=== PATIENT | female | born 1945 | race Caucasian/White ===

== ENCOUNTER → 2023-08-05 10:25 | Outpatient (REF) | payer OTHER, SELFPAY ==
[2023-08-05 11:12] LABS: % Basophils 0.5 % (0-2); % Eosinophils 2.8 % (0-6); % Immature Granulocytes 0.2 % (0-0.5); % Lymphocytes 28.2 % (20.5-51.1); % Monocytes 10.8 % (1.7-9.3); % Neutrophils 57.5 % (42.2-75.2); Absolute Eosinophils 0.2 10^3/uL (0-0.7); Absolute Lymphocytes 1.8 10^3/uL (1.2-3.4); Absolute Monocytes 0.7 10^3/uL (0.1-0.6); Absolute Neutrophils 3.8 10^3/uL (1.4-6.5); Hematocrit 39.4 % (37.0-47.0); Hemoglobin 13.3 g/dL (12.0-16.0); Mean Corp Hgb Conc. 33.8 g/dL (33.0-37.0); Mean Corpuscular Hgb 37.6 pg (27.0-31.0); Mean Corpuscular Volume 111.3 fL (81.0-99.0); Mean Platelet Volume 11.1 fL (7.4-10.4); Nucleated Red Blood Cells % 0 %; Platelet Count 130 10^3/uL (130-400); Red Blood Cell Count 3.54 10^6/uL (4.20-5.40); Red Cell Dist. Width 13.3 % (11.5-14.5); White Blood Cell Count 6.5 10^3/uL (4.8-10.8)
[2023-08-05 11:36] LABS: ALT (SGPT) 21 U/L (0-35); AST (SGOT) 29 U/L (14-36); Alkaline Phosphatase 69 U/L (38-126); Blood Urea Nitrogen 36 mg/dl (7-17); Calcium 9.2 mg/dl (8.4-10.2); Carbon Dioxide 33 mmol/L (22-30); Chloride 97 mmol/L (98-107); Glucose 89 mg/dl (70-99); Sodium 136 mmol/L (135-145); Total Bilirubin 0.9 mg/dl (0.2-1.3); Total Protein 5.6 g/dl (6.3-8.2); eGFR > 60.00
[2023-08-05 12:53] LABS: Urine Protein 628 mg/dl (0-12)
[2023-08-05 12:54] LABS: 24 Hour Urine Total Volume 1200 ml
== END ==
LOC: REG 10:25
PROVIDERS: ATTENDING PHYSICIAN Nurse Practitioner Adult Health; FAMILY PHYSICIAN Internal Medicine; OTHER PHYSICIAN Specialist; REFERRING PHYSICIAN Internal Medicine Hematology & Oncology
DX: D47.2 Monoclonal gammopathy (principal); D46.9 Myelodysplastic syndrome, unspecified; C54.1 Malignant neoplasm of endometrium; Z12.31 Encounter for screening mammogram for malignant neoplasm of breast
CPT/HCPCS: 36415; 80053; 81050; 84156; 85025

== ENCOUNTER → 2023-09-07 14:36 | Outpatient (REF) | payer OTHER, SELFPAY ==
[2023-09-07 15:31] LABS: % Basophils 0.2 % (0-2); % Eosinophils 0.1 % (0-6); % Immature Granulocytes 0.8 % (0-0.5); % Lymphocytes 3.4 % (20.5-51.1); % Monocytes 4.9 % (1.7-9.3); % Neutrophils 90.6 % (42.2-75.2); Absolute Immature Granulocytes 0.1 10^3/uL (0-0.05); Absolute Lymphocytes 0.5 10^3/uL (1.2-3.4); Absolute Monocytes 0.7 10^3/uL (0.1-0.6); Absolute Neutrophils 13.8 10^3/uL (1.4-6.5); Hematocrit 43.3 % (37.0-47.0); Hemoglobin 15.3 g/dL (12.0-16.0); Mean Corp Hgb Conc. 35.3 g/dL (33.0-37.0); Mean Corpuscular Volume 104.6 fL (81.0-99.0); Mean Platelet Volume 10.7 fL (7.4-10.4); Nucleated Red Blood Cells % 0 %; Platelet Count 128 10^3/uL (130-400); Red Blood Cell Count 4.14 10^6/uL (4.20-5.40); Red Cell Dist. Width 13.2 % (11.5-14.5); White Blood Cell Count 15.2 10^3/uL (4.8-10.8)
[2023-09-07 15:37] LABS: NT-proBNP 3310 pg/ml
[2023-09-07 15:38] LABS: Protein/creatinine Ratio 7.1; Urine Protein 472 mg/dl
[2023-09-07 15:42] LABS: ALT (SGPT) 91 U/L (0-35); AST (SGOT) 61 U/L (14-36); Albumin 3.2 g/dl (3.5-5.0); Alkaline Phosphatase 67 U/L (38-126); Blood Urea Nitrogen 51 mg/dl (7-17); Calcium 8.4 mg/dl (8.4-10.2); Carbon Dioxide 26 mmol/L (22-30); Chloride 97 mmol/L (98-107); Glucose 229 mg/dl (70-99); Magnesium 2.2 mg/dl (1.6-2.3); Potassium 4.6 mmol/L (3.5-5.1); Sodium 127 mmol/L (135-145); Total Bilirubin 1.3 mg/dl (0.2-1.3); Total Protein 5.6 g/dl (6.3-8.2); eGFR 57.66
[2023-09-07 16:14] LABS: Hepatitis B Surface Antigen Negative (Negative)
[2023-09-07 16:32] LABS: Hepatitis B Core Ab, Total Negative (Negative); Hepatitis B Surface Antibody Negative; Hepatitis C Antibody Negative (Negative)
[2023-09-08 23:28] LABS: Complement C3 98 mg/dl (88-165)
[2023-09-09 22:16] LABS: ANA, IgG Reflex to HEp-2 None Detected (None Detected)
[2023-09-10 01:30] LABS: Phospholipase A2 Receptor, IgG <1:10 (<1:10)
[2023-09-10 17:22] LABS: Myeloperoxidase Antibody 1 AU/mL (0-19); Serine Protease-3, IgG 0 AU/mL (0-19)
== END ==
LOC: REG 14:36
PROVIDERS: ATTENDING PHYSICIAN Specialist; FAMILY PHYSICIAN Internal Medicine; REFERRING PHYSICIAN Internal Medicine Hematology & Oncology
DX: N04.9 Nephrotic syndrome with unspecified morphologic changes (principal); R60.0 Localized edema; I10 Essential (primary) hypertension; R80.9 Proteinuria, unspecified
CPT/HCPCS: 36415; 80053; 82570; 83516; 83735; 83880; 84156; 85025; 86038; 86160; 86255; 86704; 86706; 86803; 87340

== ENCOUNTER 2023-09-24 15:02 | Inpatient (IN) | payer OTHER, SELFPAY ==
[2023-09-24] VITALS (12 sets, daily range): BP systolic 94–143; BP diastolic 56–103; BMI 50.1; BMI 45.9
--- NOTE | 2023-09-24 10:08 | ED.GENMED ---
History of Present Illness
General
Chief Complaint: Swelling
Source: patient
Exam Limitations: none
Time Seen by Provider: 09/24/23 09:06
Nursing documentation reviewed up to this point in time: agreed with
Travel History
Have you had any contact with someone who has COVID-19?: No
Do you have any symptoms of coronavirus? Fever > 100 degrees, chills, cough, shortness of breath, sore throat, loss of taste or smell, muscle aches, or headache?: No
History of Present Illness
History of Present Illness:
78-year-old female presents with fatigue lower extremity swelling oozing from her feet weakness hypothermia history of uterine cancer with what sounds like some renal involvement was on steroids, told to wean off she did it quicker than instructed
has not been on it for few days no fevers but does feel chilled, no vomiting
Past History
Past History
ED Past Medical History: Arrthythmia, Cancer and HTN
ED Past Surgical History: Appendectomy and Gynecological
Social History
Tobacco: Non-smoker
Personal:
Employment: Retired
Phy Exam
Physical Exam
Physical Exam:
Physical Exam
General: Hypothermic ill-appearing female hypotensive
Neck: No jaundice
Heart: Rapid and irregular
Lungs: no acute respiratory distress.
Abdomen:non tender
Neuro: alert and oriented. no focal neurological deficits
Skin: no rash
Psychiatric: well kept. interactive and cooperative
Extremities: no edema. no calf tenderness. negative homans. good distal pulses
Scores
Heart Failure Risk
Heart Failure Risk Score: Not Applicable
Course
Orders/Labs/Results
Orders:
Orders
09/24/23 09:53
Cardiac Monitoring- Treatment ONCE
0.9% Sodium Chloride 1000 ml [Nss] 1,400 ml IV NOW STA
09/24/23 09:54
Electrocardiogram (*1) Urgent
Reason for Study: Other
Other Reason for Exam: sepsis
EKG- Treatment ONCE
CR Chest Portable - 1 View Urgent
Comment:
Reason For Exam: sepsis low bp
Reason Study Needs to be Portable: Patient Unstable
09/24/23 09:55
Piperacillin/Tazo 3.375 Gram [Zosyn] 3.375 gram in 50 ml IV NOW
09/24/23 10:05
Vancomycin [Vancocin] 2,000 mg 0.9% Sodium Chloride 500 ml [Nss] 500 ml IV NOW
09/24/23 10:45
Cortisol, Random Urgent
NT-proBNP Urgent
Comment: ADD ON
Procalcitonin Urgent
PCT Algorithmm Indication: Sepsis
Troponin I Urgent
09/24/23 10:46
Complete Blood Count/With Diff Urgent
Comprehensive Metabolic Panel Urgent
Lactic Acid Q4H
Comment: CANCEL 2nd LACTIC ACID IF 1st LACTIC ACID IS LESS THAN 2
PTT Urgent
Prothrombin Time Urgent
09/24/23 10:57
Urinalysis Reflex To Culture Urgent
Date Specimen was Collected: 09/24/23
Time Specimen was Collected: 10:36
Urine Microscopic Reflex Cult Urgent
Blood Culture Q30M
KAT Source: Blood/Venous
Specimen Description:
Blood Culture Q30M
KAT Source: Blood/Venous
Specimen Description:
Urine Culture Urgent
KAT Source: U
Specimen Description:
Date Specimen was Collected: 09/24/23
Time Specimen was Collected: 10:36
09/24/23 12:05
Add On- LAB Urgent
Tests Added?: pBNP, CMP
09/24/23 12:41
Piperacillin/Tazo 3.375 Gram [Zosyn] 3.375 gram in 50 ml .ROUTE .STK-MED
09/24/23 12:59
Hydrocortisone Sod Succinate [Solu-Cortef] 100 mg IV NOW STA
Abnormal Lab Results
09/24/23 09/24/23 09/24/23
10:45 10:46 10:57
RBC 3.58 L 10^6/uL
(4.20-5.40)
MCV 105.0 H fL
(81.0-99.0)
MCH 37.2 H pg
(27.0-31.0)
Abs Immat Gran (auto) 0.1 H 10^3/uL
(0-0.05)
Absolute Lymphs (auto) 1.1 L 10^3/uL
(1.2-3.4)
Absolute Monos (auto) 0.7 H 10^3/uL
(0.1-0.6)
Immature Gran % 0.7 H %
(0-0.5)
Neutrophils % 76.5 H %
(42.2-75.2)
Lymphocytes % 14.1 L %
(20.5-51.1)
PT 15.9 H Sec
(11.4-14.6)
Sodium 133 L mmol/L
(135-145)
BUN 81 H mg/dl
(7-17)
Creatinine 1.1 H mg/dL
(0.6-1.0)
Glucose 245 H mg/dl
(70-99)
ALT 98 H U/L
(0-35)
Troponin I 3.400 H* ng/ml
Total Protein 5.0 L g/dl
(6.3-8.2)
Albumin 2.6 L g/dl
(3.5-5.0)
Ur Occult Blood Reflex 2+ A
(Negative)
Leukocyte Esterase Rfl 2+ A
(Negative)
Urine RBC 3-6 A /HPF
(0-2)
Urine WBC (Reflex) 30-40 A /HPF
(0-5)
Urine Bacteria (Reflex) Many A
(Negative)
Urine Glucose 2+ A
(Negative)
Urine Albumin (Reflex) 2+ A
(Neg - Trace)
09/24/23 10:46
09/24/23 10:46
Vital Signs
Initial and Last Documented VS:
Initial Vital Signs
Pulse Resp BP Pulse Ox
87 22 143/92 98
09/24/23 07:38 09/24/23 07:38 09/24/23 07:38 09/24/23 07:38
Last Documented Vital Signs
Temp Pulse Resp BP Pulse Ox
98.0 F 117 11 121/102 98
09/24/23 09:23 09/24/23 12:30 09/24/23 12:30 09/24/23 12:00 09/24/23 07:38
MDM/Problems Addressed
Differential Diagnosis Includes:
Sepsis hypothyroid adrenal insufficiency combination
MDM/Problems Addressed:
Fatigue leg swelling leg redness low blood pressure hypothermic
Chronic conditions affecting care: Cancer
Acute Exacerbation and/or Progression of Chronic Illness: Cancer
*Radiology
Radiology exam reviewed: preliminary read by ED provider
*Pulse Oximetry
Patient hypoxic: no
*EKG
Interpreted by ED Provider?: Yes
Interpretation: abnormal
Comparison EKG: changes noted
Heart Rate: 104
Rate: tachycardiac
Rhythm: a-fib
Ischemia: non-specific ST changes
*Regulatory Administrator Interpretation
Rate: tachycardiac
Interpretation: abnormal
Heart Rate: 104
Rhythm: a-fib
*Critical Care Note
Total Time (30-74mins, 75-104mins- exclusive of procedures): 30
Update Note
Update Note:
1 PM labs noted chest x-ray noted blood pressure improving with volume procalcitonin noted has received antibiotics doubt PE he is on Eliquis will give stress dose steroids will require admission
ED Attending Note
-
Portions of this chart may have been created with voice recognition software.� Occasional wrong word or��sound alike� substitutions may have occurred due to the inherent limitations of voice recognition software.
Discharge Plan
Departure
Patient Disposition: Admit
Date of Disposition: 09/24/23
Time of Disposition: 13:06
Admit to: Telemetry
Presentation/result/management discussed w/ accepting MD/DO: Hospitalist
Patient with high blood pressure during this ER visit?: No
Condition: Fair
Covid-19: Not Applicable
Discharge Problem:
Cellulitis, Elevated troponin, Concern for adrenal insufficiency
Prescriptions:
No Action
allopurinol 100 MG tablet
100 mg PO QPM
atenolol-chlorthalidone 50-25 mg Tablet
1 tab PO DAILY
bismuth subsalicylate [Pepto-Bismol] 262 mg/15 mL Suspension
524 mg PO ONCE PRN (Reason: stomach discomfort)
Patient Comments:
09/24/2023, pt. used twice in one day a couple days ago as needed.
candesartan 8 mg Tablet
8 mg PO DAILY
Eliquis 2.5 mg Tablet
2.5 mg PO BID
Referrals:
Theresa Fernandes MD [Family Provider] -
Interventions
Interventions:
*Risk Screen - Suicide Last Done: 09/24/23 07:38
*General Assessment Last Done: 09/24/23 07:38
*Neglect/Abuse Screening Last Done: 09/24/23 07:38
ED- Cardiac Assessment Last Done: 09/24/23 08:35
ED- Pulmonary Assessment Last Done: 09/24/23 08:35
ED-Skin Assessment Last Done: 09/24/23 08:39
[2023-09-24] MEDS: VANCOCIN 540 MG IV (11:08)
[2023-09-24] MEDS: NSS 1400 ML IV (11:09)
[2023-09-24 11:22] LABS: % Basophils 0.2 % (0-2); % Eosinophils 0.1 % (0-6); % Immature Granulocytes 0.7 % (0-0.5); % Lymphocytes 14.1 % (20.5-51.1); % Monocytes 8.4 % (1.7-9.3); % Neutrophils 76.5 % (42.2-75.2); Absolute Immature Granulocytes 0.1 10^3/uL (0-0.05); Absolute Lymphocytes 1.1 10^3/uL (1.2-3.4); Absolute Monocytes 0.7 10^3/uL (0.1-0.6); Absolute Neutrophils 6.2 10^3/uL (1.4-6.5); Hematocrit 37.6 % (37.0-47.0); Hemoglobin 13.3 g/dL (12.0-16.0); Mean Corp Hgb Conc. 35.4 g/dL (33.0-37.0); Mean Corpuscular Hgb 37.2 pg (27.0-31.0); Nucleated Red Blood Cells % 0 %; Red Blood Cell Count 3.58 10^6/uL (4.20-5.40); Red Cell Dist. Width 13.4 % (11.5-14.5); White Blood Cell Count 8.1 10^3/uL (4.8-10.8)
[2023-09-24 11:26] LABS: Lactic Acid 1.6 mmol/L (0.7-2.0)
[2023-09-24 11:44] LABS: Procalcitonin 0.08 ng/ml (0.0-0.25)
[2023-09-24 11:57] LABS: Urine Albumin 2+ (Neg - Trace); Urine Bilirubin Negative (Negative); Urine Character Clear (Clear); Urine Color Yellow; Urine Glucose 2+ (Negative); Urine Ketone Negative (Negative); Urine Leukocyte 2+ (Negative); Urine Nitrite Negative (Negative); Urine Occult Blood 2+ (Negative); Urine Urobilinogen Negative (Neg - 1+)
[2023-09-24 12:28] LABS: APTT 25.4 Sec (23.4-35.0); PT 15.9 Sec (11.4-14.6)
[2023-09-24 12:29] LABS: INR 1.29
[2023-09-24 12:55] LABS: ALT (SGPT) 98 U/L (0-35); AST (SGOT) 35 U/L (14-36); Albumin 2.6 g/dl (3.5-5.0); Alkaline Phosphatase 66 U/L (38-126); Blood Urea Nitrogen 81 mg/dl (7-17); Calcium 9.1 mg/dl (8.4-10.2); Carbon Dioxide 30 mmol/L (22-30); Chloride 99 mmol/L (98-107); Estimated Creatinine Clearance 51 ml/min; Glucose 245 mg/dl (70-99); Potassium 4.2 mmol/L (3.5-5.1); Sodium 133 mmol/L (135-145); eGFR 51.43
[2023-09-24 12:57] LABS: NT-proBNP 4160 pg/ml
[2023-09-24 12:58] LABS: Urine Mucus Few
[2023-09-24 13:03] LABS: Cortisol, Random 24.8 ug/dl
[2023-09-24 13:04] LABS: Urine Amorphous Seen; Urine Squamous Cell 26-30 /LPF (Few)
[2023-09-24 13:05] LABS: Urine Bacteria Many (Negative); Urine White Cell 30-40 /HPF (0-5)
[2023-09-24] MEDS: SOLU-CORTEF 100 MG IV (13:25)
[2023-09-24] MEDS: ZOSYN 50 IV (13:27)
--- NOTE | 2023-09-24 14:05 | HPS.HSE ---
Addendum entered and electronically signed by Ralf Ross MD 09/24/23 16:15:
I saw and examined the patient.
The MOLD YARD SUPERVISOR or PA's note was reviewed and I agree with the note.
Comment: 78-year-old female complaining of Fatigue, weakness to legs x 2 days, erythema to left foot x 1 day. Patient admitted for cellulitis. Patient has stopped her IV chemotherapy due to proteinuria, worked up by renal and started on
prednisone. Patient had stopped prednisone taper on her own due to facial and hand spasms. Also has complained of worsening swelling in the lower extremities, most likely secondary to proteinuria, nephrotic syndrome. Patient had outpatient workup
to be completed, yet not done for nephrotic syndrome. Patient stopped prednisone 1 week ago. Further started having chest pains, pressure over the last 2 weeks, especially during exertion. Tachycardic (atrial fibrillation), tachypneic on
evaluation. Sodium 133, creatinine 1.1 (1 approximately 2 weeks ago), troponin 3.4. X-ray with no acute pulmonary process. Last echo with EF 60%, severe biatrial dilation. Mild pulm hypertension.
Plan�already on Eliquis, provide aspirin, trend troponins, cardiology consult. Hold on Lasix as lower extremity edema most likely secondary to nephrotic syndrome. Can hold diuretics at this point due to labile blood pressures. Can continue
beta-damon. Start cefazolin for cellulitis.
Original Note:
Family Physician
-
Family Physician: Theresa Fernandes
Chief Complaint
-
Fatigue, weakness to legs x 2 days, erythema to feet x 1 day
History of Present Illness
78-year-old female complaining of Fatigue, weakness to legs x 2 days, erythema to feet x 1 day. The patient reports she stopped IV chemo for uterine cancer in April due to proteinuria. She reports August 23 she was placed on prednisone 40 mg
twice daily and a PPI. Around 2 6 she reports having chest pain with dyspepsia and black stools. She reported this to her oncologist who changed the PPI to Pepcid 20 mg daily. She was also taking Bactrim Wednesday and Wednesday for
prophylactic infection prevention. She reports chronic swelling to her thighs and legs, although increased over the past week along with weakness in her lower extremities increased edema and erythema to her feet since last night at 8 PM after
abruptly stopping 60 mg of prednisone along with Pepcid and Bactrim 1 week ago. She reports she abruptly stopped meds due to spasms in her hands and face. 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 According to records she did
see nephrology once but did not complete outpatient blood work. She was advised mid August to taper down off of prednisone 40 mg a.m. 20 mg p.m. but not to stop. She has bilateral dry hands and right inner thighs which she has been scratching
and has dried scabbed abrasions 2. She reports chills last night but did not take a temperature, denies headache, dizziness, current chest pain, shortness of breath, dyspnea on exertion, abdominal pain, nausea, vomiting, diarrhea, black stools,
blood in urine.
She is past medical history of paroxysmal A-fib, HTN, obesity, uterine cancer Dx 2018 status post hysterectomy, chemo 2019�April 2023 secondary proteinuria, gout.
Medical History
Past Medical History
Past Medical History: Reports Other
Additional Past Medical History:
Uterine cancer diagnosed 2018 status post hysterectomy, chemo from 2019 until April 2023
Proteinuria April 2023 to present per patient
HTN
Paroxysmal A-fib
Obesity
Past Surgical History: Reports Other
Additional Past Surgical History:
Hysterectomy secondary to uterine cancer 2018
appendectomy
tonsillectomy
Right upper chest wall end of 2019
Social History
Tobacco: Non-smoker
Alcohol: None
Drug: None
Employment: Retired
Family History
Family History: Other (Sister uterine cancer in remission, father multiple CVAs, mother unsure history of arthritis)
Allergies / Home Medications
Allergies reflects when Allergies were last updated in [employer]
Home Medications with original date entered in [employer]
Allergy/Medication List:
Allergies
Allergy/AdvReac Type Severity Reaction Status Date / Time
prednisone Allergy Unknown Verified 09/24/23 07:37
Home Medications
allopurinol 100 mg tablet 100 mg PO QPM 07/30/21
apixaban 2.5 mg tablet (Eliquis) 2.5 mg PO BID 09/24/23
atenolol 50 mg-chlorthalidone 25 mg tablet 1 tab PO DAILY 09/24/23
bismuth subsalicylate 262 mg/15 mL oral suspension (Pepto-Bismol) 524 mg PO ONCE PRN stomach discomfort 09/24/23
candesartan 8 mg tablet 8 mg PO DAILY 09/24/23
Review of Systems
-
History Source: Patient
A 12 point ROS was completed and negative except as noted: Yes
Constitutional: Reports Chills and Other (Poor historian with recall of dates); Denies Fever
EENT: Denies Sore Throat or Runny Nose
Respiratory: Denies Cough or Trouble Breathing
Cardiac: Denies Chest Pain, Diaphoresis, Palpitations or Syncope
Abdomen/GI: Denies Abdominal Pain, Nausea, Vomiting, Diarrhea, Constipated, Bloody Stools or Black Stools
: Denies Dysuria, Frequency, Flank Pain, Incontinence, Difficulty Voiding or Urgency
Musculoskeletal: Reports Edema (Thighs to lower feet with erythema to bilateral lower feet); Denies Joint Pain
Skin: Reports Itching (Bilateral hands, inner thighs with scabbed scratch areas)
Neurological: Reports Weakness (To legs with standing x 2 days); Denies Dizzy or Headache
Endocrine: Reports No Symptoms
Hematologic/Lymphatic: Reports No Symptoms
Psych: Reports Calm
Physical Exam
Vital Signs
Vital Signs
Temp Pulse Resp BP Pulse Ox
98.0 F 109 19 100/87 98
09/24/23 09:23 09/24/23 13:30 09/24/23 13:30 09/24/23 13:00 09/24/23 07:38
Physical Exam
General: Comfortable, Conversant and Chills; No Fever
HEENT: NormoCephalic, Anicteric, Moist mucous membranes and PERRLA
Respiratory: Clear and Other (Port right upper chest wall); No Wheezes, Rales or Rhonchi
Cardiac: S1/S2, Irregular Rhythm (A-fib) and Peripheral Edema (Bilateral legs from thighs to feet +2 pitting to feet with erythema from toes to ankles); No Murmur, Rub, Gallop or JVD
GI: Soft, Non Tender, Non Distended, Normal Bowel Sounds and No Hepatosplenomegaly
Genito-urinary: Deferred by me
Musculoskeletal: No Clubbing, No Cyanosis, Edema, Left Lower Extremity (Bilateral legs from thighs to feet +2 pitting to feet with erythema from toes to ankles) and Edema, Right Lower Extremity (Bilateral legs from thighs to feet +2 pitting to feet
with erythema from toes to ankles); No Edema, Left Upper Extremity or Edema, Right Upper Extremity
Skin: Rash (Bilateral hands, inner thighs with scabbed scratch areas)
Neuro: AO x 3 (Although very poor historian, poor memory recall) and No Sensory Deficits; No Slurred Speech, Facial Droop, Tremors or Sedated
Psych: Calm
Laboratory Results
-
09/24/23 10:46
09/24/23 10:46
Laboratory Results
PT 15.9 Sec (11.4-14.6) H 09/24/23 10:46
INR 1.29 09/24/23 10:46
APTT 25.4 Sec (23.4-35.0) 09/24/23 10:46
Lactic Acid Cancelled 09/24/23 14:00
Total Bilirubin 1.0 mg/dl (0.2-1.3) 09/24/23 10:46
AST 35 U/L (14-36) 09/24/23 10:46
ALT 98 U/L (0-35) H 09/24/23 10:46
Alkaline Phosphatase 66 U/L (38-126) 09/24/23 10:46
Troponin I 3.400 ng/ml H* 09/24/23 10:45
Impression/Plan
-
Impression/plan:
Admit to telemetry
#NSTEMI
Troponin 3.4 will trend
-2D echo
-Consult CBC card
EKG: Accelerated junctional rhythm heart rate 106 bpm, QTc 390 MS T wave inversion lateral leads, ST depression lateral leads
#Acute hyperglycemia likely secondary to recent steroids
BS 245, check HgbA1c
-Accu-Cheks with SSI moderate
#History proteinuria concern nephrotic syndrome
#Mild RHONDA
Creat 1.1 baseline 0.02 August 2023
Was on prednisone 40 mg twice daily started August 23 abruptly stopped prednisone 60 mg 1 week ago 09/17
-Abruptly stopped Bactrim Wednesday also on 09/17
-Random cortisol normal 24.8
-Had outpatient follow-up with Dr. Polk
- RESUME Prednsione 40 mg am 20 mg hs
-ADD PPI
#Left foot cellulitis with underling PVD/acute on Chornic Peripheral edema? nephrotic syndrome
- venous doppler bilat ? concern eliquis compliance
-Iv ancef
#Hypotension/HTN�benign
-100/76
-Hold candesartan 8 mg daily, atenolol/chlorthalidone patient took this a.m. 09/24/2023
#Hx uterine cancer
#Hysterectomy 2019
#Port right upper chest wall
#Chemotherapy from 2019 to April 2023 stopped due to proteinuria per patient
COnsult ONC
#Paroxysmal A-fib
-Continue Eliquis 2.5 mg twice daily
-COnt Atenolol HOLD SBP>90
-HOLD chlorthalidone 1 tab p.o. daily due to hypotension
2D echo 11/27/2021: EF 60-65%, normal LVS LVSF, no wall abnormality, severe left atrial enlargement, moderate right atrial enlargement, mod�severe TR, severe pulm HTN PASP 71 mmHg
#Moderate�severe TR
#Pulmonary HTN
#Gout
Continue allopurinol 100 mg daily
#Morbid obesity due to excess calorie consumption�BMI 50.1 kg
-Weight loss recommended, low-fat diet
DVT prophylaxis
Continue TICKET DISPENSER CHANGER Eliquis 2.5 mg twice daily
Full code
[2023-09-24 16:24] LABS: D-Dimer < 0.27 ug/mlFEU (0.00-0.50)
--- NOTE | 2023-09-24 17:13 | CON.CAR ---
Addendum entered and electronically signed by Connor Ng MD 09/24/23 19:23:
I saw and examined the patient.
The HPLC CHEMIST's note was reviewed and I agree with the note.
Comment: 78-year-old female (known to her former musical instrument supervisor, Dr. Tang, will be following with Dr. Ng), with permanent atrial fibrillation, hypertension, metastatic endometrial carcinoma, nephrotic proteinuria, chronic lymphedema, and
obesity who presented to the emergency department with a chief complaint of lower extremity redness.� She also likely has had an NSTEMI with symptoms of typical angina in August. Finally, she tells me the prednisone was terrible for her and led
to weight gain and LE swelling.
- Heparin gtt, aspirin, statin, hold AC for pAF HR is currently controlled
- given significant proteinuria and concern for nephrotic syndrome, recommend UA with nephro consult
TTE:
CONCLUSIONS
�Normal left ventricular size and systolic function. LV ejection fraction is 70-
�75% by visual assessment.
�Mild concentric left ventricular hypertrophy.
�Mild mitral regurgitation.
�Moderate tricuspid regurgitation. Estimated pulmonary artery pressure of 40-45
�mmHg
�No significant change since the prior study of Jan 2023.
Original Note:
Consultation
Consultation Request
Date/Time Consultation Requested: 09/24/23 15:00
Date/Time Consultation Performed: 09/24/23 17:00
Requesting Provider: SHANTHI Bell
Performing Provider: SHANTHI Bocanegra for Dr. Ng
Reason for Consultation: NSTEMI
Medical History
-
Chief Complaint: Lower extremity edema
History of Present Illness:
Sangeeta Evans is a 78-year-old female (known to her former musical instrument supervisor, Dr. Tang, will be following with Dr. Ng), with permanent atrial fibrillation, hypertension, metastatic endometrial carcinoma, nephrotic proteinuria, chronic
lymphedema, and obesity who presented to the emergency department with a chief complaint of lower extremity redness. She endorses associated edema, fatigue, and weakness. Cardiology was consulted as she was found to have an abnormal troponin.
Initial troponin 3.400, follow-up troponin 2.980. She is not having any chest pain or anginal symptoms currently. She reports having exertional chest burning with dyspnea on exertion in early August. She attributed it to her Bactrim and
prednisone which was started by nephrology for her nephrotic proteinuria.
Past Medical History
Past Medical History: Arrhythmias (Permanent atrial fibrillation), Cancer (Uterine), CHF and Other (Proteinuria)
Past Surgical History: Gynecological
Social History
Tobacco: Non-Smoker
Alcohol: None
Drug: None
Living: With Family (Sister)
Employment: Retired
Family History
Family History: Reviewed & Not Pertinent
Allergies / Home Medications
Allergy/AdvReac Type Severity Reaction Status Date / Time
prednisone Allergy Unknown Verified 09/24/23 07:37
Medication Instructions Recorded Confirmed Type
allopurinol 100 mg tablet 100 mg PO QPM Gout 07/30/21 09/24/23 History
apixaban 2.5 mg tablet (Eliquis) 2.5 mg PO BID Blood Clot 09/24/23 09/24/23 History
Prevention/Tx
atenolol 50 mg-chlorthalidone 25 1 tab PO DAILY Blood Pressure 09/24/23 09/24/23 History
mg tablet
bismuth subsalicylate 262 mg/15 mL 524 mg PO DAILYPRN PRN stomach 09/24/23 09/24/23 History
oral suspension (Pepto-Bismol) discomfort
candesartan 8 mg tablet 8 mg PO DAILY Blood Pressure 09/24/23 09/24/23 History
Review of Systems
-
History Source: Patient
All other systems: Negative unless noted
Constitutional: Fatigue
Cardiac: No Symptoms
Musculoskeletal: Edema
Physical Exam
Vital Signs
Temp Pulse Resp BP Pulse Ox
98.0 F 120 18 124/56 98
09/24/23 09:23 09/24/23 16:15 09/24/23 16:15 09/24/23 15:00 09/24/23 07:38
Lab Results
09/24/23 10:46
09/24/23 10:46
Troponin I 2.980 ng/ml H* 09/24/23 14:57
Awi-X-Aazrkxfmufj Pept 4160 pg/ml 09/24/23 10:45
Physical Exam
General: Well Developed, Well Nourished, No Apparent Distress and Comfortable
HEENT: Normocephalic, Anicteric and Moist Mucous Membranes
Respiratory: Non Labored Respirations
Cardiac: S1/S2, Irregular Rhythm and Peripheral Edema (+3 pitting LE edema)
Breast: Deferred by me
GI: Soft, Non Tender, Non Distended and Normal Bowel Sounds
Rectal: Deferred by Provider
Genito-urinary: No Costovertebral Tender
Musculoskeletal: No Clubbing and No Cyanosis
Skin: Warm, Dry and Other (B/L LE redness)
Neuro: AO x 3
Hematologic/Lymphatic: No Lymphadenopathy
Psych: Calm
Impression / Plan
-
NSTEMI
-ASA 325mg given, start 81mg daily
-Hold apixaban and start heparin gtt
-Trend troponin
-TTE
-She reports having exertional chest burning and PACK in early August which has now resolved
-Ischemic evaluation during this hospitalization
Permanent atrial fibrillation
-Rates stable on atenolol
-Oral Anticoagulation: Apixaban 2.5 mg twice daily, appropriate dosing for her age weight and renal function would be 5 mg twice daily
-[id number]: Score at least 4 (Heart failure, age 75 or more, female gender)
Severe lower extremity edema, furosemide 40 mg IV x 1 now, reevaluate in a.m.
Proteinuria, saw Dr. Polk outpatient, self discontinued prednisone & Bactrim
Mild mitral regurgitation
Moderate tricuspid regurgitation
Metastatic endometrial carcinoma, managed by Dr. Goldstein
Severe morbid obesity, BMI 50, affects all aspects of care
Data Reviewed
-
EKG: Report Reviewed by me (Atrial fibrillation with PVCs, lateral ST abnormality, TWI lateral leads, rate 106)
Radiology: Report Reviewed by me (CXR: No acute pulmonary process.)
Medical Tests (Nuc Med, Echo etc): Report Reviewed by me (Echocardiogram as above)
Labs: Labs Reviewed by me
Old Records: Reviewed
[2023-09-24] MEDS: HEPARIN 4000 UNITS IV (18:04)
[2023-09-24] MEDS: LASIX 40 MG IV (18:04)
[2023-09-24] MEDS: ZYLOPRIM 100 MG PO (18:05)
[2023-09-24] MEDS: ASPIRIN 325 MG PO (18:06)
[2023-09-24] MEDS: ANCEF 5 IV (18:09)
[2023-09-24 18:11] LABS: Glucose - Point of Care 167 mg/dl (70-99)
[2023-09-24] MEDS: HEPARIN 25000 UNITS/250 ML IV (18:16)
--- NOTE | 2023-09-24 18:40 | PTCARENOTE ---
1830 Explain to pt, started IV Heparin drip via right SQ port as per MD order. When I explained to pt has prednisone 20 mg po ordered pm dose,
Pt refused med and mention had face swelling could not move hands and feet were Black in color,caused by prednisone and was taken off medication.
1840 DR. Ross notified pt refused med, report given to night warehouse selector nurse.
[2023-09-24] MEDS: NOVOLOG FLEXPEN-LOW RESISTANCE 1 UNITS SC (19:09)
--- NOTE | 2023-09-24 20:03 | VATNOTE ---
unsuccessful start for 2nd line for heparin x3. PCN informed. Heparin will continue infusing via port and phlebotomy to draw labs.
[2023-09-24 21:19] LABS: Glucose - Point of Care 286 mg/dl (70-99)
[2023-09-24] MEDS: DESENEX/MITRAZOL/ZEASORB 1 APPLIC TOPICAL (21:30)
[2023-09-25] VITALS (8 sets, daily range): BP systolic 84–138; BP diastolic 48–83; BMI 45.3
[2023-09-25 01:44] LABS: APTT 190.9 Sec (23.4-35.0)
[2023-09-25] MEDS: ANCEF 5 IV ×3 (01:54→17:08)
--- NOTE | 2023-09-25 07:36 | CON.ONC ---
Impression
Impression
CAD s/p NSTEMI
L foot cellulitis
Uterine cancer diagnosed 2019 status post hysterectomy, Carbo/taxane x 6 08/16 - 02/13 followed by maintenance Avastin through April 2023, D/C'd for nephrotic range proteinuria
- metastases: spleen, doug hepatis and r/p nodes, omentum, lung
- last scan: 07/29/23 stable b/l pulmonary nodules and splenic masses, otherwise ANDRES
HTN
Paroxysmal A-fib
Obesity
Nephrotic range proteinuria
IgM kappa MGUS
Plan
Plan
Nephrotic range proteinuria, likely due to Avastin, however pt has hx IgM MGUS and I do not see a UPEP done on 24-hr urine nor recent myeloma panel.
24-hr urine for UPEP and myeloma panel now. She has been on steroids and results may not be a good indication of underlying process unless positive for Bence-Miner protein.
Her endometrial cancer has been indolent in behavior as per Dr. Goldstein's office notes. Last scan 07/29/23 with stable pulmonary nodules and splenic lesions.
No current symptoms related to her cancer and no signs or symptoms of disease progression.
Last Avastin 05/18/23.
Thank you for consult, will follow along with you.
Patient History
History of Present Illness
78-year-old female complaining of fatigue, weakness to legs x 2 days, erythema to feet x 1 day.� The patient reports she stopped IV chemo for uterine cancer in April due to proteinuria.� She reports August 23 she was placed on prednisone 40 mg
twice daily and a PPI.� Around 2/6 she had chest pain with dyspepsia and black stools.� She reports chronic swelling to her thighs and legs, although increased over the past week along with weakness in her lower extremities increased edema and
erythema to her feet. She had shaking with prednisone and stopped abruptly due to muscle spasms in her hands and face.� According to records she did see Nephrology once but did not complete outpatient blood work.� She was advised mid August to
taper down off of prednisone 40 mg a.m. 20 mg p.m. but not to stop.��She presented to the emergency department with a chief complaint of lower extremity redness.� She also likely has had an NSTEMI with symptoms of typical angina in August.
Past-Medical/Surgical History
PMHx:
Uterine cancer diagnosed 2019 status post hysterectomy, Carbo/taxane x 6 08/16 - 02/13 followed by maintenance Avastin through April 2023, D/C'd for nephrotic range proteinuria
- metastases: spleen, doug hepatis and r/p nodes, omentum, lung
- last scan: 07/29/23 stable b/l pulmonary nodules and splenic masses
- MSI stable
HTN
Paroxysmal A-fib
Obesity
Nephrotic range proteinuria
IgM kappa MGUS
PSHx:
SARAH/BSO/omentectomy 07/10/21 for endometrial cancer
Appendectomy
Tonsillectomy
Right upper chest wall port
Social History
Tobacco: Non-smoker
Alcohol: None
Drug: None
Employment: Retired
Family History
Sister uterine cancer in remission
Patient Medication
Medication Instructions Recorded Confirmed Last Taken Type
allopurinol 100 mg tablet 100 mg PO QPM Gout 07/30/21 09/24/23 09/23/23 History
apixaban 2.5 mg tablet (Eliquis) 2.5 mg PO BID Blood Clot 09/24/23 09/24/23 09/24/23 History
Prevention/Tx
atenolol 50 mg-chlorthalidone 25 1 tab PO DAILY Blood Pressure 09/24/23 09/24/23 09/24/23 History
mg tablet
bismuth subsalicylate 262 mg/15 mL 524 mg PO DAILYPRN PRN stomach 09/24/23 09/24/23 2 Days Ago History
oral suspension (Pepto-Bismol) discomfort ~09/22/23
candesartan 8 mg tablet 8 mg PO DAILY Blood Pressure 09/24/23 09/24/23 09/24/23 History
Active Medications
Generic Name Dose Route Start Last Admin
Trade Name Freq PRN Reason Stop Dose Admin
Acetaminophen 650 mg 09/24/23 17:39
Acetaminophen 325 Mg Tablet PO 10/22/23 17:38
Q4HPRN PRN
mild pain/MCDONOUGH/temp> 100.4F
Allopurinol 100 mg 09/24/23 18:00 09/24/23 18:05
Allopurinol 100 Mg Tablet PO 10/22/23 17:59 100 mg
QPM TOMMY Administration
Aspirin 81 mg 09/25/23 08:00
Aspirin 81 Mg (Enteric Coated) Tablet PO 10/23/23 07:59
DAILY TOMMY
Atenolol 50 mg 09/25/23 08:00
Atenolol 50 Mg Tablet PO 10/23/23 07:59
DAILY TOMMY
Dextrose 12.5 grams 09/24/23 17:39
Dextrose 50% (0.5 Grams/Ml) 50 Ml Syringe IV 10/22/23 17:38
[id number] PRN
hypoglycemia
Protocol
Glucagon 1 mg 09/24/23 17:39
Glucagon 1 Mg Vial IM 10/22/23 17:38
PRN PRN
hypoglycemia
Protocol
Heparin Sodium 25,000 units in 250 mls @ 0 mls/hr 09/24/23 16:30 09/24/23 18:16
Heparin 31595 Units/250 Ml IV 250 mls
PER PROTOCOL TOMMY Administration
Protocol
Per Protocol
Cefazolin Sodium 1 gram in 5 mls @ 60 mls/hr 09/24/23 18:00 09/25/23 01:54
Ancef IV 5 mls
Q8H TOMMY Administration
Insulin Aspart 0 units 09/24/23 17:39 09/24/23 19:09
Insulin Aspart Low Resistance 300 Units/3 Ml Pen.Injctr SC 10/22/23 17:38 1 units
AC TOMMY Administration
Protocol
Miconazole Nitrate 0 applic 09/24/23 21:00 09/24/23 21:30
Miconazole Powder Bottle TOPICAL 10/22/23 20:59 1 applic
BID TOMMY Administration
Pantoprazole Sodium 40 mg 09/25/23 08:00
Pantoprazole 40 Mg Delayed Release Tablet PO 10/23/23 07:59
DAILY TOMMY
Prednisone 40 mg 09/25/23 08:00
Prednisone 20 Mg Tablet PO 10/23/23 07:59
DAILY TOMMY
Prednisone 20 mg 09/24/23 18:00 09/24/23 18:52
Prednisone 20 Mg Tablet PO 10/22/23 17:59 Not Given
QPM TOMMY
Sodium Chloride 0 flush 09/24/23 17:00
Sodium Chloride 0.9% (Flush) Syringe IV 10/22/23 16:59
PER PROTOCOL TOMMY
Review of Systems
-
History Source: Patient
All Other Systems: Reviewed and Negative
Physical Exam
-
Awake, alert, non-toxic
No adenopathy
Lungs clear
Heart rate and rhythm regular
Abd soft and non-tender
Legs 2+ b/l lower extremity edema
Labs
Lab Results
WBC 8.1 10^3/uL (4.8-10.8) 09/24/23 10:46
RBC 3.58 10^6/uL (4.20-5.40) L 09/24/23 10:46
Hgb 13.3 g/dL (12.0-16.0) 09/24/23 10:46
Hct 37.6 % (37.0-47.0) 09/24/23 10:46
MCV 105.0 fL (81.0-99.0) H 09/24/23 10:46
MCH 37.2 pg (27.0-31.0) H 09/24/23 10:46
MCHC 35.4 g/dL (33.0-37.0) 09/24/23 10:46
RDW 13.4 % (11.5-14.5) 09/24/23 10:46
Plt Count 10^3/uL (130-400) 09/24/23 10:46
MPV Not Reportable 09/24/23 10:46
Abs Immat Gran (auto) 0.1 10^3/uL (0-0.05) H 09/24/23 10:46
Absolute Neuts (auto) 6.2 10^3/uL (1.4-6.5) 09/24/23 10:46
Absolute Lymphs (auto) 1.1 10^3/uL (1.2-3.4) L 09/24/23 10:46
Absolute Monos (auto) 0.7 10^3/uL (0.1-0.6) H 09/24/23 10:46
Absolute Eos (auto) 0.0 10^3/uL (0-0.7) 09/24/23 10:46
Absolute Basos (auto) 0.0 10^3/uL (0-0.2) 09/24/23 10:46
Immature Gran % 0.7 % (0-0.5) H 09/24/23 10:46
Neutrophils % 76.5 % (42.2-75.2) H 09/24/23 10:46
Lymphocytes % 14.1 % (20.5-51.1) L 09/24/23 10:46
Monocytes % 8.4 % (1.7-9.3) 09/24/23 10:46
Eosinophils % 0.1 % (0-6) 09/24/23 10:46
Basophils % 0.2 % (0-2) 09/24/23 10:46
Creatinine 1.1 mg/dL (0.6-1.0) H 09/24/23 10:46
09/24/23 CBC - platelets clumped, unable to give accurate count
Troponin 2.59
09/24/23 B/L LE Dopplers - no DVT
09/24/23 CXR - NAD
Vital Signs
Vital Signs
Temp Pulse Resp BP Pulse Ox
97.7 F 93 18 105/63 100
09/25/23 03:30 09/25/23 03:30 09/25/23 03:30 09/25/23 03:30 09/25/23 03:30
[2023-09-25 07:48] LABS: Glucose - Point of Care 182 mg/dl (70-99)
[2023-09-25 08:16] LABS: % Eosinophils 0.2 % (0-6); % Lymphocytes 20.5 % (20.5-51.1); % Neutrophils 70.3 % (42.2-75.2); Absolute Immature Granulocytes 0.1 10^3/uL (0-0.05); Absolute Lymphocytes 1.2 10^3/uL (1.2-3.4); Absolute Monocytes 0.5 10^3/uL (0.1-0.6); Absolute Neutrophils 4.2 10^3/uL (1.4-6.5); Hematocrit 34.5 % (37.0-47.0); Hemoglobin 12.6 g/dL (12.0-16.0); Mean Corp Hgb Conc. 36.5 g/dL (33.0-37.0); Mean Corpuscular Hgb 38.3 pg (27.0-31.0); Mean Corpuscular Volume 104.9 fL (81.0-99.0); Nucleated Red Blood Cells % 0 %; Red Blood Cell Count 3.29 10^6/uL (4.20-5.40); Red Cell Dist. Width 13.5 % (11.5-14.5)
[2023-09-25 08:29] LABS: APTT 121.3 Sec (23.4-35.0)
[2023-09-25] MEDS: TENORMIN 50 MG PO (08:53)
[2023-09-25] MEDS: NOVOLOG FLEXPEN-LOW RESISTANCE 1 UNITS SC ×2 (08:53→12:30)
[2023-09-25] MEDS: PROTONIX PO ×2 (08:54→10:43)
[2023-09-25] MEDS: ASPIR LOW (ENTERIC COATED) 81 MG PO (08:54)
[2023-09-25] MEDS: DESENEX/MITRAZOL/ZEASORB 1 APPLIC TOPICAL ×2 (08:54→20:36)
[2023-09-25 09:04] LABS: Mean Platelet Volume 10.9 fL (7.4-10.4); Platelet Count 81 10^3/uL (130-400)
--- NOTE | 2023-09-25 09:41 | W.PN.CD ---
Addendum entered and electronically signed by Connor Ng MD 09/25/23 13:06:
I saw and examined the patient.
The [employer]END PLANT OPERATOR's note was reviewed and I agree with the note.
- Continue lasix IV
- K >4 Mag > 2
Original Note:
Today's Communication / Plan
-
Diuretic planning once BMP obtained
Impression / Plan
-
Background: 78-year-old female (known to her former liquor gallery operator, Dr. Tang, will be following with Dr. Ng), with permanent atrial fibrillation, hypertension, metastatic endometrial carcinoma, nephrotic proteinuria, chronic lymphedema, and
obesity who presented to the emergency department with a chief complaint of lower extremity redness.�
NSTEMI
-Chest pain free, prior typical angina which she believes is related to prednisone
-ASA 325mg given, start 81mg daily
-Hold apixaban and start heparin gtt, platelets 81, follow
-Peak troponin 3.400, trended down
-Preserved LVEF on TTE
-We discussed cardiac catheterization, she will only have this done with Dr. Razo
Permanent atrial fibrillation
-In RVR, she has not yet received her atenolol
-Oral Anticoagulation: Apixaban 2.5 mg twice daily, appropriate dosing for her age weight and renal function would be 5 mg twice daily
-[id number]: Score at least 4 (Heart failure, age 75 or more, female gender)
Severe lower extremity edema, furosemide 40 mg IV x 1 yesterday, BMP remains pending as of 09:45
Proteinuria, saw Dr. Polk outpatient, self discontinued prednisone & Bactrim outpatient
Mild mitral regurgitation
Moderate tricuspid regurgitation
Metastatic endometrial carcinoma, managed by Dr. Goldstein, metastasis to spleen, doug hepatis and RP nodes, omentum, & lung
Severe morbid obesity, BMI 50, affects all aspects of care
Subjective:
Reports improvement in LE edema.
Physical Exam
Vital Signs/Labs
Vital Signs
Temp Pulse Resp BP Pulse Ox
97.6 F 86 18 110/59 100
09/25/23 07:00 09/25/23 07:00 09/25/23 07:00 09/25/23 07:00 09/25/23 07:00
09/24/23 09/25/23 09/26/23
06:59 06:59 06:59
Actual Weight 115.893 kg
09/25/23 07:57
PT 15.9 Sec (11.4-14.6) H 09/24/23 10:46
INR 1.29 09/24/23 10:46
APTT 121.3 Sec (23.4-35.0) H 09/25/23 07:57
09/24/23
10:45
Uku-H-Gttsqeglfxi Pept 4160
LAB Results
09/24/23 09/24/23 09/24/23
10:45 14:57 21:11
Troponin I 3.400 H* 2.980 H* 2.590 H*
Physical Exam
Constitutional: No acute distress and Comfortable
EENT: Anicteric and Moist mucous membranes
Cardiovascular: Rhythm/rate is irregular, S1S2 is normal and Murmur/rub/gallop absent
Respiratory: Respiratory effort normal and Lungs clear to auscul.
GI: Soft, Distention absent, Flat, Non tender and Normal bowel sounds
Neuro/Psych: AO x 3
Other: Skin (warm and dry) and Other (scabs on B/L hands)
Data Reviewed
-
Date of Service: September 25, 2023
Echo: Report Reviewed by me
Labs: Labs Reviewed by me and Labs Ordered by me
--- NOTE | 2023-09-25 10:19 | CM ---
Addendum entered by Franny Hatch 09/25/23 15:43:
PT/OT recommending skilled rehab, options list provided will follow up in am.
Original Note:
Patient seen bedside.
IA completed.
Patient lives with her sister in a 2 stiry home with 2 steps to enter (has rail).
Patient recently unable to get up to second floor.
Patient has rollator, RW and cane.
patient drives and her sister will drive her home.
Patient has been sponge bathing in the downstairs powder room. No bedroom on the first floor.
patient has a lift chair on order.
Patient has had [facility] in the past.
PT/OT tavo (P).
PCP: Dr Fernandes
Pharmacy: [facility]
Plan: home with possible VN needs.
[2023-09-25 10:35] LABS: Blood Urea Nitrogen 80 mg/dl (7-17); Calcium 8.5 mg/dl (8.4-10.2); Carbon Dioxide 28 mmol/L (22-30); Chloride 101 mmol/L (98-107); Estimated Creatinine Clearance 52 ml/min; Glucose 197 mg/dl (70-99); HDL Cholesterol 66 mg/dl; LDL Cholesterol, Calculated 98 mg/dl; Potassium 3.6 mmol/L (3.5-5.1); Sodium 135 mmol/L (135-145); Total Cholesterol 186 mg/dl (50-199); Triglyceride 111 mg/dl (10-149); Very Low Density Lipoprotein 22 mg/dl (0-30); eGFR 51.43
--- NOTE | 2023-09-25 11:00 | PTCARENOTE ---
Pt refused prednisone and protonix. Dr. Ross verbally notified.
[2023-09-25 11:41] LABS: Glycohemoglobin (HgbA1c) 9.1 % (4.0-5.6)
--- NOTE | 2023-09-25 12:05 | W.CON.NEPH ---
Consultation
-
Date/Time Consultation Requested: 09/25/2023 11 AM
Date/Time Consultation Performed: 09/25/2023 12 PM
Requesting Provider: Dr. Ross
Performing Provider: Dr. Graves
Reason for Consultation: Nephrotic range proteinuria
Medical History
-
Chief Complaint: Nephrotic range proteinuria
History of Present Illness:
78-year-old female complaining of Fatigue, weakness to legs x 2 days, erythema to left foot x 1 day.� Patient admitted for cellulitis.� Patient has stopped her IV chemotherapy at the end of 2022 due to proteinuria. She was seen by Dr. Polk in
the outpatient office and had the initiation of blood work for evaluation. This was otherwise negative. She agreed to start high-dose prednisone. However, after 1 month she discontinued it because she felt it had caused many side effects. Further
started having chest pains, pressure over the last 2 weeks, especially during exertion.� Tachycardic (atrial fibrillation), tachypneic on evaluation.�troponin 3.4.� There is consideration for cardiac catheterization.
Past Medical History
Nephrotic range proteinuria
Endometrial cancer, metastatic
Hypertension
Paroxysmal atrial fibrillation
Morbid obesity
Appendectomy
Tonsillectomy
Right chest wall port
Hysterectomy
Social History
Tobacco: Non-Smoker
Alcohol: None
Family History
Sister uterine cancer
Father stroke
Allergies / Home Medications
Allergy/AdvReac Type Severity Reaction Status Date / Time
paroxetine [From Paxil] Allergy Unknown Verified 09/24/23 18:22
prednisone Allergy Unknown Verified 09/24/23 07:37
Medication Instructions Recorded Confirmed Type
allopurinol 100 mg tablet 100 mg PO QPM Gout 07/30/21 09/24/23 History
apixaban 2.5 mg tablet (Eliquis) 2.5 mg PO BID Blood Clot 09/24/23 09/24/23 History
Prevention/Tx
atenolol 50 mg-chlorthalidone 25 1 tab PO DAILY Blood Pressure 09/24/23 09/24/23 History
mg tablet
bismuth subsalicylate 262 mg/15 mL 524 mg PO DAILYPRN PRN stomach 09/24/23 09/24/23 History
oral suspension (Pepto-Bismol) discomfort
candesartan 8 mg tablet 8 mg PO DAILY Blood Pressure 09/24/23 09/24/23 History
Review of Systems
-
No current chest pain. Edema is slightly improving. No fevers chills or sweats. No diarrhea. No shortness of breath. The remainder of the complete review of systems was negative.
Physical Exam
Vital Signs
Vital Signs
Temp Pulse Resp BP Pulse Ox
97.6 F 86 18 110/59 100
09/25/23 07:00 09/25/23 07:00 09/25/23 07:00 09/25/23 07:00 09/25/23 07:00
Lab Results
WBC 6.0 10^3/uL (4.8-10.8) 09/25/23 07:57
RBC 3.29 10^6/uL (4.20-5.40) L 09/25/23 07:57
Hgb 12.6 g/dL (12.0-16.0) 09/25/23 07:57
Hct 34.5 % (37.0-47.0) L 09/25/23 07:57
Plt Count 81 10^3/uL (130-400) L 09/25/23 07:57
Sodium 135 mmol/L (135-145) 09/25/23 07:57
Potassium 3.6 mmol/L (3.5-5.1) 09/25/23 07:57
Chloride 101 mmol/L (98-107) 09/25/23 07:57
Carbon Dioxide 28 mmol/L (22-30) 09/25/23 07:57
BUN 80 mg/dl (7-17) H 09/25/23 07:57
Creatinine 1.1 mg/dL (0.6-1.0) H 09/25/23 07:57
eGFR 51.43 09/25/23 07:57
Glucose 197 mg/dl (70-99) H 09/25/23 07:57
Calcium 8.5 mg/dl (8.4-10.2) 09/25/23 07:57
Tov-Y-Jkkijcyccuo Pept 4160 pg/ml 09/24/23 10:45
Albumin 2.6 g/dl (3.5-5.0) L 09/24/23 10:46
Physical Exam
General: AOx3
HEENT: PERRL, EOMI, Ear/Nose Intact, Hearing Normal, Oropharynx Clear/Moist, Trachea Midline and No Thyromegaly
Respiratory: Clear and Normal Excursion
Cardiac: Regular Rate/Rhythm
Abdomen: Soft, Nontender, Nondistended, Normal Bowel Sounds and No Hepatosplenomegaly
Skin: No Rash and Normal Turgor
Psych: Mood/afflect pleasant and Insight/judgement good
Assessment/Plan
-
Assessment
Nephrotic range proteinuria
NSTEMI
Permanent atrial fibrillation
Severe lower extremity edema,
Mild mitral regurgitation
Moderate tricuspid regurgitation
Metastatic endometrial carcinoma, managed by Dr. Goldstein, metastasis to spleen, doug hepatis and RP nodes, omentum, & lung
Severe morbid obesity, BMI 50, affects all aspects of care
Plan
Continue diuresis with Lasix
Follow BMP
For cardiac catheterization evaluation. Would offer prophylactic IV fluids either bicarbonate or saline with catheterization
Outpatient serologic workup of her nephrotic range proteinuria was unremarkable. She will likely require biopsy for true diagnosis. However, use of anticoagulation and her obesity will make a renal biopsy high risk.
24-hour urine for Bence-Miner proteins ordered
Possibility still includes secondary membranous nephropathy, paraproteinemia, process, focal sclerosis.
Data Reviewed
-
Radiology: Image Personally Visualized and interpreted (Chest x-ray on 09/24/2023 by my reading shows no active disease)
Ultrasound: Report Reviewed by me (Lower extremity Dopplers on 09/24/2023 shows no DVT)
Medical Tests (Nuc Med, Echo etc): Image Personally Visualized and interpreted (EKG on 09/25/2023 by my reading shows atrial fibrillation rapid ventricular rate lateral ST-T wave abnormalities PVCs)
Labs: Labs Reviewed by me
Old Records: Reviewed
[2023-09-25 12:12] LABS: Glucose - Point of Care 173 mg/dl (70-99)
[2023-09-25] MEDS: LASIX 40 MG IV ×2 (12:32→16:12)
--- NOTE | 2023-09-25 14:26 | W.PN.HOSP.TC ---
Today's Communication/Plan
-
hep ggt
lasix
bence sheikh protein analysis
cath per cards
Assessment / Plan
Assessment / Plan
Physical Exam
General: Comfortable, Conversant and Chills; No Fever
HEENT: NormoCephalic, Anicteric, Moist mucous membranes and PERRLA
Respiratory: Clear and Other (Port right upper chest wall); No Wheezes, Rales or Rhonchi
Cardiac: S1/S2, Irregular Rhythm (A-fib) and Peripheral Edema (Bilateral legs from thighs to feet +2 pitting to feet with erythema from toes to ankles); No Murmur, Rub, Gallop or JVD
GI: Soft, Non Tender, Non Distended, Normal Bowel Sounds and No Hepatosplenomegaly
Genito-urinary: Deferred by me
Musculoskeletal: No Clubbing, No Cyanosis, Edema, Left Lower Extremity (Bilateral legs from thighs to feet +2 pitting to feet with erythema from toes to ankles) and Edema, Right Lower Extremity (Bilateral legs from thighs to feet +2 pitting to feet
with erythema from toes to ankles); No Edema, Left Upper Extremity or Edema, Right Upper Extremity
Skin: Rash (Bilateral hands, inner thighs with scabbed scratch areas)
Neuro: AO x 3 (Although very poor historian, poor memory recall) and No Sensory Deficits; No Slurred Speech, Facial Droop, Tremors or Sedated
Psych: Calm
#NSTEMI
-asa
-Hep ggt
-hold eliquis
-[facility] - only wants with Dr. Razo
#Acute hyperglycemia likely secondary to recent steroids
BS 245,
-Accu-Cheks with SSI moderate
#History proteinuria concern nephrotic syndrome
#Mild RHONDA
Creat 1.1 baseline 0.02 August 2023
Was on prednisone 40 mg twice daily started August 23 abruptly stopped prednisone 60 mg 1 week ago 09/17
-Abruptly stopped Bactrim Wednesday also on 09/17
--renal consulted
-refusing steroids
-cont diuresis
-24-hour urine for Bence-Sheikh proteins ordered
#LE edema
-most likely attributed to nephrotic syndrome
-cont lasix
#Thrombocytopenia
-monitor on hep ggt
#Left foot cellulitis with underling PVD
-f/u vascular outpatient
-Iv ancef
#Hypotension/HTN�benign
-100/76
-Hold candesartan 8 mg daily, atenolol/chlorthalidone patient took this a.m. 09/24/2023
#Hx uterine cancer
#Hysterectomy 2018
#Port right upper chest wall
#Chemotherapy from 2019 to April 2023 stopped due to proteinuria per patient
COnsult ONC
#Paroxysmal A-fib
-Continue Eliquis 2.5 mg twice daily
-COnt� Atenolol HOLD SBP>90
-HOLD chlorthalidone 1 tab p.o. daily due to hypotension
2D echo 11/27/2021:�EF 60-65%, normal LVS LVSF, no wall abnormality, severe left atrial enlargement, moderate right atrial enlargement, mod�severe TR, severe pulm HTN PASP 71 mmHg
#Moderate�severe TR
#Pulmonary HTN
#Gout
Continue allopurinol 100 mg daily
#Morbid obesity due to excess calorie consumption�BMI 50.1 kg
-Weight loss recommended, low-fat diet
DVT prophylaxis- hep ggt
Full code
Total time spent on today's encounter was 50 minutes which included time spent in counseling the patient/family regarding diagnosis and treatment plan as listed above, goals of care, and symptom management. Case was discussed with nursing staff,
specialists, and care coordinators/case management. All labs and imaging personally reviewed by me. Remainder the time spent in detailed review of previous records, lab data, imaging, and other medical provider documentation.
Anticipated Discharge: > 48 hours
Subjective/Interval History
-
Date of Service: September 25, 2023
Patient refusing prednisone
Objective Data
-
Labs:
Laboratory Results
09/25/23 09/25/23 09/25/23
07:57 12:00 14:00
WBC 6.0
Hgb 12.6
Hct 34.5 L
Plt Count 81 L
APTT 121.3 H Cancelled Pending
Sodium 135
Potassium 3.6
Chloride 101
Carbon Dioxide 28
BUN 80 H
Creatinine 1.1 H
Glucose 197 H
Calcium 8.5
Vital Signs:
Vital Signs
Temp Pulse Resp BP Pulse Ox
97.7 F 91 18 136/83 98
09/25/23 11:00 09/25/23 11:00 09/25/23 11:00 09/25/23 11:00 09/25/23 11:00
I&O
09/24/23 09/25/23 09/26/23
06:59 06:59 06:59
Intake Total 240 / 240
Output Total 900 / 900
Balance -660 / -660
Review of Systems
-
History Source: Patient
All other systems: Not reviewed unless documented
Data Reviewed
-
Diagnostic Radiology: Image personally visualized and interpreted and Report Reviewed by me
Labs: Labs Reviewed by me
[2023-09-25 15:03] LABS: APTT 85.2 Sec (23.4-35.0)
[2023-09-25] MEDS: KCL ELIXIR 40 MEQ PO (16:12)
[2023-09-25 16:54] LABS: Glucose - Point of Care 145 mg/dl (70-99)
[2023-09-25] MEDS: ZYLOPRIM 100 MG PO (17:08)
[2023-09-25] MEDS: NOVOLOG FLEXPEN-LOW RESISTANCE SC (17:08)
[2023-09-25 21:15] LABS: APTT 76.6 Sec (23.4-35.0)
[2023-09-25 21:38] LABS: Glucose - Point of Care 170 mg/dl (70-99)
[2023-09-25] MEDS: ProAmatine 5 MG PO (21:52)
[2023-09-25 23:14] LABS: Urine Protein 133 mg/dl
[2023-09-26] VITALS (7 sets, daily range): BP systolic 91–140; BP diastolic 58–90; BMI 45.7
[2023-09-26] MEDS: HEPARIN 25000 UNITS/250 ML IV (01:38)
[2023-09-26] MEDS: ANCEF 5 IV ×3 (01:39→18:15)
[2023-09-26 07:31] LABS: Glucose - Point of Care 141 mg/dl (70-99)
[2023-09-26] MEDS: NOVOLOG FLEXPEN-LOW RESISTANCE SC (08:00)
[2023-09-26] MEDS: DESENEX/MITRAZOL/ZEASORB 1 APPLIC TOPICAL ×2 (08:00→20:16)
[2023-09-26] MEDS: TENORMIN 50 MG PO (08:00)
[2023-09-26] MEDS: ASPIR LOW (ENTERIC COATED) 81 MG PO (08:00)
[2023-09-26] MEDS: PROTONIX PO (08:00)
[2023-09-26] MEDS: LASIX IV (09:00)
[2023-09-26 09:09] LABS: % Basophils 0.2 % (0-2); % Eosinophils 0.3 % (0-6); % Immature Granulocytes 1.4 % (0-0.5); % Lymphocytes 39.9 % (20.5-51.1); % Monocytes 8.7 % (1.7-9.3); % Neutrophils 49.5 % (42.2-75.2); Absolute Immature Granulocytes 0.1 10^3/uL (0-0.05); Absolute Lymphocytes 2.6 10^3/uL (1.2-3.4); Absolute Monocytes 0.6 10^3/uL (0.1-0.6); Absolute Neutrophils 3.2 10^3/uL (1.4-6.5); Hematocrit 31.6 % (37.0-47.0); Hemoglobin 11.1 g/dL (12.0-16.0); Mean Corp Hgb Conc. 35.1 g/dL (33.0-37.0); Mean Corpuscular Hgb 36.6 pg (27.0-31.0); Mean Corpuscular Volume 104.3 fL (81.0-99.0); Mean Platelet Volume 11.1 fL (7.4-10.4); Nucleated Red Blood Cells % 0.3 %; Platelet Count 95 10^3/uL (130-400); Red Blood Cell Count 3.03 10^6/uL (4.20-5.40); Red Cell Dist. Width 13.5 % (11.5-14.5); White Blood Cell Count 6.4 10^3/uL (4.8-10.8)
[2023-09-26 09:15] LABS: APTT 66.1 Sec (23.4-35.0)
[2023-09-26 09:43] LABS: Blood Urea Nitrogen 92 mg/dl (7-17); Calcium 8.4 mg/dl (8.4-10.2); Carbon Dioxide 26 mmol/L (22-30); Chloride 100 mmol/L (98-107); Estimated Creatinine Clearance 48 ml/min; Glucose 151 mg/dl (70-99); Magnesium 2.2 mg/dl (1.6-2.3); Potassium 3.7 mmol/L (3.5-5.1); Sodium 133 mmol/L (135-145); eGFR 46.33
[2023-09-26 10:49] LABS: Urine Protein 16 mg/dl (0-12)
--- NOTE | 2023-09-26 11:23 | CM ---
Spoke with patient bedside.
Per patient she is having a procedure on Wednesday, [facility].
Patient not sure she wants skilled rehab or will require it.
CM explained no need to make a decision now, will follow up after her procedure to see what PT/OT recommend.
If she needs skilled rehab patient requested [facility] as her first choice, if no skilled rehab needed, then home with [facility].
Plan: skilled vs VN
[2023-09-26] MEDS: NOVOLOG FLEXPEN-LOW RESISTANCE 1 UNITS SC ×2 (11:30→16:37)
[2023-09-26 11:44] LABS: Glucose - Point of Care 153 mg/dl (70-99)
--- NOTE | 2023-09-26 12:03 | W.PN.CD ---
Today's Communication / Plan
-
IV lasix pending cath on Wednesday
Impression / Plan
-
Background: 78-year-old female (known to her former food safety manager, Dr. Tang, will be following with Dr. Ng), with permanent atrial fibrillation, hypertension, metastatic endometrial carcinoma, nephrotic proteinuria, chronic lymphedema, and
obesity who presented to the emergency department with a chief complaint of lower extremity redness.�
NSTEMI
-Chest pain free, prior typical angina which she believes is related to prednisone
-ASA 325mg given, start 81mg daily
-Hold apixaban and start heparin gtt, platelets 81, follow
-Peak troponin 3.400, trended down
-Preserved LVEF on TTE
-We discussed cardiac catheterization, she will only have this done with Dr. Razo
Permanent atrial fibrillation
-In RVR, will see trend with atenolol
-Oral Anticoagulation: Apixaban 2.5 mg twice daily, appropriate dosing for her age weight and renal function would be 5 mg twice daily
-[id number]: Score at least 4 (Heart failure, age 75 or more, female gender)
Severe lower extremity edema
- cont lasix 40 bid
Proteinuria, saw Dr. Polk outpatient, self discontinued prednisone & Bactrim outpatient
Mild mitral regurgitation
Moderate tricuspid regurgitation
Metastatic endometrial carcinoma, managed by Dr. Goldstein, metastasis to spleen, duog hepatis and RP nodes, omentum, & lung
Severe morbid obesity, BMI 50, affects all aspects of care
Subjective:
Reports improvement in LE edema.
Physical Exam
Vital Signs/Labs
Vital Signs
Temp Pulse Resp BP Pulse Ox
98.1 F 117 16 99/76 96
09/26/23 07:20 09/26/23 08:00 09/26/23 07:20 09/26/23 08:00 09/26/23 10:59
09/25/23 09/26/23 09/27/23
06:59 06:59 06:59
Actual Weight 255 lb 8 oz 258 lb 3.2 oz
09/26/23 08:26
09/26/23 08:26
PT 15.9 Sec (11.4-14.6) H 09/24/23 10:46
INR 1.29 09/24/23 10:46
APTT 66.1 Sec (23.4-35.0) H 09/26/23 08:26
Magnesium 2.2 mg/dl (1.6-2.3) 09/26/23 08:26
Triglycerides 111 mg/dl (10-149) 09/25/23 07:57
LDL Cholesterol, Calc 98 mg/dl 09/25/23 07:57
VLDL Cholesterol, Calc 22 mg/dl (0-30) 09/25/23 07:57
HDL Cholesterol 66 mg/dl 09/25/23 07:57
09/24/23
10:45
Gbg-S-Shbmfvcmdtj Pept 4160
LAB Results
09/24/23 09/24/23 09/24/23
10:45 14:57 21:11
Troponin I 3.400 H* 2.980 H* 2.590 H*
Physical Exam
Constitutional: No acute distress
EENT: Anicteric
Cardiovascular: Rhythm/rate is irregular and Pedal edema present
Respiratory: Respiratory effort normal and Lungs clear to auscul.
GI: Soft
Other: Skin (multiple ecchymosis on extremities in various stages of healing, multiple areas of eschar)
Data Reviewed
-
Date of Service: September 26, 2023
EKG: Tracing Personally Visualized and interpreted
Labs: Labs Reviewed by me
[2023-09-26 12:12] LABS: 24 Hour Urine Total Volume 650 ml
--- NOTE | 2023-09-26 12:44 | W.PN.NEPH.PH ---
Today's Communication / Plan
-
hold lasix
Assessment/Plan
-
Assessment
Nephrotic range proteinuria
NSTEMI
Permanent atrial fibrillation
Severe lower extremity edema,
Mild mitral regurgitation
Moderate tricuspid regurgitation
Metastatic endometrial carcinoma, managed by Dr. Goldstein, metastasis to spleen, doug hepatis and RP nodes, omentum, & lung
Severe morbid obesity, BMI 50, affects all aspects of care
Plan
hold Lasix at this time, especially in light of potential cardiac cath
Follow BMP
Would offer prophylactic IV fluids either bicarbonate or saline with catheterization
Outpatient serologic workup of her nephrotic range proteinuria was unremarkable. She will likely require biopsy for true diagnosis. However, use of anticoagulation and her obesity will make a renal biopsy high risk.
24-hour urine for Bence-Miner proteins pending
Possibilities still include secondary membranous nephropathy, paraproteinemia, process, focal sclerosis.
-
-
Date of Service: September 26, 2023
CC / HPI / ROS
-
Chief Complaint:
edema
History of Present Illness:
Cr up to 1.2
BP low this am
Troponin decreasing
Review of Systems:
no CP/SOB
Labs
-
Labs:
WBC 6.4 10^3/uL (4.8-10.8) 09/26/23 08:26
RBC 3.03 10^6/uL (4.20-5.40) L 09/26/23 08:26
Hgb 11.1 g/dL (12.0-16.0) L 09/26/23 08:26
Hct 31.6 % (37.0-47.0) L 09/26/23 08:26
Plt Count 95 10^3/uL (130-400) L 09/26/23 08:26
Sodium 133 mmol/L (135-145) L 09/26/23 08:26
Potassium 3.7 mmol/L (3.5-5.1) 09/26/23 08:26
Chloride 100 mmol/L (98-107) 09/26/23 08:26
Carbon Dioxide 26 mmol/L (22-30) 09/26/23 08:26
BUN 92 mg/dl (7-17) H 09/26/23 08:26
Creatinine 1.2 mg/dL (0.6-1.0) H 09/26/23 08:26
eGFR 46.33 09/26/23 08:26
Glucose 151 mg/dl (70-99) H 09/26/23 08:26
Calcium 8.4 mg/dl (8.4-10.2) 09/26/23 08:26
Cmj-C-Kjyuvorewav Pept 4160 pg/ml 09/24/23 10:45
Albumin 2.6 g/dl (3.5-5.0) L 09/24/23 10:46
Physical Exam
-
Vital Signs:
Vital Signs
Temp Pulse Resp BP Pulse Ox
98.1 F 117 16 99/76 96
09/26/23 07:20 09/26/23 08:00 09/26/23 07:20 09/26/23 08:00 09/26/23 10:59
Cardiovascular:: Regular rate and rhythm
Respiratory:: Bilateral: Coarse
Lung Excursion:: Normal
Abdomen:: Nontender and Soft
Bowel Sounds:: Normal
Extremity Edema:: +3: Bilateral:
--- NOTE | 2023-09-26 13:44 | W.PN.HOSP.TC ---
Today's Communication/Plan
-
hold lasix for tentative cath wednesday, may benefit from bicarbonate solution periprocedure
asa, statin, hep ggt
cefazolin
Assessment / Plan
Assessment / Plan
Physical Exam
General: Comfortable, Conversant and Chills; No Fever
HEENT: NormoCephalic, Anicteric, Moist mucous membranes and PERRLA
Respiratory: Clear and Other (Port right upper chest wall); No Wheezes, Rales or Rhonchi
Cardiac: S1/S2, Irregular Rhythm (A-fib) and Peripheral Edema (Bilateral legs from thighs to feet +2 pitting to feet with erythema from toes to ankles); No Murmur, Rub, Gallop or JVD
GI: Soft, Non Tender, Non Distended, Normal Bowel Sounds and No Hepatosplenomegaly
Genito-urinary: Deferred by me
Musculoskeletal: No Clubbing, No Cyanosis, Edema, Left Lower Extremity (Bilateral legs from thighs to feet +2 pitting to feet with erythema from toes to ankles) and Edema, Right Lower Extremity (Bilateral legs from thighs to feet +2 pitting to feet
with erythema from toes to ankles); No Edema, Left Upper Extremity or Edema, Right Upper Extremity
Skin: Rash (Bilateral hands, inner thighs with scabbed scratch areas)
Neuro: AO x 3 (Although very poor historian, poor memory recall) and No Sensory Deficits; No Slurred Speech, Facial Droop, Tremors or Sedated
Psych: Calm
#NSTEMI
-asa
-Hep ggt
-hold eliquis
-[facility] - only wants with Dr. Razo, possibly due to
-cards recs
#History proteinuria concern nephrotic syndrome
Was on prednisone 40 mg twice daily started August 23 abruptly stopped prednisone 60 mg 1 week ago 09/17 - refusing steroids here and understands risks/benefits
-Abruptly stopped Bactrim Wednesday also on 09/17
--renal consulted
-Hold diuresis, pending tentative cath; most likely benefits from bicarbonate solution for cath
-24-hour urine for Bence-Miner proteins ordered
#LE edema
-most likely attributed to nephrotic syndrome
-hold lasix tentative cath
#Thrombocytopenia
-monitor on hep ggt
#Left foot cellulitis with underling PVD
-f/u vascular outpatient
-Iv ancef
#Hyponatremia
-mild
-ctm with resusctiation
#Hypotension/HTN�benign
-100/76
-Hold candesartan 8 mg daily,chlorthalidone
-cont atenolol
#Hx uterine cancer
#Hysterectomy 2019
#Port right upper chest wall
#Chemotherapy from 2019 to April 2023 stopped due to proteinuria per patient
ONC on board
#Paroxysmal A-fib
-Continue Eliquis 2.5 mg twice daily
-COnt� Atenolol HOLD SBP>90
-HOLD chlorthalidone 1 tab p.o. daily due to hypotension
2D echo 11/27/2021:�EF 60-65%, normal LVS LVSF, no wall abnormality, severe left atrial enlargement, moderate right atrial enlargement, mod�severe TR, severe pulm HTN PASP 71 mmHg
#Moderate�severe TR
#Pulmonary HTN
#Gout
Continue allopurinol 100 mg daily
#Morbid obesity due to excess calorie consumption�BMI 50.1 kg
-Weight loss recommended, low-fat diet
#Hyperglycemia
-worsened with steroids
-ctm
DVT prophylaxis- hep ggt
Full code
Total time spent on today's encounter was 55 minutes which included time spent in counseling the patient/family regarding diagnosis and treatment plan as listed above, goals of care, and symptom management. Case was discussed with nursing staff,
specialists, and care coordinators/case management. All labs and imaging personally reviewed by me. Remainder the time spent in detailed review of previous records, lab data, imaging, and other medical provider documentation.
Anticipated Discharge: > 48 hours
Subjective/Interval History
-
Date of Service: September 26, 2023
No acute events
Objective Data
-
Labs:
Laboratory Results
09/26/23 09/26/23
08:26 17:00
WBC 6.4
Hgb 11.1 L
Hct 31.6 L
Plt Count 95 L
APTT 66.1 H Pending
Sodium 133 L
Potassium 3.7
Chloride 100
Carbon Dioxide 26
BUN 92 H
Creatinine 1.2 H
Glucose 151 H
Calcium 8.4
Vital Signs:
Vital Signs
Temp Pulse Resp BP Pulse Ox
98.6 F 97 20 93/58 99
09/26/23 11:44 09/26/23 11:44 09/26/23 11:44 09/26/23 11:44 09/26/23 11:44
I&O
09/25/23 09/26/23 09/27/23
06:59 06:59 06:59
Intake Total 240 / 240 1525 / 1525
Output Total 900 / 900 650 / 650
Balance -660 / -660 875 / 875
Review of Systems
-
History Source: Patient
All other systems: Not reviewed unless documented
Data Reviewed
-
Diagnostic Radiology: Image personally visualized and interpreted and Report Reviewed by me
Labs: Labs Reviewed by me
[2023-09-26] MEDS: CARMOL-10/UREA LOTION 1 APPLIC TOPICAL ×2 (16:00→20:14)
[2023-09-26 16:37] LABS: Glucose - Point of Care 153 mg/dl (70-99)
[2023-09-26 17:18] LABS: APTT 67.3 Sec (23.4-35.0)
[2023-09-26] MEDS: ZYLOPRIM 100 MG PO (18:00)
[2023-09-26 21:16] LABS: Glucose - Point of Care 194 mg/dl (70-99)
[2023-09-27] VITALS (8 sets, daily range): BP systolic 96–121; BP diastolic 61–74; PULSE 95–100; O2SAT 99–100; BMI 46.5
[2023-09-27] MEDS: ANCEF 5 IV ×3 (02:19→17:23)
[2023-09-27] MEDS: FLUSH (NSS) 1 FLUSH IV (02:20)
[2023-09-27 06:54] LABS: IgM 530 mg/dl (40-230)
[2023-09-27 07:01] LABS: IgA 51 mg/dl (70-400)
[2023-09-27] MEDS: HEPARIN 25000 UNITS/250 ML IV (07:31)
[2023-09-27 07:49] LABS: Glucose - Point of Care 137 mg/dl (70-99)
[2023-09-27] MEDS: NOVOLOG FLEXPEN-LOW RESISTANCE SC ×2 (08:08→16:30)
[2023-09-27 09:03] LABS: % Basophils 0.3 % (0-2); % Eosinophils 0.5 % (0-6); % Lymphocytes 35.8 % (20.5-51.1); % Monocytes 7.8 % (1.7-9.3); % Neutrophils 53.6 % (42.2-75.2); Absolute Immature Granulocytes 0.1 10^3/uL (0-0.05); Absolute Lymphocytes 2.3 10^3/uL (1.2-3.4); Absolute Monocytes 0.5 10^3/uL (0.1-0.6); Absolute Neutrophils 3.5 10^3/uL (1.4-6.5); Hematocrit 29.6 % (37.0-47.0); Hemoglobin 10.6 g/dL (12.0-16.0); Mean Corp Hgb Conc. 35.8 g/dL (33.0-37.0); Mean Corpuscular Hgb 37.6 pg (27.0-31.0); Mean Platelet Volume 10.4 fL (7.4-10.4); Nucleated Red Blood Cells % 1.2 %; Platelet Count 103 10^3/uL (130-400); Red Blood Cell Count 2.82 10^6/uL (4.20-5.40); Red Cell Dist. Width 13.5 % (11.5-14.5); White Blood Cell Count 6.5 10^3/uL (4.8-10.8)
[2023-09-27] MEDS: DESENEX/MITRAZOL/ZEASORB 1 APPLIC TOPICAL (09:10)
[2023-09-27] MEDS: ASPIR LOW (ENTERIC COATED) 81 MG PO (09:11)
[2023-09-27] MEDS: TENORMIN 50 MG PO (09:11)
[2023-09-27] MEDS: CARMOL-10/UREA LOTION 1 APPLIC TOPICAL ×2 (09:11→16:00)
[2023-09-27] MEDS: PROTONIX 40 MG PO (09:11)
[2023-09-27 09:13] LABS: APTT 74.3 Sec (23.4-35.0)
--- NOTE | 2023-09-27 09:14 | W.PN.CD ---
Today's Communication / Plan
-
weight is up today?
Increase lasix to 80 mg bid
Impression / Plan
-
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 Tang, will be following with Dr. gN), with permanent atrial fibrillation, hypertension, metastatic endometrial carcinoma, nephrotic proteinuria, chronic lymphedema, and
obesity who presented to the emergency department with a chief complaint of lower extremity redness.�
NSTEMI
-Chest pain free, prior typical angina which she believes is related to prednisone
-ASA 81mg daily
-Hold apixaban and start heparin gtt, platelets 81, follow
-Peak troponin 3.400, trended down
-Preserved LVEF on TTE
-We discussed cardiac catheterization, she will only have this done with Dr. Razo, NPO after midnight cath tomorrow
Permanent atrial fibrillation
-In RVR, switch atenolol to metoprolol 50
-Oral Anticoagulation: Apixaban 2.5 mg twice daily, appropriate dosing for her age weight and renal function would be 5 mg twice daily
-[id number]: Score at least 4 (Heart failure, age 75 or more, female gender)
Severe lower extremity edema
- increase lasix to 80 mg bid once BMP is back
Proteinuria, saw Dr. Polk outpatient, self discontinued prednisone & Bactrim outpatient
Mild mitral regurgitation
Moderate tricuspid regurgitation
Metastatic endometrial carcinoma, managed by Dr. Goldstein, metastasis to spleen, doug hepatis and RP nodes, omentum, & lung
Severe morbid obesity, BMI 50, affects all aspects of care
Subjective:
Reports improvement in LE edema.
Physical Exam
Vital Signs/Labs
Vital Signs
Temp Pulse Resp BP Pulse Ox
98.0 F 109 18 96/63 99
09/27/23 07:30 09/27/23 07:30 09/27/23 07:30 09/27/23 07:30 09/27/23 07:30
09/26/23 09/27/23 09/28/23
06:59 06:59 06:59
Actual Weight 258 lb 3.2 oz 262 lb 3.2 oz
PT 15.9 Sec (11.4-14.6) H 09/24/23 10:46
INR 1.29 09/24/23 10:46
APTT 81.0 Sec (23.4-35.0) H 09/26/23 23:43
Magnesium 2.2 mg/dl (1.6-2.3) 09/26/23 08:26
Triglycerides 111 mg/dl (10-149) 09/25/23 07:57
LDL Cholesterol, Calc 98 mg/dl 09/25/23 07:57
VLDL Cholesterol, Calc 22 mg/dl (0-30) 09/25/23 07:57
HDL Cholesterol 66 mg/dl 09/25/23 07:57
09/24/23
10:45
Rxs-A-Jlsixyjxsex Pept 4160
LAB Results
09/24/23 09/24/23 09/24/23
10:45 14:57 21:11
Troponin I 3.400 H* 2.980 H* 2.590 H*
Physical Exam
Constitutional: No acute distress
EENT: Anicteric
Cardiovascular: Rhythm/rate is irregular and Pedal edema present
Respiratory: Respiratory effort normal and Lungs clear to auscul.
GI: Soft
Neuro/Psych: AO x 3
Data Reviewed
-
Date of Service: September 27, 2023
EKG: Tracing Personally Visualized and interpreted
Labs: Labs Reviewed by me
[2023-09-27] MEDS: TOPROL XL 50 MG PO (09:22)
[2023-09-27 10:28] LABS: Blood Urea Nitrogen 86 mg/dl (7-17); Calcium 8.6 mg/dl (8.4-10.2); Carbon Dioxide 26 mmol/L (22-30); Chloride 101 mmol/L (98-107); Estimated Creatinine Clearance 53 ml/min; Glucose 166 mg/dl (70-99); Potassium 3.5 mmol/L (3.5-5.1); Sodium 134 mmol/L (135-145); eGFR 51.43
[2023-09-27] MEDS: NOVOLOG FLEXPEN-LOW RESISTANCE 1 UNITS SC (11:30)
[2023-09-27 11:57] LABS: Glucose - Point of Care 160 mg/dl (70-99)
--- NOTE | 2023-09-27 13:46 | W.PN.ONC ---
Today's Communication / Plan
-
CBC w/ diff daily
Await 24-hr urine for UPEP and myeloma panel for evaluation of Bence-Miner protein
No current symptoms related to her cancer and no signs or symptoms of disease progression.
Last scan 07/29/23 showed stable b/l pulm nodules and splenic masses
Continue physical therapy
Preparing for cardiac catheterization tomorrow
We will follow along.
Impression
Impression
CAD s/p NSTEMI
L foot cellulitis
Uterine cancer diagnosed 2019 status post hysterectomy, Carbo/taxane x 6 08/16 - 02/13 followed by maintenance Avastin through April 2023, D/C'd for nephrotic range proteinuria
- metastases: spleen, doug hepatis and r/p nodes, omentum, lung
- last scan: 07/29/23 stable b/l pulmonary nodules and splenic masses, otherwise ANDRES
HTN
Paroxysmal A-fib
Obesity
Nephrotic range proteinuria
IgM kappa MGUS
Subjective/Objective
Subjective/Objective
Patient is OOB and actively working with physical therapy.
Vital Signs:
Vital Signs
Temp Pulse Resp BP Pulse Ox
98.0 F 98 18 107/63 98
09/27/23 11:30 09/27/23 11:30 09/27/23 11:30 09/27/23 11:30 09/27/23 11:30
physical exam unchanged.
Lab Results:
Laboratory Data
WBC 6.5 10^3/uL (4.8-10.8) 09/27/23 08:37
Hgb 10.6 g/dL (12.0-16.0) L 09/27/23 08:37
Plt Count 103 10^3/uL (130-400) L 09/27/23 08:37
PT 15.9 Sec (11.4-14.6) H 09/24/23 10:46
INR 1.29 09/24/23 10:46
APTT 74.3 Sec (23.4-35.0) H 09/27/23 08:37
eGFR 51.43 09/27/23 08:37
07/29/23 CT c/a/p: There are multiple bilateral pulmonary nodules which are stable. There is no new or enlarged pulmonary nodule.There are multiple low attenuation splenic masses. The most inferior is now calcifying suggesting a treated metastatic
lesion. There is one positioned medially which appears new from June 16 but stable from most recent study.There is cholelithiasis.There is fatty infiltration of the liver. There are severe degenerative changes in the spine
09/24/23 PV US: No evidence of deep venous thrombosis bilaterally.
09/24/23 CXR: No acute pulmonary process.
--- NOTE | 2023-09-27 13:49 | W.PN.NEPH.PH ---
Today's Communication / Plan
-
- hold diuresis today
- cardiac cath tomorrow
Assessment/Plan
-
Assessment
Nephrotic range proteinuria
NSTEMI
Permanent atrial fibrillation
Severe lower extremity edema
Mild mitral regurgitation
Moderate tricuspid regurgitation
Metastatic endometrial carcinoma, managed by Dr. Goldstein, metastasis to spleen, doug hepatis and RP nodes, omentum, & lung
Severe morbid obesity, BMI 50, affects all aspects of care
Plan
Cr stable at 1.1, would hold off on diuresis or fluids today prior to cardiac cath
OK with more aggressive diuresis after cardiac cath and kidney function proves stability. she will likely need higher doses in the setting of hypoalbuminemia
Follow BMP
Outpatient serologic workup of her nephrotic range proteinuria was unremarkable. She will likely require biopsy for true diagnosis. However, use of anticoagulation and her obesity will make a renal biopsy high risk and patient is leaning towards
avoiding a biopsy in general.
24-hour urine for Bence-Miner proteins pending
Possibilities still include secondary membranous nephropathy, paraproteinemia, process, focal sclerosis, IGA
Discussed trialing steroids again but patient is not amenable at this time. could consider conservative therapy with ANURAG/ARB, SGLT2, etc. Patient would like to discuss more after her cardiac cath
-
-
Date of Service: September 27, 2023
CC / HPI / ROS
-
Chief Complaint:
edema
History of Present Illness:
Cr down to 1.1
BP low this am
Troponin decreasing
Review of Systems:
no CP/SOB
Labs
-
Labs:
WBC 6.5 10^3/uL (4.8-10.8) 09/27/23 08:37
RBC 2.82 10^6/uL (4.20-5.40) L 09/27/23 08:37
Hgb 10.6 g/dL (12.0-16.0) L 09/27/23 08:37
Hct 29.6 % (37.0-47.0) L 09/27/23 08:37
Plt Count 103 10^3/uL (130-400) L 09/27/23 08:37
Sodium 134 mmol/L (135-145) L 09/27/23 08:37
Potassium 3.5 mmol/L (3.5-5.1) 09/27/23 08:37
Chloride 101 mmol/L (98-107) 09/27/23 08:37
Carbon Dioxide 26 mmol/L (22-30) 09/27/23 08:37
BUN 86 mg/dl (7-17) H 09/27/23 08:37
Creatinine 1.1 mg/dL (0.6-1.0) H 09/27/23 08:37
eGFR 51.43 09/27/23 08:37
Glucose 166 mg/dl (70-99) H 09/27/23 08:37
Calcium 8.6 mg/dl (8.4-10.2) 09/27/23 08:37
Per-N-Cmpanptpajx Pept 4160 pg/ml 09/24/23 10:45
Albumin 2.6 g/dl (3.5-5.0) L 09/24/23 10:46
Physical Exam
-
Vital Signs:
Vital Signs
Temp Pulse Resp BP Pulse Ox
98.0 F 98 18 107/63 98
09/27/23 11:30 09/27/23 11:30 09/27/23 11:30 09/27/23 11:30 09/27/23 11:30
Cardiovascular:: Regular rate and rhythm
Respiratory:: Bilateral: Coarse
Abdomen:: Distended, Nontender and Soft
Bowel Sounds:: Normal
Extremity Edema:: +3: Bilateral:
Mtz Catheter: No
--- NOTE | 2023-09-27 15:09 | WOUNDNOTE ---
L HEEL/CALF (POSTERIOR)
--- NOTE | 2023-09-27 15:11 | WOUNDNOTE ---
[facility] RN note: Patient admitted with acute steroid withdraw concern.
See H&P for complete history.
PMH: metastatic cancer, chemo from 2019-04/2023, obesity, gout, uterine cancer, hysterectomy, appendectomy, chronic LE swelling, a fib (Eliquis), obesity.
Wound Location and type/assessment: Patient admitted with: Scattered scabbed purple areas on hands and feet. Bilateral posterior calf ecchymotic area suspect r/t fall from her chair prior to admission. L heel blanchable red. +2 LE edema (L>R).
+Pedal pulses easily heard via portable Doppler. 09/24/23 LE venous Doppler negative for DVT. Sully/groin MASD.
Appetite: on 1800 calorie diet.
Pressure redistribution devices in place: [employer] Accumax. Patient unable to turn self in bed. Nurse Yahir to coordinate switching bed to an air bed.
Plan: L hand dressing changed. Silicone border foam applied to open area L foot and R foot. Protective silicone foam applied to posterior calf ecchymotic area. Heels off bed with air chair cushion. Patient requesting knee high Jose Juan wraps.
Will confirm orders with hospitalist and discussed with nurse.
Updated care plan and will follow as needed. Suggested patient request VN if goes home and to follow up with continuous weld pipe mill supervisor if needed.
Note to case management requested for discharge: VN if goes home.
--- NOTE | 2023-09-27 15:38 | W.PN.HOSP.TC ---
Today's Communication/Plan
-
for cardiac cath tomorrow, pending results will need to decide on next aspect for renal fxn
Assessment / Plan
Assessment / Plan
#NSTEMI
-asa
-Hep ggt
-hold eliquis
-[facility] - only wants with Dr. Razo, possibly due to
-cards recs
#History proteinuria concern nephrotic syndrome
Was on prednisone 40 mg twice daily started August 23 abruptly stopped prednisone 60 mg 1 week ago 09/17 - refusing steroids here and understands risks/benefits
-Abruptly stopped Bactrim Wednesday also on 09/17
--renal consulted
-Hold diuresis, pending tentative cath; most likely benefits from bicarbonate solution for cath
-24-hour urine for Bence-Miner proteins ordered
Creat 1.1
#LE edema
-most likely attributed to nephrotic syndrome
-hold lasix tentative cath
#Thrombocytopenia
-monitor on hep ggt
#Left foot cellulitis with underling PVD
-f/u vascular outpatient
-Iv ancef
#Hyponatremia
-mild
-ctm with resuscitation
#Hypotension/HTN�benign
-100/76
-Hold candesartan 8 mg daily,chlorthalidone
-cont atenolol
#Hx uterine cancer
#Hysterectomy 2018
#Port right upper chest wall
#Chemotherapy from 2019 to April 2023 stopped due to proteinuria per patient
ONC on board
#Paroxysmal A-fib
-Continue Eliquis 2.5 mg twice daily
-COnt� Atenolol HOLD SBP>90
-HOLD chlorthalidone 1 tab p.o. daily due to hypotension
2D echo 11/27/2021:�EF 60-65%, normal LVS LVSF, no wall abnormality, severe left atrial enlargement, moderate right atrial enlargement, mod�severe TR, severe pulm HTN PASP 71 mmHg
#Moderate�severe TR
#Pulmonary HTN
#Gout
Continue allopurinol 100 mg daily
#Morbid obesity due to excess calorie consumption�BMI 50.1 kg
-Weight loss recommended, low-fat diet
#Hyperglycemia
-worsened with steroids
-ctm
DVT prophylaxis- hep ggt
Full code
Anticipated Discharge: > 48 hours
Subjective/Interval History
-
Date of Service: September 27, 2023
Awake, alert, conversant
Objective Data
-
Labs:
Laboratory Results
09/27/23
08:37
WBC 6.5
Hgb 10.6 L
Hct 29.6 L
Plt Count 103 L
APTT 74.3 H
Sodium 134 L
Potassium 3.5
Chloride 101
Carbon Dioxide 26
BUN 86 H
Creatinine 1.1 H
Glucose 166 H
Calcium 8.6
Vital Signs:
Vital Signs
Temp Pulse Resp BP Pulse Ox
97.9 F 67 18 100/61 98
09/27/23 15:00 09/27/23 15:00 09/27/23 15:00 09/27/23 15:00 09/27/23 15:00
I&O
09/26/23 09/27/23 09/28/23
06:59 06:59 06:59
Intake Total 1525 / 1525 1230 / 1230
Output Total 650 / 650 1250 / 1250
Balance 875 / 875 -20 / -20
Review of Systems
-
History Source: Patient and Coordinated Provider
Constitutional: Denies Fever
EENT: Reports No Symptoms Reported
Respiratory: Reports No Symptoms
Cardiac: Reports No Symptoms; Denies Chest Pain
Abdomen/GI: Reports No Symptoms; Denies Abdominal Pain
Physical Exam
-
General: Well Developed, Well Nourished, No Apparent Distress, Appears Chronically Ill and Morbidly Obese; Negative Fever
HEENT: Normocephalic, Atraumatic and Moist Mucous Membranes
Respiratory: Clear to Auscultation; Negative Wheezes, Rales or Rhonchi
Cardiac: S1/S2 and Irregular Rhythm
GI: Soft, Nontender and Nondistended
Genito-urinary: No Costovertebral Tender
Musculoskeletal: No Clubbing, No Cyanosis, Edema, Right Lower Extrem (2+) and Edema, Left Lower Extrem (2+)
Neuro: Awake, Alert and Other (reduced memory)
[2023-09-27 16:49] LABS: Glucose - Point of Care 111 mg/dl (70-99)
[2023-09-27] MEDS: ZYLOPRIM 100 MG PO (18:00)
[2023-09-27 21:35] LABS: Glucose - Point of Care 184 mg/dl (70-99)
[2023-09-27 21:40] LABS: Free Kappa Light Chains,Quant 15.35 mg/L (3.30-19.40); Free Lambda Light Chains,Quant 10.18 mg/L (5.71-26.30); Kappa/Lambda Fr Light Ratio 1.51 (0.26-1.65)
[2023-09-28] VITALS (14 sets, daily range): BP systolic 91–141; BP diastolic 11–83; BMI 46.4
[2023-09-28] MEDS: ANCEF 5 IV ×3 (01:17→18:16)
[2023-09-28] MEDS: DESENEX/MITRAZOL/ZEASORB 1 APPLIC TOPICAL ×3 (01:18→20:26)
[2023-09-28] MEDS: CARMOL-10/UREA LOTION 1 APPLIC TOPICAL ×4 (01:18→20:26)
[2023-09-28 06:17] LABS: Glucose - Point of Care 124 mg/dl (70-99)
--- NOTE | 2023-09-28 07:40 | PTCARENOTE ---
Messaged provider regarding patient's diet orders, per intellectual property lawyer nursing and patient she has been NPO since 0000.
[2023-09-28] MEDS: ASPIR LOW (ENTERIC COATED) 81 MG PO (07:54)
[2023-09-28] MEDS: PROTONIX 40 MG PO (07:54)
[2023-09-28 07:56] LABS: % Basophils 0.2 % (0-2); % Eosinophils 0.8 % (0-6); % Immature Granulocytes 2.2 % (0-0.5); % Lymphocytes 41.6 % (20.5-51.1); % Monocytes 7.3 % (1.7-9.3); % Neutrophils 47.9 % (42.2-75.2); Absolute Eosinophils 0.1 10^3/uL (0-0.7); Absolute Immature Granulocytes 0.1 10^3/uL (0-0.05); Absolute Lymphocytes 2.5 10^3/uL (1.2-3.4); Absolute Monocytes 0.4 10^3/uL (0.1-0.6); Absolute Neutrophils 2.9 10^3/uL (1.4-6.5); Hematocrit 27.7 % (37.0-47.0); Hemoglobin 9.5 g/dL (12.0-16.0); Mean Corp Hgb Conc. 34.3 g/dL (33.0-37.0); Mean Corpuscular Hgb 36.7 pg (27.0-31.0); Mean Corpuscular Volume 106.9 fL (81.0-99.0); Mean Platelet Volume 10.4 fL (7.4-10.4); Nucleated Red Blood Cells % 2.7 %; Platelet Count 102 10^3/uL (130-400); Red Blood Cell Count 2.59 10^6/uL (4.20-5.40); Red Cell Dist. Width 13.8 % (11.5-14.5)
[2023-09-28] MEDS: NOVOLOG FLEXPEN-LOW RESISTANCE SC ×2 (08:03→11:51)
[2023-09-28 08:04] LABS: APTT 87.4 Sec (23.4-35.0)
[2023-09-28] MEDS: HYDROPHOR 1 APPLIC TOPICAL (08:06)
--- NOTE | 2023-09-28 08:23 | PN.CDI ---
CDI
- -
CDI:
Physician Documentation Request
Admit Date: 09/24/23 15:02
Dear Doctor Nichelle,
Patient admitted with NSTEMI.
3/ PN, 'Paroxysmal I-yqx-Eihfnaxv Eliquis 2.5 mg twice daily.'
09/26 Cardiology note, 'Permanent atrial fibrillation-In RVR, switch atenolol to metoprolol 50.'
Due to conflicting documentation, please clarify in your not the type of atrial fibrillation, such as:
Paroxysmal atrial fibrillation - terminates spontaneously or with intervention within 7 days of onset
Permanent atrial fibrillation - when a decision has been made to accept the presence of AF and there is no further attempt to restore or maintain sinus rhythm
Other - please specify
Use of terms such as suspected, likely, concern for, or probable (associated with a specific diagnosis that is being evaluated, monitored, or treated as if it exists) are acceptable and can be coded in the inpatient setting, when documented at the
time of discharge.
Thank you,
Arlet KINGSTON,RN,CCDS
CDI Specialist
Available via [place] text
Please use your independent medical judgment in providing your response.
--- NOTE | 2023-09-28 08:53 | ITS.CL.CATH ---
Compensation Director - Catheterization
Cardiac Catheterization
Procedure Report:
CARDIAC CATHETERIZATION REPORT
Date of Procedure: 09/28/2023
Referring: Connor Ng MD
Indication: Chest pain with elevated troponin (peak 3.4)
HEMODYNAMIC DATA
AO: 108/64
LV: 108/19
LEFT VENTRICULOGRAPHY: Not performed
CORONARY ANGIOGRAPHY
Dominance: Right
Left Main: Normal
LAD: 20-30% mid to distal stenosis with otherwise trivial luminal irregularities
Circumflex: Normal
RCA: Dominant vessel with no disease in the RCA proper. The medium sized acute marginal (RV) branch has focal 60-70% proximal stenosis. There is a 20-30% lesion in the distal RPDA
Closure Device: None-the procedure was performed via the right radial artery. The Wing's test was normal prior to the procedure.
Radiation (mGy): 92
DAP (cm2.Gy): 18.4
Fluoroscopy time: 1.6 minutes
CONCLUSIONS
1: Mild noncritical CAD
2: Total contrast 29 mL Omnipaque
Copy to: Connor Ng MD, Theresa Fernandes MD, Lilly Polk MD
Yg Razo MD, [facility], [facility]
[2023-09-28 09:27] LABS: Blood Urea Nitrogen 69 mg/dl (7-17); Calcium 8.8 mg/dl (8.4-10.2); Carbon Dioxide 29 mmol/L (22-30); Chloride 104 mmol/L (98-107); Estimated Creatinine Clearance 53 ml/min; Glucose 125 mg/dl (70-99); Potassium 3.5 mmol/L (3.5-5.1); Sodium 136 mmol/L (135-145); eGFR 51.43
[2023-09-28 11:40] LABS: Glucose - Point of Care 117 mg/dl (70-99)
--- NOTE | 2023-09-28 13:45 | W.PN.NEPH.PH ---
Today's Communication / Plan
-
- awaiting 24 hour urine results
- monitor Cr s/p cath. if stable, restart diuretics tomorrow
Assessment/Plan
-
Assessment
Nephrotic range proteinuria
NSTEMI
Permanent atrial fibrillation
Severe lower extremity edema
Mild mitral regurgitation
Moderate tricuspid regurgitation
Metastatic endometrial carcinoma, managed by Dr. Goldstein, metastasis to spleen, doug hepatis and RP nodes, omentum, & lung
Severe morbid obesity, BMI 50, affects all aspects of care
Plan
Cr stable at 1.1
OK with more aggressive diuresis after cardiac cath and kidney function proves stability. she will likely need higher doses in the setting of hypoalbuminemia. would initiate tomorrow if patient's Cr is stable
Follow BMP
Outpatient serologic workup of her nephrotic range proteinuria was unremarkable. She will likely require biopsy for true diagnosis. However, use of anticoagulation and her obesity will make a renal biopsy high risk. Patient states that she does
not want a renal biopsy at this time.
24-hour urine for Bence-Miner proteins pending
Possibilities still include secondary membranous nephropathy, paraproteinemia, process, focal sclerosis, IGA
Discussed trialing steroids again but patient is not amenable at this time. could consider conservative therapy with ANURAG/ARB, SGLT2. Let us ensure stability of Cr first.
-
-
Date of Service: September 28, 2023
CC / HPI / ROS
-
Chief Complaint:
edema
History of Present Illness:
Cr down to 1.1
BP low this am
Troponin decreasing
Review of Systems:
no CP/SOB
Labs
-
Labs:
WBC 6.0 10^3/uL (4.8-10.8) 09/28/23 07:15
RBC 2.59 10^6/uL (4.20-5.40) L 09/28/23 07:15
Hgb 9.5 g/dL (12.0-16.0) L 09/28/23 07:15
Hct 27.7 % (37.0-47.0) L 09/28/23 07:15
Plt Count 102 10^3/uL (130-400) L 09/28/23 07:15
Sodium 136 mmol/L (135-145) 09/28/23 07:15
Potassium 3.5 mmol/L (3.5-5.1) 09/28/23 07:15
Chloride 104 mmol/L (98-107) 09/28/23 07:15
Carbon Dioxide 29 mmol/L (22-30) 09/28/23 07:15
BUN 69 mg/dl (7-17) H 09/28/23 07:15
Creatinine 1.1 mg/dL (0.6-1.0) H 09/28/23 07:15
eGFR 51.43 09/28/23 07:15
Glucose 125 mg/dl (70-99) H 09/28/23 07:15
Calcium 8.8 mg/dl (8.4-10.2) 09/28/23 07:15
Nvz-W-Jsvvtzxelah Pept 4160 pg/ml 09/24/23 10:45
Albumin 2.6 g/dl (3.5-5.0) L 09/24/23 10:46
Physical Exam
-
Vital Signs:
Vital Signs
Temp Pulse Resp BP Pulse Ox
97.4 F 104 24 116/59 100
09/28/23 12:30 09/28/23 12:30 09/28/23 12:30 09/28/23 12:30 09/28/23 12:30
Cardiovascular:: Regular rate and rhythm
Respiratory:: Bilateral: Coarse
Lung Excursion:: Normal
Abdomen:: Nontender and Soft
Bowel Sounds:: Normal
Extremity Edema:: +2: Bilateral:
Mtz Catheter: No
--- NOTE | 2023-09-28 14:27 | W.PN.HOSP.TC ---
Today's Communication/Plan
-
recheck BMP in AM
await further input from nephrology as to BP Rx and proteinuria management
Assessment / Plan
Assessment / Plan
#NSTEMI
-asa
-Hep ggt
-hold eliquis
-[facility] -CORONARY ANGIOGRAPHY
Dominance: Right
Left Main: Normal
LAD: 20-30% mid to distal stenosis with otherwise trivial luminal irregularities
Circumflex: Normal
RCA: Dominant vessel with no disease in the RCA proper.� The medium sized acute marginal (RV) branch has focal 60-70% proximal stenosis.� There is a 20-30% lesion in the distal RPDA
Closure Device: None-the procedure was performed via the right radial artery.� The Wing's test was normal prior to the procedure.
CONCLUSIONS
1: Mild noncritical CAD
2: Total contrast 29 mL Omnipaque
#History proteinuria concern nephrotic syndrome
Was on prednisone 40 mg twice daily started August 23 abruptly stopped prednisone 60 mg 1 week ago 09/17 - refusing steroids here and understands risks/benefits
-Abruptly stopped Bactrim Wednesday also on 09/17
--renal consulted
-Hold diuresis, pending cath; as per nephro, monitor Creat, if stable restart diuretics tomorrow
-24-hour urine for Bence-Miner proteins ordered
Creat 1.1/BUN 92-->86-->69
#LE edema
-most likely attributed to nephrotic syndrome
-hold lasix tentative cath
#Thrombocytopenia
-monitor on hep ggt
#Left foot cellulitis with underling PVD
-f/u vascular outpatient
-Iv ancef
#Hyponatremia
-resolved, Na 136
-ctm with resuscitation
#Hypotension/HTN�benign
-100/70
-Hold candesartan 8 mg daily,chlorthalidone
-cont atenolol
#Hx metastatic endometrial cancer, followed by Dr. Goldstein
#Hysterectomy 2019
#Port right upper chest wall
#Chemotherapy from 2019 to April 2023 stopped due to proteinuria per patient
ONC on board
IgM kappa MGUS
#Paroxysmal A-fib
-Continue Eliquis 2.5 mg twice daily
-COnt� Atenolol HOLD SBP>90
-HOLD chlorthalidone 1 tab p.o. daily due to hypotension
2D echo 11/27/2021:�EF 60-65%, normal LVS LVSF, no wall abnormality, severe left atrial enlargement, moderate right atrial enlargement, mod�severe TR, severe pulm HTN PASP 71 mmHg
#Moderate�severe TR
#Pulmonary HTN
#Gout
Continue allopurinol 100 mg daily
#Morbid obesity due to excess calorie consumption�BMI 50.1 kg
-Weight loss recommended, low-fat diet
#Hyperglycemia
-worsened with steroids
glu 111-184
DVT prophylaxis- hep ggt
Full code
Anticipated Discharge: 24 - 48 hours
Subjective/Interval History
-
Date of Service: September 28, 2023
Awake, alert, no chest pain
Objective Data
-
Labs:
Laboratory Results
09/28/23
07:15
WBC 6.0
Hgb 9.5 L
Hct 27.7 L
Plt Count 102 L
APTT 87.4 H
Sodium 136
Potassium 3.5
Chloride 104
Carbon Dioxide 29
BUN 69 H
Creatinine 1.1 H
Glucose 125 H
Calcium 8.8
Vital Signs:
Vital Signs
Temp Pulse Resp BP Pulse Ox
97.7 F 83 24 100/70 96
09/28/23 13:30 09/28/23 13:30 09/28/23 13:30 09/28/23 13:30 09/28/23 13:30
I&O
09/27/23 09/28/23 09/29/23
06:59 06:59 06:59
Intake Total 1230 / 1230 720 / 720
Output Total 1250 / 1250 250 / 250
Balance -20 / -20 470 / 470
Review of Systems
-
History Source: Patient and Coordinated Provider
Constitutional: Denies Fever
EENT: Reports No Symptoms Reported
Respiratory: Reports No Symptoms
Cardiac: Reports No Symptoms; Denies Chest Pain
Abdomen/GI: Reports No Symptoms; Denies Abdominal Pain
Physical Exam
-
General: Well Developed, Well Nourished, No Apparent Distress, Appears Chronically Ill and Morbidly Obese; Negative Fever
HEENT: Normocephalic, Atraumatic and Moist Mucous Membranes
Respiratory: Clear to Auscultation; Negative Wheezes, Rales or Rhonchi
Cardiac: S1/S2 and Irregular Rhythm
GI: Soft, Nontender and Nondistended
Genito-urinary: No Costovertebral Tender
Musculoskeletal: No Clubbing, No Cyanosis, Edema, Right Lower Extrem (2+) and Edema, Left Lower Extrem (2+)
Neuro: Awake, Alert and Other (reduced memory)
[2023-09-28 16:23] LABS: Glucose - Point of Care 151 mg/dl (70-99)
[2023-09-28] MEDS: NOVOLOG FLEXPEN-LOW RESISTANCE 1 UNITS SC (16:36)
[2023-09-28] MEDS: ZYLOPRIM 100 MG PO (18:15)
--- NOTE | 2023-09-28 19:03 | PTCARENOTE ---
Patient returned from medical laboratory assistant in AM. RN deflated cuff per orders. When 4 mLs had been removed, blood was noted around the pressure device. Attending provider contacted who advised to reach out to the provider who performed the catheterization.
Talked with Dr. Razo, cuff reinflated 6 mLs per his instruction and the provider came to the bedside to assess. Orders changed to deflate the cuff more slowly. On first attempt to deflate the cuff at 2mLs, patient had some oozing from the site
again. Provider notified via TT, 1 mL added back to the cuff. Deflation continued at 1 mL intervals Q 1hr. At the time of this note, patient's hematoma and bruising at the site is much improved than initially. scene shifter RN made aware and bedside
handoff was performed.
[2023-09-28] MEDS: ELIQUIS 5 MG PO (20:26)
[2023-09-28 21:13] LABS: Glucose - Point of Care 144 mg/dl (70-99)
[2023-09-29] VITALS (12 sets, daily range): BP systolic 111–166; BP diastolic 73–122; BMI 45.8
[2023-09-29] MEDS: ANCEF 5 IV ×3 (01:54→16:59)
[2023-09-29] MEDS: LOPRESSOR 2.5 MG IV (05:24)
--- NOTE | 2023-09-29 05:43 | PTCARENOTE ---
Addendum entered by Carlene Razo RN 09/29/23 07:33:
Patient agreeable to IV Cardizem, one time dose ordered and administered, pt. rate continues in rapid afib 150s-160s. Provider placed order for cardizem gtt to be started and for patient to moved to IVU. Attempted to call report to IVU but was
unable to d/t no bed assignment yet/nurse availability. Report given to [address] nurse and she will forward report to IVU when nurse is available. Cardizem gtt started at 5mg/hr per order.
Addendum entered by Carlene Razo RN 09/29/23 06:05:
Pt. HR now elevated to the 150s-160s. Provider notified, IV cardizem ordered. medication explained to pt. and pt. continues to refuse treatment, refuse medication. States that she wants 'to tell me who to change her pattern chain maker supervisor to.' Pt. educated
regarding rapid afib, purpose of medication, etc. Pt. continues to refuse cardizem and states that she 'needs to talk to someone first because shes not sure if this is right.' Provider notified. Pt. again, in bed, attempting to 'call a new
pattern chain maker supervisor.' Will continue to monitor.
Original Note:
Patient c/o racing heart rate, EKG done and patient was found to be in rapid afib. Provider notified, VSS otherwise, HR sustaining in the 140s-150s. Provider ordered one time dose of PRN lopressor, med administered. Pt. continues with HR in the
130s-140s, occasionally dropping into the 120s. Second dose of PRN lopressor verbally ordered by provider, but pt. refused second dose, stating that she 'wants to give it some more time.' Provider notified, Pt. stated that she was 'going to call her
pattern chain maker supervisor regarding her ekg.' Pt. HR continues in the 130s-140s.Pt. in bed at this time, will continue to monitor.
[2023-09-29] MEDS: CARDIZEM 5 MG IV (06:13)
[2023-09-29 06:19] LABS: Blood Urea Nitrogen 58 mg/dl (7-17); Calcium 8.8 mg/dl (8.4-10.2); Carbon Dioxide 28 mmol/L (22-30); Chloride 103 mmol/L (98-107); Estimated Creatinine Clearance 64 ml/min; Glucose 138 mg/dl (70-99); Potassium 3.6 mmol/L (3.5-5.1); Sodium 134 mmol/L (135-145); eGFR > 60.00
--- NOTE | 2023-09-29 06:43 | W.PN.UPDATE ---
Addendum entered and electronically signed by SHNATHI Maldonado 09/29/23 06:58:
Postmaster Dr. Ely made aware.
Original Note:
Update Note
Progress Note Update
RN notified DOBBY LOOMS PEGGER this AM, HR noted to be sustaining in 120's. BP 154/81, o2 sat 93 % RA, EKG showed Rapid Afib. continues to be in 130''s -160's after Lopressor 2.5mg IV, Patient refused the second dose of Lopressor and also the first dose of IV
Cardizem, Patient seen and evaluated, patient seemed anxious taking in too much medications, Reassured patient, DOBBY LOOMS PEGGER RN at the bedside, Cardizem IV 5mg given, HR continues to rise up to 160's, will place patient on Cardizem drip 5mg/hr titratable and
transfer patient to IVU, last BP 134/73, Advised RN to place O2 2L, Patient denies any chest pain, but states she can feel the heart racing. no other complaints at present.
[2023-09-29] MEDS: CARDIZEM 125 IV ×2 (07:25→15:27)
[2023-09-29 07:46] LABS: Glucose - Point of Care 148 mg/dl (70-99)
[2023-09-29] MEDS: NOVOLOG FLEXPEN-LOW RESISTANCE SC ×2 (07:55→14:15)
[2023-09-29] MEDS: HYDROPHOR 1 APPLIC TOPICAL (08:09)
[2023-09-29] MEDS: DESENEX/MITRAZOL/ZEASORB 1 APPLIC TOPICAL (08:11)
[2023-09-29] MEDS: CARMOL-10/UREA LOTION 1 APPLIC TOPICAL ×2 (08:12→16:49)
[2023-09-29] MEDS: ELIQUIS 5 MG PO ×2 (08:17→20:10)
[2023-09-29] MEDS: PROTONIX 40 MG PO (08:17)
[2023-09-29] MEDS: LASIX 40 MG PO (08:17)
--- NOTE | 2023-09-29 09:00 | PTCARENOTE ---
Pt TXFR to IVU. AM meds given and Pt ate 100% of breakfast. Report given to WILDER Juarez. Chart, insulin pen, 1000am dose of ancef, aquaphor, Carmol-10 lotion and Pt belongings all sent with Pt on [facility] Air bed to IVU.
--- NOTE | 2023-09-29 10:00 | PTCARENOTE ---
Received pt from [facility]. Pt's cardizem drip at 5 mg/hr. Cardizem drip titrated per MD order. Pt in uncontrolled A fib. Pt asymptomatic. Meds as ordered.
[2023-09-29 10:07] LABS: Albumin 2.45 g/dL (3.75-5.01); Alpha 1 Globulin 0.35 g/dL (0.19-0.46); SPEP IFE Reflex IFE Done; Total Protein-Electrophoresis 4.9 g/dL (6.3-8.2)
[2023-09-29 10:26] LABS: IgA 59 mg/dL (68-408); IgM 426 mg/dL (35-263)
[2023-09-29 11:17] LABS: IgG 168 mg/dL (768-1632)
--- NOTE | 2023-09-29 11:25 | CM ---
Chart reviewed. Patient is independent of ADLS, lives with his sister in a [address], [address] [facility], ambulates with a rolling walker, rollator and SPC. Patient has been unable to get to the 2nd floor. PT/OT are recommending Skilled Rehab. Patient is
interested in going to [facility] or [facility] in [place]. Referrals sent. Plan is for the patient to go to SNF when medically stable for discharge. CM to follow
--- NOTE | 2023-09-29 12:02 | W.PN.CD ---
Addendum entered and electronically signed by Eamon Torres MD 09/29/23 12:18:
Correction: Lasix now 40 PO daily.
Original Note:
Today's Communication / Plan
-
- UNCLEAR why rates are elevated, Perhaps she is dry and ?over diuresed�
- Consider IVF
- Add rate control. If rate control as outpatient was good then she likely wont chronically need more meds...
H/H down. Admit Hgb 12.6 and now 9.5. BUN is up. I will order stool heme test.
Impression / Plan
-
Background: 78-year-old female (known to her former director of search engine optimization, Dr. Tang, will be following with Dr. Ng), with permanent atrial fibrillation, hypertension, metastatic endometrial carcinoma, nephrotic proteinuria, chronic lymphedema, and
obesity who presented to the emergency department with a chief complaint of lower extremity redness.�
CAD/NSTEMI
- peak troponin was admit troponin at 3.4
- Echo LVEF 75% w/o wall motion changes,
- cath with mild CAD: 20-30% mid-distal LAD, 20-30% d RPDA, 60-70% p RV marginal
- LVEDP at cath 19 (mildly elevated)
Permanent atrial fibrillation
- UNCLEAR why rates are elevated, Perhaps she is dry and ?over diuresed
- Eliquis 5 BID is the correct AFib dose
- [id number]: Score at least 4 (Heart failure, age 75 or more, female gender)
HFpEF
- LVEDP 19 at cath
Severe lower extremity edema, from kidney disease +/- HF perhaps
- increase lasix to 80 mg bid once BMP is back
Proteinuria, saw Dr. Polk outpatient, self discontinued prednisone & Bactrim outpatient
Mild mitral regurgitation
Moderate tricuspid regurgitation
Metastatic endometrial carcinoma, managed by Dr. Goldstein, metastasis to spleen, doug hepatis and RP nodes, omentum, & lung
Severe morbid obesity, BMI 50, affects all aspects of care
Subjective:
Reports improvement in LE edema.
Physical Exam
Vital Signs/Labs
Vital Signs
Temp Pulse Resp BP Pulse Ox
98.1 F 147 20 133/94 99
09/29/23 11:02 09/29/23 11:02 09/29/23 11:02 09/29/23 11:02 09/29/23 11:02
09/28/23 09/29/23 09/30/23
06:59 06:59 06:59
Actual Weight 118.9 kg 117.254 kg
09/28/23 07:15
09/29/23 05:32
PT 15.9 Sec (11.4-14.6) H 09/24/23 10:46
INR 1.29 09/24/23 10:46
APTT 87.4 Sec (23.4-35.0) H 09/28/23 07:15
Magnesium 2.2 mg/dl (1.6-2.3) 09/26/23 08:26
Triglycerides 111 mg/dl (10-149) 09/25/23 07:57
LDL Cholesterol, Calc 98 mg/dl 09/25/23 07:57
VLDL Cholesterol, Calc 22 mg/dl (0-30) 09/25/23 07:57
HDL Cholesterol 66 mg/dl 09/25/23 07:57
09/24/23
10:45
Ifu-T-Diamlfxumod Pept 4160
Physical Exam
Constitutional: No acute distress
Cardiovascular: Rhythm/rate is irregular, S1S2 is normal and Rub absent
Respiratory: Respiratory effort normal and Lungs clear to auscul.
GI: Soft
Neuro/Psych: Alert
Data Reviewed
-
Date of Service: September 29, 2023
[2023-09-29 12:21] LABS: Glucose - Point of Care 146 mg/dl (70-99)
--- NOTE | 2023-09-29 15:54 | W.PN.NEPH.PH ---
Today's Communication / Plan
-
monitor bmp
holding arb for now
Assessment/Plan
-
Assessment
Nephrotic range proteinuria
NSTEMI
Permanent atrial fibrillation
Severe lower extremity edema
Mild mitral regurgitation
Moderate tricuspid regurgitation
Metastatic endometrial carcinoma, managed by Dr. Goldstein, metastasis to spleen, doug hepatis and RP nodes, omentum, & lung
Severe morbid obesity, BMI 50, affects all aspects of care
left foot cellultis
grossly heme positive stools
Plan
Cr stable at 0.9
patient transferred to IVU for AFIB with RVR now on cardizem gtt
on 40mg po lasix after cardiac cath (PCWP 19)and kidney function proves stability. she will likely need higher doses in the setting of hypoalbuminemia. would initiate tomorrow if patient's Cr is stable
Follow BMP
Outpatient serologic workup of her nephrotic range proteinuria was unremarkable. She will likely require biopsy for true diagnosis. However, use of anticoagulation and her obesity will make a renal biopsy high risk. Patient states that she does
not want a renal biopsy at this time.
24-hour urine for Bence-Miner proteins pending
current up/ucr is 2 grams
Possibilities still include secondary membranous nephropathy, paraproteinemia, process, focal sclerosis, IGA
Discussed trialing steroids again but patient is not amenable at this time. could consider conservative therapy with ANURAG/ARB, SGLT2. Let us ensure stability of Cr first.
could AFIB be due to abrupt withdrawal of steroids by patient vs gi bleeding (patient grossly heme positive stools noted today)?
-
-
Date of Service: September 29, 2023
CC / HPI / ROS
-
Chief Complaint:
edema
History of Present Illness:
Cr down to 0.9
in AFIB with RVR on cardizem gtt
Troponin decreasing
Review of Systems:
no CP/SOB
Labs
-
Labs:
WBC 6.0 10^3/uL (4.8-10.8) 09/28/23 07:15
RBC 2.59 10^6/uL (4.20-5.40) L 09/28/23 07:15
Hgb 9.5 g/dL (12.0-16.0) L 09/28/23 07:15
Hct 27.7 % (37.0-47.0) L 09/28/23 07:15
Plt Count 102 10^3/uL (130-400) L 09/28/23 07:15
Sodium 134 mmol/L (135-145) L 09/29/23 05:32
Potassium 3.6 mmol/L (3.5-5.1) 09/29/23 05:32
Chloride 103 mmol/L (98-107) 09/29/23 05:32
Carbon Dioxide 28 mmol/L (22-30) 09/29/23 05:32
BUN 58 mg/dl (7-17) H 09/29/23 05:32
Creatinine 0.9 mg/dL (0.6-1.0) 09/29/23 05:32
eGFR > 60.00 09/29/23 05:32
Glucose 138 mg/dl (70-99) H 09/29/23 05:32
Calcium 8.8 mg/dl (8.4-10.2) 09/29/23 05:32
Hxr-A-Iujngzirxcm Pept 4160 pg/ml 09/24/23 10:45
Albumin 2.6 g/dl (3.5-5.0) L 09/24/23 10:46
Physical Exam
-
Vital Signs:
Vital Signs
Temp Pulse Resp BP Pulse Ox
98.1 F 135 18 111/100 98
09/29/23 14:58 09/29/23 13:15 09/29/23 14:58 09/29/23 12:54 09/29/23 14:58
Cardiovascular:: Irregular rate and rhythm
Respiratory:: Bilateral: Coarse
Lung Excursion:: Normal
Abdomen:: Nontender and Soft
Bowel Sounds:: Normal
Extremity Edema:: +1: Bilateral:
Mtz Catheter: No
[2023-09-29 16:36] LABS: Glucose - Point of Care 198 mg/dl (70-99)
[2023-09-29] MEDS: NOVOLOG FLEXPEN-LOW RESISTANCE 1 UNITS SC (16:47)
[2023-09-29] MEDS: ZYLOPRIM 100 MG PO (16:59)
--- NOTE | 2023-09-29 17:08 | W.PN.HOSP.TC ---
Today's Communication/Plan
-
stools for OB
Fe studies
Assessment / Plan
Assessment / Plan
#NSTEMI
-asa
-[facility] -CORONARY ANGIOGRAPHY
Dominance: Right
Left Main: Normal
LAD: 20-30% mid to distal stenosis with otherwise trivial luminal irregularities
Circumflex: Normal
RCA: Dominant vessel with no disease in the RCA proper.� The medium sized acute marginal (RV) branch has focal 60-70% proximal stenosis.� There is a 20-30% lesion in the distal RPDA
Closure Device: None-the procedure was performed via the right radial artery.� The Wing's test was normal prior to the procedure.
CONCLUSIONS
1: Mild noncritical CAD
2: Total contrast 29 mL Omnipaque
Echocardiogram 09/23: Normal left ventricular size and systolic function. LV ejection fraction is 70-
�75% by visual assessment.
�Mild concentric left ventricular hypertrophy.
�Mild mitral regurgitation.
�Moderate tricuspid regurgitation. Estimated pulmonary artery pressure of 40-45
�mmHg
�No significant change since the prior study of Jan 2023.
#History proteinuria concern nephrotic syndrome
Was on prednisone 40 mg twice daily started August 23 abruptly stopped prednisone 60 mg 1 week ago 09/17 - refusing steroids here and understands risks/benefits
-Abruptly stopped Bactrim Wednesday also on 09/17
--renal consulted
-24-hour urine for Bence-Miner proteins ordered
Creat 1.1-->0.9/BUN 92-->86-->69-->58
#LE edema
-most likely attributed to nephrotic syndrome
proBMP on 09/23 4160
-resumed lasix 40 mg daily
#Thrombocytopenia
-monitor on hep ggt
#Left foot cellulitis with underling PVD
-f/u vascular outpatient
-Iv ancef
#Hyponatremia
-resolved, Na 136
-ctm with resuscitation
#Hypotension/HTN�benign
-100/70
-Hold candesartan 8 mg daily,chlorthalidone
-cont atenolol
#Hx metastatic endometrial cancer, followed by Dr. Goldstein
#Hysterectomy 2019
#Port right upper chest wall
#Chemotherapy from 2019 to April 2023 stopped due to proteinuria per patient
ONC on board
IgM kappa MGUS
Anemia
Hgb 13.1-->12.6-->11.1-->10.6-->9.5
agree with checking stool for Occult Blood. Will also check Fe studies
#Permanent A-fib
HR remains elevated at 121-150
Due to rapid HR, pt was transferred to IVU and placed on a Cardizem drip
-Continue Eliquis 5 mg twice daily
adjusted by cardio
Atenolol stopped
#Moderate�severe TR
#Pulmonary HTN
#Gout
Continue allopurinol 100 mg daily
#Morbid obesity due to excess calorie consumption�BMI 50.1 kg
-Weight loss recommended, low-fat diet
#Hyperglycemia
-worsened with steroids
glu 111-184
DVT prophylaxis- hep ggt
Full code
Anticipated Discharge: > 48 hours
Subjective/Interval History
-
Date of Service: September 29, 2023
Objective Data
-
Labs:
Laboratory Results
09/29/23
05:32
Sodium 134 L
Potassium 3.6
Chloride 103
Carbon Dioxide 28
BUN 58 H
Creatinine 0.9
Glucose 138 H
Calcium 8.8
Vital Signs:
Vital Signs
Temp Pulse Resp BP Pulse Ox
98.1 F 135 18 111/100 98
09/29/23 14:58 09/29/23 13:15 03/06/24 14:58 09/29/23 12:54 09/29/23 14:58
I&O
09/28/23 09/29/23 09/30/23
06:59 06:59 06:59
Intake Total 720 / 720 1698 / 1698
Output Total 250 / 250 1175 / 1175
Balance 470 / 470 523 / 523
[2023-09-29 20:26] LABS: 24 Hour Urine Total Volume 650 mL; Total Protein, Urine 42 mg/d (<=150); Ur Free Lambda Excretion/day 1.96 mg/d; Urine Collection Length 24 hr; Urine Free Kappa Excretion/Day 8.67 mg/d; Urine Free Kappa Light Chains 13.34 mg/L (0.00-32.90); Urine Free Lambda Light Chains 3.02 mg/L (0.00-3.79)
--- NOTE | 2023-09-29 20:30 | PTCARENOTE ---
Pt rec'd at change of shift sitting at bottom of bed with all 4 side rails up. Pt stated she was leaving because she was shouting for help and no one came. No shouting was heard from any staff. Pt refused to allow nursing to take her to the bathroom
despite p[t stating that was why she was calling for help. Pt stated she was going to stay at bottom of bed so that her family and neighbor could see where she was left. Freq attempts made to calm and assist pt but pt refused. Pt stated that the
same thing happed last night up on other unit. Pt then called 911, nursing spoke with drier operator and told that police did not need to be dispersed. security on unit. Call placed to pts sister. Sister and pts neighbor arrived at 2030. They are at
bedside attempting to orient pt.
--- NOTE | 2023-09-29 21:04 | W.PN.UPDATE ---
Update Note
Progress Note Update
Patient requested to leave AMA. Risk versus benefits discussed with the patient. Patient decided to leave. AMA for signed and kept in the chart.
--- NOTE | 2023-09-29 21:26 | VATNOTE ---
PT LEAVING AMA. R SUBQ PORT FLUSHED AND DEACCESSED PER PROTOCOL.
--- NOTE | 2023-09-29 21:31 | PTCARENOTE ---
Nursing supervisor dry cleaning aware of pt calling 911 and insistence of leaving. Sister unable to talk pt into staying. Pt's sister aware pt would have to sign out AMA, sister got pt dressed and supported pt leaving AMA despite nursing explaining pt needed
Cardizem gtt and IV Abx. Pt stated she would call record changer in am to get checked out and get additional meds. House COMPETITIVE INTELLIGENCE MANAGER up to see pt, AMA formed signed. IV team over to de- access SQ port. Pt asked for list of current meds. List provided and
copied to send with chart. Pt also given verbal and written restriction for right radial site care and limited activity with right wrist for a week. no lifting over 10 lbs site care and when to call if redness,swelling or bleeding occur. Pt
transferred to pts neighbors car via w/c.
--- NOTE | 2023-09-29 22:57 | PTCARENOTE ---
Dr Ely made aware of pt leaving ama.
--- NOTE | 2023-09-30 18:44 | W.DS.TRANS ---
DC Summary - Radiation Oncology Nurse
-
Discharge Instructions:
Sleep Apnea Risk Intermediate
Discharge Diagnosis/Procedures Cardiac cath
Diet No added salt
Activity As tolerated
Driving Restrictions As prior to admission
Instructions:
Stand-Alone Forms: DC Instructions- Cath/EP Lab
Changes to Home Medications: Yes
Discharge Medications:
DC Medications w/original date entered in [employer]
allopurinol 100 mg tablet 100 mg PO QPM Gout 07/30/21
apixaban 2.5 mg tablet (Eliquis) 2.5 mg PO BID Blood Clot Prevention/Tx 09/24/23
atenolol 50 mg-chlorthalidone 25 mg tablet 1 tab PO DAILY Blood Pressure 09/24/23
bismuth subsalicylate 262 mg/15 mL oral suspension (Pepto-Bismol) 524 mg PO DAILYPRN PRN stomach discomfort 09/24/23
candesartan 8 mg tablet 8 mg PO DAILY Blood Pressure 09/24/23
Home Medication Changes
Increase Eliquis to 5 mg bid
Pending Results: No
== END 2023-09-29 21:30 | disposition left against medical advice (07) | DRG 281 ==
LOC: IVU 15:02
PROVIDERS: Clinical Nurse Specialist Family Health; Internal Medicine Cardiovascular Disease; ADMITTING PHYSICIAN Internal Medicine; ATTENDING PHYSICIAN Internal Medicine; CONSULT PHYSICIAN Internal Medicine Cardiovascular Disease; CONSULT PHYSICIAN Specialist; EMERGENCY PHYSICIAN Emergency Medicine; FAMILY PHYSICIAN Internal Medicine; OTHER PHYSICIAN Internal Medicine Hematology & Oncology
PROC: B2111ZZ Fluoroscopy of Multiple Coronary Arteries using Low Osmolar Contrast (ICD-10-PCS; 2023-09-28)
PROC: 4A023N7 Measurement of Cardiac Sampling and Pressure, Left Heart, Percutaneous Approach (ICD-10-PCS; 2023-09-28)
DX: I21.4 Non-ST elevation (NSTEMI) myocardial infarction (principal); E87.1 Hypo-osmolality and hyponatremia; I48.21 Permanent atrial fibrillation; L03.116 Cellulitis of left lower limb; N17.9 Acute kidney failure, unspecified; N04.9 Nephrotic syndrome with unspecified morphologic changes; Z68.43 Body mass index [BMI] 50.0-59.9, adult; I50.32 Chronic diastolic (congestive) heart failure; E66.01 Morbid (severe) obesity due to excess calories; R73.9 Hyperglycemia, unspecified; T38.0X5A Adverse effect of glucocorticoids and synthetic analogues, initial encounter; M10.9 Gout, unspecified; I25.10 Atherosclerotic heart disease of native coronary artery without angina pectoris; D69.6 Thrombocytopenia, unspecified; I95.9 Hypotension, unspecified; I73.9 Peripheral vascular disease, unspecified; R80.3 Bence Jones proteinuria; D47.2 Monoclonal gammopathy; I08.1 Rheumatic disorders of both mitral and tricuspid valves; Y92.9 Unspecified place or not applicable; I27.20 Pulmonary hypertension, unspecified; I11.0 Hypertensive heart disease with heart failure; Z79.01 Long term (current) use of anticoagulants; Z85.42 Personal history of malignant neoplasm of other parts of uterus; Z92.21 Personal history of antineoplastic chemotherapy; Z90.710 Acquired absence of both cervix and uterus; Z88.8 Allergy status to other drugs, medicaments and biological substances
CPT/HCPCS: 71045; 80048; 80053; 80061; 81003; 81015; 81050; 82533; 82570; 82784; 82962; 83036; 83521; 83605; 83735; 83880; 84145; 84155; 84156; 84165; 84484; 85025; 85379; 85610; 85730; 86334; 86335; 87040; 87070; 87077; 87086; 87186; 93005; 93306; 93458; 93970; 96365; 96366; 96367; 96375; 97110; 97162; 97166; 97530; 97535; 99291; C1894; Q9967

== ENCOUNTER 2023-10-05 15:08 | Inpatient (IN) | payer OTHER, SELFPAY ==
[2023-10-05] VITALS (24 sets, daily range): BP systolic 71–141; BP diastolic 49–90
--- NOTE | 2023-10-05 12:20 | ED.GENMED ---
History of Present Illness
<Rikki Mccray PA-C - Last Filed: 10/05/23 14:03>
General
Chief Complaint: Heart Rate Problem
Source: patient
Exam Limitations: none
Time Seen by Provider: 10/05/23 11:48
Travel History
Have you had any contact with someone who has COVID-19?: No
Do you have any symptoms of coronavirus? Fever > 100 degrees, chills, cough, shortness of breath, sore throat, loss of taste or smell, muscle aches, or headache?: No
History of Present Illness
History of Present Illness:
78-year-old female with complicated medical history including permanent atrial fibrillation, metastatic uterine cancer presents with complaints of weakness and lightheadedness. She was here in the hospital and discharged several days ago. She had
non-STEMI here and had a catheterization. She was found not to have any critical coronary disease. She is currently on 5 mg of Eliquis twice a day. She notes leg swelling shortness of breath and dark stools. Sent in by family doctor for further
evaluation. She denies chest pain. She denies orthopnea. She had an echocardiogram which showed ejection fraction of around 70%.
Past History
<Rikki Mccray PA-C - Last Filed: 10/05/23 14:03>
Past History
ED Past Medical History: Arrthythmia, Cancer and HTN
ED Past Surgical History: Appendectomy and Gynecological
Social History
Tobacco: Non-smoker
Personal:
Employment: Retired
Phy Exam
<Rikki Mccray PA-C - Last Filed: 10/05/23 14:03>
Physical Exam
Physical Exam:
This is a well-developed female no acute respiratory distress while at rest
HEENT is normocephalic atraumatic
Heart is irregular and tachycardic
Lungs are mostly clear no obvious rales but somewhat difficult secondary to body habitus
Abdomen is soft nontender
Rectal exam was performed with female pharmacy clinical coordinator in room shows black-colored stool is heme positive
Extremities: Significant pitting edema bilateral lower extremities
Course
<Rikki Mccray PA-C - Last Filed: 10/05/23 14:03>
Orders/Labs/Results
Orders:
Orders
10/05/23 11:05
ECG [Electrocardiogram (*1)] Urgent
Reason for Study: Chest Pain
EKG- Treatment ONCE
10/05/23 12:05
CR Chest Portable - 1 View Urgent
Comment:
Reason For Exam: weakness
Reason Study Needs to be Portable: Patient Unstable
10/05/23 12:18
Pantoprazole [Protonix IV] 80 mg IV NOW STA
10/05/23 12:30
Pantoprazole 80 mg/100 ml Nss [Protonix] 80 mg in 100 ml IV Q10H
10/05/23 12:45
Type+Screen Urgent
Complete Blood Count/With Diff Urgent
NT-proBNP Urgent
Troponin I Urgent
10/05/23 12:46
Comprehensive Metabolic Panel Urgent
10/05/23 13:24
Blood Bank Products [* Blood Bank Products] Urgent
Blood Bank Products: *Packed RBC Leuko(PRBC's)
Quantity: 1
Transfuse Today: Yes
Reason: Anemia
10/05/23 13:40
Ketorolac [Toradol] 15 mg IV NOW STA
10/05/23 13:49
POTASSIUM PHOSPHATE 1mEq=0.7mM [Potassium Phosphate] 40 meq 0.9% Sodium Chloride 250 ml [Nss] 250 ml IV NOW
Potassium Chloride [KCl] 40 meq PO NOW STA
10/05/23 14:01
Add On- LAB Urgent
Tests Added?: magnesium
Abnormal Lab Results
10/05/23 10/05/23
12:45 12:46
RBC 2.19 L 10^6/uL
(4.20-5.40)
Hgb 8.3 L g/dL
(12.0-16.0)
Hct 24.6 L %
(37.0-47.0)
MCV 112.3 H fL
(81.0-99.0)
MCH 37.9 H pg
(27.0-31.0)
RDW 18.7 H %
(11.5-14.5)
Abs Immat Gran (auto) 0.1 H 10^3/uL
(0-0.05)
Absolute Monos (auto) 0.8 H 10^3/uL
(0.1-0.6)
Immature Gran % 0.8 H %
(0-0.5)
Monocytes % 12.9 H %
(1.7-9.3)
Sodium 133 L mmol/L
(135-145)
Potassium 2.7 L* mmol/L
(3.5-5.1)
BUN 65 H mg/dl
(7-17)
Creatinine 1.1 H mg/dL
(0.6-1.0)
Total Bilirubin 1.8 H mg/dl
(0.2-1.3)
Troponin I 0.156 H* ng/ml
Total Protein 5.0 L g/dl
(6.3-8.2)
Albumin 2.9 L g/dl
(3.5-5.0)
Crossmatch IS Only See Detail
10/05/23 12:45
10/05/23 12:46
Vital Signs
Initial and Last Documented VS:
Initial Vital Signs
Temp Pulse Resp BP Pulse Ox
97.6 F 117 18 71/51 99
10/05/23 11:10 10/05/23 11:10 10/05/23 11:10 10/05/23 11:10 10/05/23 11:10
Last Documented Vital Signs
Temp Pulse Resp BP Pulse Ox
97.6 F 117 14 141/69 100
10/05/23 11:10 10/05/23 11:10 10/05/23 13:15 10/05/23 13:15 10/05/23 13:15
<Niko Lopez, DO - Last Filed: 10/05/23 13:33>
Orders/Labs/Results
Orders:
Orders
10/05/23 11:05
ECG [Electrocardiogram (*1)] Urgent
Reason for Study: Chest Pain
EKG- Treatment ONCE
10/05/23 12:05
CR Chest Portable - 1 View Urgent
Comment:
Reason For Exam: weakness
Reason Study Needs to be Portable: Patient Unstable
10/05/23 12:18
Pantoprazole [Protonix IV] 80 mg IV NOW STA
10/05/23 12:30
Pantoprazole 80 mg/100 ml Nss [Protonix] 80 mg in 100 ml IV Q10H
10/05/23 12:45
Type+Screen Urgent
Complete Blood Count/With Diff Urgent
NT-proBNP Urgent
Troponin I Urgent
10/05/23 12:46
Comprehensive Metabolic Panel Urgent
10/05/23 13:24
Blood Bank Products [* Blood Bank Products] Urgent
Blood Bank Products: *Packed RBC Leuko(PRBC's)
Quantity: 1
Transfuse Today: Yes
Reason: Anemia
10/05/23 13:40
Ketorolac [Toradol] 15 mg IV NOW STA
10/05/23 13:49
POTASSIUM PHOSPHATE 1mEq=0.7mM [Potassium Phosphate] 40 meq 0.9% Sodium Chloride 250 ml [Nss] 250 ml IV NOW
Potassium Chloride [KCl] 40 meq PO NOW STA
10/05/23 14:01
Add On- LAB Urgent
Tests Added?: magnesium
Abnormal Lab Results
10/05/23 10/05/23
12:45 12:46
RBC 2.19 L 10^6/uL
(4.20-5.40)
Hgb 8.3 L g/dL
(12.0-16.0)
Hct 24.6 L %
(37.0-47.0)
MCV 112.3 H fL
(81.0-99.0)
MCH 37.9 H pg
(27.0-31.0)
RDW 18.7 H %
(11.5-14.5)
Abs Immat Gran (auto) 0.1 H 10^3/uL
(0-0.05)
Absolute Monos (auto) 0.8 H 10^3/uL
(0.1-0.6)
Immature Gran % 0.8 H %
(0-0.5)
Monocytes % 12.9 H %
(1.7-9.3)
Sodium 133 L mmol/L
(135-145)
Potassium 2.7 L* mmol/L
(3.5-5.1)
BUN 65 H mg/dl
(7-17)
Creatinine 1.1 H mg/dL
(0.6-1.0)
Total Bilirubin 1.8 H mg/dl
(0.2-1.3)
Troponin I 0.156 H* ng/ml
Total Protein 5.0 L g/dl
(6.3-8.2)
Albumin 2.9 L g/dl
(3.5-5.0)
Crossmatch IS Only See Detail
10/05/23 12:45
10/05/23 12:46
Vital Signs
Initial and Last Documented VS:
Initial Vital Signs
Temp Pulse Resp BP Pulse Ox
97.6 F 117 18 71/51 99
10/05/23 11:10 10/05/23 11:10 10/05/23 11:10 10/05/23 11:10 10/05/23 11:10
Last Documented Vital Signs
Temp Pulse Resp BP Pulse Ox
97.6 F 117 14 141/69 100
10/05/23 11:10 10/05/23 11:10 10/05/23 13:15 10/05/23 13:15 10/05/23 13:15
<Rikki Mccray PA-C - Last Filed: 10/05/23 14:03>
MDM/Problems Addressed
Differential Diagnosis Includes:
Overall sensation of weakness and lightheadedness. Consider anemia versus arrhythmia versus electrolyte abnormality
Patient does appear volume overloaded may be third spacing secondary to anemia or heart failure
Patient has rapid atrial fibrillation on EKG. Patient is in permanent atrial fibrillation. She was hypotensive initially.
Type and screen pending will order portable chest x-ray.
<Niko Lopez, - Last Filed: 10/05/23 13:33>
*Critical Care Note
Total Time (30-74mins, 75-104mins- exclusive of procedures): 30
comment:
Critical care statement: A total of 30 minutes of critical care time was provided for this patient. This includes management of unstable vital signs, evaluation of the patient at bedside, reviewing the patient's pertinent medical records, discussion
with consultants, review of old EKGs and review of pertinent medical records. This time with separate from time utilized to perform the aforementioned documented procedures
<Rikki Mccray PA-C - Last Filed: 10/05/23 14:03>
Update Note
Update Note:
Hemoglobin dropped to 8.3 which is over a gram since most recent study several days ago. Potassium is 2.7. Blood pressure did improve without any intervention. Protonix ordered for GI bleed. Ordered IV and oral potassium as well as unit of
packed red blood cells secondary to symptomatic anemia in the setting of rapid A-fib and GI bleeding.
ED Attending Note
<Rikki Mccray PA-C - Last Filed: 10/05/23 14:03>
-
Portions of this chart may have been created with voice recognition software.� Occasional wrong word or��sound alike� substitutions may have occurred due to the inherent limitations of voice recognition software.
<Niko Lopez DO - Last Filed: 10/05/23 13:33>
ED Attending Note
Patient seen and examined by attending physician: Yes
ED Attending Note:
I have reviewed and agree with history and treatment plan by Chad Mccrya. My exam revealed 78-year-old female with ecchymosis on right arm from recent cardiac catheterization, guaiac positive black stool. 1 unit packed red blood cells ordered.
Admit to hospitalist for treatment of GI bleed and rapid atrial fibrillation.
Discharge Plan
Departure
Patient Disposition: Admit
Date of Disposition: 10/05/23
Time of Disposition: 14:02
Admit to: IMU
Presentation/result/management discussed w/ accepting MD/DO: Hospitalist
Discharge Problem:
Symptomatic anemia, Acute hypokalemia, Atrial fibrillation, rapid
Prescriptions:
No Action
allopurinol 100 MG tablet
100 mg PO QPM
candesartan 8 mg Tablet
8 mg PO DAILY
furosemide 40 mg Tablet
40 mg PO DAILY
Eliquis 5 mg Tablet
5 mg PO Q12
Referrals:
Theresa Fernandes MD [Family Provider] -
Interventions
Interventions:
*General Assessment Last Done: 10/05/23 12:26
*Neglect/Abuse Screening Last Done: 10/05/23 12:26
ED- Fall Risk Assessment Last Done: 10/05/23 12:26
*ED COVID-19 Vaccine History Last Done: 10/05/23 12:26
ED- Cardiac Assessment Last Done: 10/05/23 12:26
ED- Pulmonary Assessment Last Done: 10/05/23 12:26
[2023-10-05 12:57] LABS: % Basophils 0.3 % (0-2); % Eosinophils 0.2 % (0-6); % Immature Granulocytes 0.8 % (0-0.5); % Lymphocytes 28.7 % (20.5-51.1); % Monocytes 12.9 % (1.7-9.3); % Neutrophils 57.1 % (42.2-75.2); Absolute Immature Granulocytes 0.1 10^3/uL (0-0.05); Absolute Lymphocytes 1.8 10^3/uL (1.2-3.4); Absolute Monocytes 0.8 10^3/uL (0.1-0.6); Absolute Neutrophils 3.6 10^3/uL (1.4-6.5); Hematocrit 24.6 % (37.0-47.0); Hemoglobin 8.3 g/dL (12.0-16.0); Mean Corp Hgb Conc. 33.7 g/dL (33.0-37.0); Mean Corpuscular Hgb 37.9 pg (27.0-31.0); Mean Corpuscular Volume 112.3 fL (81.0-99.0); Mean Platelet Volume 9.7 fL (7.4-10.4); Nucleated Red Blood Cells % 3.1 %; Platelet Count 145 10^3/uL (130-400); Red Blood Cell Count 2.19 10^6/uL (4.20-5.40); Red Cell Dist. Width 18.7 % (11.5-14.5); White Blood Cell Count 6.4 10^3/uL (4.8-10.8)
[2023-10-05] MEDS: PROTONIX IV 80 MG IV (13:02)
[2023-10-05] MEDS: PROTONIX 100 IV ×2 (13:03→23:53)
[2023-10-05 13:41] LABS: NT-proBNP 4330 pg/ml; Troponin I 0.156 ng/ml
[2023-10-05 13:44] LABS: ALT (SGPT) 21 U/L (0-35); AST (SGOT) 33 U/L (14-36); Albumin 2.9 g/dl (3.5-5.0); Alkaline Phosphatase 62 U/L (38-126); Blood Urea Nitrogen 65 mg/dl (7-17); Calcium 8.5 mg/dl (8.4-10.2); Carbon Dioxide 29 mmol/L (22-30); Chloride 101 mmol/L (98-107); Glucose 91 mg/dl (70-99); Potassium 2.7 mmol/L (3.5-5.1); Sodium 133 mmol/L (135-145); Total Bilirubin 1.8 mg/dl (0.2-1.3); eGFR 51.43
--- NOTE | 2023-10-05 13:55 | HPS.HSE ---
Addendum entered and electronically signed by Rex Steward MD 10/05/23 18:34:
Pt signed out AMA on 09/29. Noted rapid heart rate, weakness with lightheadedness
Pt seen independently and agree with TELEPHONE OPERATORS SUPERVISOR note
Lungs clear
CV irreg irreg tachycardia
Ext no edema
Imp:A. Fib with rvr
probable acute UGI bleed
Anemia
P: Transfuse 1 unit PRBC
monitor Hgb;
GI and Cardio consults
Original Note:
Family Physician
-
Family Physician: Theresa Fernandes
Chief Complaint
-
Weakness, lightheadedness with elevated heart rate
History of Present Illness
78-year-old female status post NSTEMI with cardiac cath 5 days ago with no critical coronary disease. She is complaining of weakness , lightheadedness with rapid heart rate that started this a.m.. She was noted to be in rapid A-fib on arrival with
hypotension which self resolved without intervention. She was noted to have heme positive black stools on current Eliquis with hemoglobin drop from 9.3-8.3 in 7 days. She states her Eliquis was recently increased from 2.5 mg twice daily to 5 mg
twice daily on recent admission. She denies fever, chills, chest pain, palpitations, shortness of breath, cough, abdominal pain, nausea, vomit, diarrhea. Other past medical history includes NSTEMI noncritical CAD 09/24/2023, permanent A-fib,
HTN/hypotension, moderate to severe TR, pulm HTN, CKD stage III A, proteinuria, lower extremity edema, thrombocytopenia, left foot cellulitis with underlying PVD, metastatic endometrial cancer status post hysterectomy/chemo, gout, morbid obesity,
hyperglycemia.
Medical History
Past Medical History
Past Medical History: Reports Other
Additional Past Medical History:
NSTEMI noncritical CAD 09/24/2023
permanent A-fib
HTN/hypotension
moderate to severe TR
pulm HTN, CKD stage III A
proteinuria
lower extremity edema
thrombocytopenia
left foot cellulitis with underlying PVD
metastatic endometrial cancer status post hysterectomy/chemo
gout, morbid obesity
hyperglycemia
Past Surgical History: Reports Other (Cardiac cath 09/24/2023 noncritical CAD, hysterectomy, tonsillectomy, appendectomy, port right upper chest wall)
Social History
Tobacco: Non-smoker
Alcohol: None
Drug: None
Personal: Single
Living: With Family (Sister Juhi Evans)
Employment: Retired
Family History
Family History: Other (Mother age 50s complications of knee surgery, father multiple strokes brainstem age 80)
Allergies / Home Medications
Allergies reflects when Allergies were last updated in [email or web address].
Home Medications with original date entered in [email or web address]
Allergy/Medication List:
Allergies
Allergy/AdvReac Type Severity Reaction Status Date / Time
paroxetine [From Paxil] Allergy Unknown Verified 09/24/23 18:22
prednisone Allergy Unknown Verified 09/24/23 07:37
Home Medications
allopurinol 100 mg tablet 100 mg PO QPM Gout 07/30/21
candesartan 8 mg tablet 8 mg PO DAILY Blood Pressure 09/24/23
apixaban 5 mg tablet (Eliquis) 5 mg PO Q12 Blood Clot Prevention/Tx 10/05/23
furosemide 40 mg tablet 40 mg PO DAILY Fluid Retention/Swelling 10/05/23
Review of Systems
-
History Source: Patient
A 12 point ROS was completed and negative except as noted: Yes
Constitutional: Denies Fever or Chills
EENT: Denies Sore Throat or Runny Nose
Respiratory: Denies Cough or Trouble Breathing
Cardiac: Reports Palpitations; Denies Chest Pain, Diaphoresis or Syncope
Abdomen/GI: Reports Black Stools; Denies Abdominal Pain, Nausea, Vomiting, Diarrhea, Constipated or Bloody Stools
: Denies Dysuria, Frequency, Flank Pain, Incontinence, Difficulty Voiding or Urgency
Musculoskeletal: Reports Edema (Bilateral leg edema +2 with chronic venous stasis dermatitis); Denies Joint Pain
Skin: Denies Itching or Rash
Neurological: Reports Dizzy; Denies Headache or Weakness
Endocrine: Reports No Symptoms
Hematologic/Lymphatic: Reports No Symptoms
Psych: Reports Calm
Physical Exam
Vital Signs
Vital Signs
Temp Pulse Resp BP Pulse Ox
97.6 F 117 14 141/69 100
10/05/23 11:10 10/05/23 11:10 10/05/23 13:15 10/05/23 13:15 10/05/23 13:15
Physical Exam
General: Comfortable and Conversant; No Pain or Fever
HEENT: NormoCephalic, Anicteric, Moist mucous membranes, PERRLA and No Ptosis
Respiratory: Clear; No Wheezes, Rales or Rhonchi
Cardiac: S1/S2, Irregular Rhythm (Rapid A-fib) and Peripheral Edema (Bilateral leg edema +2 with chronic venous stasis dermatitis); No Murmur, Rub or Gallop
Breast: Deferred by me
GI: Soft, Non Tender, Non Distended, Normal Bowel Sounds and No Hepatosplenomegaly
Rectal: Hem Positive
Genito-urinary: Deferred by me
Musculoskeletal: Edema, Left Lower Extremity (Bilateral leg edema +2 with chronic venous stasis dermatitis) and Edema, Right Lower Extremity (Bilateral leg edema +2 with chronic venous stasis dermatitis); No Edema, Left Upper Extremity or Edema,
Right Upper Extremity
Neuro: AO x 3, No Motor Deficits, Nonfocal/grossly intact, Cranial Nerves Intact and No Sensory Deficits; No Slurred Speech, Facial Droop or Tremors
Psych: Calm
Laboratory Results
-
10/05/23 12:45
10/05/23 12:46
Laboratory Results
Total Bilirubin 1.8 mg/dl (0.2-1.3) H 10/05/23 12:46
AST 33 U/L (14-36) 10/05/23 12:46
ALT 21 U/L (0-35) 10/05/23 12:46
Alkaline Phosphatase 62 U/L (38-126) 10/05/23 12:46
Troponin I 0.156 ng/ml H* 10/05/23 12:45
Impression/Plan
-
Impression/plan:
Admit to IMU
#Acute GI bleed on Eliquis
Hgb 8.3 <9.5 on 09/28/2023 1 g drop past 7 days
-Type and screen, obtain blood consent
-Consult GI
-Hold Eliquis
-IV PPI gtt
-Check CBC 6 hours post if less than 7.8 transfuse 1 unit PRBC
-Follow CBC, BMP
CXR: No acute cardiopulmonary process
#Hypokalemia likely secondary to diuretic
K 2.7 will replace with KCl 40 M EQ p.o. and 40 KCl rider
-Follow BMP
EKG: A-fib with RVR 128 bpm, QTc 475 MS mild T wave inversion less evident in lateral leads from 09/29/2023
#A-fib with RVR/permanent A-fib
HR 128 bpm had transient hypotension self resolved in ER
-Hold Eliquis 5 mg twice daily given current GI bleed
-Had recent atenolol stopped due to hypotension
-Consult cardiology recommendation for rate control medication
#Recent NSTEMI 09/24/2023 s/p cardiac cath no intervention/Noncritical CAD
Peak troponin 3.4 trending down currently 0.156
2D echo 09/24/2023, EF 70 to 75%, mild LVH, mild MR, moderate TR, pulm arterial pressure 40-45 mmHg
Cardiac cath 09/24/2023: LAD 20-30% mid to distal stenosis, circumflex normal, RCA no disease, medium sized acute marginal RV branch focal 60 to 70% proximal stenosis. 20 to 30% lesion in the distal RPDA
#Moderate�severe TR
#Pulmonary HTN
#HTN/hypotension Hx
-Atenolol was recently stopped due to hypotension
-Hold candesartan 8 mg daily with hold parameters pending rate control meds per cardiology recommendation
#CKD stage III A
Creat 1.1 appears near baseline
#History proteinuria concern nephrotic syndrome
Was on prednisone 40 mg twice daily started August 23 abruptly stopped prednisone 60 mg 1 week ago 09/17 -had refused steroids here and understands risks/benefits
-Abruptly stopped Bactrim Wednesday also on 09/17
#LE edema
-most likely attributed to nephrotic syndrome
� proBNP on 09/23 4160
-resumed lasix 40 mg daily during recent admission continue hold SBP <110
#Thrombocytopenia hx -stable
PLT 145
#Left foot cellulitis with underling PVD resolved
#Chronic venous stasis dermatitis
-f/u vascular outpatient-completed IV Ancef
#Hx metastatic endometrial cancer, followed by Dr. Goldstein
#Hysterectomy 2018
#Port right upper chest wall
#Chemotherapy from 2019 to April 2023 stopped due to proteinuria per patient
IgM kappa MGUS
-Patient reports has next PET scan October 2023
#Gout
-Continue allopurinol 100 mg daily
#Morbid obesity due to excess calorie consumption�BMI 50.1 kg
-Weight loss recommended, low-fat diet once cleared for diet
DVT prophylaxis
SCDs, hold Eliquis
Full code
[2023-10-05] MEDS: KCL 270 MEQ IV (14:31)
--- NOTE | 2023-10-05 14:35 | CON.GI ---
Addendum entered and electronically signed by SHANTHI Padilla 10/05/23 16:33:
Pt also admits to recent change in eliquis dose from 2.5 BID to 5mg BID
Addendum entered and electronically signed by Mimi Perkins DO 10/05/23 15:48:
Please avoid NSAIDs. Toradol is an NSAID which can further precipitate GI bleeding
Addendum entered and electronically signed by Mimi Perkins DO 10/05/23 15:46:
Patient seen and examined independently of SHANTHI. I agree with her note with my additions below
Sangeeta is a 78-year-old female with history of metastatic ovarian cancer, off chemotherapy as of April, atrial fibrillation on Eliquis, MGUS, nephrotic syndrome recently diagnosed and started on high-dose prednisone that was given from July to
August, who had an admission recently for nonischemic NC with a cath that showing patency. She comes in today for severe weakness and fatigue feeling lightheaded upon standing with elevated heart rates. In the emergency room her blood
pressure is stable and her heart rates from 1 10-1 50s. She has noted that her stools have been formed and dark over the past couple of months but recently since her Eliquis was increased to therapeutic doses to 5 mg twice daily she started seeing
more tarry. She is not having multiple stools a day really having difficulty getting the stool out and has had to manually disimpact herself. She denies taking any NSAIDs. She has been off prednisone for over a month. She does not take a PPI.
She has minimal rare nausea with no vomiting. Occasionally things will feel slow to go down especially large pills. She did lose some weight after starting the prednisone. She has never had an upper endoscopy. Her last colonoscopy was about 4
years ago and subjectively just small polyps.
# Anemia -in the setting of black formed stools with no clinically significant GI bleeding other than a drop in her hemoglobin which appears to have been trending down since early September and has trended down since starting therapeutic Eliquis
-- Patient was not on a PPI. Now on PPI drip
-- Because of her rapid A-fib with a hemoglobin of 8.3 she is given a unit of blood. This is her first transfusion
-- Eliquis is on hold with her last dose this morning, 10/05/2023
-- Likely EGD on unless she has clinically significant overt bleeding which we will do sooner
--There is no reason to give her PCC since her bleeding is not significant
-- Full liquid diet
#Rapid A-fib -managed by cardiology and primary team
-Will follow-
-- Currently getting a unit of blood, correct electrolytes her potassium was 2.7
--
Original Note:
Consultation
-
Date/Time Consultation Requested: 10/05/23 1400
Date/Time Consultation Performed: 10/05/23 1430
Requesting Provider: sae Napier PA-C
Performing Provider: SHANTHI Christianson, Mimi Perkins DO
Reason for Consultation: anemia
Medical History
Chief Complaint / HPI
Chief Complaint: black stools, tachcardia
History of Present Illness:
Pt is a 78yo with hx AFib on Eliquis, metastatic ovarian CA, prior appe, MGUS, obesity, fatty liver, nephrotic syndrome, gout, neuropathy with admission several days ago with NSTEMI with cath 5 days ago no critical CAD. She now returns with LE
swelling, shortness of breath and dark stools. ER rectal black heme + stools. Pt admits she was on therapy with Oncology for metastatic disease until April with concern for Nephrotic syndrome. She was started on Prednisone 40mg BID and has not
well since that time. She took medication for about 3 weeks then stopped. She admits to black stools for some time but admits recently stools are now tarry in consistency. She is also noted with rapid afib and dizziness in ER. Hbg noted 12.6 on
09/24 with slow drop 8.3 on admission.
She admits to mild nausea, minimal GERD with hx HH not on PPI. She saw minimal red in stool this am with wiping. She otherwise denies dysphagia, abdominal pain, or constipation. No EGD and last colonoscopy with [facility] with polyps. No
NSAID use.
Past Medical History
Past Medical History: Arrhythmias (afib on eliquis ), Cancer (metastatic ovarian CA), HTN and Other (obesity, nephrotic syndrome, gout, stasis dermatitis, LE edema, taxol induced hypotension, MGUS, osteoarthritis , neuropathy, DVT, HH, polyps, fatty
liver )
Past Surgical History: Appendectomy, Gynecological (hysterectomy), Tonsilectomy and Other (cararact surgery)
Social History
Tobacco: Non-Smoker
Alcohol: None
Drug: None
Living: With Family (sister)
Employment: Retired
Family History
Family History: Other (no family hx colon CA or polyps)
Allergies / Home Medications
Allergy/AdvReac Type Severity Reaction Status Date / Time
paroxetine [From Paxil] Allergy Unknown Verified 09/24/23 18:22
prednisone Allergy Unknown Verified 09/24/23 07:37
Medication Instructions Recorded
allopurinol 100 mg tablet 100 mg PO QPM Gout 07/30/21
candesartan 8 mg tablet 8 mg PO DAILY Blood Pressure 09/24/23
apixaban 5 mg tablet (Eliquis) 5 mg PO Q12 Blood Clot 10/05/23
Prevention/Tx
furosemide 40 mg tablet 40 mg PO DAILY Fluid 10/05/23
Retention/Swelling
Review of Systems
-
History Source: Patient
Constitutional: Reports Weight Loss ( 10 lbs weekly )
EENT: Reports No Symptoms
Respiratory: Reports No Symptoms
Cardiac: Reports No Symptoms
Abdomen/GI: Reports Bloody Stools (small amt of stool) and Black Stools
: Reports No Symptoms
Musculoskeletal: Reports No Symptoms
Neurological: Reports Weakness
Endocrine: Reports No Symptoms
Hematologic/Lymphatic: Reports Bleeding
Vital Signs
Temp Pulse Resp BP Pulse Ox
97.6 F 117 14 141/69 100
03/12/24 11:10 10/05/23 11:10 10/05/23 13:15 10/05/23 13:15 10/05/23 13:15
Physical Exam
Exam
General: Well Developed, Well Nourished and No Apparent Distress
HEENT: Normocephalic and Anicteric
Respiratory: Clear
Cardiac: Other (tachy irregular)
GI: Soft
Rectal: Black (heme + per ER)
Musculoskeletal: No Clubbing and No Cyanosis
Skin: Warm and Dry
Neuro: Awake, Alert and AO x 3
Psych: Calm
Results
WBC 6.4 10^3/uL (4.8-10.8) 10/05/23 12:45
Hgb 8.3 g/dL (12.0-16.0) L 10/05/23 12:45
Hct 24.6 % (37.0-47.0) L 10/05/23 12:45
MCV 112.3 fL (81.0-99.0) H 10/05/23 12:45
Plt Count 145 10^3/uL (130-400) 10/05/23 12:45
Absolute Neuts (auto) 3.6 10^3/uL (1.4-6.5) 10/05/23 12:45
Sodium 133 mmol/L (135-145) L 10/05/23 12:46
Potassium 2.7 mmol/L (3.5-5.1) L* 10/05/23 12:46
Chloride 101 mmol/L (98-107) 10/05/23 12:46
Carbon Dioxide 29 mmol/L (22-30) 10/05/23 12:46
BUN 65 mg/dl (7-17) H 10/05/23 12:46
Creatinine 1.1 mg/dL (0.6-1.0) H 10/05/23 12:46
Calcium 8.5 mg/dl (8.4-10.2) 10/05/23 12:46
Total Bilirubin 1.8 mg/dl (0.2-1.3) H 10/05/23 12:46
AST 33 U/L (14-36) 10/05/23 12:46
ALT 21 U/L (0-35) 10/05/23 12:46
Alkaline Phosphatase 62 U/L (38-126) 10/05/23 12:46
Diagnostic Image Results:
07/29/23 CT A/p IV contrast
There are multiple bilateral pulmonary nodules which are stable. There is no new or enlarged pulmonary nodule.
There are multiple low attenuation splenic masses. The most inferior is now calcifying suggesting a treated metastatic lesion. There is one positioned medially which appears new from June 16 but stable from most recent study.
There is cholelithiasis.
There is fatty infiltration of the liver
There are severe degenerative changes in the spine
Prior GI Procedures:
EGD: none
Colonoscopy: 4 years ago [facility] polyps
Assessment / Plan
-
Pt is a 78yo with hx AFib on Eliquis, metastatic ovarian CA, prior appe, MGUS, obesity, fatty liver, nephrotic syndrome, gout, neuropathy with admission several days ago with NSTEMI with cath 5 days ago no critical CAD. She now returns with LE
swelling, shortness of breath and dark stools. ER rectal black heme + stools. Pt admits she was on therapy with Oncology for metastatic disease until April with concern for Nephrotic syndrome. She was started on Prednisone 40mg BID and has not
well since that time. She took medication for about 3 weeks then stopped. She admits to black stools for some time but admits recently stools are now tarry in consistency. She is also noted with rapid afib and dizziness in ER. Hbg noted 12.6 on
09/24 with slow drop 8.3 on admission.
-melena
-anemia with drop from 09/24
-recent steroids (initial prednisone 40mg BID) for nephrotic syndrome stopped late August
-metastatic ovarian CA therapy stopped april with nephrotic syndrome
-recent NSTEMI with no critical CAD on cath
-LE swelling
-afib on Eliquis with rapid afib on admission
-hypokalemia/hyponatemia
other medical problems:
-appe
-MGUS
-fatty liver per imaging
-obesity with recent wt loss
-gout
-neuropathy
PLAN:
etiology of symptoms with concern for ongoing GI bleed with report of black stools for several weeks and slow drop of hbg
will need EGD after Eliquis wash out
hold on reversal for now with recent NSTEMI -- bun trending down
cont Protonix gtt
trend hbg transfuse less than 7
appreciate cards eval with rapid afib
2 large bore IV, bedrest
replete electrolytes
will follow
-
-
Thank you for consultation and allowing me to participate in the patient's care. Please call the [facility] physician during the after hours with any questions or concerns.
[2023-10-05] MEDS: KCL 40 MEQ PO (14:38)
--- NOTE | 2023-10-05 15:01 | CON.CAR ---
Consultation
Consultation Request
Date/Time Consultation Requested: October 05, 2023 2:30 PM
Date/Time Consultation Performed: October 05, 2023 3 PM
Requesting Provider: Hospitalist
Performing Provider: Connor Ng
Reason for Consultation: A-fib RVR
Medical History
-
Chief Complaint: Elevated heart rate with weakness and lightheadedness
History of Present Illness:
78-year-old female with pertinent past medical history of permanent A-fib on Eliquis, recent nonischemic NJ with cath on September 28, 2023, hypertension, metastatic endometrial Carcinoma, nephrotic proteinuria, chronic lymphedema, and obesity who is
here today for further evaluation of elevated heart rate with weakness and lightheadedness. This began this morning when she noticed her heart rate did feel very fast and had associated symptoms of weakness and lightheadedness. Additionally, she
has noted that her stools have become black and we recently increased her Eliquis to therapeutic dose of 5 mg twice a day. She sought out medical care after noticing her fast heart rate and these feelings of weakness.
In the ER she was found to be hypokalemic to 2.7, her hemoglobin was down from 9.5 on September 27 and now 8.3. Additionally, she was in A-fib with RVR with heart rates in the 120s and 130s.
Past Medical History
Past Medical History: Other (NSTEMI noncritical CAD 09/24/2023 permanent A-fib HTN/hypotension moderate to severe TR pulm HTN, CKD stage III A proteinuria lower extremity edema thrombocytopenia left foot cellulitis with underlying PVD
metastatic endometrial cancer status post hysterectomy/chemo gout, morbid obesity hype)
Past Surgical History: Other (Gynecological)
Social History
Tobacco: Non-Smoker
Alcohol: None
Drug: None
Living: With Family (sister)
Employment: Retired
Family History
Family History: Reviewed & Not Pertinent
Allergies / Home Medications
Allergy/AdvReac Type Severity Reaction Status Date / Time
paroxetine [From Paxil] Allergy Unknown Verified 09/24/23 18:22
prednisone Allergy Unknown Verified 09/24/23 07:37
Medication Instructions Recorded Confirmed Type
allopurinol 100 mg tablet 100 mg PO QPM Gout 07/30/21 10/05/23 History
candesartan 8 mg tablet 8 mg PO DAILY Blood Pressure 09/24/23 10/05/23 History
apixaban 5 mg tablet (Eliquis) 5 mg PO Q12 Blood Clot 10/05/23 10/05/23 History
Prevention/Tx
furosemide 40 mg tablet 40 mg PO DAILY Fluid 10/05/23 10/05/23 History
Retention/Swelling
Review of Systems
-
All other systems: Negative unless noted
Physical Exam
Vital Signs
Temp Pulse Resp BP Pulse Ox
97.6 F 117 14 141/69 100
10/05/23 11:10 10/05/23 11:10 10/05/23 13:15 10/05/23 13:15 10/05/23 13:15
Lab Results
10/05/23 12:46
Troponin I 0.156 ng/ml H* 10/05/23 12:45
Qqi-D-Mfoqmzkkvkn Pept 4330 pg/ml 10/05/23 12:45
Physical Exam
General: Well Developed, Well Nourished and No Apparent Distress
HEENT: Normocephalic and Anicteric
Respiratory: Clear and Non Labored Respirations
Cardiac: S1/S2, Irregular Rhythm and Peripheral Edema
GI: Soft
Musculoskeletal: Edema
Skin: Warm, Dry and Other (Multiple ecchymoses in various stages of healing)
Neuro: AO x 3
Psych: Calm
Impression / Plan
-
78-year-old female with pertinent past medical history of permanent A-fib on Eliquis, recent nonischemic NJ with cath on September 28, 2023, hypertension, metastatic endometrial Carcinoma, nephrotic proteinuria, chronic lymphedema, and obesity who is
here today for further evaluation of elevated heart rate with weakness and lightheadedness. She was found to be in A-fib with RVR, worsening anemia, and potential GI bleeding.
AF RVR
- diltiazem gtt
- hold Eliquis
- likely will transition to PO dilt once rates are controlled, and stop atenolol
Nonischemic myocardial injury
- likely from AF RVR
Chronic LE edema likely from proteinuria
- TTE this month, September 2023, below
- likely from proteinuria
- continue daily lasix, K>4 Mag > 2
GI Bleed
- per primary
Hypokalemia
- per primary
HTN - stable
Gout
severe obesity affecting all aspects of care
Metastatic endometrial carcinoma, managed by Dr. Goldstein, metastasis to spleen, doug hepatis and RP nodes, omentum, & lung
TTE September 24 2023:
�CONCLUSIONS
�Normal left ventricular size and systolic function. LV ejection fraction is 70-
�75% by visual assessment.
�Mild concentric left ventricular hypertrophy.
�
�Mild mitral regurgitation.
�Moderate tricuspid regurgitation. Estimated pulmonary artery pressure of 40-45
�mmHg
�
�No significant change since the prior study of Jan 2023.
Data Reviewed
-
EKG: Tracing Personally Visualized and interpreted
CT Scan: Report Reviewed by me
Labs: Labs Reviewed by me
[2023-10-05 15:02] LABS: Magnesium 1.7 mg/dl (1.6-2.3)
--- NOTE | 2023-10-05 16:53 | PTCARENOTE ---
Received patient from ED to room 3355. Patient with blood running by gravity into R AC. Blood not running in drip chamber despite all clamps unlocked. R AC also leaking. Attempted to flush IV site and pt c/o of pain to site. VAT team called. Pt a
very hard stick. Blood switched to SQ port to save time on 4 hour MAX infusion of blood.
[2023-10-05] MEDS: CARDIZEM 125 IV (17:45)
[2023-10-05 20:58] LABS: Hematocrit 26.4 % (37.0-47.0); Hemoglobin 8.9 g/dL (12.0-16.0)
--- NOTE | 2023-10-05 22:50 | PTCARENOTE ---
Assumed care of Pt from Day RN, Jerrod gtt running at 10mg/Hr Pt Hr in the 130's-150's at times. See work list for titration. Pt appearing in good spirits at this time. Emotional support and reassurance given at every encounter. Repeat H&H
8.9/.4. Assessment care and vitals as charted.
[2023-10-06] VITALS (30 sets, daily range): BP systolic 92–143; BP diastolic 54–120; PULSE 104–132; O2SAT 99
[2023-10-06] MEDS: CARDIZEM 125 IV ×2 (02:33→14:27)
[2023-10-06 03:51] LABS: % Basophils 0.2 % (0-2); % Immature Granulocytes 0.5 % (0-0.5); % Lymphocytes 10.9 % (20.5-51.1); % Monocytes 10.2 % (1.7-9.3); % Neutrophils 78.2 % (42.2-75.2); Absolute Lymphocytes 0.9 10^3/uL (1.2-3.4); Absolute Monocytes 0.8 10^3/uL (0.1-0.6); Absolute Neutrophils 6.3 10^3/uL (1.4-6.5); Hematocrit 25.7 % (37.0-47.0); Hemoglobin 8.7 g/dL (12.0-16.0); Mean Corp Hgb Conc. 33.9 g/dL (33.0-37.0); Mean Corpuscular Hgb 35.8 pg (27.0-31.0); Mean Corpuscular Volume 105.8 fL (81.0-99.0); Mean Platelet Volume 9.9 fL (7.4-10.4); Nucleated Red Blood Cells % 1.7 %; Platelet Count 132 10^3/uL (130-400); Red Blood Cell Count 2.43 10^6/uL (4.20-5.40); Red Cell Dist. Width 22.4 % (11.5-14.5); White Blood Cell Count 8.1 10^3/uL (4.8-10.8)
[2023-10-06 04:05] LABS: ALT (SGPT) 20 U/L (0-35); AST (SGOT) 26 U/L (14-36); Albumin 2.6 g/dl (3.5-5.0); Alkaline Phosphatase 59 U/L (38-126); Blood Urea Nitrogen 62 mg/dl (7-17); Calcium 8.3 mg/dl (8.4-10.2); Carbon Dioxide 29 mmol/L (22-30); Chloride 98 mmol/L (98-107); Glucose 130 mg/dl (70-99); Potassium 3.6 mmol/L (3.5-5.1); Sodium 133 mmol/L (135-145); Total Bilirubin 1.8 mg/dl (0.2-1.3); Total Protein 4.7 g/dl (6.3-8.2); eGFR 57.66
[2023-10-06 06:48] LABS: Magnesium 1.6 mg/dl (1.6-2.3)
[2023-10-06 07:36] LABS: Anisocytosis 1+; Hypochromasia 1+; Macrocytosis 1+; Normal RBC Morphology No; Polychromasia 1+
[2023-10-06] MEDS: PROTONIX 100 IV ×2 (09:46→17:43)
[2023-10-06 10:15] LABS: Hematocrit 26.6 % (37.0-47.0); Hemoglobin 9.1 g/dL (12.0-16.0)
--- NOTE | 2023-10-06 11:18 | W.PN.CD ---
Today's Communication / Plan
-
Workup of anemia per medicine/GI
Defer some of cardiac med adjustment to outpatient setting
- Her stage 4 cancer may temper our treatment
55 min spent caring for patient today: reviewing records: last admit, this admit, Dr. Tang's office notes, preparing this document, examining patient, etc.
Impression / Plan
-
78-year-old female with pertinent past medical history of permanent A-fib on Eliquis, recent NSTEMI with nonobstructive CAD at cath on September 28, 2023, hypertension, chronic HFpEF, metastatic endometrial Carcinoma, nephrotic proteinuria, chronic
lymphedema, and obesity who is here today for further evaluation of elevated heart rate with weakness and lightheadedness. She was found to be in A-fib with RVR, worsening anemia, and potential GI bleeding.
Weak/lightheaded/suspected GI bleed
New Anemia => onset by labs may have been as early as 09/26/2023
- HgB 12.6 on 09/25/2023
- HgB 10.6 on 09/27/2023
- HgB 8.3 on 10/04/2022
- Presumably from GI blood loss
Perm AFib
- Rate: IV dilt => rate OK
- Anticog: Eliquis on hold
- [id number] 6 (hx HF, HTN, age2, vascular disease, female gender)
Nonischemic myocardial injury, trop this admit 0.156, likely from AF RVR
Chronic LE edema likely from a mixture of proteinuria + lymphedema + some from hx of HFpEF (LVEDP 19 at cath earlier this month)
- Chronic Lasix at home
- Compression appropriate
- Outpatient consideration for referral to lymphedema compressive therapy
Hx of HFpEF
- LVEDP was 19 at cath earlier this admit
- Ultimately will benefit from SGLT2-I, MRA, continue loop diuretic
- Clearly not all edema is from HF
Recent suspected NSTEMI, peak trop 3.4 on 09/24/2023
Mild CAD, branch vessel
- Appropriate for consideration for statin and goal LDL less than 70 (or less than 55!!)
- For now will defer to outpatient setting
Improved hypokalemia
HTN
Gout
Morbid obesity; affecting all aspects of care
Metastatic endometrial carcinoma (stage 4), managed by Dr. Goldstein, metastasis to spleen, doug hepatis and RP nodes, omentum, & lung
Subjective:
No CP or palps.
Data:
Echo 09/24/2023: LVEF 70-75%, mild cLVH, mild MR, mod TR, PASP 40-45 mmHg
Cath 09/28/2023 (CP, peak trop 3.4): LVEDP 19, 20-30 mid-distal LAD, 60-70% p RV Marginal (branch of RCA)
Physical Exam
Vital Signs/Labs
Vital Signs
Temp Pulse Resp BP Pulse Ox
97.8 F 93 18 105/63 95
10/06/23 11:02 10/06/23 06:00 10/06/23 06:00 10/06/23 06:00 10/06/23 11:00
10/05/23 10/06/23 10/07/23
06:59 06:59 06:59
Actual Weight 122.3 kg
10/06/23 09:53
10/06/23 03:22
Magnesium 1.6 mg/dl (1.6-2.3) 10/06/23 03:22
10/05/23
12:45
Sam-W-Fiaqkzzizov Pept 4330
LAB Results
10/05/23
12:45
Troponin I 0.156 H*
Physical Exam
Constitutional: No acute distress
Cardiovascular: Rhythm/rate is irregular, Pedal edema present and S1S2 is normal
Respiratory: Respiratory effort normal and Lungs clear to auscul.
GI: Soft
Neuro/Psych: AO x 3
Data Reviewed
-
Date of Service: October 06, 2023
--- NOTE | 2023-10-06 12:03 | CM ---
Patient with Hx Hx metastatic endometrial cancer, Port right upper chest wall with Dx Acute GI bleed, A-fib with RVR. Room air. Receiving Cardizem and Protonix gtts. PT & OT Evals; requires assist of 2, recommend skilled rehab.
Met with patient and her sister Christianne;
the patient resides with Christianne in a 2 story townhouse.
She has been independent in ADLs and ambulates using her RW or rollator, and SPC when on the stairs.
The patient is unable to do the stairs to 2nd floor bedroom and has been sleeping in a lift chair on the first floor, & using bathroom first floor.
DME- RW, rollator, SPC, crutches, w/c
VN -prior [facility]
SNF - none
PCP - Theresa Fernandes
Pharmacy - [facility]
Discussed patient's current functional mobility as per PT/OT. Patient and her sister agree to short term SNF for rehab and choose [facility] in [place].
Spoke with [facility] Director [facility]; informed her that patient is not ready for d/c - may be ready in a few days. They are tight for beds however Theresa will review the referral in [facility].
Plan follow up SNF referral.
--- NOTE | 2023-10-06 15:00 | W.PN.GI.CBS2 ---
Today's Communication / Plan
-
N.p.o. after midnight for EGD
Assessment / Plan
-
Sangeeta is a 78-year-old female with history of metastatic ovarian cancer, off chemotherapy as of April, atrial fibrillation on Eliquis, MGUS, nephrotic syndrome recently diagnosed and started on high-dose prednisone that was given from July to
August, obesity who had an admission recently for nonischemic MA not requiring stenting. she comes in today for severe weakness and fatigue feeling lightheaded upon standing with elevated heart rates and rapid A-fib.� In the emergency room her
blood pressure is stable.� She has noted that her stools have been formed and dark over the past couple of months but recently since her Eliquis was increased to therapeutic doses to 5 mg twice daily she started seeing more tarry.� She is not having
multiple stools a day really having difficulty getting the stool out and has had to manually disimpact herself.� She denies taking any NSAIDs.� She has been off prednisone for over a month.� She does not take a PPI.� She has minimal rare nausea with
no vomiting.� Occasionally things will feel slow to go down especially large pills.� She did lose some weight after starting the prednisone.�
She has never had an upper endoscopy.� Her last colonoscopy was about 4 years ago and subjectively just small polyps.
# Anemia -in the setting of black formed stools with no clinically significant GI bleeding other than a drop in her hemoglobin which appears to have been trending down since early September and has trended down since starting therapeutic Eliquis
-- Patient was not on a PPI.� Now on PPI drip
-- Because of her rapid A-fib with a hemoglobin of 8.3 she is given a unit of blood.� This is her first transfusion -hemoglobin responded well 8.3-9.1
-- Eliquis is on hold , 10/05/2023
-- Likely EGD on unless she has clinically significant overt bleeding which we will do sooner
--There is no reason to give her PCC since her bleeding is not significant
-- Full liquid diet
-- N.p.o. after midnight
#Rapid A-fib -managed by cardiology and primary team
-melena
-anemia with drop from 3
-recent steroids (initial prednisone 40mg BID) for nephrotic syndrome stopped late August
-metastatic ovarian CA therapy stopped april with nephrotic syndrome
-recent NSTEMI with no critical CAD on cath
-LE swelling
-afib on Eliquis with rapid afib on admission
-hypokalemia/hyponatemia
other medical problems:
-appe
-MGUS
-fatty liver per imaging
-obesity with recent wt loss
-gout
-neuropathy
Total Time Spent with Patient (in minutes): 15
Subjective
Subjective
Date of Service: October 06, 2023
Patient has not had any further bowel movements. Denies any GI symptoms
Objective
Data Reviewed
Laboratory Data:
Laboratory Results
10/06/23 03:22
Laboratory Results
Magnesium 1.6 mg/dl (1.6-2.3) 10/06/23 03:22
Total Bilirubin 1.8 mg/dl (0.2-1.3) H 10/06/23 03:22
AST 26 U/L (14-36) 10/06/23 03:22
ALT 20 U/L (0-35) 10/06/23 03:22
Alkaline Phosphatase 59 U/L (38-126) 10/06/23 03:22
Vital Signs and I&O:
Vital Signs
Temp Pulse Resp BP Pulse Ox
97.8 F 93 20 128/70 95
10/06/23 11:02 10/06/23 14:00 10/06/23 14:00 10/06/23 14:00 10/06/23 11:00
I&O
10/05/23 10/06/23 10/07/23
06:59 06:59 06:59
Intake Total 1725 / 1725 240 / 240
Output Total 200 / 200 250 / 250
Balance 1525 / 1525 - /
Physical Exam
Physical Exam
HEENT: Anicteric
Cardiology: Irregular Rate/Rhythm
GI: Soft and Non Distended
Extremities: Edema
Neuro: Non Focal
[2023-10-06] MEDS: ZYLOPRIM PO (15:49)
[2023-10-06] MEDS: ZYLOPRIM 100 MG PO (15:51)
[2023-10-06 16:10] LABS: Hemoglobin 9.2 g/dL (12.0-16.0)
--- NOTE | 2023-10-06 16:50 | PTCARENOTE ---
Pt remains AOx3, however in conversation, seems slightly forgetful at times. Pt tolerated oob to chair this am (x2 assist with RW) and sat for approx 2 hours, demonstrated significant anxiety/fear of falling with transition. Reluctant to stay oob
for any longer, returned to bed and declines turning or repositioning, asked for Purewick to be replaced. Plan discussed with attending Dr. Steward/cards/GI docs, pt will be NPO at [facility] for EGD tomorrow. Cardizem continues infusing at 10 mls/hr,
Protonix gtt as ordered. HR remains 90-100s, tachycardic with activity to 130s but immediatly recovered at rest. No BMs this shift, tolerating full liquid diet. Sister in to visit this am. Safe environment maintained.
--- NOTE | 2023-10-06 17:39 | W.PN.HOSP.TC ---
Today's Communication/Plan
-
EGD tomorrow
Assessment / Plan
Assessment / Plan
#Acute GI bleed on Eliquis
Hgb 8.3 � (9.5 on 09/28/2023 1 g drop past 7 days)
-Type and screen, obtain blood consent, transfused 1 unit
-Consult GI
-Hold Eliquis
-IV PPI gtt
Hgb 8.3-->8.9-->8.7-->9.1-->9.2
-Follow CBC, BMP
� � CXR: No acute cardiopulmonary process
For EGD tomorrow
#Hypokalemia likely secondary to diuretic
K 2.7-->3.6 post KCl supplement
-Follow BMP
���EKG:�A-fib with RVR 128 bpm, QTc 475 MS mild T wave inversion less evident in lateral leads from 09/29/2023
#A-fib with RVR/permanent A-fib
HR 128 bpm had transient hypotension self resolved in ER
-Hold Eliquis 5 mg twice daily given current GI bleed
-Had recent atenolol stopped due to hypotension
-Consult cardiology recommendation for rate control medication
#Recent NSTEMI 09/24/2023 s/p cardiac cath no intervention/Noncritical CAD
Peak troponin 3.4 trending down currently 0.156
2D echo 09/24/2023,�EF 70 to 75%, mild LVH, mild MR, moderate TR, pulm arterial pressure 40-45 mmHg
Cardiac cath 09/24/2023: LAD 20-30% mid to distal stenosis, circumflex normal, RCA no disease, medium sized acute marginal RV branch focal 60 to 70% proximal stenosis.� 20 to 30% lesion in the distal RPDA
#Moderate�severe TR
#Pulmonary HTN
#HTN/hypotension Hx
-Atenolol was recently stopped due to hypotension
-Hold candesartan 8 mg daily with hold parameters pending rate control meds per cardiology recommendation
#CKD stage III A
Creat 1.1 appears near baseline
#History proteinuria concern nephrotic syndrome
Was on prednisone 40 mg twice daily started August 23 abruptly stopped prednisone 60 mg 1 week ago 09/17 -had refused steroids here and understands risks/benefits
-Abruptly stopped Bactrim Wednesday also on 09/17
#LE edema
-most likely attributed to nephrotic syndrome
�� proBNP on 09/23 4160
-resumed lasix 40 mg daily during recent admission continue hold SBP <110
#Thrombocytopenia hx -stable
PLT 145
#Left foot cellulitis with underling PVD resolved
#Chronic venous stasis dermatitis
-f/u vascular outpatient-completed IV Ancef
#Hx metastatic endometrial cancer, followed by Dr. Goldstein
#Hysterectomy 2018
#Port right upper chest wall
#Chemotherapy from 2019 to April 2023 stopped due to proteinuria per patient
IgM kappa MGUS
-Patient reports has next PET scan October 2023
#Gout
-Continue allopurinol 100 mg daily
#Morbid obesity due to excess calorie consumption�BMI 50.1 kg
-Weight loss recommended, low-fat diet once cleared for diet
DVT prophylaxis
SCDs, hold Eliquis
Full code
Anticipated Discharge: > 48 hours
Subjective/Interval History
-
Date of Service: October 06, 2023
Remains weak, but feels better since receiving blood, 1 unit
Objective Data
-
Labs:
Laboratory Results
10/06/23 10/06/23
09:53 16:01
Hgb 9.1 L 9.2 L
Hct 26.6 L
Vital Signs:
Vital Signs
Temp Pulse Resp BP Pulse Ox
98 F 96 22 118/76 95
10/06/23 15:03 10/06/23 16:00 10/06/23 16:00 10/06/23 16:00 10/06/23 11:00
I&O
10/05/23 10/06/23 10/07/23
06:59 06:59 06:59
Intake Total 1725 / 1725 240 / 240
Output Total 200 / 200 250 / 250
Balance 1525 / 1525 -10 / -10
Review of Systems
-
History Source: Patient and Coordinated Provider
Constitutional: Denies Fever
EENT: Reports No Symptoms Reported
Respiratory: Reports No Symptoms
Cardiac: Reports No Symptoms; Denies Chest Pain
Abdomen/GI: Reports No Symptoms and Black Stools; Denies Abdominal Pain
Physical Exam
-
General: Well Developed, Well Nourished, No Apparent Distress, Appears Chronically Ill and Morbidly Obese; Negative Fever
HEENT: Normocephalic, Atraumatic and Moist Mucous Membranes
Respiratory: Clear to Auscultation; Negative Wheezes, Rales or Rhonchi
Cardiac: S1/S2 and Irregular Rhythm
GI: Soft, Nontender and Nondistended
Genito-urinary: No Costovertebral Tender
Musculoskeletal: No Clubbing, No Cyanosis, Edema, Right Lower Extrem (2+) and Edema, Left Lower Extrem (2+)
Neuro: Awake, Alert and Other (reduced memory)
--- NOTE | 2023-10-06 22:48 | PTCARENOTE ---
Addendum entered by Karin Harris RN 10/07/23 02:52:
Numerous attempts offering Pt to roll and reposition. Pt refusing except slight shifting and a few times pillow under hip. Pt aware of NPO status for procedure in AM. Pt has no complaints at this time.
Original Note:
Assumed care of Pt from day RN. Pt AAOX3 appears to be in a pleasant mood, resting comfortably in bed. Cardizem gtt at 10mg/hr. Pt has no complaints at this time. Assessment care and vitals as charted.
[2023-10-07] VITALS (25 sets, daily range): BP systolic 18–122; BP diastolic 54–85; PULSE 90–114; O2SAT 100; BMI 47.2; BMI 47.8
[2023-10-07] MEDS: PROTONIX 100 IV (04:08)
[2023-10-07 04:52] LABS: % Basophils 0.5 % (0-2); % Immature Granulocytes 0.4 % (0-0.5); % Lymphocytes 11.5 % (20.5-51.1); % Monocytes 9.9 % (1.7-9.3); % Neutrophils 77.7 % (42.2-75.2); Absolute Lymphocytes 0.9 10^3/uL (1.2-3.4); Absolute Monocytes 0.7 10^3/uL (0.1-0.6); Absolute Neutrophils 5.7 10^3/uL (1.4-6.5); Hematocrit 26.7 % (37.0-47.0); Mean Corp Hgb Conc. 33.7 g/dL (33.0-37.0); Mean Corpuscular Hgb 36.3 pg (27.0-31.0); Mean Corpuscular Volume 107.7 fL (81.0-99.0); Mean Platelet Volume 10.3 fL (7.4-10.4); Nucleated Red Blood Cells % 0.7 %; Platelet Count 138 10^3/uL (130-400); Red Blood Cell Count 2.48 10^6/uL (4.20-5.40); Red Cell Dist. Width 22.6 % (11.5-14.5); White Blood Cell Count 7.4 10^3/uL (4.8-10.8)
[2023-10-07 05:09] LABS: ALT (SGPT) 18 U/L (0-35); AST (SGOT) 23 U/L (14-36); Albumin 2.7 g/dl (3.5-5.0); Alkaline Phosphatase 64 U/L (38-126); Blood Urea Nitrogen 59 mg/dl (7-17); Calcium 8.3 mg/dl (8.4-10.2); Carbon Dioxide 28 mmol/L (22-30); Chloride 95 mmol/L (98-107); Estimated Creatinine Clearance 65 ml/min; Glucose 122 mg/dl (70-99); Potassium 3.9 mmol/L (3.5-5.1); Sodium 129 mmol/L (135-145); Total Bilirubin 2.3 mg/dl (0.2-1.3); Total Protein 4.9 g/dl (6.3-8.2); eGFR > 60.00
--- NOTE | 2023-10-07 10:17 | W.PN.CD ---
Today's Communication / Plan
-
OK for EGD
Move from IV dilt to PO short acting dilt
Workup of anemia per medicine/GI
Defer some of cardiac med adjustment to outpatient setting
- Her stage 4 cancer may temper our treatment
Resume Eliquis when OK with medicine/GI
Impression / Plan
-
78-year-old female with pertinent past medical history of permanent A-fib on Eliquis, recent NSTEMI with nonobstructive CAD at cath on September 28, 2023, hypertension, chronic HFpEF, metastatic endometrial Carcinoma, nephrotic proteinuria, chronic
lymphedema, and obesity who is here today for further evaluation of elevated heart rate with weakness and lightheadedness. She was found to be in A-fib with RVR, worsening anemia, and potential GI bleeding.
Weak/lightheaded/suspected GI bleed
New Anemia => onset by labs may have been as early as 09/26/2023
- HgB 12.6 on 09/25/2023
- HgB 10.6 on 09/27/2023
- HgB 8.3 on 10/04/2022
- Presumably from GI blood loss
Perm AFib
- Rate: IV dilt => rate OK
- Anticog: Eliquis on hold
- [id number] 6 (hx HF, HTN, age2, vascular disease, female gender)
Nonischemic myocardial injury, trop this admit 0.156, likely from AF RVR
Chronic LE edema likely from a mixture of proteinuria + lymphedema + some from hx of HFpEF (LVEDP 19 at cath earlier this month)
- Chronic Lasix at home
- Compression appropriate
- Outpatient consideration for referral to lymphedema compressive therapy
Hx of HFpEF
- LVEDP was 19 at cath earlier this admit
- Ultimately will benefit from SGLT2-I, MRA, continue loop diuretic
- Clearly not all edema is from HF
Recent suspected NSTEMI, peak trop 3.4 on 09/24/2023
Mild CAD, branch vessel
- Appropriate for consideration for statin and goal LDL less than 70 (or less than 55!!)
- For now will defer to outpatient setting
Improved hypokalemia
HTN
Gout
Morbid obesity; affecting all aspects of care
Metastatic endometrial carcinoma (stage 4), managed by Dr. Goldstein, metastasis to spleen, doug hepatis and RP nodes, omentum, & lung
Subjective:
No CP or palps.
Data:
Echo 09/24/2023: LVEF 70-75%, mild cLVH, mild MR, mod TR, PASP 40-45 mmHg
Cath 09/28/2023 (CP, peak trop 3.4): LVEDP 19, 20-30 mid-distal LAD, 60-70% p RV Marginal (branch of RCA)
Physical Exam
Vital Signs/Labs
Vital Signs
Temp Pulse Resp BP Pulse Ox
97.9 F 88 16 119/85 98
10/07/23 07:32 10/07/23 10:00 10/07/23 10:00 10/07/23 10:00 10/07/23 07:32
10/06/23 10/07/23 10/08/23
06:59 06:59 06:59
Actual Weight 122.3 kg 120.9 kg
10/07/23 04:15
10/07/23 04:15
Magnesium 1.6 mg/dl (1.6-2.3) 10/06/23 03:22
10/05/23
12:45
Hdw-O-Ldoibgaxekx Pept 4330
LAB Results
10/05/23
12:45
Troponin I 0.156 H*
Physical Exam
Constitutional: No acute distress
EENT: Anicteric
Cardiovascular: Rhythm/rate is irregular and Pedal edema present
Respiratory: Respiratory effort normal and Lungs clear to auscul.
GI: Soft and Distention absent
Neuro/Psych: Alert
Data Reviewed
-
Date of Service: October 07, 2023
--- NOTE | 2023-10-07 13:49 | PTCARENOTE ---
Patient returned from PACU following EGD. All VS stable. Protonix gtt discontinued. Pt denies any pain. Pt's diet now full liquid diet and pt ready to order, given room phone.
[2023-10-07] MEDS: CARDIZEM 60 MG PO ×2 (16:16→21:38)
--- NOTE | 2023-10-07 16:39 | W.PN.HOSP.TC ---
Today's Communication/Plan
-
resume Eliquis
monitor tele
transfer to tele floor
Assessment / Plan
Assessment / Plan
Assessment:
Acute GI bleed, exacerbated by Eliquis
- Hb 9.0 most recently. has received 1 unit PRBCs
- s/p EGD: showed esophageal, pre-pyloric ulcers
- continue PPI BID
Hypokalemia
- resolved with repletion
Perm Afib with RVR
- resume Eliquis, cleared by GI
- PO dilt
- Cards following
Recent NSTEMI 3/
- noncritical CAD on recent cath
- peak trop 3.4, downtrended
Moderate�severe TR
Pulmonary HTN
Essential HTN/hypotension Hx
- Atenolol was recently stopped due to hypotension
- Hold candesartan 8 mg daily with hold parameters pending rate control meds per cardiology recommendation
CKD stage III A
- Creat 1.1 appears near baseline
History proteinuria concern nephrotic syndrome
- previously on steroids, has abruptly stopped it herself along with prophylactic bactrim
LE edema
- most likely attributed to nephrotic syndrome
- resume Lasix at discharge
Thrombocytopenia hx - now resolved
Left foot cellulitis with underling PVD resolved
Chronic venous stasis dermatitis
- f/u vascular outpatient
- completed IV Ancef course
Hx metastatic endometrial cancer, followed by Dr. Goldstein
Hysterectomy 2019
Port right upper chest wall
Chemotherapy from 2019 to April 2023 stopped due to proteinuria per patient
IgM kappa MGUS
- Patient reports has next PET scan October 2023
Gout
- continue allopurinol 100 mg daily
Morbid obesity due to excess calorie consumption�BMI 50.1 kg
- Weight loss recommended, low-fat diet once cleared for diet
DVT ppx: Eliquis
Code: Full
Anticipated Discharge: 24 - 48 hours
Subjective/Interval History
-
Date of Service: October 07, 2023
Objective Data
-
Labs:
Laboratory Results
10/07/23
04:15
WBC 7.4
Hgb 9.0 L
Hct 26.7 L
Plt Count 138
Sodium 129 L
Potassium 3.9
Chloride 95 L
Carbon Dioxide 28
BUN 59 H
Creatinine 0.9
Glucose 122 H
Calcium 8.3 L
Total Bilirubin 2.3 H
AST 23
ALT 18
Alkaline Phosphatase 64
Vital Signs:
Vital Signs
Temp Pulse Resp BP Pulse Ox
98.4 F 100 20 102/73 97
10/07/23 15:24 10/07/23 16:16 10/07/23 16:00 10/07/23 16:16 10/07/23 15:24
I&O
10/06/23 10/07/23 10/08/23
06:59 06:59 06:59
Intake Total 1725 / 1725 1900 / 1900
Output Total 200 / 200 800 / 800
Balance 1525 / 1525 1100 / 1100
Data Reviewed
-
Total Time Spent with Patient (in minutes): 45
Labs: Labs Reviewed by me
[2023-10-07] MEDS: ZYLOPRIM 100 MG PO (17:34)
[2023-10-07] MEDS: ELIQUIS 5 MG PO (20:07)
[2023-10-07] MEDS: PROTONIX 40 MG PO (20:07)
--- NOTE | 2023-10-07 21:11 | PTCARENOTE ---
Report given to WILDER Grajeda. Pt transferred to room 408 bed 2 via stretcher with all belongings.
[2023-10-08] VITALS (8 sets, daily range): BP systolic 91–138; BP diastolic 45–79; PULSE 102–140; O2SAT 95; BMI 47.9
[2023-10-08 05:15] LABS: Hematocrit 25.1 % (37.0-47.0); Hemoglobin 8.4 g/dL (12.0-16.0); Mean Corp Hgb Conc. 33.5 g/dL (33.0-37.0); Mean Corpuscular Hgb 36.1 pg (27.0-31.0); Mean Corpuscular Volume 107.7 fL (81.0-99.0); Mean Platelet Volume 9.7 fL (7.4-10.4); Platelet Count 133 10^3/uL (130-400); Red Blood Cell Count 2.33 10^6/uL (4.20-5.40); Red Cell Dist. Width 21.9 % (11.5-14.5); White Blood Cell Count 8.1 10^3/uL (4.8-10.8)
[2023-10-08 05:35] LABS: ALT (SGPT) 16 U/L (0-35); AST (SGOT) 18 U/L (14-36); Albumin 2.4 g/dl (3.5-5.0); Alkaline Phosphatase 67 U/L (38-126); Blood Urea Nitrogen 56 mg/dl (7-17); Calcium 8.2 mg/dl (8.4-10.2); Carbon Dioxide 28 mmol/L (22-30); Chloride 94 mmol/L (98-107); Estimated Creatinine Clearance 59 ml/min; Glucose 106 mg/dl (70-99); Potassium 3.9 mmol/L (3.5-5.1); Sodium 129 mmol/L (135-145); Total Protein 4.5 g/dl (6.3-8.2); eGFR 57.66
[2023-10-08 06:41] LABS: Folate 10.8 ng/ml (2.76-20); Vitamin B12 920 pg/ml (239-931)
[2023-10-08 07:24] LABS: Absolute Neutrophils -Man Diff 6.4 10^3/uL (1.4-6.5); Band Neutrophils 19 % (0-3); Lymphocytes 9 % (20-51); Monocytes 8 % (2-9); Segmented Neutrophils 61 % (42-75)
[2023-10-08 07:25] LABS: Metamyelocytes 3 % (-); Platelets Checked Yes
[2023-10-08 07:31] LABS: Anisocytosis 1+; Hypochromasia 1+; Normal RBC Morphology No; Polychromasia 1+
[2023-10-08 07:33] LABS: Poikilocytosis Slight; Stomatocytes Slight
[2023-10-08 07:40] LABS: Total Cells Counted 100
[2023-10-08] MEDS: CARDIZEM 60 MG PO (08:59)
[2023-10-08] MEDS: ELIQUIS 5 MG PO ×2 (08:59→20:26)
[2023-10-08] MEDS: FLUSH (NSS) 1 FLUSH IV ×3 (09:00→18:31)
[2023-10-08] MEDS: PROTONIX 40 MG PO ×2 (09:00→20:26)
[2023-10-08] MEDS: LASIX 40 MG PO (09:44)
--- NOTE | 2023-10-08 09:46 | W.PN.HOSP.TC ---
Addendum entered and electronically signed by Dang Flores MD 10/08/23 10:16:
recurrent RLE cellulitis - add Ancef, Bcx x 2 first, ID consulted. elevated LE with pillows
Original Note:
Today's Communication/Plan
-
resume ARB
dilt to CD formulation
SGLT2 inhibitor per Cards
advance diet
DC planning to SNF
Assessment / Plan
Assessment / Plan
Assessment:
Acute GI bleed, exacerbated by Eliquis
- Hb 8.4 most recently. has received 1 unit PRBCs
- s/p EGD: showed esophageal, pre-pyloric ulcers
- continue PPI BID but reduce to once daily at discharge
- full liquids - advance to solids
Hypokalemia
- resolved with repletion
Perm Afib with RVR
- continue Eliquis
- switch to PO Cardizem 240mg CD
- Cards following
Recent NSTEMI 3/1
- noncritical CAD on recent cath
- peak trop 3.4, downtrended
Moderate�severe TR
Pulmonary HTN
Essential HTN/hypotension Hx
- Atenolol was recently stopped due to hypotension
- resume ARB
CKD stage III A
- Creat 1.1 appears near baseline
History proteinuria concern nephrotic syndrome
- previously on steroids, has abruptly stopped it herself along with prophylactic bactrim
Chronic HFpEF
LE edema
Hyponatremia hypervolemic
- most likely attributed to nephrotic syndrome but component of HFpEF chronically
- resume Lasix at discharge
- SGLT-2 inhibitor per Cards
- resume ARB
- consider Aldactone in outpatient setting
Thrombocytopenia hx - now resolved
Left foot cellulitis with underling PVD resolved
Chronic venous stasis dermatitis
- f/u vascular outpatient
- completed IV Ancef course
Hx metastatic endometrial cancer, followed by Dr. Goldstein
Hysterectomy 2019
Port right upper chest wall
Chemotherapy from 2019 to April 2023 stopped due to proteinuria per patient
IgM kappa MGUS
- Patient reports has next PET scan October 2023
Gout
- continue allopurinol 100 mg daily
Morbid obesity due to excess calorie consumption�BMI 50.1 kg
- Weight loss recommended
DVT ppx: Eliquis
Code: Full
Anticipated Discharge: 24 - 48 hours
Subjective/Interval History
-
Date of Service: October 08, 2023
tolerating full liquids - 'i want real food'
no evidence of GI bleeding
Hb is 8.4 this morning
Objective Data
-
Labs:
Laboratory Results
10/08/23 10/08/23
04:53 04:54
WBC 8.1
Hgb 8.4 L
Hct 25.1 L
Plt Count 133
Sodium 129 L
Potassium 3.9
Chloride 94 L
Carbon Dioxide 28
BUN 56 H
Creatinine 1.0
Glucose 106 H
Calcium 8.2 L
Total Bilirubin 2.0 H
AST 18
ALT 16
Alkaline Phosphatase 67
Vital Signs:
Vital Signs
Temp Pulse Resp BP Pulse Ox
98.1 F 89 20 113/79 99
10/08/23 08:00 10/08/23 08:59 10/08/23 08:00 10/08/23 08:59 10/08/23 08:57
I&O
10/07/23 10/08/23 10/09/23
06:59 06:59 06:59
Intake Total 1900 / 1900 680 / 680
Output Total 800 / 800 550 / 550
Balance 1100 / 1100 130 / 130
Physical Exam
-
General: No Apparent Distress
HEENT: Normocephalic and Atraumatic
Respiratory: Negative Wheezes or Rales
Cardiac: Regular Rhythm and S1/S2
GI: Soft
Genito-urinary: No Costovertebral Tender
Neuro: AO x 3
Hematologic / Lymphatic: No Lymphadenopathy
Psych: Calm
Data Reviewed
-
Total Time Spent with Patient (in minutes): 45
Labs: Labs Reviewed by me
--- NOTE | 2023-10-08 09:48 | W.PN.CD ---
Today's Communication / Plan
-
Add Farxiga (Jardiance fine if that is more affordable). Hope co-pays allow
Add low dose Aldactone as outpatient
Move to Dilt ER
Continue Eliquis, watch for recurrent GI bleed (now on PPI)
Cardiology will sign off. Please call with questions.
Impression / Plan
-
78-year-old female with pertinent past medical history of permanent A-fib on Eliquis, recent NSTEMI with nonobstructive CAD at cath on September 28, 2023, hypertension, chronic HFpEF, metastatic endometrial Carcinoma, nephrotic proteinuria, chronic
lymphedema, and obesity who is here today for further evaluation of elevated heart rate with weakness and lightheadedness. She was found to be in A-fib with RVR, worsening anemia, and potential GI bleeding.
Weak/lightheaded/suspected GI bleed
- EGD showed Two very small esophageal ulcers with no bleeding, erosive gastropathy with no bleeding, and erythematous duodenopathy.
- On PPI
- Back on Eliquis
- So far only 1 U PRBC administered
New Anemia => onset by labs may have been as early as 09/26/2023
- HgB 12.6 on 09/25/2023
- HgB 10.6 on 09/27/2023
- HgB 8.3 on 10/04/2022
- Presumably from GI blood loss => so far 1 U PRBC
Perm AFib
- Rate: move to oral Dilt ER
- Anticog: Eliquis back on
- [id number] 6 (hx HF, HTN, age2, vascular disease, female gender)
Nonischemic myocardial injury, trop this admit 0.156, likely from AF RVR
Chronic LE edema likely from a mixture of proteinuria + lymphedema + some from hx of HFpEF (LVEDP 19 at cath earlier this month)
- Chronic Lasix at home
- Compression appropriate
- Outpatient consideration for referral to lymphedema compressive therapy
Hx of HFpEF
- LVEDP was 19 at cath earlier this admit
- Will add SGLT2-I and (MRA as outpatient) to her loop diuretic (and outpatient ARB)
- Clearly not all edema is from HF
Recent suspected NSTEMI, peak trop 3.4 on 09/24/2023
Mild CAD, branch vessel
- Appropriate for consideration for statin and goal LDL less than 70 (or less than 55!!)
- For now will defer to outpatient setting
Improved hypokalemia
HTN
Gout
Morbid obesity; affecting all aspects of care
Metastatic endometrial carcinoma (stage 4), managed by Dr. Goldstein, metastasis to spleen, doug hepatis and RP nodes, omentum, & lung
Subjective:
No CP or palps. Very weak. Has not ambulated much in last 2 weeks
Data:
Echo 09/24/2023: LVEF 70-75%, mild cLVH, mild MR, mod TR, PASP 40-45 mmHg
Cath 09/28/2023 (CP, peak trop 3.4): LVEDP 19, 20-30 mid-distal LAD, 60-70% p RV Marginal (branch of RCA)
Physical Exam
Vital Signs/Labs
Vital Signs
Temp Pulse Resp BP Pulse Ox
98.1 F 89 20 113/79 99
10/08/23 08:00 10/08/23 09:44 10/08/23 08:00 10/08/23 09:44 10/08/23 08:57
10/07/23 10/08/23 10/09/23
06:59 06:59 06:59
Actual Weight 120.9 kg 122.668 kg
10/08/23 04:53
10/08/23 04:54
Magnesium 1.6 mg/dl (1.6-2.3) 10/06/23 03:22
10/05/23
12:45
Aol-Q-Tmvvvaanhib Pept 4330
LAB Results
10/05/23
12:45
Troponin I 0.156 H*
Physical Exam
Constitutional: No acute distress
EENT: Anicteric
Cardiovascular: Rhythm/rate is irregular and Pedal edema present (3+)
Respiratory: Respiratory effort normal and Lungs clear to auscul.
GI: Soft and Distention absent
Neuro/Psych: Alert and Oriented
Data Reviewed
-
Date of Service: October 08, 2023
[2023-10-08] MEDS: ATACAND 8 MG PO (11:54)
[2023-10-08] MEDS: ANCEF 5 IV (11:55)
[2023-10-08] MEDS: CARDIZEM CD 180 MG PO (11:57)
[2023-10-08] MEDS: MIRALAX 17 GRAMS PO (13:57)
--- NOTE | 2023-10-08 15:14 | W.PN.GI.CBS2 ---
Today's Communication / Plan
-
Continue BID PPI then switch to once daily at d/c
Esophageal ulcers and gastric erosions could have been source of bleeding
Will hold off on colonoscopy, but if she has bleeding or significant drop in Hgb in the future, could reconsider
Her body habitus would make colonoscopy difficult
Told her to f/u with GI if there are signs of bleeding moving forward
Otherwise, will sign off for now. Please call back if needed
Assessment / Plan
-
Sangeeta is a 78-year-old female with history of metastatic ovarian cancer, off chemotherapy as of April, atrial fibrillation on Eliquis, MGUS, nephrotic syndrome recently diagnosed and started on high-dose prednisone that was given from July to
August, obesity who had an admission recently for nonischemic CO not requiring stenting. she comes in today for severe weakness and fatigue feeling lightheaded upon standing with elevated heart rates and rapid A-fib.� In the emergency room her
blood pressure is stable.� She has noted that her stools have been formed and dark over the past couple of months but recently since her Eliquis was increased to therapeutic doses to 5 mg twice daily she started seeing more tarry.� She is not having
multiple stools a day really having difficulty getting the stool out and has had to manually disimpact herself.� She denies taking any NSAIDs.� She has been off prednisone for over a month.� She does not take a PPI.� She has minimal rare nausea with
no vomiting.� Occasionally things will feel slow to go down especially large pills.� She did lose some weight after starting the prednisone.�
Her last colonoscopy was about 4 years ago and subjectively just small polyps.
# Anemia -in the setting of black formed stools with no clinically significant GI bleeding other than a drop in her hemoglobin which appears to have been trending down since early September and has trended down since starting therapeutic Eliquis
#Rapid A-fib -managed by cardiology and primary team
-EGD 10/06 showing tiny esophageal ulcers and gastric erosions.
-melena
-anemia with drop from 09/24
-recent steroids (initial prednisone 40mg BID) for nephrotic syndrome stopped late August
-metastatic ovarian CA therapy stopped april with nephrotic syndrome
-recent NSTEMI with no critical CAD on cath
-LE swelling
-afib on Eliquis with rapid afib on admission
-hypokalemia/hyponatemia
other medical problems:
-appe
-MGUS
-fatty liver per imaging
-obesity with recent wt loss
-gout
-neuropathy
Subjective
Subjective
Date of Service: October 08, 2023
No complaints, except mild constipation, taking metamucil
Objective
Data Reviewed
Laboratory Data:
Laboratory Results
10/08/23 04:53
10/08/23 04:54
Laboratory Results
Magnesium 1.6 mg/dl (1.6-2.3) 10/06/23 03:22
Total Bilirubin 2.0 mg/dl (0.2-1.3) H 10/08/23 04:54
AST 18 U/L (14-36) 10/08/23 04:54
ALT 16 U/L (0-35) 10/08/23 04:54
Alkaline Phosphatase 67 U/L (38-126) 10/08/23 04:54
Vital Signs and I&O:
Vital Signs
Temp Pulse Resp BP Pulse Ox
98.9 F 98 16 91/53 96
10/08/23 15:11 10/08/23 15:11 10/08/23 15:11 10/08/23 15:11 10/08/23 15:11
I&O
10/07/23 10/08/23 10/09/23
06:59 06:59 06:59
Intake Total 1900 / 1900 680 / 680
Output Total 800 / 800 550 / 550
Balance 1100 / 1100 130 / 130
Physical Exam
Physical Exam
GI: Soft, Non Distended and Non Tender
--- NOTE | 2023-10-08 15:37 | PTCARENOTE ---
Pt AAO x3, RENE; OOB at bedside earlier in shift with PT. Able to assist w/positioning VSS. Telemetry:A fib, HR to 130's w/OOB activity. Pt has +3 edema/redness BLE; legs elevated on pillow; RLE weeping serous fluid. On room air- pulse ox 95%, no
c/o SOB. Abd obese, soft, no chol lowering diet; (-) BM for shift; started on Miralax. Incont urine; Purewick catheter intact; draining large amts clear terra urine. Resting quietly at present; no c/o. Will continue to monitor.
--- NOTE | 2023-10-08 16:15 | CON.ID ---
Consultation
-
Date/Time Consultation Requested: 10/08/23 10:12
Date/Time Consultation Performed: 10/08/23 16:15
Requesting Provider: Dr Flores
Performing Provider: Dr Barillas
Reason for Consultation: cellulitis
Chief Complaint / Past History
Chief Complaint
weakness, lightheadedness
History of Present Illness
Ms Evans is a 78 year old female with history of metastatic endometrial cancer status post hysterectomy/chemo, gout, class III obesity with recent NSTEMI s/p cardaic cath 5 days prior to arrival who represented 10/04 for black stools, weakness,
lightheadedness and rapid heart rate beginning that AM. Has chronic swelling of the bilateral lower extremities and since arrival developed erythema and exquisite tenderness of the RLE. There is notable xerosis. Denied: fever, chills, chest pain,
palpitations, shortness of breath, cough, abdominal pain, nausea, vomit, diarrhea.
Since arrival here today she has been afebrile, bp stable, wbc on arrival 6.4 and now 8.1 (both normal), there is mild L shift, last hgb prior to arrival 9.3 declined to 8.3 on arrival, plt 133, cr range 1.1 to 1.0, K 2.7 on arrival now 3.9, t bili
2.0, ast 18, alt 16, alk phos 67, CXR no acute cardiopulmonary process, urine culture 09/23 100K K pneumoniae sensitive to ancef, blood cultures tody x2 in progress, recent mrsa screen negative, course notable for esophagela ulcers and gastric
erosions on EGD, colonoscopy deferred, cardiology adjusted medications for afib, anemia. Course complicated by recurrent RLE cellulitis -
Past History
Additional Past Medical History:
NSTEMI noncritical CAD 09/24/2023
�permanent A-fib
�HTN/hypotension
�moderate to severe TR
�pulm HTN, CKD stage III A
�proteinuria
�lower extremity edema
�thrombocytopenia
left foot cellulitis with underlying PVD
�metastatic endometrial cancer status post hysterectomy/chemo
�gout, morbid obesity
�
Additional Past Surgical History:
Cardiac cath 09/24/2023 noncritical CAD, hysterectomy, tonsillectomy, appendectomy, port right upper chest wall)
Allergy History:
paroxetine [From Paxil] Allergy (Verified 09/24/23 18:22)
Unknown
prednisone Allergy (Verified 09/24/23 07:37)
Unknown
Medications Reviewed: Yes
Social History
Tobacco: Non-Smoker
Alcohol: None
Drug: None
Family History
Family History: Not Pertinent
Review of Systems
Review of Systems
General: Negative Fever or Chills
All systems: All other systems were reviewed and were negative
Vital Signs
Temp Pulse Resp BP Pulse Ox
98.9 F 98 16 91/53 95
10/08/23 15:11 10/08/23 15:11 10/08/23 15:11 10/08/23 15:11 10/08/23 15:36
Physical Exam
Physical Exam
Constitutional: No Acute Distress and Chronically Ill
Cardiovascular: Regular Rate and S1/S2; Negative Murmur or Rub
Pulmonary: Clear and Symmetric; Negative Wheezes, Rales or Rhonchi
Gastrointestinal: Soft, Non Tender, Non Distended and Normal Bowel Sounds
Extremities: Other (RLE red, swollen, hot markedly tender; bilateral 2+ edema through the tibial plateau)
Skin: Warm, Dry and Rash; Negative Jaundice
Lab / Diagnostic Study Results
10/08/23 04:53
10/08/23 04:54
Abs Immat Gran (auto) 0.0 10^3/uL (0-0.05) 10/07/23 04:15
Absolute Neuts (auto) 5.7 10^3/uL (1.4-6.5) 10/07/23 04:15
Absolute Lymphs (auto) 0.9 10^3/uL (1.2-3.4) L 10/07/23 04:15
Absolute Monos (auto) 0.7 10^3/uL (0.1-0.6) H 10/07/23 04:15
Absolute Basos (auto) 0.0 10^3/uL (0-0.2) 10/07/23 04:15
Total Counted 100 10/08/23 04:53
Immature Gran % 0.4 % (0-0.5) 10/07/23 04:15
Neutrophils % 77.7 % (42.2-75.2) H 10/07/23 04:15
Lymphocytes % 11.5 % (20.5-51.1) L 10/07/23 04:15
Monocytes % 9.9 % (1.7-9.3) H 10/07/23 04:15
Eosinophils % 0.0 % (0-6) 10/07/23 04:15
Basophils % 0.5 % (0-2) 10/07/23 04:15
Abs Neuts (Manual) 6.4 10^3/uL (1.4-6.5) 10/08/23 04:53
Segmented Neutrophils 61 % (42-75) 10/08/23 04:53
Band Neutrophils 19 % (0-3) H 10/08/23 04:53
Lymphocytes (Manual) 9 % (20-51) L 10/08/23 04:53
Eosinophils (Manual) Cancelled 10/06/23 03:22
Basophils (Manual) Cancelled 10/06/23 03:22
Microbiology Results
Micro:
10/08/23 11:39 Blood Culture - Pending
Blood/Venous
10/08/23 10:41 Blood Culture - Pending
Blood/Venous
Assessment / Plan
RLE Cellulitis
Class III Obesity
Chronic lymphedema
- lymphedema uncontrolled but currently too tender for compression, continue elevation as tolerated
- maximize cefazolin dose given obesity
- suspect resolution may be slow until she is able to tolerate compression
- follow clinically
- outpatient follow up with lymphedema center
[2023-10-08] MEDS: ZYLOPRIM 100 MG PO (17:31)
[2023-10-08] MEDS: ANCEF 10 IV ×2 (18:31→23:41)
[2023-10-08] MEDS: SENOKOT-S 1 TABLET PO (20:26)
[2023-10-09 03:30] VITALS: BP 109/60
[2023-10-09] MEDS: ANCEF 10 IV ×3 (05:23→17:19)
[2023-10-09 05:24] VITALS: BMI 48.4
[2023-10-09 05:31] LABS: % Basophils 0.6 % (0-2); % Eosinophils 0.1 % (0-6); % Immature Granulocytes 1.7 % (0-0.5); % Lymphocytes 6.5 % (20.5-51.1); % Monocytes 6.4 % (1.7-9.3); % Neutrophils 84.7 % (42.2-75.2); Absolute Basophils 0.1 10^3/uL (0-0.2); Absolute Immature Granulocytes 0.2 10^3/uL (0-0.05); Absolute Lymphocytes 0.7 10^3/uL (1.2-3.4); Absolute Monocytes 0.7 10^3/uL (0.1-0.6); Absolute Neutrophils 8.7 10^3/uL (1.4-6.5); Hematocrit 25.3 % (37.0-47.0); Hemoglobin 8.3 g/dL (12.0-16.0); Mean Corp Hgb Conc. 32.8 g/dL (33.0-37.0); Mean Corpuscular Hgb 35.2 pg (27.0-31.0); Mean Corpuscular Volume 107.2 fL (81.0-99.0); Mean Platelet Volume 10.1 fL (7.4-10.4); Nucleated Red Blood Cells % 0 %; Platelet Count 154 10^3/uL (130-400); Red Blood Cell Count 2.36 10^6/uL (4.20-5.40); Red Cell Dist. Width 20.7 % (11.5-14.5); White Blood Cell Count 10.2 10^3/uL (4.8-10.8)
[2023-10-09 06:40] LABS: ALT (SGPT) 15 U/L (0-35); AST (SGOT) 24 U/L (14-36); Albumin 2.3 g/dl (3.5-5.0); Alkaline Phosphatase 76 U/L (38-126); Blood Urea Nitrogen 54 mg/dl (7-17); Calcium 7.9 mg/dl (8.4-10.2); Carbon Dioxide 26 mmol/L (22-30); Chloride 96 mmol/L (98-107); Estimated Creatinine Clearance 54 ml/min; Glucose 77 mg/dl (70-99); Potassium 4.2 mmol/L (3.5-5.1); Sodium 125 mmol/L (135-145); Total Bilirubin 1.6 mg/dl (0.2-1.3); Total Protein 4.5 g/dl (6.3-8.2); eGFR 51.43
[2023-10-09 07:25] VITALS: BP 117/78
[2023-10-09] MEDS: FARXIGA 10 MG PO (09:10)
[2023-10-09] MEDS: LASIX 40 MG PO (09:10)
[2023-10-09] MEDS: CARDIZEM CD 240 MG PO (09:10)
[2023-10-09] MEDS: SENOKOT-S PO ×2 (09:10→20:05)
[2023-10-09] MEDS: PROTONIX 40 MG PO ×2 (09:10→20:05)
[2023-10-09] MEDS: MIRALAX PO (09:10)
[2023-10-09] MEDS: ATACAND 8 MG PO (09:10)
[2023-10-09] MEDS: ELIQUIS 5 MG PO ×2 (09:11→20:05)
--- NOTE | 2023-10-09 09:45 | W.PN.HOSP.TC ---
Today's Communication/Plan
-
Nephrology consult for worsening Na
continue IV Abx
Arterial US to evaluate PVD
Assessment / Plan
Assessment / Plan
Assessment:
Acute GI bleed, exacerbated by Eliquis
- Hb 8.3 most recently. has received 1 unit PRBCs
- s/p EGD: showed esophageal, pre-pyloric ulcers
- if rebleeds, consider colonscopy but per GI body habitus would make colonoscopy difficult
- continue PPI BID but reduce to once daily at discharge
Hypokalemia
- resolved with repletion
Perm Afib with RVR
- continue Eliquis/PO Cardizem
- Cards signed off
Recent NSTEMI 3/
- noncritical CAD on recent cath
- peak trop 3.4, downtrended
- Cards signed off
Moderate�severe TR
Pulmonary HTN
Essential HTN/hypotension Hx
- Atenolol was recently stopped due to hypotension
- continue ARB
CKD stage III A
- Creat 1.1 appears near baseline
History proteinuria concern nephrotic syndrome
- previously on steroids, has abruptly stopped it herself along with prophylactic bactrim
Chronic HFpEF
LE edema
- most likely attributed to nephrotic syndrome but component of HFpEF chronically
- on Lasix - continue. May need to consider IV
- SGLT-2 inhibitor started by cards, jordan 60$ per CM
- continue ARB
- consider Aldactone in outpatient setting
Hyponatremia hypervolemic, possible ADH Excess in setting of hypotension
- workup sent
- Nephrology consulted, may need Samsca
Thrombocytopenia hx - now resolved
Left foot cellulitis with underling PVD - this resolved
New RLE Cellulitis
Chronic venous stasis dermatitis
- completed IV Ancef course for LLE recently
- now back on IV Ancef for RLE
- Venous US no clots
- check Arterial US
- monitor for any clinical signs of limb ischemia
Hx metastatic endometrial cancer, followed by Dr. Goldstein
Hysterectomy 2019
Port right upper chest wall
Chemotherapy from 2019 to April 2023 stopped due to proteinuria per patient
IgM kappa MGUS
- Patient reports has next PET scan October 2023
Gout
- continue allopurinol 100 mg daily
Morbid obesity due to excess calorie consumption�BMI 50.1 kg
- Weight loss recommended
DVT ppx: Eliquis
Code: Full
Anticipated Discharge: > 48 hours
Subjective/Interval History
-
Date of Service: October 09, 2023
no acute complaints
RN concerned over LLE coolness to feet/toes but patient reports this is close to her baseline in setting of lymphedema, no pain in LLE. she denies prior PVD history.
Objective Data
-
Labs:
Laboratory Results
10/09/23
05:08
WBC 10.2
Hgb 8.3 L
Hct 25.3 L
Plt Count 154
Sodium 125 L
Potassium 4.2
Chloride 96 L
Carbon Dioxide 26
BUN 54 H
Creatinine 1.1 H
Glucose 77
Calcium 7.9 L
Total Bilirubin 1.6 H
AST 24
ALT 15
Alkaline Phosphatase 76
Vital Signs:
Vital Signs
Temp Pulse Resp BP Pulse Ox
98.1 F 104 18 120/76 98
10/09/23 07:25 10/09/23 09:10 10/09/23 07:25 10/09/23 09:10 10/09/23 07:25
I&O
10/08/23 10/09/23 10/10/23
06:59 06:59 06:59
Intake Total 680 / 680 900 / 900 1200 / 1200
Output Total 550 / 550 1175 / 1175 300 / 300
Balance 130 / 130 -275 / -275 900 / 900
Physical Exam
-
General: No Apparent Distress and Morbidly Obese
HEENT: Normocephalic and Atraumatic
Respiratory: Clear to Auscultation; Negative Wheezes
Cardiac: Irregular Rhythm
Musculoskeletal: Edema, Left Upper Extrem, Edema, Right Lower Extrem and Other (RLE cellulitis, warmth/redness)
Neuro: AO x 3
Psych: Calm
Data Reviewed
-
Total Time Spent with Patient (in minutes): 45
Labs: Labs Reviewed by me
--- NOTE | 2023-10-09 10:06 | W.PN.ID1 ---
Date of Service
Date of Service: October 09, 2023
Today's Communication
Continue cefazolin.
Assessment / Plan
RLE Cellulitis
Class III Obesity
Chronic lymphedema
- lymphedema uncontrolled but currently too tender for compression, continue elevation as tolerated
- Continue maximize cefazolin dose given obesity
- suspect resolution may be slow until she is able to tolerate compression
- follow clinically
- outpatient follow up with lymphedema center
Chief Complaint
-: Cellulitis
Subjective / Review of Systems
Right leg was weeping yesterday.
Vital Signs / Physical Exam
Vital Signs
Vital Signs
Temp Pulse Resp BP Pulse Ox
98.1 F 104 18 120/76 98
10/09/23 07:25 10/09/23 09:10 10/09/23 07:25 10/09/23 09:10 10/09/23 07:25
Physical Exam
Constitutional: No Acute Distress and Comfortable
Extremities: Edema (BLE lymphedema), Erythema (RLE erythema to medial thigh, + tenderness) and Venous Insufficiency (BLE)
Objective Data
Lab Data
Lab Results
10/09/23 05:08
10/09/23 05:08
Estimated Creat Clear 54 ml/min 10/09/23 05:08
Total Bilirubin 1.6 mg/dl (0.2-1.3) H 10/09/23 05:08
AST 24 U/L (14-36) 10/09/23 05:08
ALT 15 U/L (0-35) 10/09/23 05:08
Alkaline Phosphatase 76 U/L (38-126) 10/09/23 05:08
Most recent labs reviewed.
Micro Results:
10/08/23 11:39 Blood Culture - Pending
Blood/Venous
10/08/23 10:41 Blood Culture - Pending
Blood/Venous
[2023-10-09 11:08] LABS: Osmolality Serum 278 mOsm/kg (275-300)
[2023-10-09 11:41] LABS: TSH Reflex To Free T4 1.42 uIU/ml (0.47-4.68)
--- NOTE | 2023-10-09 12:11 | W.CON.NEPH ---
Medical History
-
Chief Complaint: symp Afib
History of Present Illness:
78-year-old female with h/o permanent A-fib, HTN/hypotension, moderate to severe TR, pulm HTN, CKD stage III A, nephrotic proteinuria, lower extremity edema, thrombocytopenia, left foot cellulitis with underlying PVD, metastatic endometrial cancer
status post hysterectomy/chemo, gout, morbid obesity, who left AMA on 09/28 for admit for NSTEMI with cardiac cath 09/27 no critical coronary disease, nephrotic syndrome peak 8gm /gm of cr felt not candidate for biopsy could not tolerate steroids, heme
+ve stools anemia, DCHF On lasix presented to on 10/04 with complaining of weakness , lightheadedness with rapid heart rate, She was noted to be in rapid A-fib on arrival with hypotension which self resolved without intervention.� She was noted
to have heme positive black stools on current Eliquis with hemoglobin drop from 9.3-8.3 in 7 days.� she received 1 unit PRBC and EGD found to have Esophageal ulcers and gastric erosions and started on PPI BID. He sodium on admit was 133 and now
declining to 125 hence nephro consulted. She denies chest pain, shortness of breath, cough, abdominal pain, nausea, vomit, diarrhea.�
Past Medical History
NSTEMI noncritical CAD 09/24/2023
�permanent A-fib
�HTN/hypotension
�moderate to severe TR
�pulm HTN, CKD stage III A
�proteinuria
�lower extremity edema
�thrombocytopenia
underlying PVD
�metastatic endometrial cancer status post hysterectomy/chemo
�gout, morbid obesity
Appendectomy
Tonsillectomy
Right chest wall port
Hysterectomy
Social History
Tobacco: Non-Smoker
Alcohol: None
Personal: Single
Living: With Family
Employment: Retired
Family History
Sister uterine cancer
Father stroke
!st cousin with ESRD s/p K TXP
Allergies / Home Medications
Allergy/AdvReac Type Severity Reaction Status Date / Time
paroxetine [From Paxil] Allergy Hypotension Verified 10/08/23 17:43
prednisone Allergy Unknown Verified 09/24/23 07:37
Medication Instructions Recorded Confirmed Type
allopurinol 100 mg tablet 100 mg PO QPM Gout 07/30/21 10/05/23 History
candesartan 8 mg tablet 8 mg PO DAILY Blood Pressure 09/24/23 10/05/23 History
apixaban 5 mg tablet (Eliquis) 5 mg PO Q12 Blood Clot 10/05/23 10/05/23 History
Prevention/Tx
furosemide 40 mg tablet 40 mg PO DAILY Fluid 10/05/23 10/05/23 History
Retention/Swelling
Review of Systems
-
All complete 12 point ROS have been inquired and found negative other than stated in HPI
Physical Exam
Vital Signs
Vital Signs
Temp Pulse Resp BP Pulse Ox
98.1 F 104 18 120/76 98
10/09/23 07:25 10/09/23 09:10 10/09/23 07:25 10/09/23 09:10 10/09/23 07:25
Lab Results
WBC 10.2 10^3/uL (4.8-10.8) 10/09/23 05:08
RBC 2.36 10^6/uL (4.20-5.40) L 10/09/23 05:08
Hgb 8.3 g/dL (12.0-16.0) L 10/09/23 05:08
Hct 25.3 % (37.0-47.0) L 10/09/23 05:08
Plt Count 154 10^3/uL (130-400) 10/09/23 05:08
Sodium 125 mmol/L (135-145) L 10/09/23 05:08
Potassium 4.2 mmol/L (3.5-5.1) 10/09/23 05:08
Chloride 96 mmol/L (98-107) L 10/09/23 05:08
Carbon Dioxide 26 mmol/L (22-30) 10/09/23 05:08
BUN 54 mg/dl (7-17) H 10/09/23 05:08
Creatinine 1.1 mg/dL (0.6-1.0) H 10/09/23 05:08
eGFR 51.43 10/09/23 05:08
Glucose 77 mg/dl (70-99) 10/09/23 05:08
Calcium 7.9 mg/dl (8.4-10.2) L 10/09/23 05:08
Mip-V-Iapqhmvlsws Pept 4330 pg/ml 10/05/23 12:45
Albumin 2.3 g/dl (3.5-5.0) L 10/09/23 05:08
CXR:10/05/23
FINDINGS:
Lines and tubes: Stable right chest wall [employer].
Lungs: No convincing focal infiltrates. No pleural effusion or pneumothorax.
Heart: Stable enlargement of the cardiomediastinal silhouette. No overt pulmonary vascular congestion.
Osseous structures: No acute abnormalities.
IMPRESSION:
No acute cardiopulmonary process.
Physical Exam
General: Awake, Alert, Oriented, AOx3, No Distress and Nontoxic
HEENT: EOMI and Anicteric
Respiratory: Clear, Normal Excursion, Nonlabored Respirations and Other (decreased at bases)
Cardiac: S1/S2 and Murmur
Abdomen: Soft and Nontender
Musculoskeletal: No Cyanosis and Edema (3+)
Skin: Other (rt LE erythema )
Neuro: Nonfocal/Grossly Intact
Psych: Mood/afflect pleasant, Insight/judgement good and Appropriate
Assessment/Plan
-
IMP:
Acute GI bleed-s/p EGD: showed esophageal, pre-pyloric ulcers
Hypokalemia-resolved
Hyponatremia
CKD 3a
Nephrotic syndrome
Perm Afib with RVR
Recent NSTEMI 09/23-noncritical CAD on recent cath
Moderate�severe TR
Pulmonary HTN
Essential HTN/hypotension Hx
CKD stage III A
History proteinuria concern nephrotic syndrome
Chronic HFpEF
underling PVD
New RLE Cellulitis
Chronic venous stasis dermatitis
Metastatic endometrial carcinoma, managed by Dr. Goldstein, metastasis to spleen, doug hepatis and RP nodes, omentum, & lung
Hysterectomy 2018
Port right upper chest wall
Chemotherapy from 2019 to April 2023 stopped due to proteinuria per patient
IgM kappa MGUS-PET scan October 2023
Gout
Morbid obesity due to excess calorie consumption�BMI 50.1 kg
Hypoalbuminemia
Plan:
Recent admit found to have nephrotic range proteinuria and pt was not candidate for biopsy -left AMA 09/28, retuned on 10/04 with symp afib
acute on chronic hyponatremia, worsening sodium since admit now at 125 on lasix
check U osmo, U na and repeat U PCR , TSH normal
will likely dose samsca if U osmo high
Nephrotic syndrome-repeat U PCR
Pt is off steroids over month, c4 is slightly low and other serologies neg
since she is not candidate for K biopsy manage medically at this time
need eventual uptitration of ARB as BP allows, ok for SGLT2 inhibitor if cost effective (no h/o UTI)
strict FR 48 ounces/day and cont lasix
f/u labs in am
d/w pt in detail
[2023-10-09 15:26] VITALS: BP 130/67
[2023-10-09 15:41] LABS: Osmolality Urine 343 mOsm/kg (300-900)
[2023-10-09 15:58] LABS: Urine Sodium 5 mmol/L (30-90)
[2023-10-09 16:02] LABS: Protein/creatinine Ratio 0.6; Urine Protein 28 mg/dl
--- NOTE | 2023-10-09 16:47 | PTCARENOTE ---
Assumed care of patient at 16:00 from previous RN. No changes noted to previous assessment. VSS. Pox: 96% RA. A fib on front desk monitor. Plan of care ongoing. Call ron within reach.
[2023-10-09] MEDS: SAMSCA 15 MG PO (17:19)
[2023-10-09] MEDS: ZYLOPRIM 100 MG PO (17:19)
[2023-10-09] MEDS: FLUSH (NSS) 1 FLUSH IV (17:19)
[2023-10-09 19:30] VITALS: BP 119/54
[2023-10-09 23:46] VITALS: BP 104/59
[2023-10-10] VITALS (7 sets, daily range): BP systolic 100–143; BP diastolic 59–83; BMI 48.4
[2023-10-10] MEDS: FLUSH (NSS) 2 FLUSH IV ×2 (00:12→23:36)
[2023-10-10] MEDS: ANCEF 10 IV ×5 (00:12→23:36)
[2023-10-10 06:02] LABS: Hematocrit 24.7 % (37.0-47.0); Hemoglobin 8.5 g/dL (12.0-16.0); Mean Corp Hgb Conc. 34.4 g/dL (33.0-37.0); Mean Corpuscular Hgb 35.9 pg (27.0-31.0); Mean Corpuscular Volume 104.2 fL (81.0-99.0); Platelet Count 155 10^3/uL (130-400); Red Blood Cell Count 2.37 10^6/uL (4.20-5.40); Red Cell Dist. Width 20.2 % (11.5-14.5); White Blood Cell Count 11.4 10^3/uL (4.8-10.8)
[2023-10-10 06:26] LABS: Blood Urea Nitrogen 54 mg/dl (7-17); Calcium 7.7 mg/dl (8.4-10.2); Carbon Dioxide 27 mmol/L (22-30); Chloride 95 mmol/L (98-107); Estimated Creatinine Clearance 46 ml/min; Glucose 76 mg/dl (70-99); Potassium 4.2 mmol/L (3.5-5.1); Sodium 125 mmol/L (135-145); eGFR 42.09
[2023-10-10 07:37] LABS: Cortisol, Random 68.3 ug/dl
[2023-10-10] MEDS: ELIQUIS 5 MG PO ×2 (08:41→19:52)
[2023-10-10] MEDS: ATACAND 8 MG PO (08:41)
[2023-10-10] MEDS: CARDIZEM CD 240 MG PO (08:41)
[2023-10-10] MEDS: FARXIGA 10 MG PO (08:41)
[2023-10-10] MEDS: LASIX 40 MG PO (08:41)
[2023-10-10] MEDS: SENOKOT-S 1 TABLET PO ×2 (08:42→19:52)
[2023-10-10] MEDS: PROTONIX 40 MG PO ×2 (08:42→19:52)
[2023-10-10] MEDS: MIRALAX 17 GRAMS PO (08:42)
--- NOTE | 2023-10-10 10:09 | W.PN.HOSP.TC ---
Today's Communication/Plan
-
continue bowel regimen
continue IV Abx - elevated Legs
await further Na management per Renal
Assessment / Plan
Assessment / Plan
Assessment:
Acute GI bleed, exacerbated by Eliquis
- Hb 8.5 most recently. has received 1 unit PRBCs in total
- s/p EGD: showed esophageal, pre-pyloric ulcers
- if rebleeds, consider colonoscopy but per GI body habitus would make colonoscopy difficult
- continue PPI BID but reduce to once daily at discharge as per GI
Hypokalemia
- resolved with repletion
Perm Afib with RVR
- continue Eliquis/PO Cardizem
- Cards signed off
Recent NSTEMI 3/
- noncritical CAD on recent cath
- peak trop 3.4, downtrended
- Cards signed off
Moderate�severe TR
Pulmonary HTN
Essential HTN/hypotension Hx
- Atenolol was recently stopped due to hypotension
- continue ARB
CKD stage III A
- Creat 1.1 appears near baseline
History proteinuria concern nephrotic syndrome
- previously on steroids, has abruptly stopped it herself along with prophylactic bactrim
Chronic HFpEF
LE edema
- most likely attributed to nephrotic syndrome but component of HFpEF chronically
- on Lasix - continue. May need to consider IV
- SGLT-2 inhibitor started by cards, jordan 60$ per CM
- continue ARB
- consider Aldactone in outpatient setting
acute on chronic Hyponatremia hypervolemic, possible ADH Excess in setting of hypotension
- Nephrology following
- s/p Samsca without improvement. Follow nephro recs further.
Thrombocytopenia hx - now resolved
Left foot cellulitis with underling PVD - this was resolved
New RLE Cellulitis this admission
Chronic venous stasis dermatitis
- completed IV Ancef course for LLE recently
- now back on IV Ancef for RLE
- Venous US no clots
- check Arterial US
- monitor for any clinical signs of limb ischemia
Hx metastatic endometrial cancer, followed by Dr. Goldstein
Hysterectomy 2019
Port right upper chest wall
Chemotherapy from 2019 to April 2023 stopped due to proteinuria per patient
IgM kappa MGUS
- Patient reports has next PET scan October 2023
Gout
- continue allopurinol 100 mg daily
Morbid obesity due to excess calorie consumption�BMI 50.1 kg
- Weight loss recommended
Constipation
- on bowel regimen, follow results
DVT ppx: Eliquis
Code: Full
Anticipated Discharge: > 48 hours
Subjective/Interval History
-
Date of Service: October 10, 2023
s/p Samsca dose without improving NA
now BM yet - eager to try to get up to bedside commode
Objective Data
-
Labs:
Laboratory Results
10/10/23
05:25
WBC 11.4 H
Hgb 8.5 L
Hct 24.7 L
Plt Count 155
Sodium 125 L
Potassium 4.2
Chloride 95 L
Carbon Dioxide 27
BUN 54 H
Creatinine 1.3 H
Glucose 76
Calcium 7.7 L
Vital Signs:
Vital Signs
Temp Pulse Resp BP Pulse Ox
97.6 F 104 18 143/64 97
10/10/23 07:19 10/10/23 08:41 10/10/23 07:19 10/10/23 07:19 10/10/23 07:19
I&O
10/09/23 10/10/23 10/11/23
06:59 06:59 06:59
Intake Total 900 / 900 2400 / 2400
Output Total 1175 / 1175 1100 / 1100
Balance -275 / -275 1300 / 1300
Physical Exam
-
General: No Apparent Distress and Appears Chronically Ill
HEENT: Normocephalic and Atraumatic
Respiratory: Clear to Auscultation; Negative Wheezes
Cardiac: Irregular Rhythm
GI: Soft and Nontender
Musculoskeletal: Edema, Right Lower Extrem (RLE cellulitis) and Edema, Left Lower Extrem
Neuro: AO x 3
Hematologic / Lymphatic: No Lymphadenopathy
Psych: Calm
Data Reviewed
-
Total Time Spent with Patient (in minutes): 45
Labs: Labs Reviewed by me
[2023-10-10] MEDS: TYLENOL 650 MG PO (12:10)
--- NOTE | 2023-10-10 15:13 | W.PN.NEPH.PH ---
Today's Communication / Plan
-
samsca if recheck is still low
may hold farxiga if cr up tomorrow
cont lasix still
strict FR
Assessment/Plan
-
IMP:
Acute GI bleed-s/p EGD: showed esophageal, pre-pyloric ulcers
Hypokalemia-resolved
Hyponatremia
CKD 3a
Nephrotic syndrome
Perm Afib with RVR
Recent NSTEMI 09/23-noncritical CAD on recent cath
Moderate�severe TR
Pulmonary HTN
Essential HTN/hypotension Hx
CKD stage III A
History proteinuria concern nephrotic syndrome
Chronic HFpEF
underling PVD
New RLE Cellulitis
Chronic venous stasis dermatitis
Metastatic endometrial carcinoma, managed by Dr. Goldstein, metastasis to spleen, doug hepatis and RP nodes, omentum, & lung
Hysterectomy 2018
Port right upper chest wall
Chemotherapy from 2019 to April 2023 stopped due to proteinuria per patient
IgM kappa MGUS-PET scan October 2023
Gout
Morbid obesity due to excess calorie consumption�BMI 50.1 kg
Hypoalbuminemia
Plan:
Recent admit found to have nephrotic range proteinuria and pt was not candidate for biopsy -left AMA 09/28, retuned on 10/04 with symp afib
acute on chronic hyponatremia, worsening sodium since admit now at 125 on lasix
U osmo 343, U na low 5 suggest cardiorenal etiology specially wt is increasing
repeat U PCR shows improved only 0.6gm/gm of cr , TSH normal
will likely dose samsca again
Pt is off steroids over month, c4 is slightly low and other serologies neg
since she is not candidate for K biopsy manage medically at this time
need eventual uptitration of ARB as BP allows
strict FR 48 ounces/day and cont lasix
cr is increasing with addition of Farxiga -we may need to hold if cr cont to rise
h/h stable
f/u labs in am
d/w pt
-
-
Date of Service: October 10, 2023
CC / HPI / ROS
-
Chief Complaint:
Hypoantremjia, CKD
History of Present Illness:
s[facility] still no [facility]
BP soft but stable
remains on RA
wt increasing
Review of Systems:
no cp or sob at rest
edema persists
no n/v
Labs
-
Labs:
WBC 11.4 10^3/uL (4.8-10.8) H 10/10/23 05:25
RBC 2.37 10^6/uL (4.20-5.40) L 10/10/23 05:25
Hgb 8.5 g/dL (12.0-16.0) L 10/10/23 05:25
Hct 24.7 % (37.0-47.0) L 10/10/23 05:25
Plt Count 155 10^3/uL (130-400) 10/10/23 05:25
Sodium 125 mmol/L (135-145) L 10/10/23 05:25
Potassium 4.2 mmol/L (3.5-5.1) 10/10/23 05:25
Chloride 95 mmol/L (98-107) L 10/10/23 05:25
Carbon Dioxide 27 mmol/L (22-30) 10/10/23 05:25
BUN 54 mg/dl (7-17) H 10/10/23 05:25
Creatinine 1.3 mg/dL (0.6-1.0) H 10/10/23 05:25
eGFR 42.09 10/10/23 05:25
Glucose 76 mg/dl (70-99) 10/10/23 05:25
Calcium 7.7 mg/dl (8.4-10.2) L 10/10/23 05:25
Mbn-I-Swfaiardqri Pept 4330 pg/ml 10/05/23 12:45
Albumin 2.3 g/dl (3.5-5.0) L 10/09/23 05:08
Physical Exam
-
Vital Signs:
Vital Signs
Temp Pulse Resp BP Pulse Ox
98.4 F 109 18 100/83 93
10/10/23 11:11 10/10/23 11:11 10/10/23 11:11 10/10/23 11:11 10/10/23 11:11
Cardiovascular:: Regular rate and rhythm
Respiratory:: Bilateral: CTA
Lung Excursion:: Normal (decreaded)
Abdomen:: Nontender and Soft
Extremity Edema:: +3: Bilateral:
Mtz Catheter: No
--- NOTE | 2023-10-10 16:00 | PTCARENOTE ---
Per documentation patient has not had BM in 5 days. Pt was willing to take miralax and senna this morning. Pt requesting to sit on BSC to attempt to move bowels. With 3 staff members, patient was very difficult to transfer from laying to sitting
EOB. Pt was able to transfer to standing with x3 assist and RW but could not bear enough weight to pivot to BSC. Bedpan placed under patient while sitting EOB and she was only able to have very small BM. Pt assisted back into bed.
[2023-10-10] MEDS: ZYLOPRIM 100 MG PO (17:53)
[2023-10-10] MEDS: FLUSH (NSS) 1 FLUSH IV (17:55)
[2023-10-10 19:10] LABS: Sodium 125 mmol/L (135-145)
--- NOTE | 2023-10-10 21:00 | PTCARENOTE ---
Pts repeat sodium 125 Dr. Kapoor notified, order for 30 mg PO samsca. pt in for repeat labs in AM.
[2023-10-10] MEDS: SAMSCA 30 MG PO (21:22)
[2023-10-11] MEDS: TYLENOL 650 MG PO (01:25)
[2023-10-11 03:25] VITALS: BP 119/59
[2023-10-11] MEDS: CARDIZEM 5 MG IV ×2 (03:51→23:53)
--- NOTE | 2023-10-11 04:18 | PTCARENOTE ---
Pts HR 100-110s frequently going up to 120s, afib on telemetry. House [employer] aware 5 mg IV cardizem given per order. HR currently 100-105. Will continue to monitor.
[2023-10-11] MEDS: FLUSH (NSS) 2 FLUSH IV (05:09)
[2023-10-11] MEDS: ANCEF 10 IV ×3 (05:09→19:44)
[2023-10-11 06:00] VITALS: BMI 48.4
--- NOTE | 2023-10-11 06:37 | W.PN.HOSP.TC ---
Today's Communication/Plan
-
cont abx
discontinue farxiga, hold candesartan
increased Cardizem as per Cardiology
monitor renal function
cont fluid restriction, lasix
PT/OT
Assessment / Plan
Assessment / Plan
Physical Exam
General: No Apparent Distress and Appears Chronically Ill
HEENT: Normocephalic and Atraumatic
Respiratory: Clear to Auscultation; Negative Wheezes
Cardiac: Irregular Irregular tachy
GI: Soft and Nontender
Musculoskeletal: RLE erythema tenderness, b/l lower edema +2
Neuro: AO x 3
Psych: Calm
Assessment:
Acute GI bleed, exacerbated by Eliquis
- Hb 8.5 most recently. has received 1 unit PRBCs in total
- s/p EGD: showed esophageal, pre-pyloric ulcers
- if rebleeds, consider colonoscopy but per GI body habitus would make colonoscopy difficult
- continue PPI BID but reduce to once daily at discharge as per GI
Hypokalemia
- resolved with repletion
Perm Afib with RVR
- continue Eliquis/PO Cardizem
- Cardio eval appreciated Cardizem increased to 360mg daily
Recent NSTEMI 3/
- noncritical CAD on recent cath
- peak trop 3.4, downtrended
- Cards signed off
Moderate�severe TR
Pulmonary HTN
Essential HTN/hypotension Hx
- Atenolol was recently stopped due to hypotension
- continue ARB
RHONDA on CKD stage III A
- Creat 1.1 progressively worsening 1.6, newly started Farxiga discontinued, candesartan placed on hold
History proteinuria concern nephrotic syndrome
- previously on steroids, has abruptly stopped it herself along with prophylactic bactrim
Chronic HFpEF
LE edema
- most likely attributed to nephrotic syndrome but component of HFpEF chronically
- on Lasix - continue. May need to consider IV
- Farxiga started but discontinued as above
- home candesartan placed on hold d/t worsening kidney function as above
- consider Aldactone in outpatient setting
acute on chronic Hyponatremia hypervolemic, possible ADH Excess in setting of hypotension
- Nephrology eval appreciated samsca prn, fluid restriction, cont lasix
Thrombocytopenia hx - now resolved
Left foot cellulitis with underling PVD - this was resolved
New RLE Cellulitis this admission
Chronic venous stasis dermatitis
- completed IV Ancef course for LLE recently
- now back on IV Ancef for RLE
- Venous US no clots
- Arterial US appreciated possible mild small vessel disease b/l LE
-ID eval appreciated cont cefazolin renally dosed
Increased Leukocytosis
-cont to monitor
-COVID neg
CXR appreciated
Progressed mild right basilar airspace disease, possible developing pneumonia. Small right pleural effusion. No significant respiratory symptoms at this time however.
Hx metastatic endometrial cancer, followed by Dr. Goldstein
Hysterectomy 2018
Port right upper chest wall
Chemotherapy from 2019 to April 2023 stopped due to proteinuria per patient
IgM kappa MGUS
- Patient reports has next PET scan October 2023
Gout
- continue allopurinol 100 mg daily
Morbid obesity due to excess calorie consumption�BMI 50.1 kg
- Weight loss recommended
Constipation
- on bowel regimen, follow results
DVT ppx: Eliquis
Code: Full
PT/OT appreciated SNF rehab
discussed with patient and her sister Christianne
I spent a total of 55 minutes with the patient or on the floor. More than 50% of this time involved counseling and coordination of care.
Anticipated Discharge: 24 - 48 hours
Subjective/Interval History
-
Date of Service: October 11, 2023
reports general malaise.
Objective Data
-
Labs:
Laboratory Results
10/10/23 10/11/23
18:17 06:00
WBC Pending
Hgb Pending
Hct Pending
Plt Count Pending
Sodium 125 L Pending
Potassium Pending
Chloride Pending
Carbon Dioxide Pending
BUN Pending
Creatinine Pending
Glucose Pending
Calcium Pending
Vital Signs:
Vital Signs
Temp Pulse Resp BP Pulse Ox
98.3 F 110 17 119/59 94
10/11/23 03:25 10/11/23 03:51 10/11/23 03:25 10/11/23 03:51 10/11/23 03:25
I&O
10/09/23 10/10/23 10/11/23
06:59 06:59 06:59
Intake Total 900 / 900 2400 / 2400 960 / 960
Output Total 1175 / 1175 1100 / 1100 600 / 600
Balance -275 / -275 1300 / 1300 360 / 360
--- NOTE | 2023-10-11 06:59 | W.PN.UPDATE ---
Update Note
Progress Note Update
RN reports HR increasing to 120s more frequntly overnight. Pt is on 240mg cardizem po
5mg iv cardizem ordered. HR 100-105
May need titration of cardizem if HR remains elevated
[2023-10-11 07:15] VITALS: BP 109/61
[2023-10-11 08:48] LABS: Hematocrit 25.4 % (37.0-47.0); Hemoglobin 8.6 g/dL (12.0-16.0); Mean Corp Hgb Conc. 33.9 g/dL (33.0-37.0); Mean Corpuscular Hgb 35.7 pg (27.0-31.0); Mean Corpuscular Volume 105.4 fL (81.0-99.0); Mean Platelet Volume 10.2 fL (7.4-10.4); Platelet Count 179 10^3/uL (130-400); Red Blood Cell Count 2.41 10^6/uL (4.20-5.40); Red Cell Dist. Width 19.9 % (11.5-14.5); White Blood Cell Count 19.7 10^3/uL (4.8-10.8)
[2023-10-11 09:00] LABS: Blood Urea Nitrogen 65 mg/dl (7-17); Calcium 8.1 mg/dl (8.4-10.2); Carbon Dioxide 27 mmol/L (22-30); Chloride 93 mmol/L (98-107); Estimated Creatinine Clearance 37 ml/min; Glucose 76 mg/dl (70-99); Potassium 4.4 mmol/L (3.5-5.1); Sodium 127 mmol/L (135-145); eGFR 32.81
[2023-10-11] MEDS: FARXIGA 10 MG PO (09:21)
[2023-10-11] MEDS: ELIQUIS 5 MG PO ×2 (09:21→19:43)
[2023-10-11] MEDS: CARDIZEM CD 240 MG PO (09:22)
[2023-10-11] MEDS: SENOKOT-S 1 TABLET PO ×2 (09:22→19:43)
[2023-10-11] MEDS: PROTONIX 40 MG PO ×2 (09:22→19:43)
[2023-10-11] MEDS: ATACAND 8 MG PO (09:22)
[2023-10-11] MEDS: MIRALAX 17 GRAMS PO (09:23)
[2023-10-11] MEDS: LASIX 40 MG PO (09:24)
--- NOTE | 2023-10-11 09:52 | W.PN.ID1 ---
Date of Service
Date of Service: October 11, 2023
Today's Communication
- agree with screen for DVT
- covid screen
- CXR
- cbc with diff in the AM
cefazolin adjusted for rhonda
Assessment / Plan
Progressive Leukocytosis
- does have large amount of bruising on the R axilla/breast - appears old, reports its been at least 1 week
- port functional, midline nontender - no new symptoms reported; had small BM this AM, no new wounds
- agree with screen for DVT
- covid screen
- CXR
- cbc with diff in the AM
RLE Cellulitis
RHONDA on CKD
Class III Obesity
Chronic lymphedema
- lymphedema uncontrolled - trial of compression
- dose of cefazolin adjusted for RHONDA
- suspect resolution may be slow until she is able to tolerate compression
- follow clinically
- outpatient follow up with lymphedema center
Chief Complaint
-: Cellulitis
Subjective / Review of Systems
afebrile
bp stable
increasing leukocytosis
RHONDA
no: cough, sinus tenderness, sore throat, nausea, vomiting, diarrhea, dysuria, suprapubic tenderness, new rashes, tenderness over midline or port; there is a large amount of old bruising on the R breast/axilla that she reports was from at least 1
week ago
Vital Signs / Physical Exam
Vital Signs
Vital Signs
Temp Pulse Resp BP Pulse Ox
97.9 F 108 22 109/61 96
10/11/23 07:15 10/11/23 09:22 10/11/23 07:15 10/11/23 07:15 10/11/23 07:15
Physical Exam
Constitutional: No Acute Distress and Chronically Ill
Cardiovascular: Regular Rate and S1/S2; Negative Murmur or Rub
Pulmonary: Clear and Symmetric; Negative Wheezes or Rales
Gastrointestinal: Soft, Non Tender, Non Distended and Normal Bowel Sounds
Skin: Warm, Dry and Rash (RLE less erythematous but still very tender, swollen; bruising along the R breast and R arm); Negative Jaundice
Objective Data
Lab Data
Lab Results
10/11/23 07:54
10/11/23 07:54
Estimated Creat Clear 37 ml/min 10/11/23 07:54
Total Bilirubin 1.6 mg/dl (0.2-1.3) H 10/09/23 05:08
AST 24 U/L (14-36) 10/09/23 05:08
ALT 15 U/L (0-35) 10/09/23 05:08
Alkaline Phosphatase 76 U/L (38-126) 10/09/23 05:08
Most recent labs reviewed.
Micro Results:
10/08/23 11:39 Blood Culture - Preliminary
Blood/Venous No Growth in 48 hours- Final report to follow
10/08/23 10:41 Blood Culture - Preliminary
Blood/Venous No Growth in 48 hours- Final report to follow
--- NOTE | 2023-10-11 10:51 | W.PN.CD ---
Addendum entered and electronically signed by Rashad Carrizales MD 10/11/23 12:15:
78 yo female with PMH of permanent A fib on eliquis. We are consulted for RVR. Irregular rhythm on exam. Cr 1.6. Tele: A fib, avg HR 100-110.
Increase diltiazem to 360mg daily.
Original Note:
Today's Communication / Plan
-
Will adjust rate-control meds; follow telemetry and BP's
Impression / Plan
-
Assessment/Plan: 78-year-old female with pertinent past medical history of permanent A-fib on Eliquis, recent NSTEMI with nonobstructive CAD at cath on September 28, 2023, hypertension, chronic HFpEF, metastatic endometrial Carcinoma, nephrotic
proteinuria, chronic lymphedema, and obesity who is here with A-fib with RVR, worsening anemia/GI bleeding, and cellulitis.
Weak/lightheaded/suspected GI bleed
- EGD showed Two very small esophageal ulcers with no bleeding, erosive gastropathy with no bleeding, and erythematous duodenodenopathy- per GI, continue BID PPI then switch to once daily at d/c
Esophageal ulcers and gastric erosions could have been source of bleeding.
- Back on Eliquis
- received a unit of PRBC's
Anemia, new:
-w/u as above
-received PRBC's and now seems stable
Perm AFib:
-on diltiazem 240 mg daily, rate still on fast side 100-120 BPM. Of note, in recent past, she used to be on atenolol, but held for low BP per notes? BP fine now. Will adjust rate-control meds.
-[id number] (hx HF, HTN, age2, vascular disease, female gender)- on Eliquis for OAC
Nonischemic myocardial injury, trop this admit 0.156, likely from AF RVR:
-denies CP
Chronic LE edema likely from a mixture of proteinuria + lymphedema + some from hx of HFpEF (LVEDP 19 at cath earlier this month)
- Chronic Lasix at home
- Compression appropriate
- Outpatient consideration for referral to lymphedema compressive therapy
-getting LE u/s today per nursing
Hx of HFpEF: chronic
- LVEDP was 19 at cath earlier this admit
- SGLT2-I added, but now held with abnormal renal function, as is ARB
- Clearly not all edema is from HF
Recent suspected NSTEMI, peak trop 3.4 on 09/24/2023
Mild CAD, branch vessel
- Appropriate for consideration for statin and goal LDL less than 70 (or less than 55!!)
- For now will defer to outpatient setting
Leukocytosis:
-ID following, checking CXR. Also checking for covid per ID.
Improved hypokalemia
HTN
Gout
Morbid obesity; affecting all aspects of care
Metastatic endometrial carcinoma (stage 4), managed by Dr. Goldstein, metastasis to spleen, doug hepatis and RP nodes, omentum, & lung
RHONDA:
-nephro following
-meds held as above
-hyponatremia also being managed by nephro
Subjective:
Denies CP, breathing fine. Can sometimes feel palps.
Data:
Echo 09/24/2023: LVEF 70-75%, mild cLVH, mild MR, mod TR, PASP 40-45 mmHg
Cath 09/28/2023 (CP, peak trop 3.4): LVEDP 19, 20-30 mid-distal LAD, 60-70% p RV Marginal (branch of RCA)
Physical Exam
Vital Signs/Labs
Vital Signs
Temp Pulse Resp BP Pulse Ox
97.9 F 108 22 109/61 96
10/11/23 07:15 10/11/23 09:22 10/11/23 07:15 10/11/23 07:15 10/11/23 07:15
10/10/23 10/11/2310/11/24
06:59 06:59 06:59
Actual Weight 123.916 kg 124.029 kg
10/11/23 07:54
10/11/23 07:54
Magnesium 1.6 mg/dl (1.6-2.3) 10/06/23 03:22
10/05/23
12:45
Tnx-G-Pnkhjohnsey Pept 4330
Physical Exam
Constitutional: No acute distress
EENT: Anicteric
Cardiovascular: Rhythm/rate is irregular and Pedal edema present (significant)
Respiratory: Respiratory effort normal and Other (scattered mild wheeze)
Neuro/Psych: Alert
Other: Skin (warm and dry)
Data Reviewed
-
Date of Service: October 11, 2023
EKG: Other (telemetry afib with HR 100's-120's)
Labs: Labs Reviewed by me
--- NOTE | 2023-10-11 11:55 | W.PN.NEPH.PH ---
Today's Communication / Plan
-
stop farxiga
Assessment/Plan
-
IMP:
Acute GI bleed-s/p EGD: showed esophageal, pre-pyloric ulcers
Hypokalemia-resolved
Hyponatremia
CKD 3a
Nephrotic syndrome
Perm Afib with RVR
Recent NSTEMI 09/23-noncritical CAD on recent cath
Moderate�severe TR
Pulmonary HTN
Essential HTN/hypotension Hx
CKD stage III A
History proteinuria concern nephrotic syndrome
Chronic HFpEF
underling PVD
New RLE Cellulitis
Chronic venous stasis dermatitis
Metastatic endometrial carcinoma, managed by Dr. Goldstein, metastasis to spleen, doug hepatis and RP nodes, omentum, & lung
Hysterectomy 2018
Port right upper chest wall
Chemotherapy from 2019 to April 2023 stopped due to proteinuria per patient
IgM kappa MGUS-PET scan October 2023
Gout
Morbid obesity due to excess calorie consumption�BMI 50.1 kg
Hypoalbuminemia
Plan:
Recent admit found to have nephrotic range proteinuria and pt was not candidate for biopsy -left AMA 09/28, retuned on 10/04 with symp afib
discontinue Farxiga as this patient has worsening renal failure up to 1.6
acute on chronic hyponatremia, worsening sodium since admit now at 127, was 125 on lasix , was given samsca yesterday
U osmo 343, U na low 5 suggest cardiorenal etiology specially wt is increasing
repeat U PCR shows improved only 0.6gm/gm of cr , TSH normal
Pt is off steroids over month, c4 is slightly low and other serologies neg
since she is not candidate for K biopsy manage medically at this time
need eventual uptitration of ARB as BP allows
strict FR 48 ounces/day and continue lasix for hyponatremia
h/h low but stable
f/u labs in am
d/w pt
-
-
Date of Service: October 11, 2023
CC / HPI / ROS
-
Chief Complaint:
Hypoantremjia, CKD
History of Present Illness:
sodium still no change at 127 s/p samsca 10/09
BP soft and labile
remains on RA
wt increasing
creatinine up to 1.6
Review of Systems:
no cp or sob at rest
weight up
edema persists
nonoliguric ~600cc
no n/v
Labs
-
Labs:
WBC 19.7 10^3/uL (4.8-10.8) H 10/11/23 07:54
RBC 2.41 10^6/uL (4.20-5.40) L 10/11/23 07:54
Hgb 8.6 g/dL (12.0-16.0) L 10/11/23 07:54
Hct 25.4 % (37.0-47.0) L 10/11/23 07:54
Plt Count 179 10^3/uL (130-400) 10/11/23 07:54
Sodium 127 mmol/L (135-145) L 10/11/23 07:54
Potassium 4.4 mmol/L (3.5-5.1) 10/11/23 07:54
Chloride 93 mmol/L (98-107) L 10/11/23 07:54
Carbon Dioxide 27 mmol/L (22-30) 10/11/23 07:54
BUN 65 mg/dl (7-17) H 10/11/23 07:54
Creatinine 1.6 mg/dL (0.6-1.0) H 10/11/23 07:54
eGFR 32.81 10/11/23 07:54
Glucose 76 mg/dl (70-99) 10/11/23 07:54
Calcium 8.1 mg/dl (8.4-10.2) L 10/11/23 07:54
Prq-O-Nevlywdqqer Pept 4330 pg/ml 10/05/23 12:45
Albumin 2.3 g/dl (3.5-5.0) L 10/09/23 05:08
Physical Exam
-
Vital Signs:
Vital Signs
Temp Pulse Resp BP Pulse Ox
97.9 F 108 22 109/61 96
10/11/23 07:15 10/11/23 09:22 10/11/23 07:15 10/11/23 07:15 10/11/23 07:15
Cardiovascular:: Regular rate and rhythm
Respiratory:: Bilateral: Coarse
Lung Excursion:: Normal
Abdomen:: Nontender and Soft
Bowel Sounds:: Normal
Extremity Edema:: +2: Bilateral:
Mtz Catheter: No
[2023-10-11 12:24] VITALS: BP 116/57
[2023-10-11 12:54] LABS: COVID-19 Antigen Negative (Negative)
[2023-10-11] MEDS: CARDIZEM CD 120 MG PO (12:57)
[2023-10-11 15:00] VITALS: BP 102/59
[2023-10-11] MEDS: ZYLOPRIM 100 MG PO (17:21)
[2023-10-11 19:55] VITALS: BP 108/50
[2023-10-11 23:43] VITALS: BP 111/51
--- NOTE | 2023-10-11 23:53 | PTCARENOTE ---
Pt hr 115-120s sometimes going up to 130's, afib. Pt denies palpations and chest pain. [employer]UID[employer] COUNSELOR made aware- ordered 5mg IV Cardizem given by RN. Pt is resting comfortably with call ron within reach.
[2023-10-12] VITALS (86 sets, daily range): BP systolic 50–133; BP diastolic 23–95; BMI 48.8
[2023-10-12] MEDS: NSS 250 IV (03:40)
[2023-10-12] MEDS: ProAmatine 5 MG PO (03:40)
--- NOTE | 2023-10-12 03:52 | W.PN.UPDATE ---
Update Note
Progress Note Update
2330 pt HR has remained uncontrolled 110-130s despite increase in cardzem po to 360mg yesterday.
2330 HR 130s ordered 5mg iv cardizem (like previous night), but little improvement in HR. BP did drop to 88/40 asymptomatic
0330 bp now 70s/40s HR unchanged. asymptomatic.
Will check am labs now. Add procal and lactic (had wbc to 19 yesterday). one dose midodrine and 250ml nss bolus.
May need to upgrade to imu
0430 LActic 2.6 procal 11.8
unclear if source is from cellulitis RLE or poss pneumonia on CXR yesterday am (not hypoxic, or febrile)
WBC lower than yesterday. BP still hypotensive. Will transfer to IMU for clse monitoring of HR and BP. May need pressors.
0530 as nursing was transferring pt to imu pt unresponsive. blood glucose on labs 41 accucheck 51 d50 given and mentation improving.
[2023-10-12 04:02] LABS: % Basophils 0.1 % (0-2); % Eosinophils 0.1 % (0-6); % Immature Granulocytes 3.2 % (0-0.5); % Lymphocytes 2.8 % (20.5-51.1); % Monocytes 1.3 % (1.7-9.3); % Neutrophils 92.5 % (42.2-75.2); Absolute Immature Granulocytes 0.5 10^3/uL (0-0.05); Absolute Lymphocytes 0.5 10^3/uL (1.2-3.4); Absolute Monocytes 0.2 10^3/uL (0.1-0.6); Absolute Neutrophils 15.6 10^3/uL (1.4-6.5); Hematocrit 24.1 % (37.0-47.0); Hemoglobin 8.4 g/dL (12.0-16.0); Mean Corp Hgb Conc. 34.9 g/dL (33.0-37.0); Mean Corpuscular Hgb 35.6 pg (27.0-31.0); Mean Corpuscular Volume 102.1 fL (81.0-99.0); Nucleated Red Blood Cells % 0.3 %; Platelet Count 179 10^3/uL (130-400); Red Blood Cell Count 2.36 10^6/uL (4.20-5.40); Red Cell Dist. Width 19.9 % (11.5-14.5); White Blood Cell Count 16.8 10^3/uL (4.8-10.8)
[2023-10-12] MEDS: ANCEF 10 IV (04:24)
[2023-10-12 04:27] LABS: Lactic Acid 2.6 mmol/L (0.7-2.0)
[2023-10-12 04:49] LABS: Magnesium 1.6 mg/dl (1.6-2.3)
[2023-10-12 05:10] LABS: Procalcitonin 11.88 ng/ml (0.0-0.25)
[2023-10-12 05:31] LABS: Glucose - Point of Care 59 mg/dl (70-99)
[2023-10-12 05:58] LABS: Blood Urea Nitrogen 69 mg/dl (7-17); Calcium 7.5 mg/dl (8.4-10.2); Carbon Dioxide 22 mmol/L (22-30); Chloride 97 mmol/L (98-107); Estimated Creatinine Clearance 30 ml/min; Glucose 41 mg/dl (70-99); Potassium 4.2 mmol/L (3.5-5.1); Sodium 126 mmol/L (135-145)
--- NOTE | 2023-10-12 06:00 | RR ---
A Rapid Response was called on this patient, please see Rapid Response form.
--- NOTE | 2023-10-12 06:00 | PTCARENOTE ---
Upon entering the room to transfer pt to IMU due to being hypotensive after 5mg PO Midodrine and a IV fluid bolus, pt was minimally responsive. RN called rapid response. VS- hr 120', 90/49bp, afebrile, resp 22. Pt blood sugar 59- given Dextrose and
pt mentation improving. pipe cleaner to IMU.
--- NOTE | 2023-10-12 06:00 | W.PN.UPDATE ---
Addendum entered and electronically signed by SHANTHI Carpenter 10/12/23 06:41:
Will update nephrology with updated labs.
Original Note:
Update Note
Progress Note Update
Responded to rapid response due to low blood sugar (50's)and minimally responsive. Dextrose given and now 90s and mentation improving. D5W up at 40 until BMP results known. Procal 11.88 so held Ancef and added Zosyn and Vanco iV. RLE with edema,
warmth and erythema. Magnesium 1.6 and repleted. Lactic 2.6.. Pharmacy to dose abts and renal dose. Will trend lactic. ID already on consult. Patient afebrile. Potassium 4.2. HR atrial fibrillation.
[2023-10-12 06:11] LABS: Glucose - Point of Care 99 mg/dl (70-99)
[2023-10-12] MEDS: D5W 1000 IV (06:12)
[2023-10-12] MEDS: ZOSYN 50 IV ×3 (06:12→17:48)
[2023-10-12] MEDS: MAGNESIUM SULFATE 100 IV (06:29)
[2023-10-12] MEDS: LEVOPHED 250 IV (06:43)
[2023-10-12] MEDS: VANCOCIN 540 MG IV (06:54)
[2023-10-12 07:19] LABS: Glucose - Point of Care 48 mg/dl (70-99)
[2023-10-12 07:36] LABS: Glucose - Point of Care 117 mg/dl (70-99)
[2023-10-12 07:39] LABS: Lactic Acid 3.7 mmol/L (0.7-2.0)
--- NOTE | 2023-10-12 07:57 | PTCARENOTE ---
Received patient as a transfer from [facility] after she was a rapid response around 615. Patient hypotensive, hypoglycemic and started on levo, d5w, mag, vanco, zosyn. Patient on max IMU dose of levo at mcg/min and MD at bedside to assess. Report
given to dayshift nurse.
--- NOTE | 2023-10-12 07:59 | W.PN.HOSP.TC ---
Today's Communication/Plan
-
Rapid Response overnight transferred to IMU 10/11
-d/t tachycardia hypotension hypoglycemia AMS
-Concern for worsening sepsis shock due to rise in procalcitonin and lactic acid (though both may be due to renal insufficiency)
-Question possible worsening heart failure cardiorenal syndrome with increasing weight decreasing urine outpt increasing renal insufficiency
-eventually improving with Levo max 8 mcg in IMU and IVF dextrose
-switching gentle IVF hydration dextrose to D5WNS d/t hyponatremia
-started scheduled midodrine, antihypertensives including cardizem placed on hold
-switching Levophed to Phenylephrine given tachycardia
-Transferring to ICU given max on pressor for IMU, concern for need more aggressive diuresis
Assessment / Plan
Assessment / Plan
Physical Exam
General: No Apparent Distress and Appears Chronically Ill
HEENT: Normocephalic and Atraumatic
Respiratory: Clear to Auscultation; Negative Wheezes
Cardiac: Irregular Irregular tachy
GI: Soft and Nontender
Musculoskeletal: RLE erythema tenderness, b/l lower edema +2
Neuro: Lethargic but arousable gradually improving mental status
Psych: Calm
Assessment:
Rapid Response overnight transferred to IMU 10/11
-d/t tachycardia hypotension hypoglycemia AMS
-Concern for worsening sepsis shock due to rise in procalcitonin and lactic acid (though both may be due to renal insufficiency)
-Question possible worsening heart failure cardiorenal syndrome with increasing weight decreasing urine outpt increasing renal insufficiency
-eventually improving with Levo max 8 mcg in IMU and IVF dextrose
-switching gentle IVF hydration dextrose to D5WNS
-started scheduled midodrine, antihypertensives including cardizem placed on hold
-switching Levophed to Phenylephrine given tachycardia
-Transferring to ICU given max on pressor for IMU concern for need more aggressive diuresis
Acute GI bleed, exacerbated by Eliquis
- Received 1 unit PRBCs in total
- s/p EGD: showed esophageal, pre-pyloric ulcers
- if rebleeds, consider colonoscopy but per GI body habitus would make colonoscopy difficult
- continue PPI BID but reduce to once daily at discharge as per GI
-H&H stable
Hypokalemia
- resolved with repletion
Perm Afib with RVR
- continue Eliquis/PO Cardizem
- Cardio eval appreciated
-Cardizem since placed on hold d/t shock as above
Recent NSTEMI 3/
- noncritical CAD on recent cath
- peak trop 3.4, downtrended
Moderate�severe TR
Pulmonary HTN
Essential HTN/hypotension Hx
- Atenolol was recently stopped due to hypotension
-ARB placed on hold d/t rhonda as below
RHONDA on CKD stage III A
- Creat 1.1 progressively worsening 2.0, newly started Farxiga discontinued, candesartan placed on hold
-suspect cardiorenal syndrome, PO lasix converted for IV lasix 40 mg daily for now
History proteinuria concern nephrotic syndrome
- previously on steroids, has abruptly stopped it herself along with prophylactic bactrim no longer taking
-Nephro on board
10/11 suspect acute on Chronic HFpEF with possible new onset cardiorenal syndrome as above
LE edema
- most likely attributed to nephrotic syndrome but component of HFpEF chronically
- Lasix switched to IV as above
- Farxiga started but discontinued as above
- home candesartan placed on hold d/t worsening kidney function as above
- consider Aldactone in outpatient setting
acute on chronic Hyponatremia hypervolemic, possible ADH Excess in setting of hypotension
- Nephrology eval appreciated samsca prn, fluid restriction, cont lasix
Thrombocytopenia hx - now resolved
Left foot cellulitis with underling PVD - this was resolved
New RLE Cellulitis this admission
Chronic venous stasis dermatitis
- completed IV Ancef course for LLE recently
- now back on IV Ancef for RLE
- Venous US no clots
- Arterial US appreciated possible mild small vessel disease b/l LE
-ID eval appreciated
-empiric cefazolin converted to empiric vanc and zosyn given concern worsening sepsis as above
Increased Leukocytosis, trending down
cont to monitor
COVID neg
CXR appreciated
Progressed mild right basilar airspace disease, possible developing pneumonia. Small right pleural effusion. No significant respiratory symptoms at this time however.
Hx metastatic endometrial cancer, followed by Dr. Goldstein
Hysterectomy 2018
Port right upper chest wall
Chemotherapy from 2019 to April 2023 stopped due to proteinuria per patient
IgM kappa MGUS
- Patient reports has next PET scan October 2023
Gout
- continue allopurinol 100 mg daily
Morbid obesity due to excess calorie consumption�BMI 50.1 kg
- Weight loss recommended
Constipation
- on bowel regimen, follow results
DVT ppx: Eliquis
Code: Full
PT/OT appreciated SNF rehab
discussed with patient's sister Christianne
Total Critical Care Time__60___ minutes. I was immediately available to the patient and staff. I personally examined, reviewed labs, diagnostic images/reports, interpretations, treatment plans, discussed patient care with other providers and
family or caregivers (if patient is unable to make decisions), entered orders as appropriate and documented the medical record.
Anticipated Discharge: > 48 hours
Subjective/Interval History
-
Date of Service: October 12, 2023
Rapid response overnight, tachycardia hypotension hypoglycemia AMS transferred to IMU. Improving with pressor support and IVF dextrose. Lethargic arousable though remains nonverbal, mental status slowly improving.
Objective Data
-
Labs:
Laboratory Results
10/12/23 10/12/23
03:48 03:49
WBC 16.8 H
Hgb 8.4 L
Hct 24.1 L
Plt Count 179
Sodium 126 L
Potassium 4.2
Chloride 97 L
Carbon Dioxide 22
BUN 69 H
Creatinine 2.0 H
Glucose 41 L*
Calcium 7.5 L
Vital Signs:
Vital Signs
Temp Pulse Resp BP Pulse Ox
98.2 F 118 23 96/65 93
10/12/23 06:00 10/12/23 07:45 10/12/23 07:45 10/12/23 07:45 10/12/23 07:45
I&O
10/11/23 10/12/23 10/13/23
06:59 06:59 06:59
Intake Total 960 / 960 720 / 720
Output Total 600 / 600 400 / 400
Balance 360 / 360 320 / 320
--- NOTE | 2023-10-12 08:13 | PTCARENOTE ---
Addendum entered by Justyna Conrad RN 10/12/23 10:15:
Correction: LA 2.6, not 22.6
Original Note:
Assumed care of patient at beginning of this shift from previous RN with Levophed infusing at 5mch/min, vancomycin infusing as well as D10@40ml/hr and Mg rider (Mg 1.6). Patient had recently arrived to IMU just prior to this shift. BP 78/63 at 07:03
74/48 with MAP 57; recycled for BP 71/50 MAP 57; levophed increased to 6mcg/min at 07:05. HR 115-124. Accu check 48; / D50 given by maintenance technician 2nd shift RN. Transfer orders included starting cardizem infusion. Dr Rm called via tiger text by this RN;
instructed to hold Cardizem infusion d/t hypotension (infusion had not been started). LA 22.6 at 03:49 with repeat 3.7 at 07:19. Procal 11.88 at 03:49. Reviewed all labs, accu checks,HR, BP and MAP readings with him at the bedside. Patient very
lethargic, minimally responsive. POx 95-97% on RA; lungs clear t/o. Patient incontinent of large loose stool just prior to this shift as per report, and another this morning. Bladder scan done by this RN showed residual of 7ml. Abdomen obese and
slightly firm. Dr Holliday spoke to patient's sister. Order given to transfer to ICU; Heidi Mcmanus, nurse pension fund manager and charge nurse both made aware. Await bed. See worklist for captured vital signs; refer to [employer] for updated accu checks.
[2023-10-12 08:16] LABS: Glucose - Point of Care 100 mg/dl (70-99)
[2023-10-12] MEDS: D5/0.9% SODIUM CHLORIDE 1000 IV (08:38)
[2023-10-12] MEDS: NEO-SYNEPHRINE 250 IV (08:38)
--- NOTE | 2023-10-12 08:38 | W.PN.NEPH.PH ---
Today's Communication / Plan
-
IV albumin
Transferred to ICU with pressors
Okay to maintain Lasix
Bladder scan protocol
Assessment/Plan
-
IMP:
Acute GI bleed-s/p EGD: showed esophageal, pre-pyloric ulcers
Hypokalemia-resolved
Hyponatremia
CKD 3a
Nephrotic syndrome
Perm Afib with RVR
Recent NSTEMI 09/23-noncritical CAD on recent cath
Moderate�severe TR
Pulmonary HTN
Essential HTN/hypotension Hx
CKD stage III A
History proteinuria concern nephrotic syndrome
Chronic HFpEF
underling PVD
New RLE Cellulitis
Chronic venous stasis dermatitis
Metastatic endometrial carcinoma, managed by Dr. Goldstein, metastasis to spleen, doug hepatis and RP nodes, omentum, & lung
Hysterectomy 2018
Port right upper chest wall
Chemotherapy from 2019 to April 2023 stopped due to proteinuria per patient
IgM kappa MGUS-PET scan October 2023
Gout
Morbid obesity due to excess calorie consumption�BMI 50.1 kg
Hypoalbuminemia
Plan:
Transferred to ICU for hypotension in setting of septic versus cardiogenic shock
Pressors added to support blood pressure to maintain MAP at 65 or greater
RHONDA continues to worsen with creatinine up to 2 urine output around 400 cc
Hyponatremia down to 126 (likely exacerbated by poor hemodynamics)
Recent admit found to have nephrotic range proteinuria and pt was not candidate for biopsy -left AMA 09/28, retuned on 10/04 with symp afib
U osmo 343, U na low 5 suggest cardiorenal etiology specially wt is increasing
repeat U PCR shows improved only 0.6gm/gm of cr , TSH normal
Pt is off steroids over month, c4 is slightly low and other serologies neg
since she is not candidate for kidney biopsy we will manage medically at this time
h/h low but stable in setting of GI bleeding
Chest x-ray reviewed noted pneumonic infiltrate
patient critically ill with hemodynamic instability requiring pressor support, with worsening RHONDA
will provide albumin IV for bp support in setting of hypoalbuminemia and hypotension
check bladder scan with low threshold for wayne catheter placement
Total Time Spent with Patient (in minutes): 32
-
-
Date of Service: October 12, 2023
CC / HPI / ROS
-
Chief Complaint:
Hypoantremjia, CKD
History of Present Illness:
sodium down at 126 s/p samsca 10/09
Hemodynamically unstable on dual pressor support in AFIB
wt increasing
creatinine up to 2
Review of Systems:
no fevers
weight up
edema persists
nonoliguric ~400cc
no n/v
Labs
-
Labs:
WBC 16.8 10^3/uL (4.8-10.8) H 10/12/23 03:49
RBC 2.36 10^6/uL (4.20-5.40) L 10/12/23 03:49
Hgb 8.4 g/dL (12.0-16.0) L 10/12/23 03:49
Hct 24.1 % (37.0-47.0) L 10/12/23 03:49
Plt Count 179 10^3/uL (130-400) 10/12/23 03:49
Sodium 126 mmol/L (135-145) L 10/12/23 03:48
Potassium 4.2 mmol/L (3.5-5.1) 10/12/23 03:48
Chloride 97 mmol/L (98-107) L 10/12/23 03:48
Carbon Dioxide 22 mmol/L (22-30) 10/12/23 03:48
BUN 69 mg/dl (7-17) H 10/12/23 03:48
Creatinine 2.0 mg/dL (0.6-1.0) H 10/12/23 03:48
eGFR 25.10 10/12/23 03:48
Glucose 41 mg/dl (70-99) L* 10/12/23 03:48
Calcium 7.5 mg/dl (8.4-10.2) L 10/12/23 03:48
Wry-R-Tpudoaggcgh Pept 4330 pg/ml 10/05/23 12:45
Albumin 2.3 g/dl (3.5-5.0) L 10/09/23 05:08
Physical Exam
-
Vital Signs:
Vital Signs
Temp Pulse Resp BP Pulse Ox
98.2 F 118 23 96/65 93
10/12/23 06:00 10/12/23 07:45 10/12/23 07:45 10/12/23 07:45 10/12/23 07:45
Cardiovascular:: Irregular rate and rhythm
Respiratory:: Bilateral: Coarse
Lung Excursion:: Normal
Abdomen:: Nontender and Soft
Bowel Sounds:: Decreased
Extremity Edema:: +2: Bilateral:
Wayne Catheter: No
--- NOTE | 2023-10-12 08:49 | CON.INTV ---
Consultation
Consultation Request
Date/Time Consultation Requested: 10/12/2023-10 AM
Date/Time Consultation Performed: 10/12/2023-10:30 AM
Requesting Provider: Hospitalist
Performing Provider: Dr. Jimenez
Reason for Consultation: Septic shock/critical care management
Medical History
-
Chief Complaint: Mental status changes, hypotension
History of Present Illness:
78-year-old female with recent NSTEMI presented with weakness and lightheadedness as well as rapid heart rate noted to be in atrial fibrillation and hypotension who developed decline in mental status and further hypotension requiring transfer to
ICU-investment director consulted for septic shock/critical care management 10/12/2023. Patient is extremely lethargic and review of systems was unobtainable. Events from rapid response and over the last several days were reviewed with primary team.
Patient developed tachycardia, hypotension and significant hypoglycemia.
Past Medical History
Past Medical History: None (CAD-recent NSTEMI 09/2023. Uterine cancer diagnosed 2019 status post hysterectomy on chemo from 2019 until April 2023. Hypertension. PAF. Obesity. Proteinuria. Gout. Morbid obesity-BMI 50. Appendectomy.
Tonsillectomy.)
Social History
Tobacco: Non-smoker
Alcohol: None
Drug: None
Living: With Family
Occupational Exposures: No known asbestos exposure
Environmental Exposures: No known tuberculosis exposure
Family History
Family History: Reviewed & Not Pertinent (Sister uterine cancer in remission. Father multiple CVAs.)
Allergies / Home Medications
Allergies
Allergy/AdvReac Type Severity Reaction Status Date / Time
paroxetine [From Paxil] Allergy Hypotension Verified 10/08/23 17:43
prednisone Allergy Unknown Verified 09/24/23 07:37
Home Medications
Medication Instructions Recorded Confirmed Last Taken Type
allopurinol 100 mg tablet 100 mg PO QPM Gout 07/30/21 10/05/23 10/04/23 History
candesartan 8 mg tablet 8 mg PO DAILY Blood Pressure 0310/05/23 10/05/23 History
apixaban 5 mg tablet (Eliquis) 5 mg PO Q12 Blood Clot 10/05/23 10/05/23 10/05/23 History
Prevention/Tx
furosemide 40 mg tablet 40 mg PO DAILY Fluid 10/05/23 10/05/23 10/05/23 History
Retention/Swelling
Review of Systems
-
Unable to Obtain full review of systems at this time due to: Other (Per HPI)
Vitals / Labs / Diagnostic Testing
Vital Signs
Temp Pulse Resp BP Pulse Ox
98.2 F 118 23 96/65 93
10/12/23 06:00 10/12/23 07:45 10/12/23 07:45 10/12/23 07:45 10/12/23 07:45
Lab Data
10/12/23 03:49
10/12/23 03:48
Microbiology
10/08/23 11:39 Blood/Venous Blood Culture - Preliminary
No Growth in 72 hours- Final report to follow
10/08/23 10:41 Blood/Venous Blood Culture - Preliminary
No Growth in 72 hours- Final report to follow
Diagnostic Testing:
Physical Exam
-
Exam:
Well-nourished and well-developed in no apparent distress
HEENT-atraumatic, normocephalic
Neck-supple, no JVD, no bruit
Heart-regular rate and rhythm-no murmurs, rubs or gallops
Chest-clear to auscultation, no wheezes, crackles
Back-no tenderness
Abdomen-soft, nontender, nondistended, no hepatosplenomegaly
Extremities-no cyanosis, clubbing, 2+ lower extremity lymphedema, right lower extremity cellulitis
Integument-intact, no rashes, lesions or ecchymosis
Neurologically arousable, lethargic, moving extremities
Assessment
-
78-year-old female with recent NSTEMI presented with weakness and lightheadedness as well as rapid heart rate noted to be in atrial fibrillation and hypotension who developed decline in mental status and further hypotension requiring transfer to
ICU-investment director consulted for septic shock/critical care management 10/12/2023.
Assessment
Septic shock unresponsive to fluids requiring pressors
Right middle lobe pneumonia-aspiration risk
UTI and suspected urosepsis
Right lower extremity cellulitis
Leukocytosis
Lactic acidosis
Rapid atrial fibrillation
GI bleed exacerbated by Eliquis
Anemia due to acute blood ahnv-uvhrjvrhqo-cqucnipudb 8.4
Hypokalemia
Recent NSTEMI 09/24/2023
RHONDA
Recent acute on top of chronic heart failure preserved EF
Hyponatremia
Thrombocytopenia
Morbid obesity-BMI 50.1
Constipation
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
Conditions present prior to admission:
CAD
Uterine cancer diagnosed 2019 status post hysterectomy on chemo from 2019 until April 2023.
Pulmonary nodules
Splenic masses-metastatic disease-now calcified suggesting treated disease
Hypertension.
PAF-on Eliquis
Obesity.
Proteinuria.
Gout.
Morbid obesity-BMI 50.
Obstructive sleep apnea suspected
Cholelithiasis
Fatty liver
Appendectomy. Tonsillectomy.
Plan
Admit patient to medical intensive care unit for persistent hypotension despite fluid resuscitation requiring pressors
Supplement oxygen as needed
High flow oxygen if needed
BiPAP if necessary
Intubate and mechanically ventilate if necessary
Aspiration precautions
Nebulizers if needed
Obtain repeat cultures
Last urine culture 09/24/2023-Klebsiella pneumoniae
MRSA screen 09/24/2023-negative
Blood cultures 10/08/2023 negative
Empiric antibiotics-vancomycin, Zosyn and levofloxacin
Infectious disease consultation-
Monitor leukocytosis
Fluid resuscitation with 30 mL/kg crystalloid-preferably lactated ringer-(less RHONDA) with subsequent boluses as needed
Monitor lactate
Follow CVP if possible
Attempt noninvasive bedside tissue perfusion evaluation to see if fluid bolus responsive
Measure pulse pressure and stroke volume variation if patient on ventilator, passively breathing without arrhythmia and with temporary large tidal volume ventilation and if > 13% then likely fluid bolus responsive
If patient active then consider measuring bedside leg lift for 3 minutes and if cardiac output increases or if there is a rise of 2-4 on end-tidal CO2 then fluid bolus
If bedside ultrasound available then measure IVC diameter variation to evaluate for fluid bolus responsiveness
Begin pressors as needed for MAP goal of 65-Norepinephrine first, then Vasopressin and consider Angiotensin II if continues to be hypotensive
Consider methylene blue if available-specific inhibitor of induced nitric oxide synthase iNOS and its downstream enzyme soluble guanylate cyclase-noninferiority study shown to reduce time to vasopressor discontinuation, decreased ICU length of stay,
hospital stay but no change in mortality-published Critical Care 10/05/2022
If persistently hypotensive then consider checking random cortisol-hydrocortisone if random less than 3, if 3-15 then consider ACTH stimulation test
If persistently hyperthermic then correcting hyperthermia can decrease pressor requirements, increased chances of reversal of shock and decrease mortality
Follow hemoglobin
INR significantly elevated
Vitamin K
Transfuse as needed-has received 1 unit thus far
GI following
PPI
Monitor renal function
Nephrology following-correspondence reviewed
Atrial fibrillation rate controlled
Cardiology following-correspondence reviewed
Echocardiogram summarized below
Cardiac catheterization summarized below
DVT prophylaxis-mechanical
Early nutrition if possible
Early mobilization/bedside range of motion
Consider outpatient sleep disordered breathing/obstructive sleep apnea workup
Critical care statement: A total of 65 minutes of critical care time was provided for this patient today. This includes management of unstable vital signs, evaluation of the patient at bedside, reviewing the patient's pertinent medical records
including radiographs, intravenous fluid bolus management, pressor management, microbiology, laboratory evaluations, and discussion with primary team, consultants, pharmacy, nutrition, physical therapy, case management, charge nurse, critical care
nursing, and respiratory therapy.
Diagnostic data:
Chest x-ray 09/24/2023-NAD
Chest x-ray 10/05/2023-NAD
Chest x-ray 10/11/2023-right basilar airspace disease progressed
CT chest abdomen and pelvis 08/18-multiple bilateral pulmonary nodules stable, no new or enlarging pulmonary nodules, multiple low-attenuation splenic masses, now calcifying suggested treated metastatic lesions, cholelithiasis, fatty infiltration of
the liver
Echocardiogram 09/24/2023-EF 70-75%, mild mitral regurgitation, PA systolic 40-45
Cardiac catheterization 09/28/2023-mild noncritical CAD, 20-30% mid to distal stenosis LAD, 2030% lesion distal RPDA
Data Reviewed
-
EKG: Report reviewed by me
Radiology: Image personally visualized and interpreted and Report reviewed by me
CT Scan: Report reviewed by me
Medical Tests (Nuc Med, Echo etc): Report reviewed by me
Labs: Labs reviewed by me
Old Records: Reviewed
Critical Care Time (in minutes): 65
[2023-10-12] MEDS: DEXTROSE 50% SYRINGE 12.5 GRAMS IV (09:21)
--- NOTE | 2023-10-12 09:22 | PTCARENOTE ---
Patient transferred to [facility]; report given to
[2023-10-12 09:33] LABS: Glucose - Point of Care 68 mg/dl (70-99)
--- NOTE | 2023-10-12 09:35 | PHA.VAN.IN ---
Assessment
- Assessment
Renal Function: Appears elevated from baseline (SCR 2 vs low of 0.9 this admission)
Concomitant Antimicrobials: piperacillin/tazobactam
Plan
- Plan
Initial / Loading Dose: 2000mg - 10/11 06:54
Maintenance Regimen: dosing by level
Monitoring: random 10/12 0600
Pharmacokinetics Vancomycin I
- -
Patient Age: 78
Patient Sex: Female
Vancomycin Day #: 1
Indication: Other
Requesting Provider: Duane Alberto
Pertinent Antimicrobial Allergies:
no pertinent antibiotic allergies
Height / Weight:
Height 5 ft 3 in
Actual Weight 124.8 kg
Pertinent Past Medical History: BMI ~48.7, CKD 3
- Vital Signs / Lab Results
Temp Pulse Resp BP Pulse Ox
98.2 F 118 23 96/65 93
10/12/23 06:00 10/12/23 07:45 10/12/23 07:45 10/12/23 07:45 10/12/23 07:45
Lab Results - Hematology
10/10/23 10/11/23 10/12/23
05:25 07:54 03:49
WBC 11.4 H 19.7 H 16.8 H
Lab Results - Chemistry
10/10/23 10/11/23 10/12/23
05:25 07:54 03:48
BUN 54 H 65 H 69 H
Creatinine 1.3 H 1.6 H 2.0 H
Estimated Creat Clear 46 37 30
10/12/23 10/12/23
03:49 07:19
Lactic Acid 2.6 H 3.7 H
Microbiology Results
10/08/23 11:39 Blood Culture - Preliminary
Blood/Venous No Growth in 72 hours- Final report to follow
10/08/23 10:41 Blood Culture - Preliminary
Blood/Venous No Growth in 72 hours- Final report to follow
[2023-10-12 09:57] LABS: Glucose - Point of Care 92 mg/dl (70-99)
[2023-10-12] MEDS: FLEXBUMIN 100 IV ×2 (10:04→17:03)
[2023-10-12] MEDS: ELIQUIS PO ×2 (10:08→22:22)
[2023-10-12 10:20] LABS: PT 56.1 Sec (11.4-14.6)
--- NOTE | 2023-10-12 10:30 | PTCARENOTE ---
Pt received via bed into 3368 at 0908 as transfer from IMU. Pt somnolent, withdrawing and grimacing only to noxious stimulation. Pt received on Levophed at 8 mcg/min and Neosynephrine at 10mcg/min. D5NS infusing at 40ml/hr. Pt's accucheck on
arrival = 68. 1/2 amp D50 given IV per protocol. Thermistor Mtz placed per order w/ return of turbid, milky yellow-orange urine. Titrating Neosynephrine and Levophed to achieve MAP >65. Physical assessment completed and pt turned/repositioned for
comfort and hygiene provided. Safe environment maintained. Dr Shultz in room at 1025 to see pt and updated on pt's current vasopressor dosages, urine output/appearance. Order for IVF bolus received and given as documented on SEP.
[2023-10-12 10:35] LABS: INR 6.31
[2023-10-12] MEDS: MIRALAX PO (10:35)
[2023-10-12] MEDS: SENOKOT-S PO (10:36)
[2023-10-12] MEDS: LR 1000 IV (10:38)
[2023-10-12] MEDS: PITRESSIN 100 IV ×2 (10:50→20:00)
[2023-10-12] MEDS: NSS (PRESERVATIVE FREE) 10 ML IV ×2 (11:09→20:10)
[2023-10-12] MEDS: PROTONIX IV 40 MG IV ×2 (11:09→20:10)
--- NOTE | 2023-10-12 11:19 | W.PN.CD ---
Today's Communication / Plan
-
- Wean off pressors as tolerated
- Start Amiodarone bolus / drip
- ECHO today
Impression / Plan
-
Assessment/Plan: 78-year-old female with pertinent past medical history of permanent A-fib on Eliquis, recent NSTEMI with nonobstructive CAD at cath on September 28, 2023, hypertension, chronic HFpEF, metastatic endometrial Carcinoma, nephrotic
proteinuria, chronic lymphedema, and obesity who is here with A-fib with RVR, worsening anemia/GI bleeding, and cellulitis who developed severe hypotension requiring multiple pressors.
Septic Shock
- Severe hypotension requiring multiple pressors
- Transferred to ICU overnight.
- Combined septic and hypovolemic shock.
- S/p ECHO 09/24/23 - LVEF 75% and cath 09/28/23 showing mild CAD with troponin leak of demand ischemia
- Will obtain a follow up ECHO to assess wall motion vs LVEF to rule out cardiogenic component of her shock.
- On multiple pressors.
- Central line placement.
- Would need better AF rate control - with hypotension, will use Amiodarone bolus and drip once we have central line/IV access to add another drip.
Weak/lightheaded/suspected GI bleed
- EGD showed Two very small esophageal ulcers with no bleeding, erosive gastropathy with no bleeding, and erythematous duodenodenopathy- per GI, continue BID PPI then switch to once daily at d/c
Esophageal ulcers and gastric erosions could have been source of bleeding.
- Back on Eliquis
- s/p PRBC's
Anemia, new:
-w/u as above
-received PRBC's
Perm AFib:
- RVR noted in setting of septic shock
- previously on diltiazem 240 mg daily - now on hold due to hypotension.
- start Amiodarone gtt
-[id number] 6 (hx HF, HTN, age2, vascular disease, female gender)- on Eliquis for OAC
Nonischemic myocardial injury, trop this admit 0.156, likely from AF RVR:
-denies CP
-ECHO today
Chronic LE edema likely from a mixture of proteinuria + lymphedema + some from hx of HFpEF (LVEDP 19 at cath earlier this month)
- Chronic Lasix at home
- Compression appropriate
- Outpatient consideration for referral to lymphedema compressive therapy
Hx of HFpEF: chronic
- LVEDP was 19 at cath earlier this admit
- SGLT2-I added, but now held with abnormal renal function, as is ARB
- Clearly not all edema is from HF
Demand ischemia - non VA troponin leak peak trop 3.4 on 09/24/2023
- s/p cath 09/24/23 - Mild CAD, branch vessel
- Appropriate for consideration for statin and goal LDL less than 70 (or less than 55!!)
- For now will defer to outpatient setting
Leukocytosis:
-ID following
Improved hypokalemia
HTN
Gout
Morbid obesity; affecting all aspects of care
Metastatic endometrial carcinoma (stage 4), managed by Dr. Goldstein, metastasis to spleen, doug hepatis and RP nodes, omentum, & lung
RHONDA:
-nephro following
-meds held as above
-hyponatremia also being managed by nephro
Subjective:
Mental status improving. Denies CP. appears exhausted.
Data:
Echo 09/24/2023: LVEF 70-75%, mild cLVH, mild MR, mod TR, PASP 40-45 mmHg
Cath 09/28/2023 (CP, peak trop 3.4): LVEDP 19, 20-30 mid-distal LAD, 60-70% p RV Marginal (branch of RCA)
Physical Exam
Vital Signs/Labs
Vital Signs
Temp Pulse Resp BP Pulse Ox
99.6 F 118 23 96/65 93
10/12/23 11:06 03/19/24 07:45 10/12/23 07:45 10/12/23 07:45 10/12/23 07:45
10/11/23 10/12/23 10/13/23
06:59 06:59 06:59
Actual Weight 124.029 kg 124.8 kg
10/12/23 03:49
10/12/23 03:48
PT 56.1 Sec (11.4-14.6) H 10/12/23 09:26
INR 6.31 H* 10/12/23 09:26
APTT 44.0 Sec (23.4-35.0) H 10/12/23 09:26
Magnesium 1.6 mg/dl (1.6-2.3) 10/12/23 03:48
10/05/23
12:45
Usq-P-Szvfghvyins Pept 4330
Physical Exam
Constitutional: Confusion and Other (appears lethargic )
EENT: Anicteric and Moist mucous membranes
Cardiovascular: Pedal edema is absent, JVD pressure is normal and Rhythm/rate is irregular (RVR)
Respiratory: Crackles Present and Rhonchi Present
GI: Soft, Non tender and Normal bowel sounds
Neuro/Psych: Alert and Oriented
Data Reviewed
-
Date of Service: October 12, 2023
Medical Decision Making: Reviewed Test Results, Independent Historian Assessment and Test Interpretation
EKG: Tracing Personally Visualized and interpreted
Echo: Report Reviewed by me
Labs: Labs Reviewed by me
Old Records: Reviewed
Critical Care Time (in minutes): 35
--- NOTE | 2023-10-12 11:28 | W.PN.ID1 ---
Date of Service
Date of Service: October 12, 2023
Today's Communication
agree with vanc/zosyn; add levofloxacin
Assessment / Plan
Shock likely septic; +/- cardiogenic component
Leukocytosis
Probable UTI - urine very cloudy today
Possible Pneumonia
- blood cultures x2 in progress
- ua not yet done, urine culture was sent; sent ua
- covid ag neg 10/10
- procalcitonin not interpretable with RHONDA
- not known to be colonized with MDROs
- EKG with possible lateral ischemia - tiger text to cardiology
- will continue vanc/zosyn; added levofloxacin - renally dose medications
- follow clinically
RLE Cellulitis
RHONDA on CKD- progressive
Class III Obesity
Chronic lymphedema
- lymphedema uncontrolled - trial of compression
- currently on vancomycin
- follow clinically
- outpatient follow up with lymphedema center
Chief Complaint
-: Cellulitis
Subjective / Review of Systems
transferred to IMU
notified by hospitalist
afebrile
bp remains hypotensive on pressors
wbc improved overnight from 19 to 16.8
hgb stable
plt normal
L shift persists
eos present in minimal numbers
INR 6.3 today
cr now 2.0
glucose 40 this am
hyponatremia ongoing
increasing lactic acidosis
EKG: afib with RVR, possible lateral ischemia
echo 09/24/23: ef 70-75%, mild LVH
cardiorenal
urine is very cloudy today - had purewick yesterday with clear urine at that time to my memory
not responding to questions
mild coughing - nonproductive
Vital Signs / Physical Exam
Vital Signs
Vital Signs
Temp Pulse Resp BP Pulse Ox
99.6 F 118 23 96/65 93
10/12/23 11:06 10/12/23 07:45 10/12/23 07:45 10/12/23 07:45 10/12/23 07:45
Physical Exam
Constitutional: Acutely Ill, Toxic and Obese
Cardiovascular: Irregular Rate (tachycardic), S1/S2 and Peripheral Edema; Negative Murmur or Rub
Pulmonary: Clear, Symmetric and Other (tachypneic); Negative Wheezes or Rales
Gastrointestinal: Soft, Non Tender, Non Distended and Normal Bowel Sounds
Genito-Urinary: Suprapubic Tenderness and Other (urine is quite opaque)
Skin: Warm, Dry and Rash; Negative Jaundice
Objective Data
Lab Data
Lab Results
10/12/23 03:49
10/12/23 03:48
PT 56.1 Sec (11.4-14.6) H 10/12/23 09:26
INR 6.31 H* 10/12/23 09:26
APTT 44.0 Sec (23.4-35.0) H 10/12/23 09:26
Estimated Creat Clear 30 ml/min 10/12/23 03:48
Lactic Acid 5.0 mmol/L (0.7-2.0) H* 10/12/23 11:06
Total Bilirubin 1.6 mg/dl (0.2-1.3) H 10/09/23 05:08
AST 24 U/L (14-36) 10/09/23 05:08
ALT 15 U/L (0-35) 10/09/23 05:08
Alkaline Phosphatase 76 U/L (38-126) 10/09/23 05:08
Most recent labs reviewed.
Micro Results:
10/12/23 10:52 Blood Culture - Pending
Blood/Venous
10/08/23 10:41 Blood Culture - Preliminary
Blood/Venous No Growth in 4 days- Final report to follow
10/12/23 10:42 Urine Culture - Pending
Urine
10/08/23 11:39 Blood Culture - Preliminary
Blood/Venous No Growth in 72 hours- Final report to follow
Care Review
Plan reviewed with: Physician (Dr Joseph, Dr Cedillo - troponins)
[2023-10-12] MEDS: PROTONIX PO (11:38)
[2023-10-12] MEDS: LASIX IV (11:38)
[2023-10-12 12:07] LABS: Glucose - Point of Care 71 mg/dl (70-99)
--- NOTE | 2023-10-12 12:15 | PTCARENOTE ---
Pt started on Vasopressin gtt at 1050 for continued hypotension. Pt slightly more alert, opens eyes spontaneously and appears to be tracking staff movement in room but does not answer any questions or follow any commands. Remains NPO for safety.
Oral care provided. IV Team RN in room to exchange midline for PICC.
[2023-10-12] MEDS: LR 500 IV (12:30)
--- NOTE | 2023-10-12 12:30 | PTCARENOTE ---
Attempted to place return phone call to pt's sister 'Juhi Evans' at her request- [phone]. No answer.
[2023-10-12 12:56] LABS: Glucose - Point of Care 72 mg/dl (70-99)
--- NOTE | 2023-10-12 12:56 | W.PN.SEPSIS ---
Sepsis
Vital Signs
Temp Pulse Resp BP Pulse Ox
99.6 F 118 23 96/65 93
10/12/23 11:06 10/12/23 07:45 10/12/23 07:45 10/12/23 07:45 10/12/23 07:45
Physical Exam
Physical Exam:
A focused exam was performed after fluid resuscitation.
Pulse Evaluation
Right Radial:
Pulse Evaluation: Present
[2023-10-12] MEDS: LEVAQUIN 150 IV (13:22)
--- NOTE | 2023-10-12 13:49 | VATNOTE ---
Left PICC retracted 15cm and readvanced to correct malposition, CXR reordered for tip placement.
--- NOTE | 2023-10-12 13:53 | W.PN.INTV ---
Documented by User: Sandra Sun MD, Resident 10/12/23 16:31
Today's Communication / Plan
Recommendations
.
Assessment
-
78-year-old female with recent NSTEMI presented with weakness, lightheadedness as well as rapid heart rate noted to be in atrial fibrillation and hypotension who developed decline in mental status and further hypotension requiring transfer to ICU
for septic shock management.
Diagnostics:
Leukocytosis with left shift 16.8
Hemoglobin 8.4, RBC 2.26
Lactate- 5, second reading pending
Procalcitonin 11.88
Creatinine 2.4
Sodium 127
EKG 10/12/2023TRIAL FIBRILLATION WITH RAPID VENTRICULAR RESPONSE, ST and T WAVE ABNORMALITY
�
Chest x-ray 10/11/2023-right basilar airspace disease progressed
CT chest abdomen and pelvis 08/18-multiple bilateral pulmonary nodules stable, no new or enlarging pulmonary nodules, multiple low-attenuation splenic masses, now calcifying suggested treated metastatic lesions, cholelithiasis, fatty infiltration of
the liver
Echocardiogram 09/24/2023-EF 70-75%, mild mitral regurgitation, PA systolic 40-45
Cardiac catheterization 09/28/2023-mild noncritical CAD, 20-30% mid to distal stenosis LAD, 2030% lesion distal RPDA
Conditions present prior to admission:
CAD
Uterine cancer diagnosed 2019 status post hysterectomy on chemo from 2019 until April 2023.
Pulmonary nodules
Splenic masses-metastatic disease-now calcified suggesting treated disease
Hypertension.
PAF-on Eliquis
Obesity.
Proteinuria.
Gout.
Morbid obesity-BMI 50.
Obstructive sleep apnea suspected
Cholelithiasis
Fatty liver
Appendectomy. Tonsillectomy.
Plan
#Septic shock unresponsive to fluids requiring pressors
Patient febrile, lactic acidosis
Patient is currently on Levophed, norepinephrine, vasopressin
MAP>70
Supplemental oxygen as needed
Aspiration precautions
Obtain repeat cultures
Last urine culture 09/24/2023-Klebsiella pneumoniae
MRSA screen 09/24/2023-negative
Blood cultures 10/08/2023 negative
Empiric antibiotics-vancomycin, Zosyn and levofloxacin started
Infectious disease consultation
Fluid resuscitation with lactated Ringer�30 mL/kg bolus
Monitor lactate
Monitor leukocytosis
Follow hemoglobin
Transfuse as needed
# RHONDA
Monitor renal function
Nephrology following
U osmo 343, U na low 5 suggest cardiorenal etiology
albumin IV for bp support in setting� of hypoalbuminemia and hypotension�
#Atrial fibrillation
Cardiology following
Diltiazem on hold due to hypotension
Will start amiodarone
Echocardiogram -EF 70-75%, mild mitral regurgitation, PA systolic 40-45
Follow-up echo today
# Right lower extremity cellulitis, bilateral lymphedema
Continue antibiotics.
DVT prophylaxis-mechanical
Early nutrition if possible
Early mobilization/bedside range of motion
Subjective Dataa
Subjective Data
Date of Service:
Date of Service: October 12, 2023
Objective Data
Data Reviewed
Vital Signs / I&O / Oxygen:
Vital Signs
Temp Pulse Resp BP Pulse Ox
99.5 F 128 24 79/48 93
10/12/23 13:00 10/12/23 13:00 10/12/23 13:00 10/12/23 13:00 10/12/23 11:00
Intake and Output
10/11/23 10/12/23 10/13/23
06:59 06:59 06:59
Intake Total 960 / 960 720 / 720
Output Total 600 / 600 400 / 400
Balance 360 / 360 320 / 320
SaO2 93
Physical Exam
HEENT: Normocephalic and Anicteric
Cardiovascular: S1-S2 and Regular Rhythm
Respiratory: Clear
GI: Soft and Non Tender
Neurology: Awake, Oriented and Lethargic
Skin: Other (Cellulitis right lower extremity)
Labs/Micro/Reports
Lab Data
10/12/23 03:49
Laboratory Results
10/12/23
09:26
PT 56.1 H
INR 6.31 H*
APTT 44.0 H
Microbiology
10/08/23 11:39 Blood/Venous Blood Culture - Preliminary
No Growth in 4 days- Final report to follow
10/08/23 10:41 Blood/Venous Blood Culture - Preliminary
No Growth in 4 days- Final report to follow

Documented by User: Lane Jimenez MD 10/13/23 07:14
Assessment
-
78-year-old female with recent NSTEMI presented with weakness, lightheadedness as well as rapid heart rate noted to be in atrial fibrillation and hypotension who developed decline in mental status and further hypotension requiring transfer to ICU
for septic shock management.
Diagnostics:
Leukocytosis with left shift 16.8
Hemoglobin 8.4, RBC 2.26
Lactate- 5, second reading pending
Procalcitonin 11.88
Creatinine 2.4
Sodium 127
EKG 10/12/2023TRIAL FIBRILLATION WITH RAPID VENTRICULAR RESPONSE, ST and T WAVE ABNORMALITY
�
Chest x-ray 10/11/2023-right basilar airspace disease progressed
CT chest abdomen and pelvis 08/18-multiple bilateral pulmonary nodules stable, no new or enlarging pulmonary nodules, multiple low-attenuation splenic masses, now calcifying suggested treated metastatic lesions, cholelithiasis, fatty infiltration of
the liver
Echocardiogram 09/24/2023-EF 70-75%, mild mitral regurgitation, PA systolic 40-45
Cardiac catheterization 09/28/2023-mild noncritical CAD, 20-30% mid to distal stenosis LAD, 2030% lesion distal RPDA
Conditions present prior to admission:
CAD
Uterine cancer diagnosed 2019 status post hysterectomy on chemo from 2019 until April 2023.
Pulmonary nodules
Splenic masses-metastatic disease-now calcified suggesting treated disease
Hypertension.
PAF-on Eliquis
Obesity.
Proteinuria.
Gout.
Morbid obesity-BMI 50.
Obstructive sleep apnea suspected
Cholelithiasis
Fatty liver
Appendectomy. Tonsillectomy.
Plan
#Septic shock unresponsive to fluids requiring pressors
Patient febrile, lactic acidosis
Patient is currently on Levophed, norepinephrine, vasopressin
MAP>70
Supplemental oxygen as needed
Aspiration precautions
Obtain repeat cultures
Last urine culture 09/24/2023-Klebsiella pneumoniae
MRSA screen 09/24/2023-negative
Blood cultures 10/08/2023 negative
Empiric antibiotics-vancomycin, Zosyn and levofloxacin started
Infectious disease consultation
Fluid resuscitation with lactated Ringer�30 mL/kg bolus
Monitor lactate
Monitor leukocytosis
Follow hemoglobin
Transfuse as needed
# RHONDA
Monitor renal function
Nephrology following
U osmo 343, U na low 5 suggest cardiorenal etiology
albumin IV for bp support in setting� of hypoalbuminemia and hypotension�
#Atrial fibrillation
Cardiology following
Diltiazem on hold due to hypotension
Will start amiodarone
Echocardiogram -EF 70-75%, mild mitral regurgitation, PA systolic 40-45
Follow-up echo today
# Right lower extremity cellulitis, bilateral lymphedema
Continue antibiotics.
DVT prophylaxis-mechanical
Early nutrition if possible
Early mobilization/bedside range of motion
I reviewed this patients case independently and in conjunction with the resident. I personally examined the patient. Patient's complex medical history, laboratory evaluations, events over the last 24 hours, radiographs, microbiological data were
all personally reviewed.
Agree with documented assessment and plan
Critical care statement: A total of 65 minutes of critical care time was provided for this patient today. This includes management of unstable vital signs, evaluation of the patient at bedside, reviewing the patient's pertinent medical records
including radiographs, microbiology, laboratory evaluations, and discussion with primary team, consultants, pharmacy, charge nurse, critical care nursing, and respiratory therapy.
Lane Jimenez MD, FCCP, VERONICA
[2023-10-12 14:08] LABS: ALT (SGPT) < 10 U/L (0-35); AST (SGOT) 31 U/L (14-36); Albumin 2.1 g/dl (3.5-5.0); Alkaline Phosphatase 84 U/L (38-126); Blood Urea Nitrogen 71 mg/dl (7-17); Calcium 7.8 mg/dl (8.4-10.2); Carbon Dioxide 17 mmol/L (22-30); Chloride 94 mmol/L (98-107); Direct Bilirubin 0.6 mg/dl (0.0-0.4); Glucose 86 mg/dl (70-99); Potassium 4.3 mmol/L (3.5-5.1); Sodium 127 mmol/L (135-145); Total Bilirubin 1.2 mg/dl (0.2-1.3); Total Protein 4.1 g/dl (6.3-8.2)
[2023-10-12 14:24] LABS: Estimated Creatinine Clearance 25 ml/min; eGFR 20.17
--- NOTE | 2023-10-12 15:30 | PTCARENOTE ---
Waiting on confirmation of PICC placement to begin ordered Amiodarone IV- not compatible w/ currently infusing IVs and pt w/o additional IV access. Pt remains on RA w/ POx 94-96%. RR mid 20's. Pt resting quietly and w/o distress. Eyes open and
tracking staff movement. Resists oral care. Turned/ repositioned, hygiene and comfort care provided. Safe environment maintained. Accu checks completed as documented. D5NS not infusing due to limited IV access/compatibility.
[2023-10-12 15:36] LABS: Glucose - Point of Care 111 mg/dl (70-99)
--- NOTE | 2023-10-12 16:09 | PTCARENOTE ---
Phone call received from pt's 'cousin' Ricardo Mcnulty'. Updated on pt's present condition and questions answered.
[2023-10-12 16:26] LABS: Lactic Acid 4.6 mmol/L (0.7-2.0)
--- NOTE | 2023-10-12 16:39 | PN.CDI ---
CDI
- -
CDI:
Physician Documentation Request
Admit Date: 10/05/23 15:08
Dear Doctor Jag,
Patient presented to [facility] with weakness and lightheadedness, shortness of breath, dark colored stools.
Patient underwent EGD
10/07 GI notes states 'Esophageal ulcers and gastric erosions could have been source of bleeding'
Cardiology notes state 'new anemia'
10/04 pt received 1 unit prbc
Patient has a history of ckd 3a
Protein resulted as follows:
Laboratory Tests
10/05/23 10/07/23 10/09/23
12:46 04:15 05:08
Total Protein 5.0 L 4.9 L 4.5 L
10/12/23
13:19
Total Protein 4.1 L
Based on the above, could you clarify, in your progress note, which of the following is the most likely type of anemia you are evaluating, monitoring and/or treating?
Acute blood loss anemia
Acute blood loss anemia with baseline chronic anemia (Specify type)
Anemia of chronic disease - indicate if neoplastic disease, CKD or other
Protein deficiency anemia
Other
Use of terms such as suspected, likely, concern for, or probable (associated with a specific diagnosis that is being evaluated, monitored, or treated as if it exists) are acceptable and can be coded in the inpatient setting, when documented at the
time of discharge.
Thank you,
Stephy Amaya RN, BSN
CDI Specialist
tiger text
Please use your independent medical judgment in providing your response.
--- NOTE | 2023-10-12 16:57 | PTCARENOTE ---
TT received from IV Team RN that PICC OK to use. Amiodarone bolus/gtt started per order.
[2023-10-12] MEDS: CORDARONE 103 MG IV (16:58)
--- NOTE | 2023-10-12 17:55 | PTCARENOTE ---
Pt oriented to person, place and month. Following commands appropriately. Denies pain. Does not offer conversation. No distress. Titrating Levophed per worklist intervention while maintaining MAP >65.
[2023-10-12 18:05] LABS: Glucose - Point of Care 115 mg/dl (70-99)
[2023-10-12 18:23] LABS: Urine Albumin 2+ (Neg - Trace); Urine Bilirubin Negative (Negative); Urine Character Slightly Cloudy (Clear); Urine Color Yellow; Urine Glucose Negative (Negative); Urine Ketone 1+ (Negative); Urine Leukocyte 2+ (Negative); Urine Nitrite Negative (Negative); Urine Occult Blood 4+ (Negative); Urine Urobilinogen Negative (Neg - 1+)
[2023-10-12 18:30] LABS: Urine Squamous Cell 0-2 /LPF (Few)
[2023-10-12 18:31] LABS: Urine Bacteria Many (Negative); Urine White Cell >100 /HPF (0-5)
[2023-10-12] MEDS: LEVOPHED 258 MG IV (19:48)
[2023-10-12] MEDS: NEO-SYNEPHRINE 1% 260 MG IV (19:52)
[2023-10-12 19:56] LABS: Venous Blood Gas B.E. -5.6 mmol/L (-4 to +4); Venous Blood Gas HCO3 19.2 mmol/L (22-27); Venous Blood Gas O2 Sat % 98.1 %; Venous Blood Gas pCO2 34 mmHg (35-48); Venous Blood Gas pH 7.36 (7.32-7.43); Venous Blood Gas pO2 83 mmHg (30-50)
[2023-10-12 20:14] LABS: Blood Urea Nitrogen 68 mg/dl (7-17); Calcium 7.5 mg/dl (8.4-10.2); Carbon Dioxide 15 mmol/L (22-30); Chloride 96 mmol/L (98-107); Glucose 109 mg/dl (70-99); Potassium 4.6 mmol/L (3.5-5.1); Sodium 124 mmol/L (135-145)
[2023-10-12 20:22] LABS: Estimated Creatinine Clearance 26 ml/min; eGFR 21.22
[2023-10-12] MEDS: CALCIUM CHLORIDE 10% SYRINGE 60 MG IV (20:44)
--- NOTE | 2023-10-12 21:30 | PTCARENOTE ---
Contacted by police in regards to patient's sister, Christianne. Police stating they were doing a welfare check on Christianne after she got confused and drove up to [place] [place]. Spoke with patient's cousin, Arturo, who stated patient's sister has been
admitted to a hospital up near [place]. Arturo's contact information from phone call - [phone].
[2023-10-12 21:43] LABS: Hematocrit 24.4 % (37.0-47.0); Hemoglobin 8.5 g/dL (12.0-16.0)
[2023-10-12 22:20] LABS: Platelet Count 190 10^3/uL (130-400)
[2023-10-12 22:24] LABS: PT 92.2 Sec (11.4-14.6)
[2023-10-12 22:27] LABS: D-Dimer 1.31 ug/mlFEU (0.00-0.50)
[2023-10-12 22:32] LABS: INR > 8.0
[2023-10-12 22:34] LABS: Fibrinogen 918 MG/DL (199-459)
--- NOTE | 2023-10-12 23:01 | PTCARENOTE ---
Rec'd care of patient at 1899. Patient alert. Oriented to self and place. Speech slow, garbled. Pupils equal and reactive. Weak hand grasps. Wiggling toes upon request. Afib on tele monitor with rate in the 100-110's. Amio gtt infusing as ordered.
+1 anasarca. +3 edema in b/l LE (hx of lymphedema). Weak, palpable radial and pedal pulses. POX 93-95% on RA. Patient tachypneic. Lung sounds coarse with audible wheeze. Denies dyspnea. Hypo BS. Smear of bm. Mtz draining 10-15 cc's an hour.
Yellow/cloudy. At 2124, during oral hygiene, back of patient's throat filled with dark red blood. A moderate amount of blood followed by a large clot suctioned out. Wheezing temporarily subsided. RESOURCE CENTER TEACHER Dillan Cabral notified. H&H, Plts, Coags
ordered. H&H- 8.5/24.4. Plts 190. INR >8, Fibrinogen 918, DDimer 1.31. Patient now bleeding from right SQ port. RESOURCE CENTER TEACHER at bedside to assess patient. VSS. Levo, Sean and Vaso infusing through left double lumen PICC for MAP >65. Levo and Sean switched to
double concentrated at 1999.
--- NOTE | 2023-10-12 23:36 | W.PN.UPDATE ---
Update Note
Progress Note Update
2200 INR > 8.0, discussed the result with lab. (Lab cannot report values above 8). INR was reading 11.8 on machine. Hgb stable. No significant bleeding noted. Ecchymosis noted across patient chest and flank. Eliquis placed on hold. Prior LFTs
normal. Ordering a dose of empiric Vitamin k, in case of deficiency.
--- NOTE | 2023-10-12 23:53 | PTCARENOTE ---
Large dark purple bruising noted on right breast/side and left flank. Bruising marked to assess spread. Order for Vitamin K placed.
[2023-10-13] VITALS (69 sets, daily range): BP systolic 79–137; BP diastolic 39–98; BMI 49.7
[2023-10-13] MEDS: AQUAMEPHYTON 51 MG IV (00:03)
[2023-10-13 00:09] LABS: Glucose - Point of Care 82 mg/dl (70-99)
[2023-10-13] MEDS: ZOSYN 50 IV ×5 (00:41→23:40)
--- NOTE | 2023-10-13 00:47 | PTCARENOTE ---
Patient reassessed. Remains alert. Following commands appropriately. Placed on 2L nc for POX in the high 80's. Currently 98% on 2L nc. Tachypneic with rate in the high 20-low 30's. Expiratory wheeze improving. Afib on tele. Rate in the 90-110's.
Amio gtt titrated down per protocol. Incontinent of loose BM. Bed bath performed and rectal trumpet placed. Urine output from wayne catheter appearing slightly pink tinged in tube/ terra in urometer. Vitamin K infused. CERTIFIED CONTROL SYSTEMS TECHNICIAN requesting repeat labs to
be drawn at 0300.
[2023-10-13] MEDS: FLEXBUMIN 100 IV ×2 (01:31→09:05)
[2023-10-13] MEDS: LEVOPHED 258 MG IV ×3 (02:34→22:53)
[2023-10-13 03:08] LABS: Hemoglobin 8.4 g/dL (12.0-16.0); Mean Corpuscular Hgb 36.2 pg (27.0-31.0); Mean Corpuscular Volume 103.4 fL (81.0-99.0); Mean Platelet Volume 9.9 fL (7.4-10.4); Platelet Count 163 10^3/uL (130-400); Red Blood Cell Count 2.32 10^6/uL (4.20-5.40); White Blood Cell Count 27.2 10^3/uL (4.8-10.8)
[2023-10-13 03:20] LABS: Lactic Acid 3.2 mmol/L (0.7-2.0); PT 77.7 Sec (11.4-14.6)
[2023-10-13 03:22] LABS: INR > 8.0
[2023-10-13] MEDS: XOPENEX 0.63 MG INHALANT SOLUTION 0.630000000000000004 MG INH ×2 (03:24→18:20)
[2023-10-13] MEDS: CALCIUM CHLORIDE 10% SYRINGE 60 MG IV (03:38)
[2023-10-13 03:40] LABS: Blood Urea Nitrogen 68 mg/dl (7-17); Calcium 7.9 mg/dl (8.4-10.2); Carbon Dioxide 18 mmol/L (22-30); Chloride 95 mmol/L (98-107); Glucose 93 mg/dl (70-99); Magnesium 1.7 mg/dl (1.6-2.3); Phosphorus 3.8 mg/dl (2.5-4.5); Potassium 4.6 mmol/L (3.5-5.1); Sodium 125 mmol/L (135-145)
[2023-10-13 03:43] LABS: Vancomycin Random 14.2 ug/ml
[2023-10-13 03:58] LABS: Glucose - Point of Care 115 mg/dl (70-99)
[2023-10-13 03:59] LABS: Estimated Creatinine Clearance 22 ml/min; eGFR 17.51
[2023-10-13] MEDS: NEO-SYNEPHRINE 1% 260 MG IV ×2 (04:20→22:52)
[2023-10-13] MEDS: PITRESSIN 100 IV (05:00)
--- NOTE | 2023-10-13 05:03 | PTCARENOTE ---
VAT RN at bedside to redress R SQ port. Improvement of wheezing with administration of PRN Xopenex. VSS. Amio, Levo, Sean and Vaso infusing. AM labs sent. Discussed with STAFF RESPIRATORY THERAPIST. Second dose of Calcium Chloride ordered and administered.
[2023-10-13 06:02] LABS: Glucose - Point of Care 130 mg/dl (70-99)
--- NOTE | 2023-10-13 06:43 | VATNOTE ---
R SUBQ PRT BLEEDING AT CORONA INSERTION SITE D/T INR>8. QUICK CLOT APPLIED AND PRT REDRESSED. VAT TO FOLLOW.
--- NOTE | 2023-10-13 07:12 | W.PN.HOSP.TC ---
Addendum entered and electronically signed by Gabriele Rm MD 10/13/23 10:45:
Anemia likely multifactorial acute on chronic with blood loss, sepsis, and renal insufficiency.
Cardiorenal syndrome less likely current LEIDY more likely due to sepsis prerenal with improvement hold on lasix and IVF supplementation
Addendum entered and electronically signed by Gabriele Rm MD 10/13/23 10:01:
Attempted to contact Sister Christianne to provide update. No answer received, message left for call back. Will re-attempt later in day
Original Note:
Today's Communication/Plan
-
Hold Anticoagulation
Follow up repeat INR type and screen H&H, transfusion goal Hgb>8
GI re-eval
protonix gtt
wound care eval
wean pressors as tolerated
cont amiodarone as per cardio
Assessment / Plan
Assessment / Plan
Physical Exam
General: No Apparent Distress and Appears Chronically Ill
HEENT: Normocephalic and Atraumatic, dried blood noted inside mouth
Respiratory: Clear to Auscultation; Negative Wheezes
Cardiac: Irregular Irregular tachy
GI: Soft and Nontender
Musculoskeletal: RLE erythema tenderness, b/l lower edema +2
Neuro: Awake Alert Conversant follows simple commands, some confusion noted
Psych: Calm
Assessment:
Rapid Response Septic Shock overnight transferred to ICU 10/11
-Concern for worsening sepsis shock due to rise in procalcitonin and lactic acid (though both may be due to renal insufficiency)
-Question possible worsening heart failure cardiorenal syndrome with increasing weight decreasing urine outpt increasing renal insufficiency
-increasing pressor requirement, currently on phenylephrine, levophed, vasopressin
-scheduled midodrine when safe for PO meds as per ICU, antihypertensives including cardizem placed on hold
Supratherapeutic INR Coagulopathy likely due to Septic Shock
Overnight Hematemesis with associate coagulopathy 10/12
-anticoagulation placed on hold
-received Vit K, repeating INR
-H&H otherwise stable at this time, Hematemesis appears resolved this morning
Previously evaluated for Acute GI bleed, exacerbated by Eliquis, this hospitalization
New Onset Hematemesis as above
- Received 1 unit PRBCs in total
- s/p EGD: showed esophageal, pre-pyloric ulcers
-H&H stable
-NPO, GI re-eval requested
-protonix IV BID converted to protonix gtt
Hypokalemia
- resolved with repletion
Perm Afib with RVR
- Eliquis placed on hold due to coagulopathy as above
- Cardio eval appreciated Cardizem discontinued in favor of Amiodarone IV infusion
Recent NSTEMI 09/23
- noncritical CAD on recent cath
- peak trop 3.4, downtrended
Moderate�severe TR
Pulmonary HTN
Essential HTN/hypotension Hx
- Atenolol was recently stopped due to hypotension
-ARB placed on hold d/t leidy as below
LEIDY on CKD stage III A
- Creat 1.1 progressively worsening 2.0, newly started Farxiga discontinued, candesartan placed on hold
-suspect cardiorenal syndrome, PO lasix converted for IV lasix 40 mg daily for now
History proteinuria concern nephrotic syndrome
- previously on steroids, has abruptly stopped it herself along with prophylactic bactrim no longer taking
-Nephro on board
10/11 suspect acute on Chronic HFpEF with possible new onset cardiorenal syndrome as above
LE edema
- most likely attributed to nephrotic syndrome but component of HFpEF chronically
- Lasix switched to IV as above
- Farxiga started but discontinued as above
- home candesartan placed on hold d/t worsening kidney function as above
- consider Aldactone in outpatient setting
acute on chronic Hyponatremia hypervolemic, possible ADH Excess in setting of hypotension
- Nephrology eval appreciated samsca prn, fluid restriction, cont lasix
Thrombocytopenia hx - now resolved
Left foot cellulitis with underling PVD - this was resolved
New RLE Cellulitis this admission
Chronic venous stasis dermatitis
- completed IV Ancef course for LLE recently
- now back on IV Ancef for RLE
- Venous US no clots
- Arterial US appreciated possible mild small vessel disease b/l LE
-ID eval appreciated
-empiric cefazolin converted to empiric vanc and zosyn given concern worsening sepsis as above
Increased Leukocytosis, trending down
cont to monitor
COVID neg
CXR appreciated
Progressed mild right basilar airspace disease, possible developing pneumonia. Small right pleural effusion. No significant respiratory symptoms at this time however.
Hx metastatic endometrial cancer, followed by Dr. Goldstein
Hysterectomy 2018
Port right upper chest wall
Chemotherapy from 2019 to April 2023 stopped due to proteinuria per patient
IgM kappa MGUS
- Patient reports has next PET scan October 2023
Gout
- continue allopurinol 100 mg daily
Morbid obesity due to excess calorie consumption�BMI 50.1 kg
- Weight loss recommended
Constipation
- on bowel regimen, follow results
Blistering Right Torso likely dependent edema
-wound care requested
DVT ppx: Supratherapeutic INR, anticoagulation on hold
GI ppx: protonix
Code: Full
PT/OT appreciated SNF rehab
discussed with patient's sister Christianne
Total Critical Care Time__60___ minutes. I was immediately available to the patient and staff. I personally examined, reviewed labs, diagnostic images/reports, interpretations, treatment plans, discussed patient care with other providers and
family or caregivers (if patient is unable to make decisions), entered orders as appropriate and documented the medical record.
Anticipated Discharge: > 48 hours
Subjective/Interval History
-
Date of Service: October 13, 2023
Mental status improved. Awake communicative follows simple commands. Paucity of speech, some confusion noted. Remains on multiple pressors. Overnight events noted for hematemesis, blood and clots suctioned from mouth overnight with associate INR
11. Patient received vit K. H&H remains stable.
Objective Data
-
Labs:
Laboratory Results
10/12/23 10/12/23 10/12/23
19:44 21:36 22:05
WBC
Hgb 8.5 L
Hct 24.4 L
Plt Count 190
PT 92.2 H
INR > 8.0 H*
Sodium 124 L
Potassium 4.6
Chloride 96 L
Carbon Dioxide 15 L
BUN 68 H
Creatinine 2.3 H
Glucose 109 H
Calcium 7.5 L
10/13/23
02:58
WBC 27.2 H
Hgb 8.4 L
Hct 24.0 L
Plt Count 163
PT 77.7 H
INR > 8.0 H*
Sodium 125 L
Potassium 4.6
Chloride 95 L
Carbon Dioxide 18 L
BUN 68 H
Creatinine 2.7 H
Glucose 93
Calcium 7.9 L
Vital Signs:
Vital Signs
Temp Pulse Resp BP Pulse Ox
99.3 F 113 27 119/82 98
10/13/23 02:49 10/13/23 06:00 10/13/23 06:00 10/13/23 06:00 10/13/23 06:00
I&O
10/12/23 10/13/23 10/14/23
06:59 06:59 06:59
Intake Total 720 / 720 4441.4 / 4441.4
Output Total 400 / 400 380 / 380
Balance 320 / 320 4061.4 / 4061.4
--- NOTE | 2023-10-13 07:14 | W.PN.INTV ---
Today's Communication / Plan
Recommendations
Decrease IV fluids
Nephrology evaluation ongoing
Triple pressors-attempt to wean
Broad-spectrum antibiotics
PPI
Transfuse as needed
Assessment
-
78-year-old female with recent NSTEMI presented with weakness and lightheadedness as well as rapid heart rate noted to be in atrial fibrillation and hypotension who developed decline in mental status and further hypotension requiring transfer to
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
Assessment
Septic shock unresponsive to fluids requiring pressors
Right middle lobe pneumonia-aspiration risk
UTI and suspected urosepsis
Right lower extremity cellulitis
Leukocytosis
Lactic acidosis
Rapid atrial fibrillation
GI bleed exacerbated by Eliquis
Anemia due to acute blood zxoc-pxeciesyxc-ugxqhughdr 8.4
Hypokalemia
Recent NSTEMI 09/24/2023
RHONDA
[id number]
Recent acute on top of chronic heart failure preserved EF
Hyponatremia
Thrombocytopenia
Morbid obesity-BMI 50.1
Constipation
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
Conditions present prior to admission:
CAD
Uterine cancer diagnosed 2019 status post hysterectomy on chemo from 2019 until April 2023.
Pulmonary nodules
Splenic masses-metastatic disease-now calcified suggesting treated disease
Hypertension.�
PAF-on Eliquis
Obesity.�
Proteinuria.�
Gout.�
Morbid obesity-BMI 50.�
Obstructive sleep apnea suspected
Cholelithiasis
Fatty liver
Appendectomy.� Tonsillectomy.
Plan
Patient remains critically ill on 3 pressors
Supplement oxygen as needed
High flow oxygen if needed
BiPAP if necessary
VBG reviewed and reveals adequate respiratory compensation for metabolic acidosis
Patient has not required intubation and mechanical ventilation yet
Aspiration precautions
Nebulizers if needed-currently not bronchospastic
Obtain repeat cultures
Last urine culture 09/24/2023-Klebsiella pneumoniae
Repeat urine culture 10/12/2023-Pseudomonas
MRSA screen 09/24/2023-negative
Blood cultures 10/08/2023 negative
Empiric antibiotics-vancomycin, Zosyn and levofloxacin
Infectious disease consultation-correspondence reviewed-continue vancomycin and Zosyn and levofloxacin renally adjusted
Monitor leukocytosis
Decrease IV fluids
Trend lactate
Continue pressors-norepinephrine, vasopressin, and begin to reduce phenylephrine
Check random cortisol
Consider hydrocortisone
Monitor hemoglobin
INR significantly elevated-continue to follow
Vitamin K given with active bleeding and INR over 10
Transfuse as needed-has received 1 unit thus far
GI following-correspondence reviewed
PPI drip initiated
Low-grade DIC suspected
Follow renal function
Nephrology following-correspondence reviewed
Atrial fibrillation rate controlled
Amiodarone drip initiated
Cardiology following-correspondence reviewed
Echocardiogram summarized below
Cardiac catheterization summarized below
DVT prophylaxis-mechanical
Early nutrition if possible
Early mobilization/bedside range of motion
Consider outpatient sleep disordered breathing/obstructive sleep apnea workup
Critical care statement: A total of 45 minutes of critical care time was provided for this patient today. This includes management of unstable vital signs, evaluation of the patient at bedside, reviewing the patient's pertinent medical records
including radiographs, intravenous fluid bolus management, pressor management, atrial fibrillation rate control management, microbiology, laboratory evaluations, and� discussion with primary team, consultants, pharmacy, nutrition, physical therapy,
case management, charge nurse, critical care nursing, and respiratory therapy.
Diagnostic data:
Chest x-ray 09/24/2023-NAD
Chest x-ray 10/05/2023-NAD
Chest x-ray 10/11/2023-right basilar airspace disease progressed
CT chest abdomen and pelvis 08/18-multiple bilateral pulmonary nodules stable, no new or enlarging pulmonary nodules, multiple low-attenuation splenic masses, now calcifying suggested treated metastatic lesions, cholelithiasis, fatty infiltration of
the liver
Echocardiogram 09/24/2023-EF 70-75%, mild mitral regurgitation, PA systolic 40-45
Cardiac catheterization 09/28/2023-mild noncritical CAD, 20-30% mid to distal stenosis LAD, 2030% lesion distal RPDA
Subjective Dataa
Subjective Data
Date of Service:
Date of Service: October 13, 2023
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
Subjective:
Episode of probable GI bleeding last night, vitamin K added, still on 3 pressors, decreased urine output, creatinine worsening, alert and admits to some mild shortness of breath but no chest pain or abdominal pain
Review of Systems
General: Other (Per HPI)
Objective Data
Data Reviewed
Vital Signs / I&O / Oxygen:
Vital Signs
Temp Pulse Resp BP Pulse Ox
99.3 F 113 27 119/82 98
10/13/23 02:49 10/13/23 06:00 10/13/23 06:00 10/13/23 06:00 10/13/23 06:00
Intake and Output
10/12/23 10/13/23 10/14/23
06:59 06:59 06:59
Intake Total 720 / 720 4441.4 / 4441.4
Output Total 400 / 400 380 / 380
Balance 320 / 320 4061.4 / 4061.4
SaO2 98
Nasal Cannula flow liters per 2
minute
Physical Exam
General: Respiratory Distress (n)
HEENT: Normocephalic, Anicteric and Moist Mucous Membranes
Cardiovascular: Regular Rhythm
Respiratory: Clear, Crackles (Basilar), Rhonchi (Expiratory), Non-Labored Respirations, Accessory Resp Muscle Use (n) and Stridor (n)
GI: Soft, Distended and Non Tender
Neurology: Awake, Alert, No Motor Deficits and Lethargic
Skin: Warm, Good Color, Cyanosis (n), Jaundice and Other (Cellulitis right lower extremity)
Labs/Micro/Reports
Lab Data
10/13/23 02:58
10/13/23 02:58
Laboratory Results
10/12/23 10/12/23 10/13/23
09:26 22:05 02:58
PT 56.1 H 92.2 H 77.7 H
INR 6.31 H* > 8.0 H* > 8.0 H*
APTT 44.0 H
Microbiology
10/08/23 11:39 Blood/Venous Blood Culture - Preliminary
No Growth in 4 days- Final report to follow
10/08/23 10:41 Blood/Venous Blood Culture - Preliminary
No Growth in 4 days- Final report to follow
--- NOTE | 2023-10-13 08:18 | W.PN.ID1 ---
Addendum entered and electronically signed by Dori Barillas MD 10/13/23 13:43:
urine culture 100K pseudomonas
stopped vancomycin
Original Note:
Date of Service
Date of Service: October 13, 2023
Today's Communication
- continue vanc/zosyn/levofloxacin - renally dose medications
Assessment / Plan
Shock likely septic
Leukocytosis
Probable UTI - urine very cloudy today
Possible Pneumonia
- blood cultures x2 in progress
- ua gross pyuria, urine cultures are pending
- not known to be colonized with MDROs
- echo with no significant change
- continue vanc/zosyn/levofloxacin - renally dose medications
- follow clinically
RLE Cellulitis - improving, unlikely to be the source of shock
RHONDA on CKD- progressive
Class III Obesity
Chronic lymphedema
- lymphedema uncontrolled - trial of compression
- coverage as above
- follow clinically
- outpatient follow up with lymphedema center
Chief Complaint
-: UTI and Cellulitis
Subjective / Review of Systems
remains afebrile
norepi down to 14 mcg/min, phenylephrine at 200 mcg/min, vaso on
tachypneic
wbc 27 today
hgb 8
plt 163
cr 2.7
lactic acid downtrending
ua >100 wbc/hpf
blood cultures in progress
urine cultures in progress - gross pyuria noted on ua
repeat echo unchanged
more alert today
continues to deny suprapubic tenderness, no back pain
some crusted blood in the mouth
denies coughing
Vital Signs / Physical Exam
Vital Signs
Vital Signs
Temp Pulse Resp BP Pulse Ox
98.9 F 113 27 119/82 98
10/13/23 07:19 10/13/23 06:00 10/13/23 06:00 10/13/23 06:00 10/13/23 06:00
Physical Exam
Constitutional: Acutely Ill
Cardiovascular: Regular Rate and S1/S2; Negative Murmur or Rub
Pulmonary: Clear, Symmetric and Other (tachypneic); Negative Wheezes or Rales
Gastrointestinal: Soft, Non Tender, Non Distended and Normal Bowel Sounds
Skin: Warm and Dry; Negative Rash or Jaundice
Objective Data
Lab Data
Lab Results
10/13/23 02:58
10/13/23 02:58
PT 77.7 Sec (11.4-14.6) H 10/13/23 02:58
INR > 8.0 H* 10/13/23 02:58
APTT 44.0 Sec (23.4-35.0) H 10/12/23 09:26
Estimated Creat Clear 22 ml/min 10/13/23 02:58
Lactic Acid 3.2 mmol/L (0.7-2.0) H 10/13/23 02:58
Total Bilirubin 1.2 mg/dl (0.2-1.3) 10/12/23 13:19
AST 31 U/L (14-36) 10/12/23 13:19
ALT < 10 U/L (0-35) 10/12/23 13:19
Alkaline Phosphatase 84 U/L (38-126) 10/12/23 13:19
Most recent labs reviewed.
Micro Results:
10/12/23 18:13 Urine Culture - Pending
Urine
10/12/23 12:19 Blood Culture - Pending
Blood/Venous
10/08/23 11:39 Blood Culture - Preliminary
Blood/Venous No Growth in 4 days- Final report to follow
10/12/23 10:52 Blood Culture - Pending
Blood/Venous
10/08/23 10:41 Blood Culture - Preliminary
Blood/Venous No Growth in 4 days- Final report to follow
10/12/23 10:42 Urine Culture - Pending
Urine
--- NOTE | 2023-10-13 08:45 | PTCARENOTE ---
Assumed care of pt at 0715 following shift report. Pt awake and resting quietly in bed. Denies c/o pain or SOB. Pt on O2 at 2l/min w/ POx 88-94%. O2 increased to 4l/min w/ POx improved to 96%. Physical assessment completed as documented.
Vasopressin, Levophed, Neosynephrine, Amiodarone gtts infusing via Lt PICC as documented.Pt noted to have dried blood in oral cavity. Gentle oral and lip care completed w/o evidence of active bleeding noted. Pt tolerated well. Pt remains NPO for
safety. Pt turned and repositioned for comfort. Multiple areas of bruising noted w/ edges marked - no change from size marked. Bruise to Rt hip noted to have large fluid filled blisters of various sizes- several draining serous fluid. Dr Rm on
unit and notified of blisters-into room to visualize. Order for wound RN consult received. Dry ABDs applied to site at this time. Call asaf w/in pt reach and safe environment maintained.
--- NOTE | 2023-10-13 08:47 | W.PN.CD ---
Addendum entered and electronically signed by Maxime Galvan MD 10/13/23 10:25:
-Patient evaluated in collaboration with [employer]; agree with below.
-Severe sepsis; currently on 3 pressors.
-Patient with relatively rate-controlled A-fib; continue amiodarone drip.
-Supratherapeutic INR at 11; given vitamin K as per primary team--Eliquis being held, as patient has developed intrinsic coagulopathy.
-Continue front desk monitor.
-Continue supportive care.
-Will continue to follow.
Original Note:
Today's Communication / Plan
-
continue IV Amiodarone and pressors.
Holding Eliquis.
Impression / Plan
-
Assessment/Plan: 78-year-old female with permanent A-fib on Eliquis, recent NSTEMI with nonobstructive CAD at cath on September 28, 2023, hypertension, chronic HFpEF, metastatic endometrial Carcinoma, nephrotic proteinuria, chronic lymphedema b/l LE, and
obesity who is here with A-fib with RVR, worsening anemia/GI bleeding, and cellulitis who developed severe hypotension requiring multiple pressors.
Septic Shock:
- Severe hypotension requiring multiple pressors, weaning as able.
- Combined septic and hypovolemic shock.
- S/p ECHO 09/24/23 - LVEF 75% and cath 09/28/23 showing mild CAD with troponin leak of demand ischemia.
- Echo 10/12/23 - LVEF 55-60%, no RWMA, trivial pericardial effusion, moderate TR, PASP 50-55 mmHg; no significant change from echo 09/24/23.
- Central line placement.
- Better rate control with IV Amiodarone, continue.
- per ID/tire servicer.
Weak/lightheaded/suspected GI bleed:
- EGD showed 2 very small esophageal ulcers with no bleeding, erosive gastropathy with no bleeding, and erythematous duodenodenopathy.
- per GI, continue BID PPI then switch to once daily at d/c.
- Esophageal ulcers and gastric erosions could have been source of bleeding.
- Eliquis on hold.
- s/p PRBC's, follow CBC.
Anemia: new.
- GI following, as above, s/p PRBC's, follow CBC.
- also INR is > 8.0... on Eliquis as an outpatient currently on HOLD.
AFib: permanent.
- RVR noted in setting of septic shock, rates now improved with IV Amiodarone.
- previously on diltiazem 240 mg daily but now on hold due to hypotension requriring pressors.
-[id number] 6 (hx HF, HTN, age2, vascular disease, female gender) - on Eliquis for OAC, but on HOLD currently.
Acute nonischemic myocardial injury: trop this admit 0.156.
- secondary to septic shock and AF RVR.
- echo 10/12/23 with normal LVEF and no RWMA, as above.
- denies chest pain/sob.
- NSTEMI with peak troponin 3.4 on 09/24/23, s/p cath 09/28/23 with nonocclusive CAD, branch vessel disease.
- appropriate for consideration for statin therapy with goal LDL < 55. will discuss in follow up as an outpatient.
Chronic LE edema likely from a mixture of proteinuria + lymphedema + some HFpEF:
- LVEDP 19 at cath 09/28/23 at weight of 118 kg, weight today is 127 kg.
- Chronic Lasix at home, continue.
- Compression wraps to b/l LE is appropriate.
- Outpatient consideration for referral to lymphedema compressive therapy.
HFpEF: acute on chronic.
- LVEDP was 19 at cath 09/28/23 at weight of 118 kg.
- difficult situation with hypotension requiring pressors, and RHONDA.
- SGLT2-I added, but now held along with ARB due to RHONDA and hypotension.
- continuing Lasix IV 40mg per nephrology.
RHONDA: worse today, creatinine 2.7.
- nephrology following.
- meds held as above.
- hyponatremia also being managed by nephrology.
Leukocytosis:
- ID following.
Metastatic endometrial carcinoma (stage 4), managed by Dr. Goldstein, metastasis to spleen, doug hepatis and RP nodes, omentum, & lung
Improved hypokalemia
Gout
Morbid obesity; affecting all aspects of care
Subjective:
Mental status improving.
Denies CP or SOB.
Appears SOB/tachypneic and exhausted.
Data:
Echo 09/24/2023: LVEF 70-75%, mild cLVH, mild MR, mod TR, PASP 40-45 mmHg
Cath 09/28/2023: (CP, peak trop 3.4): LVEDP 19 (at 118 kg), 20-30% mid-distal LAD, 60-70% p RV Marginal (branch of RCA).
Echo 10/12/23: LVEF 55-60%, no RWMA, trivial pericardial effusion, moderate TR, PASP 50-55 mmHg; no significant change from echo 09/24/23.
Physical Exam
Vital Signs/Labs
Vital Signs
Temp Pulse Resp BP Pulse Ox
98.9 F 113 27 119/82 98
10/13/23 07:19 10/13/23 06:00 10/13/23 06:00 10/13/23 06:00 10/13/23 06:00
10/12/23 10/13/23 10/14/23
06:59 06:59 06:59
Actual Weight 124.8 kg 127.3 kg
10/13/23 02:58
10/13/23 02:58
PT 77.7 Sec (11.4-14.6) H 10/13/23 02:58
INR > 8.0 H* 10/13/23 02:58
APTT 44.0 Sec (23.4-35.0) H 10/12/23 09:26
Magnesium 1.7 mg/dl (1.6-2.3) 10/13/23 02:58
10/05/23
12:45
Zml-B-Eslqthxsfrr Pept 4330
Physical Exam
Constitutional: Distress (mild from SOB)
EENT: Anicteric
Cardiovascular: Rhythm/rate is irregular and Pedal edema present (moderate to severe b/l LE (lymphedema))
Respiratory: Labored respirations (mild), Wheeze Present (diffuse b/l ) and Crackles Present (diffuse b/l )
GI: Soft and Non tender
Neuro/Psych: Alert and Oriented
Other: Skin (warm, dry, ecchymosis b/l UE)
Data Reviewed
-
Date of Service: October 13, 2023
Medical Decision Making: External Notes and Reviewed Test Results
EKG: Tracing Personally Visualized and interpreted
Echo: Report Reviewed by me
X-Ray/CT/US/MRI/NUC/PET: Report Reviewed by me
Medical Tests (PFT, Pathology etc): Report Reviewed by me
Labs: Labs Reviewed by me
Old Records: Reviewed
[2023-10-13] MEDS: PROTONIX IV 40 MG IV (09:05)
[2023-10-13] MEDS: NSS (PRESERVATIVE FREE) 10 ML IV (09:05)
--- NOTE | 2023-10-13 09:39 | PHA.VAN.FU ---
Vancomycin Assessment / Plan
- Assessment
Renal Function: SCR Increasing
WBC's are: Trending Up
In the past 24 hrs, patient has been: Afebrile
Concomitant Antimicrobials: piperacillin/tazobactam, levofloxacin
- Assessment - Therapeutic Drug Monitoring
Random Level: 14.2 - drawn ~20 H after 2g loading dose
- Dosing Plan
Dosing by Level: Re-dose today (Vanc 1250mg)
- Monitoring Plan
Random Level: 10/13 599
Monitoring Comments: anticipate may require prolonged interval
- Follow Up
Pharmacy will continue to follow.
Vancomycin Follow UP
- -
Patient Age: 78
Patient Sex: Female
Vancomycin Day #: 2
Indication: Other
Requesting Provider: Duane Alberto / Nargis
Pertinent Antimicrobial Allergies:
no pertinent antibiotic allergies
Height / Weight:
Height 5 ft 3 in
Actual Weight 127.3 kg
Pertinent Past Medical History: BMI ~48.7, CKD 3
- Vital Signs / Lab Results
Temp Pulse Resp BP Pulse Ox
98.9 F 113 27 119/82 98
10/13/23 07:19 10/13/23 06:00 10/13/23 06:00 10/13/23 06:00 10/13/23 06:00
Lab Results - Hematology
10/11/23 10/12/23 10/13/23
07:54 03:49 02:58
WBC 19.7 H 16.8 H 27.2 H
Lab Results - Chemistry
10/11/23 10/12/23 10/12/23
07:54 03:48 13:19
BUN 65 H 69 H 71 H
Creatinine 1.6 H 2.0 H 2.4 H
Estimated Creat Clear 37 30 25
Albumin 2.1 L
10/12/23 10/13/23
19:44 02:58
BUN 68 H 68 H
Creatinine 2.3 H 2.7 H
Estimated Creat Clear 26 22
Albumin
10/12/23 10/12/23 10/12/23
03:49 07:19 11:06
Lactic Acid 2.6 H 3.7 H 5.0 H*
10/12/23 10/12/23 10/13/23
15:22 19:02 02:58
Lactic Acid 4.6 H* 4.0 H* 3.2 H
Lab Results - Urine
10/12/23
18:13
Urine Nitrite (Reflex) Negative
Leukocyte Esterase Rfl 2+ A
Ur Squamous Epith Cells 0-2
Microbiology Results
10/08/23 11:39 Blood Culture - Preliminary
Blood/Venous No Growth in 4 days- Final report to follow
10/08/23 10:41 Blood Culture - Preliminary
Blood/Venous No Growth in 4 days- Final report to follow
Therapeutic Drug Monitoring
Random Vancomycin 14.2 ug/ml 10/13/23 02:58
--- NOTE | 2023-10-13 09:58 | W.PN.GI.CBS2 ---
Addendum entered and electronically signed by Julio Scott MD 10/13/23 12:56:
I saw and examined the patient.
The COORDINATOR SKILL TRAINING PROGRAM or PA's note was reviewed and I agree with the note.
Comment: 78-year-old female past medical history of metastatic gnyecologic cancer, obesity initially presenting with non-STEMI during her course of her hospitalization, underwent upper endoscopy as below for anemia and black stool which showed tiny
esophageal ulcers and gastric erosions course complicated by septic shock with pneumonia currently in ICU critically ill on 3 pressors. GI has been re-consulted for hematemesis. Her hemoglobin has been stable with slight drop to 7.8 from 8.4. Her
INR is 11. Too unstable for procedure at this point. Hematemesis has stopped. Recommend conservative management with PPI drip, n.p.o., reverse INR. Trend hemoglobin and transfuse as needed. Goals of care are being discussed and patient has now
been made DNR/DNI.
Original Note:
Today's Communication / Plan
-
as per plan
Assessment / Plan
-
Sangeeta is a 78-year-old female with history of metastatic ovarian cancer, off chemotherapy as of April, atrial fibrillation on Eliquis, MGUS, nephrotic syndrome recently diagnosed and started on high-dose prednisone that was given from July to
August, obesity who had an admission recently for nonischemic KS not requiring stenting. she comes in today for severe weakness and fatigue feeling lightheaded upon standing with elevated heart rates and rapid A-fib.� In the emergency room her
blood pressure is stable.� She has noted that her stools have been formed and dark over the past couple of months but recently since her Eliquis was increased to therapeutic doses to 5 mg twice daily she started seeing more tarry.� She is not having
multiple stools a day really having difficulty getting the stool out and has had to manually disimpact herself.� She denies taking any NSAIDs.� She has been off prednisone for over a month.� She does not take a PPI.� She has minimal rare nausea with
no vomiting.� Occasionally things will feel slow to go down especially large pills.� She did lose some weight after starting the prednisone.�
Her last colonoscopy was about 4 years ago and subjectively just small polyps.
# Anemia -in the setting of black formed stools with no clinically significant GI bleeding other than a drop in her hemoglobin which appears to have been trending down since early September and has trended down since starting therapeutic Eliquis
#Rapid A-fib -managed by cardiology and primary team
-EGD 10/06 showing tiny esophageal ulcers and gastric erosions.
-melena
-anemia with drop from 09/24
-recent steroids (initial prednisone 40mg BID) for nephrotic syndrome stopped late August
-metastatic ovarian CA therapy stopped april with nephrotic syndrome
-recent NSTEMI with no critical CAD on cath
-LE swelling
-afib on Eliquis with rapid afib on admission
-hypokalemia/hyponatemia
other medical problems:
-appe
-MGUS
-fatty liver per imaging
-obesity with recent wt loss
-gout
-neuropathy
10/13/2023 Elevated INR greater than 8 ([id number] 11), areas of ecchymosis bilateral upper extremities back area, vitamin K 10 mg given, Eliquis held. Repeat INR still greater than 8. Repeat pending this a.m.
Patient with clots of blood in her mouth, where her throat filled up with dark red blood. As well as a moderate amount of blood following by a large clot that was suctioned. None since.
No signs of bowel movements
Hemoglobin has remained stable 8.5�>8.4�> repeat pending this a.m.
Fibrinogen 918, D-dimer 1.31, normal LFTs on 10/12/2023.
Septic shock on pressor support, blood cultures x 2 pending
Leukocytosis, being followed by ID probable UTI possible pneumonia, right lower extremity cellulitis on vancomycin, Zosyn and levofloxacin
Plan:
Patient was already on Protonix 40 mg IV twice daily. Patient has limited IV access. When able Protonix drip will be utilized. There will be times will when it will have to be held temporarily. Discussed with RN.
-Correct INR
-Trend hemoglobin
-Transfuse as needed
Subjective
Subjective
Date of Service: October 13, 2023
Asked to reevaluate patient as she had a event last evening at 2124 where her throat filled up with dark red blood. As well as a moderate amount of blood following by a large clot that was suctioned out. Patient has a rectal tube in place with no
bowel movements. She was found to have an INR greater than 11. Hemoglobin checked at that time was 8.5. Repeat performed at 2 AM was 8.4. Currently awaiting repeat hemoglobin at this time. She was not transfused any blood products. Her platelet
count is 163. The patient is on Eliquis however this has been held. She was given 10 mg of vitamin K last evening. We are asked to reevaluate given the fact that the patient had 2 very small esophageal ulcers seen on endoscopy on 10/07/2023. At
that time there was no signs of bleeding. She also had erosive gastropathy with no bleeding and no stigmata of recent bleeding in the prepyloric area. She also had erythematous duodenopathy. The patient was placed on PPI twice daily. At the
current time the patient is being treated for septic shock. Blood cultures are pending. She continues on vancomycin, Zosyn and levofloxacin. She had severe hypotension and she is on vasopressin, norepinephrine and phenylephrine. The patient is
awake and alert. She denies any current GI complaints. She does have crusted blood within her mouth. She denies biting her tongue. I do not see any obvious lesions within her mouth. She denies any nausea. She denies any abdominal pain. There
are multiple areas of ecchymosis on her back and upper extremity area bilaterally area that have been marked to evaluate for progression. There also a few fluid-filled blisters on her right. And bilateral lower extremity edema.
Objective
Data Reviewed
Laboratory Data:
Laboratory Results
10/13/23 02:58
Laboratory Results
PT 77.7 Sec (11.4-14.6) H 10/13/23 02:58
INR > 8.0 H* 10/13/23 02:58
APTT 44.0 Sec (23.4-35.0) H 10/12/23 09:26
Phosphorus 3.8 mg/dl (2.5-4.5) 10/13/23 02:58
Magnesium 1.7 mg/dl (1.6-2.3) 10/13/23 02:58
Total Bilirubin 1.2 mg/dl (0.2-1.3) 10/12/23 13:19
AST 31 U/L (14-36) 10/12/23 13:19
ALT < 10 U/L (0-35) 10/12/23 13:19
Alkaline Phosphatase 84 U/L (38-126) 10/12/23 13:19
Vital Signs and I&O:
Vital Signs
Temp Pulse Resp BP Pulse Ox
98.9 F 113 27 119/82 98
10/13/23 07:19 10/13/23 06:00 10/13/23 06:00 10/13/23 06:00 10/13/23 06:00
I&O
10/12/23 10/13/23 10/14/23
06:59 06:59 06:59
Intake Total 720 / 720 4441.4 / 4523.4 242.2 / 242.2
Output Total 400 / 400 380 / 400 60 / 60
Balance 320 / 320 4061.4 / 4123.4 182.2 / 182.2
Physical Exam
Physical Exam
HEENT: Anicteric and Other (Tongue coated in crusted old dried blood)
Cardiology: Normal Sinus Rhythm
Pulmonary: Clear (Anterior)
GI: Soft, Non Distended, Non Tender and Normal Bowel Sounds
Rectal: Other (Rectal bag in place without any bowel movements within)
Extremities: Edema (Bilateral lower extremity edema, lower extremity erythema, bilateral upper extremity ecchymosis)
Neuro: Non Focal
--- NOTE | 2023-10-13 10:16 | CHAP ---
Msgr. Jason Norris of [facility] in [place] heard Sangeeta's confession, anointed her and gave her an Apostolic blessing. Time uncertain.
[2023-10-13] MEDS: D5/0.9% SODIUM CHLORIDE IV (10:49)
--- NOTE | 2023-10-13 10:52 | W.PN.NEPH.PH ---
Today's Communication / Plan
-
see plan
Assessment/Plan
-
IMP:
Acute GI bleed-s/p EGD: showed esophageal, pre-pyloric ulcers
Hypokalemia-resolved
Hyponatremia
CKD 3a
Nephrotic syndrome
Perm Afib with RVR
Recent NSTEMI 09/23-noncritical CAD on recent cath
Moderate�severe TR
Pulmonary HTN
Essential HTN/hypotension Hx
CKD stage III A
History proteinuria concern nephrotic syndrome
Chronic HFpEF
underling PVD
New RLE Cellulitis
Chronic venous stasis dermatitis
Metastatic endometrial carcinoma, managed by Dr. Goldstein, metastasis to spleen, doug hepatis and RP nodes, omentum, & lung
Hysterectomy 2018
Port right upper chest wall
Chemotherapy from 2019 to April 2023 stopped due to proteinuria per patient
IgM kappa MGUS-PET scan October 2023
Gout
Morbid obesity due to excess calorie consumption�BMI 50.1 kg
Hypoalbuminemia
Recent admit found to have nephrotic range proteinuria and pt was not candidate for biopsy -left AMA 09/28, retuned on 10/04 with symp afib
repeat U PCR shows improved only 0.6gm/gm of cr , TSH normal
since she was not candidate for kidney biopsy we planned to manage medically
Plan:
Suspected septic shock
cont Pressors to keep MAP>65, on 3 currently, hold alb
RHONDA continues to worsen with creatinine up to 2.6, oliguric with wayne -probably ischemic ATN
Hyponatremia down to 125 (likely exacerbated by poor hemodynamics)
h/h decreasing, on PPI gtt with recent h/o GIB, INR >8, AC held
wt is increasing and remains on O2 and minimize IVF with other gtts as possible
start IV lasix 80mg BID, no SGLT2 inhibitor in future with UTI
monitor met acidosis, L acid is improving
echo noted with pulm HTN, cortisol pending
abx per ICU
d/w pt in detail about risk of DRAGLINE OILER if her renal function cont to worsen
She agreeable to temp DRAGLINE OILER if needed
patient critically ill with hemodynamic instability requiring pressor support, with worsening RHONDA
poor prognosis
d/w nursing
CC time spent 40min
-
-
Date of Service: October 13, 2023
CC / HPI / ROS
-
Chief Complaint:
Hypoantremjia, CKD
History of Present Illness:
sodium down at 125
Hemodynamically unstable on 3 pressor support in AFIB, IV amio
wt increasing
creatinine up to 2.7, UOP only 400cc with wayne
hb low 7.8
U cx pseudomonas
WBC increasing
Review of Systems:
no fevers
edema persists
no pain
on O2 NC2lit
Labs
-
Labs:
WBC 27.2 10^3/uL (4.8-10.8) H 10/13/23 02:58
RBC 2.32 10^6/uL (4.20-5.40) L 10/13/23 02:58
Plt Count 163 10^3/uL (130-400) 10/13/23 02:58
Sodium 125 mmol/L (135-145) L 10/13/23 02:58
Potassium 4.6 mmol/L (3.5-5.1) 10/13/23 02:58
Chloride 95 mmol/L (98-107) L 10/13/23 02:58
Carbon Dioxide 18 mmol/L (22-30) L 10/13/23 02:58
BUN 68 mg/dl (7-17) H 10/13/23 02:58
Creatinine 2.7 mg/dL (0.6-1.0) H 10/13/23 02:58
eGFR 17.51 10/13/23 02:58
Glucose 93 mg/dl (70-99) 10/13/23 02:58
Calcium 7.9 mg/dl (8.4-10.2) L 10/13/23 02:58
Phosphorus 3.8 mg/dl (2.5-4.5) 10/13/23 02:58
Nhl-X-Ercvyqjdlik Pept 4330 pg/ml 10/05/23 12:45
Albumin 2.1 g/dl (3.5-5.0) L 10/12/23 13:19
Physical Exam
-
Vital Signs:
Vital Signs
Temp Pulse Resp BP Pulse Ox
98.9 F 113 27 119/82 98
10/13/23 07:19 10/13/23 06:00 10/13/23 06:00 10/13/23 06:00 10/13/23 06:00
Cardiovascular:: Irregular rate and rhythm
Respiratory:: Bilateral: Coarse
Lung Excursion:: Normal
Abdomen:: Nontender and Soft
Extremity Edema:: +3: Bilateral:
Wayne Catheter: Yes
[2023-10-13] MEDS: VANCOCIN 275 MG IV (11:03)
[2023-10-13] MEDS: PROTONIX 100 IV ×2 (11:07→21:13)
[2023-10-13 11:29] LABS: Hematocrit 23.1 % (37.0-47.0); Hemoglobin 7.8 g/dL (12.0-16.0)
[2023-10-13] MEDS: LASIX 40 MG IV ×2 (11:40→12:01)
[2023-10-13 11:42] LABS: PT 52.3 Sec (11.4-14.6)
[2023-10-13 11:43] LABS: Lactic Acid 3.4 mmol/L (0.7-2.0)
[2023-10-13 11:44] LABS: INR 5.66
--- NOTE | 2023-10-13 11:45 | W.PN.UPDATE ---
Update Note
Progress Note Update
Reevaluated patient at the bedside, alert and oriented, cousin also present as well as critical care nursing-patient expressly wished no cardiopulmonary resuscitation or intubation and mechanical ventilation if her condition would deteriorate-we
reassured her we would respect her wishes and continued supportive care will continue with an emphasis on comfort as well
--- NOTE | 2023-10-13 12:00 | PTCARENOTE ---
Pt remains awake and alert, asking about sister 'Juhi'. Pt's cousin 'Emmanuelle' and her here to visit w/ pt. Per Emmanuelle, she is one of pt's POA. Emmanuelle updated on pt's present condition, plan of care. Questions answered and emotional support
provided. Emmanuelle reports that pt has living will and discussion had about code status. At Emmanuelle's request, this RN asked pt in case of cardiac and/or respiratory arrest, she would like to be resuscitated. Pt clearly indicated she would not want these
measures taken. Dr Jimenez notified and to bedside to talk w/ pt and family member. DNR order received and purple bracelet applied to pt. Pt continues to rest quietly, denies c/o pain or SOB although POx drifting into upper 80's on 4l/min O2 via NC.
O2 increased to 6l/mmin w/ POx improved to 97%. Will continue to monitor. Turned and repositioned, comfort care provided. No additional changes from previous assessment findings.
[2023-10-13 12:07] LABS: Glucose - Point of Care 72 mg/dl (70-99)
--- NOTE | 2023-10-13 13:30 | WOUNDNOTE ---
RIGHT HIP BLISTER
--- NOTE | 2023-10-13 13:31 | WOUNDNOTE ---
WO RN note: Patient admitted with increased weakness, non-STEMI
See H&P for complete history.
PMH: Metastaic ovarian cancer, obesity, this admission: septic shock with pneumonia, RLE cellulitis, INR 11.0, DNR/DNI. Patient currently on pressors.
Wound Location and type/assessment: Patient admitted with: Scattered bruising UE, LE right breast. LE edema with right leg cellulitis. Patient with bruise to right hip now with fluid filled blister. No other blisters noted at this time. Spoke with
patient's RN, Marietta who appropriately covered draining area with absorptive pad. Per Marietta, sacrum intact. Heels intact, toes dusky. Compression with ANURAG has been ordered as patient can tolerate.
Appetite: Patient is currently NPO
Pressure redistribution devices in place: Centrella Max Air, heels off-loaded with pillows under calves
Plan: Continue to allow blisters to drain while protecting surrounding skin. Change pad PRN for drainage. Apply barrier ointment to surrounding skin PRN. Patient has several co-morbidities including metastatic ovarian cancer, sepsis, use of
vasopressors and obesity. New wounds may develop and current bruising/wounds may worsen even with optimal care.
RN Marietta, updated.Updated care plan and will follow as needed.
Note to case management of equipment requested for discharge:
Recommend follow up at wound care center upon discharge.
--- NOTE | 2023-10-13 13:35 | CM ---
CM following re: discharge planning.
Discussed in rounds, reviewed pt's chart, met with pt. Per Rounds meeting, pt admitted to ICU yesterday from IMU after rapid response, on Triple pressors, continue supportive care.
D/C plan: uncertain at this time and will depend on pt's progress.
CM will follow with discharge plan updates as hospitalization progresses
[2023-10-13 13:37] LABS: Cortisol, Random 86.9 ug/dl
--- NOTE | 2023-10-13 15:53 | PTCARENOTE ---
PRBC finished infusing w/o complication. Pt remains on O2 at 6l/min via NC w/ POx 98%. RR upper 20's. Pt remains in AFib w/ HR 90-100's. Pt remains alert and answering questions appropriately- difficult to understand at times due to weak voice and
somewhat garbled sounding speech. Denies SOB or pain when questioned. Mtz patent and draining slightly blood-tinged yellow urine that less cloudy than it was at start of shift. Frequent comfort care/repositioning/ oral care provided. Pt's finger
tips and toes now blue/ dusky in appearance. Beginning to taper Sean gtt (see work list intervention) while maintaining MAP >65. Call ron w/in pt reach and safe environment maintained. Dr Jimenez in room to see pt and updated on current dosages of
medications infusing as well as u/o since Lasix given. No new orders received at this time.
--- NOTE | 2023-10-13 17:49 | PTCARENOTE ---
Pt requesting visit from from [facility]. will call order clerk polymerization engineer notified of pt's request and intent verbalized to provide for pt's spiritual needs by contacting if possible or have hospital polymerization engineer come to visit pt.
[2023-10-13 18:09] LABS: Glucose - Point of Care 67 mg/dl (70-99)
[2023-10-13] MEDS: DEXTROSE 50% SYRINGE 12.5 GRAMS IV (18:12)
[2023-10-13] MEDS: CORDARONE 518 MG IV (18:15)
--- NOTE | 2023-10-13 18:40 | PTCARENOTE ---
Pt appears dyspneic w/ RR upper 20's low 30's. Denies SOB. POx 95%. Resp Therapy in room to administer prn neb Tx and placed pt on midflow NC @ 6l/min w/ humidity. Hospital sponsorship coordinator Filter Washer in room w/ pt at this time.
[2023-10-13 18:44] LABS: Hematocrit 25.8 % (37.0-47.0); Hemoglobin 9.2 g/dL (12.0-16.0)
[2023-10-13 18:49] LABS: Glucose - Point of Care 116 mg/dl (70-99)
[2023-10-13] MEDS: LASIX 80 MG IV (21:12)
--- NOTE | 2023-10-13 21:34 | VATNOTE ---
AGAIN CALLED TO ASSESS SIGNIFICANT BLEEDING FROM R SUBQ ACCESSED PRT. PT REMAINS WITH SUPRATHERAPEUTIC INR. LARGE GELATIONOUS CLOT NOTED AT CORONA INSERTION SITE. REMOVED AND QUICK CLOT X2 APPLIED AROUND AND ON TOP OF CORONA NEEDLE. GAUZE DRSG ATOP
CORONA AND PRIMAPORE TAPE APPLIED OVER TEGADERM DRSG. WILL CONTINUE TO MONITOR. ABD AND GAUZE ALSO APPLIED ATOP OF L PICC DRSG SIGNIGICANT BLEEDING NOTED ON PICC DRSG WELL. PCN AND VAT TO CONTINUE TO MONITOR. SUPERINTENDENT STEVEDORING AWARE OF SITUATION. PT
CONTINUES TO NEED ACCESSED PRT SITE TO MEET CURRENT IV THERAPY NEEDS.
--- NOTE | 2023-10-13 21:45 | PTCARENOTE ---
Rec'd care of patient at 191. Patient alert. Appropriate conversation. Speech slow, garbled at times. Afib on tele monitor. Amio gtt infusing at 0.5 mg/min. +2 anasarca. +3 edema in b/l hand and LE. Weeping from legs and right hip. POX 99-100% on
10L MF. Pt c/o dyspnea. Labored breathing. Tachypneic. Orthopneic. Lung sounds shallow/diminished with slight wheeze. Hourly monitoring of UOP through wayne catheter. 20-25 cc's an hour. Patient incontinent of loose BM. While turning to clean up,
right SQ port and left PICC dressings became saturated with blood. VAT RN called to bedside for R SQ port dressing change. VSS. Full assessment and care as charted on worklist.
[2023-10-13 23:43] LABS: Glucose - Point of Care 83 mg/dl (70-99)
[2023-10-14] VITALS (47 sets, daily range): BP systolic 81–128; BP diastolic 50–93; PULSE 2–91; BMI 50.1
--- NOTE | 2023-10-14 00:50 | PTCARENOTE ---
No changes in assessment. Afib on tele monitor with rate in the 80-100's. VSS. Weaning Sean gtt as tolerated. Patient washed and repositioned for comfort. Emotional support provided.
[2023-10-14] MEDS: XOPENEX 0.63 MG INHALANT SOLUTION 0.630000000000000004 MG INH (02:26)
--- NOTE | 2023-10-14 02:59 | PTCARENOTE ---
Patient having increased dyspnea. Restless and anxious in bed. Yelling out for staff. RT contacted for breathing tx. POX 100%. No relief. BiPAP initiated.
[2023-10-14] MEDS: PITRESSIN 100 IV ×3 (03:12→23:50)
[2023-10-14 03:19] LABS: Mean Corp Hgb Conc. 34.6 g/dL (33.0-37.0); Mean Corpuscular Hgb 34.9 pg (27.0-31.0); Mean Corpuscular Volume 100.8 fL (81.0-99.0); Mean Platelet Volume 10.1 fL (7.4-10.4); Platelet Count 108 10^3/uL (130-400); Red Blood Cell Count 2.58 10^6/uL (4.20-5.40); Red Cell Dist. Width 20.3 % (11.5-14.5); White Blood Cell Count 39.2 10^3/uL (4.8-10.8)
--- NOTE | 2023-10-14 03:28 | PTCARENOTE ---
Patient remains anxious. Ringing call ron whenever RN leaves room. Diversional activities offered; refused. RN sitting at bedside with patient. Emotional support and reassurance provided. Patient states improvement of dyspnea but scared and
uncomfortable with BiPAP mask.
[2023-10-14 03:31] LABS: INR 3.52; PT 35.9 Sec (11.4-14.6)
[2023-10-14 03:51] LABS: Blood Urea Nitrogen 82 mg/dl (7-17); Calcium 8.2 mg/dl (8.4-10.2); Carbon Dioxide 18 mmol/L (22-30); Chloride 94 mmol/L (98-107); Glucose 86 mg/dl (70-99); Magnesium 1.7 mg/dl (1.6-2.3); Phosphorus 3.6 mg/dl (2.5-4.5); Potassium 4.4 mmol/L (3.5-5.1); Sodium 127 mmol/L (135-145)
[2023-10-14 04:03] LABS: D-Dimer 2.27 ug/mlFEU (0.00-0.50)
[2023-10-14] MEDS: PRECEDEX 100 IV ×2 (04:06→17:16)
[2023-10-14 04:09] LABS: Fibrinogen 840 MG/DL (199-459)
--- NOTE | 2023-10-14 04:36 | PTCARENOTE ---
IT SUPPORT SPECIALIST at bedside to see patient. Precedex gtt initiated. VSS.
[2023-10-14 05:03] LABS: Estimated Creatinine Clearance 22 ml/min; eGFR 16.76
[2023-10-14] MEDS: ZOSYN 50 IV ×4 (05:59→23:50)
--- NOTE | 2023-10-14 06:12 | VATNOTE ---
PCN REPORTS R SUBQ PRT DRSG C/D/I WITH NO EVIDENCE OF ANY BLEED THRU OR OOZING FROM CORONA NEEDLE INSERTION SITE. INR MUCH IMPROVED. WILL MAINTAIN DRSG AND QUICK CLOT FOR ADDITIONAL 24 HOURS. VAT TO FOLLOW.
[2023-10-14 06:13] LABS: Glucose - Point of Care 92 mg/dl (70-99)
--- NOTE | 2023-10-14 07:23 | W.PN.HOSP.TC ---
Addendum entered and electronically signed by Gabriele Rm MD 10/14/23 15:27:
Correction Patient currently DNR following patient's discussion with ICU as noted in ICU update note 10/12
Original Note:
Today's Communication/Plan
-
Hold Anticoagulation
Monitor INR H&H
protonix gtt
wound care
wean pressors precedex as tolerated
cont amiodarone as per cardio
cont abx as per ID
Diuresis as per Nephro
cont ICU level care
Assessment / Plan
Assessment / Plan
Physical Exam
General: No Apparent Distress and Appears Chronically Ill
HEENT: Normocephalic and Atraumatic, dried blood noted inside mouth
Respiratory: Clear to Auscultation; Negative Wheezes
Cardiac: Irregular Irregular non-tachy
GI: Soft and Nontender
Musculoskeletal: RLE erythema tenderness, b/l lower edema +2
Derm: large right sided ecchymosis arms chest, large right torso blister draining
Neuro: Awake Alert Conversant follows simple commands, some confusion noted
Psych: Calm
Assessment:
Rapid Response Septic Shock overnight transferred to ICU 10/11
-Concern for worsening sepsis shock due to rise in procalcitonin and lactic acid (though both may be due to renal insufficiency)
-Question possible worsening heart failure cardiorenal syndrome with increasing weight decreasing urine outpt increasing renal insufficiency
-increasing pressor requirement, currently on phenylephrine, levophed, vasopressin since trending down
-scheduled midodrine when safe for PO meds as per ICU, antihypertensives including cardizem placed on hold
Supratherapeutic INR Coagulopathy likely due to Septic Shock
Overnight Hematemesis with associate coagulopathy 10/12
-anticoagulation placed on hold
-received Vit K, INR improving most recent 3.52
-Fibrinogen and D-Dimer elevation likely d/t Septic Shock
Previously evaluated for Acute GI bleed, exacerbated by Eliquis, this hospitalization
New Onset Hematemesis as above
- Received 2 unit PRBCs in total
- s/p EGD: showed esophageal, pre-pyloric ulcers
-H&H relatively stable drop to 7.8 noted improved with 1 PRBC transfusion to 9.2, H&H remains stable since
-NPO, GI consult appreciated
-protonix IV BID converted to protonix gtt
Hypokalemia
- resolved with repletion
Perm Afib with RVR
- Eliquis placed on hold due to coagulopathy as above
- Cardio eval appreciated Cardizem discontinued in favor of Amiodarone IV infusion, heart rate since improved
Recent NSTEMI 3/
- noncritical CAD on recent cath
- peak trop 3.4, downtrended
Moderate�severe TR
Pulmonary HTN
Essential HTN/hypotension Hx
- Atenolol was recently stopped due to hypotension
-ARB placed on hold d/t leidy as below
LEIDY on CKD stage III A
- Creat 1.1 progressively worsening 2.8, newly started Farxiga discontinued, candesartan placed on hold
-Nephro eval appreciated
-cont diuresis as per Nephro Lasix 80 mg IV BID
History proteinuria concern nephrotic syndrome
- previously on steroids, has abruptly stopped it herself along with prophylactic bactrim no longer taking
-Nephro eval appreciated
10/11 suspect acute on Chronic HFpEF with possible new onset cardiorenal syndrome as above
LE edema
- most likely attributed to nephrotic syndrome but component of HFpEF chronically
- Lasix switched to IV as above
- Farxiga started but discontinued as above
- home candesartan placed on hold d/t worsening kidney function as above
- consider Aldactone in outpatient setting
acute on chronic Hyponatremia hypervolemic, possible ADH Excess in setting of hypotension
- Nephrology eval appreciated samsca prn, fluid restriction, cont lasix
-Na improving
Thrombocytopenia hx - now resolved
Left foot cellulitis with underling PVD - this was resolved
New RLE Cellulitis this admission
Chronic venous stasis dermatitis
- completed IV Ancef course for LLE recently
- now back on IV Ancef for RLE
- Venous US no clots
- Arterial US appreciated possible mild small vessel disease b/l LE
-ID eval appreciated
-empiric cefazolin converted to empiric vanc and zosyn given concern worsening sepsis as above
Increased Leukocytosis, trending down
cont to monitor
COVID neg
CXR appreciated
Progressed mild right basilar airspace disease, possible developing pneumonia. Small right pleural effusion. No significant respiratory symptoms at this time however.
Hx metastatic endometrial cancer, followed by Dr. Goldstein
Hysterectomy 2018
Port right upper chest wall
Chemotherapy from 2019 to April 2023 stopped due to proteinuria per patient
IgM kappa MGUS
- Patient reports has next PET scan October 2023
Gout
- continue allopurinol 100 mg daily
Morbid obesity due to excess calorie consumption�BMI 50.1 kg
- Weight loss recommended
Constipation
- on bowel regimen, follow results
Blistering Right Torso likely dependent edema
-wound care consult appreciated
-cont wound care
Anxious overnight 10/13 started on precedex gtt with subsequent improvement
wean precedex as tolerated
DVT ppx: Supratherapeutic INR, anticoagulation on hold
GI ppx: protonix
Code: Full
PT/OT appreciated SNF rehab
called patient's sister Christianne, no answer received, message left with brief update and call back information
Total Critical Care Time__60___ minutes. I was immediately available to the patient and staff. I personally examined, reviewed labs, diagnostic images/reports, interpretations, treatment plans, discussed patient care with other providers and
family or caregivers (if patient is unable to make decisions), entered orders as appropriate and documented the medical record.
Anticipated Discharge: > 48 hours
Subjective/Interval History
-
Date of Service: October 14, 2023
Overnight events noted. patient reporting shortness of breath anxious. BIPAP attempted but patient could not tolerate. Eventually patient was started on precedex gtt. Seen in AM appears comfortable though short of breath. Awake alert paucity of
speech. Denies pain at rest.
Objective Data
-
Labs:
Laboratory Results
10/14/23
03:10
WBC 39.2 H
Hgb 9.0 L
Hct 26.0 L
Plt Count 108 L D
PT 35.9 H
INR 3.52 D
Sodium 127 L
Potassium 4.4
Chloride 94 L
Carbon Dioxide 18 L
BUN 82 H
Creatinine 2.8 H
Glucose 86
Calcium 8.2 L
Vital Signs:
Vital Signs
Temp Pulse Resp BP Pulse Ox
97.4 F 81 22 97/52 100
10/14/23 03:14 10/14/23 06:00 10/14/23 06:00 10/14/23 06:00 10/14/23 06:00
I&O
10/13/23 10/14/23 10/15/23
06:59 06:59 06:59
Intake Total 4441.4 / 4523.4 2715.6 / 2715.6
Output Total 380 / 400 555 / 555
Balance 4061.4 / 4123.4 2160.6 / 2160.6
[2023-10-14] MEDS: PROTONIX 100 IV (07:31)
--- NOTE | 2023-10-14 07:38 | W.PN.INTV ---
Today's Communication / Plan
Recommendations
Antibiotics
Consideration towards renal replacement therapy
Diuresis if tolerated
Triple pressors-attempt to wean
Precedex as needed for comfort
Now a DNR status noted
Comfort a priority
Assessment
-
78-year-old female with recent NSTEMI presented with weakness and lightheadedness as well as rapid heart rate noted to be in atrial fibrillation and hypotension who developed decline in mental status and further hypotension requiring transfer to
ICU-squad boss consulted for septic shock/critical care management 10/12/2023.
Assessment
Septic shock unresponsive to fluids requiring pressors
Right middle lobe pneumonia-aspiration risk
UTI and suspected urosepsis
Right lower extremity cellulitis
Leukocytosis
Lactic acidosis
Rapid atrial fibrillation
GI bleed exacerbated by Eliquis
Anemia due to acute blood vsfu-gxumehlcih-vfzeyjuear 8.4
Hypokalemia
Recent NSTEMI 09/24/2023
RHONDA
[id number]
Recent acute on top of chronic heart failure preserved EF
Hyponatremia
Thrombocytopenia
Morbid obesity-BMI 50.1
Constipation
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
DNR
Conditions present prior to admission:
CAD
Uterine cancer diagnosed 2019 status post hysterectomy on chemo from 2019 until April 2023.
Pulmonary nodules
Splenic masses-metastatic disease-now calcified suggesting treated disease
Hypertension.�
PAF-on Eliquis
Obesity.�
Proteinuria.�
Gout.�
Morbid obesity-BMI 50.�
Obstructive sleep apnea suspected
Cholelithiasis
Fatty liver
Appendectomy.� Tonsillectomy.
Plan
Patient continues to be critically ill on 3 pressors, renal failure now with respiratory insufficiency as well
Supplemental oxygen as needed
High flow oxygen as needed
BiPAP-did not tolerate well when provided 10/14/2023
Patient now a DNR-will not be intubated if continues to deteriorate
VBG reviewed and reveals adequate respiratory compensation for metabolic acidosis
Patient has not required intubation and mechanical ventilation yet
Aspiration precautions
Nebulizers if needed-currently not bronchospastic
Repeat cultures reviewed
Last urine culture 09/24/2023-Klebsiella pneumoniae
Repeat urine culture 10/12/2023-Pseudomonas
MRSA screen 09/24/2023-negative
Blood cultures 10/08/2023 negative
Empiric antibiotics-vancomycin, Zosyn and levofloxacin
Infectious disease consultation-correspondence reviewed-continue vancomycin and Zosyn and levofloxacin renally adjusted
Follow leukocytosis
Intravenous fluids decreased
Lactate trended
Continue pressors-norepinephrine, vasopressin, and begin to reduce phenylephrine
Random cortisol 86-no need for hydrocortisone
Continue to follow hemoglobin-transfused 1 unit / 24-hour
INR elevated-continue to follow
Vitamin K given with active bleeding and INR over 10
Transfuse as needed-has received 1 unit thus far
GI following-correspondence reviewed
PPI drip initiated
Low-grade DIC suspected
Continue to monitor renal function
Nephrology following-correspondence reviewed
Considering chronic renal replacement therapy
Atrial fibrillation rate controlled
Amiodarone drip initiated
Cardiology following-correspondence reviewed-reviewed with Dr. Vaz
Echocardiogram summarized below
Cardiac catheterization summarized below
DVT prophylaxis-mechanical
Early nutrition if possible
Early mobilization/bedside range of motion
Dr. Jimenez had discussion with patient and family members 10/13/2023-patient wishes to be DNR-we will respect her wishes
Consider outpatient sleep disordered breathing/obstructive sleep apnea workup
Critical care statement: A total of 42 minutes of critical care time was provided for this patient today. This includes management of unstable vital signs, evaluation of the patient at bedside, reviewing the patient's pertinent medical records
including radiographs, intravenous fluid bolus management, pressor management, atrial fibrillation rate control management, microbiology, laboratory evaluations, and� discussion with primary team, consultants, pharmacy, nutrition, physical therapy,
case management, charge nurse, critical care nursing, and respiratory therapy.
Diagnostic data:
Chest x-ray 09/24/2023-NAD
Chest x-ray 10/05/2023-NAD
Chest x-ray 10/11/2023-right basilar airspace disease progressed
CT chest abdomen and pelvis 08/18-multiple bilateral pulmonary nodules stable, no new or enlarging pulmonary nodules, multiple low-attenuation splenic masses, now calcifying suggested treated metastatic lesions, cholelithiasis, fatty infiltration of
the liver
Echocardiogram 09/24/2023-EF 70-75%, mild mitral regurgitation, PA systolic 40-45
Cardiac catheterization 09/28/2023-mild noncritical CAD, 20-30% mid to distal stenosis LAD, 2030% lesion distal RPDA
Subjective Dataa
Subjective Data
Date of Service:
Date of Service: October 14, 2023
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
Subjective:
Somnolent, required BiPAP last evening, increased shortness of breath, lethargic, no respiratory distress
Review of Systems
General: Other (Per HPI)
Objective Data
Data Reviewed
Vital Signs / I&O / Oxygen:
Vital Signs
Temp Pulse Resp BP Pulse Ox
97.4 F 81 22 97/52 100
10/14/23 03:14 10/14/23 06:00 10/14/23 06:00 10/14/23 06:00 10/14/23 06:00
Intake and Output
10/13/23 10/14/23 10/15/23
06:59 06:59 06:59
Intake Total 4441.4 / 4523.4 2715.6 / 2715.6
Output Total 380 / 400 555 / 555
Balance 4061.4 / 4123.4 2160.6 / 2160.6
SaO2 100
Nasal Cannula flow liters per 2
minute
Physical Exam
General: Respiratory Distress (n)
HEENT: Normocephalic, Anicteric and Moist Mucous Membranes
Cardiovascular: Regular Rhythm
Respiratory: Clear, Crackles (Basilar), Rhonchi (Expiratory), Non-Labored Respirations, Accessory Resp Muscle Use (n) and Stridor (n)
GI: Soft, Distended and Non Tender
Neurology: Awake, Alert, No Motor Deficits and Lethargic
Skin: Warm, Good Color, Cyanosis (n), Jaundice and Other (Cellulitis right lower extremity)
Labs/Micro/Reports
Lab Data
10/14/23 03:10
10/14/23 03:10
Laboratory Results
10/13/23 10/14/23
11:11 03:10
PT 52.3 H 35.9 H
INR 5.66 H* D 3.52 D
Microbiology
10/12/23 10:42 Urine Urine Culture - Preliminary
Pseudomonas aeruginosa
10/12/23 12:19 Blood/Venous Blood Culture - Preliminary
Pseudomonas aeruginosa
10/12/23 12:19 Blood/Venous Gram Stain - Preliminary
10/12/23 18:13 Urine Urine Culture - Preliminary
10/08/23 11:39 Blood/Venous Blood Culture - Final
No Growth - Final Report
10/12/23 10:52 Blood/Venous Blood Culture - Preliminary
No Growth in 24 hours- Final report to follow
10/08/23 10:41 Blood/Venous Blood Culture - Final
No Growth - Final Report
--- NOTE | 2023-10-14 08:00 | SUR.OPER ---
Rec'd care of patient. PT drowsy but arousable to pain. Speech slow, garbled at times. Afib on monitor.Generalized Anasarca +3 ,Weeping from legs and right hip. POX 99-100% on 6L MF. Pt c/o dyspnea. Labored breathing. Tachypneic. Orthopneic. Lung
sounds shallow/diminished with I&E wheeze. Mtz care provided, terra urine 20-25 ml/hr R SQ port patent, + blood return, Left PICC patent and flushed, some oozing noted around PICC and PORT Full assessment and care as charted on worklist.
[2023-10-14] MEDS: LASIX 80 MG IV (08:09)
--- NOTE | 2023-10-14 08:44 | W.PN.GI.CBS2 ---
Addendum entered and electronically signed by Julio Scott MD 10/14/23 15:47:
I saw and examined the patient.
The RECEIVER DISPATCHER or PA's note was reviewed and I agree with the note.
Comment: 78-year-old female past medical history of metastatic gnyecologic cancer, obesity initially presenting with non-STEMI during her course of her hospitalization, underwent upper endoscopy as below for anemia and black stool which showed tiny
esophageal ulcers and gastric erosions course complicated by septic shock with pneumonia currently in ICU critically ill on 3 pressors.� GI has been re-consulted for hematemesis yesterday. No further hematemesis, GI will sign off please call with ?S
Original Note:
Today's Communication / Plan
-
Continue PPI
Call back if GI neeed
Assessment / Plan
-
Sangeeta is a 78-year-old female with history of metastatic ovarian cancer, off chemotherapy as of April, atrial fibrillation on Eliquis, MGUS, nephrotic syndrome recently diagnosed and started on high-dose prednisone that was given from July to
August, obesity who had an admission recently for nonischemic MN not requiring stenting. she comes in today for severe weakness and fatigue feeling lightheaded upon standing with elevated heart rates and rapid A-fib.� In the emergency room her
blood pressure is stable.� She has noted that her stools have been formed and dark over the past couple of months but recently since her Eliquis was increased to therapeutic doses to 5 mg twice daily she started seeing more tarry.� She is not having
multiple stools a day really having difficulty getting the stool out and has had to manually disimpact herself.� She denies taking any NSAIDs.� She has been off prednisone for over a month.� She does not take a PPI.� She has minimal rare nausea with
no vomiting.� Occasionally things will feel slow to go down especially large pills.� She did lose some weight after starting the prednisone.�
Her last colonoscopy was about 4 years ago and subjectively just small polyps.
# Anemia -in the setting of black formed stools with no clinically significant GI bleeding other than a drop in her hemoglobin which appears to have been trending down since early September and has trended down since starting therapeutic Eliquis
#Rapid A-fib -managed by cardiology and primary team
-EGD 10/06 showing tiny esophageal ulcers and gastric erosions.
-melena
-anemia with drop from 09/24
-recent steroids (initial prednisone 40mg BID) for nephrotic syndrome stopped late August
-metastatic ovarian CA therapy stopped april with nephrotic syndrome
-recent NSTEMI with no critical CAD on cath
-LE swelling
-afib on Eliquis with rapid afib on admission
-hypokalemia/hyponatemia
other medical problems:
-appe
-MGUS
-fatty liver per imaging
-obesity with recent wt loss
-gout
-neuropathy
10/13/2023 Elevated INR greater than 8 (byduq-le-obyr 11), areas of ecchymosis bilateral upper extremities back area, vitamin K 10 mg given, Eliquis held. Repeat INR still greater than 8. Repeat pending this a.m.
Patient with clots of blood in her mouth, where her throat filled up with dark red blood. As well as a moderate amount of blood following by a large clot that was suctioned. None since.
No signs of bowel movements
Hemoglobin has remained stable 8.5�>8.4�> 9.0
Fibrinogen 918, D-dimer 1.31, normal LFTs on 10/12/2023.
Septic shock on pressor support, blood cultures x 1 Pseudomonas aeurginosa
Leukocytosis, being followed by ID probable UTI possible pneumonia, right lower extremity cellulitis on vancomycin, Zosyn and levofloxacin
Plan:
Patient was already on Protonix 40 mg IV twice daily. Patient has limited IV access. When able Protonix drip will be utilized. There will be times will when it will have to be held temporarily.
-Would likely be able to change to Protonix IV BID tomorrow as long as INR still improving.
-Nothing further to add from GI perspective. We will be available as needed or by request.
Subjective
Subjective
Date of Service: October 14, 2023
Patient with episode of dark stool overnight and smear this am. Those were only BM since episodes of bleeding from mouth on 10/11/22 evening. Patient with improving INR now 3.52 from 8.0. Still on 3 pressors. Some red blood around nares. Also with
some bleeding from sloughing of skin on sides where blisters ruptured. Patient denies any abd pain or nausea. Hgb stable at 9.0
Objective
Data Reviewed
Laboratory Data:
Laboratory Results
10/14/23 03:10
10/14/23 03:10
Laboratory Results
PT 35.9 Sec (11.4-14.6) H 10/14/23 03:10
INR 3.52 D 10/14/23 03:10
APTT 44.0 Sec (23.4-35.0) H 10/12/23 09:26
Phosphorus 3.6 mg/dl (2.5-4.5) 10/14/23 03:10
Magnesium 1.7 mg/dl (1.6-2.3) 10/14/23 03:10
Total Bilirubin 1.2 mg/dl (0.2-1.3) 10/12/23 13:19
AST 31 U/L (14-36) 10/12/23 13:19
ALT < 10 U/L (0-35) 10/12/23 13:19
Alkaline Phosphatase 84 U/L (38-126) 10/12/23 13:19
Vital Signs and I&O:
Vital Signs
Temp Pulse Resp BP Pulse Ox
97.4 F 80 22 100/65 100
10/14/23 03:14 10/14/23 08:09 10/14/23 06:00 10/14/23 08:09 10/14/23 08:08
I&O
10/13/23 10/14/23 10/15/23
06:59 06:59 06:59
Intake Total 4441.4 / 4523.4 2715.6 / 2715.6
Output Total 380 / 400 555 / 555
Balance 4061.4 / 4123.4 2160.6 / 2160.6
Physical Exam
Physical Exam
HEENT: Anicteric
Cardiology: Irregular Rate/Rhythm
Pulmonary: Clear (anterior)
GI: Soft, Non Distended, Non Tender and Other (hypoactive BS)
Extremities: Edema (B/L LE edema, toes cold dusky)
Neuro: Non Focal
--- NOTE | 2023-10-14 08:46 | W.PN.ID1 ---
Date of Service
Date of Service: October 14, 2023
Today's Communication
- continue zosyn; stop levofloxacin
Assessment / Plan
Septic Shock - improving
Leukocytosis
UTI due to Pseudomonas, Enterococcus
Bacteremia due to Pseudomonas
- repeat blood cultures x2
- continue zosyn; stop levofloxacin
- doses maximized for renal function
- follow clinically
RLE Cellulitis - improving, unlikely to be the source of shock
RHONDA on CKD- progressive
Class III Obesity
Chronic lymphedema
- lymphedema uncontrolled - trial of compression
- coverage as above
- follow clinically
- outpatient follow up with lymphedema center
Chief Complaint
-: UTI and Cellulitis
Subjective / Review of Systems
afebrile
pressors weaning down
progressive leukocytosis
thrombocytopenia noted
progression of rhonda
bacteremia noted
delirious
Vital Signs / Physical Exam
Vital Signs
Vital Signs
Temp Pulse Resp BP Pulse Ox
97.4 F 80 22 100/65 100
10/14/23 03:14 10/14/23 08:09 10/14/23 06:00 10/14/23 08:09 10/14/23 08:08
Physical Exam
Constitutional: Acutely Ill, Chronically Ill and Obese
Cardiovascular: Regular Rate and S1/S2; Negative Murmur or Rub
Pulmonary: Clear and Symmetric; Negative Wheezes or Rales
Gastrointestinal: Soft, Non Tender, Non Distended and Normal Bowel Sounds
Genito-Urinary: Negative Suprapubic Tenderness
Skin: Warm and Dry; Negative Rash or Jaundice
Objective Data
Lab Data
Lab Results
10/14/23 03:10
10/14/23 03:10
PT 35.9 Sec (11.4-14.6) H 10/14/23 03:10
INR 3.52 D 10/14/23 03:10
APTT 44.0 Sec (23.4-35.0) H 10/12/23 09:26
Estimated Creat Clear 22 ml/min 10/14/23 03:10
Lactic Acid 3.4 mmol/L (0.7-2.0) H 10/13/23 11:11
Total Bilirubin 1.2 mg/dl (0.2-1.3) 10/12/23 13:19
AST 31 U/L (14-36) 10/12/23 13:19
ALT < 10 U/L (0-35) 10/12/23 13:19
Alkaline Phosphatase 84 U/L (38-126) 10/12/23 13:19
Most recent labs reviewed.
Micro Results:
10/12/23 10:42 Urine Culture - Preliminary
Urine Pseudomonas aeruginosa
10/12/23 12:19 Blood Culture - Preliminary
Blood/Venous Pseudomonas aeruginosa
Gram Stain - Preliminary
10/12/23 18:13 Urine Culture - Preliminary
Urine
10/08/23 11:39 Blood Culture - Final
Blood/Venous No Growth - Final Report
10/12/23 10:52 Blood Culture - Preliminary
Blood/Venous No Growth in 24 hours- Final report to follow
10/08/23 10:41 Blood Culture - Final
Blood/Venous No Growth - Final Report
--- NOTE | 2023-10-14 09:29 | W.PN.CD ---
Today's Communication / Plan
-
Continue rate control with amiodarone IV. If heart rates going to the 60s then can hold IV amiodarone and then reassess heart rate response.
Wean pressors as tolerated
Additional issues related to patient's volume status, edema, increased weights and RHONDA discussed with critical care team. Patient also to be assessed by nephrology today.
Impression / Plan
-
Assessment/Plan: 78-year-old female with permanent A-fib on Eliquis, recent NSTEMI with nonobstructive CAD at cath on September 28, 2023, hypertension, chronic HFpEF, metastatic endometrial Carcinoma, nephrotic proteinuria, chronic lymphedema b/l LE, and
obesity who is here with A-fib with RVR, worsening anemia/GI bleeding, and cellulitis who developed severe hypotension requiring multiple pressors.
Sepsis/septic Shock:
- Severe hypotension requiring multiple pressors,. Remains on 3 pressors joni-, levo and vasopressin
- Blood culture and urine culture from 10/12/2023 with Pseudomonas
- S/p ECHO 09/24/23 - LVEF 75% and cath 09/28/23 showing mild CAD with troponin leak of demand ischemia.
- Echo 10/12/23 - LVEF 55-60%, no RWMA, trivial pericardial effusion, moderate TR, PASP 50-55 mmHg; no significant change from echo 09/24/23.
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
-Wean pressors as tolerated
GI bleed/anemia
- EGD showed 2 very small esophageal ulcers with no bleeding, erosive gastropathy with no bleeding, and erythematous duodenodenopathy.
- Eliquis on hold.
- s/p PRBC's, follow CBC.
Respiratory insufficiency. Patient with O2 sat 100% on 5 to 6 L.. Intravascular volume status challenging to assess but patient's LVEDP was 19 mmHg at cardiac catheterization on 09/28/2023 and patient is up 10 kg since then. Patient has issues with
chronic edema which are multifactorial. Intravascular volume challenging to assess. Patient also has acute on chronic renal failure with creatinine 2.8. Most recent chest x-ray shows some atelectasis but no effusions reported.
-Continue to optimize respiratory status under direction of pulmonary
-Challenging volume control issues as noted below.
AFib: permanent.
- RVR noted in setting of septic shock, rates now improved with IV Amiodarone.
- previously on diltiazem 240 mg daily but now on hold due to hypotension requriring pressors.
-Patient is on IV amiodarone for rate control.
-[id number] 6 (hx HF, HTN, age2, vascular disease, female gender) - on Eliquis for OAC, but on HOLD due to anemia/GI bleed and INR greater than 8
Acute nonischemic myocardial injury: trop this admit 0.156.
- secondary to septic shock and AF RVR.
- echo 10/12/23 with normal LVEF and no RWMA, as above.
- denies chest pain/sob.
- NSTEMI with peak troponin 3.4 on 09/24/23, s/p cath 09/28/23 with nonocclusive CAD, branch vessel disease.
- appropriate for consideration for statin therapy with goal LDL < 55. will discuss in follow up as an outpatient.
Chronic LE edema likely from a mixture of proteinuria + lymphedema + some HFpEF:
- LVEDP 19 at cath 09/28/23 at weight of 118 kg, weight today is 127 kg.
-Challenging issues with volume removal considering hypotension. Patient also with creatinine 2.8. Can consider additional use of diuretics as blood pressure improves.
- Outpatient consideration for referral to lymphedema compressive therapy.
HFpEF: acute on chronic.
- LVEDP was 19 at cath 09/28/23 at weight of 118 kg. Now weight is up to 128
- difficult situation with hypotension requiring pressors, and RHONDA.
- SGLT2-I added, but now held along with ARB due to RHONDA and hypotension.
-Diuretics and additional volume control measures being assessed by nephrology.
RHONDA: Creatinine 2.8 issues as noted above.
Hyponatremia. Continue to monitor. Nephrology also following.
Metastatic endometrial carcinoma (stage 4), managed by Dr. Goldstein, metastasis to spleen, doug hepatis and RP nodes, omentum, & lung
Improved hypokalemia
Gout
Morbid obesity; affecting all aspects of care
Subjective:
Mental status improving.
Denies CP or SOB.
Appears SOB/tachypneic and exhausted.
Data:
Echo 09/24/2023: LVEF 70-75%, mild cLVH, mild MR, mod TR, PASP 40-45 mmHg
Cath 09/28/2023: (CP, peak trop 3.4): LVEDP 19 (at 118 kg), 20-30% mid-distal LAD, 60-70% p RV Marginal (branch of RCA).
Echo 10/12/23: LVEF 55-60%, no RWMA, trivial pericardial effusion, moderate TR, PASP 50-55 mmHg; no significant change from echo 09/24/23.
Physical Exam
Vital Signs/Labs
Vital Signs
Temp Pulse Resp BP Pulse Ox
97.4 F 80 22 100/65 100
10/14/23 03:14 10/14/23 08:09 10/14/23 06:00 10/14/23 08:09 10/14/23 08:08
10/13/23 10/14/23 10/15/23
06:59 06:59 06:59
Actual Weight 127.3 kg 128.2 kg
10/14/23 03:10
10/14/23 03:10
PT 35.9 Sec (11.4-14.6) H 10/14/23 03:10
INR 3.52 D 10/14/23 03:10
APTT 44.0 Sec (23.4-35.0) H 10/12/23 09:26
Magnesium 1.7 mg/dl (1.6-2.3) 10/14/23 03:10
10/05/23
12:45
Uuy-L-Eeljlepunct Pept 4330
Physical Exam
Constitutional: No acute distress and Other (Lethargic but arousable)
EENT: Anicteric
Cardiovascular: Rhythm/rate is irregular
Respiratory: Wheeze Absent, Rhonchi Absent and Other (Decreased at bases)
GI: Other (Obese nontender no masses detected)
Neuro/Psych: Other (Initially sleeping but was able to wake up and was lethargic slowly responding to some questions)
Other: Other (Chronic skin changes on lower extremity, chronic venous stasis change bilateral edema that is prominent below the knee but also extends up into the thighs.)
Data Reviewed
-
Date of Service: October 14, 2023
Medical Decision Making: Reviewed Test Results and Review of Case with other Provider (Reviewed with Dr. Jimenez and with nurse)
EKG: Report Reviewed by me
X-Ray/CT/US/MRI/NUC/PET: Report Reviewed by me
Medical Tests (PFT, Pathology etc): Image Personally Visualized and interpreted
Labs: Labs Reviewed by me
Critical Care Time (in minutes): 35
[2023-10-14] MEDS: LEVOPHED 258 MG IV ×2 (09:58→19:18)
--- NOTE | 2023-10-14 11:15 | W.PN.NEPH.PH ---
Today's Communication / Plan
-
lasix gtt 10mg/hr , metolazone later today
labs later today
Assessment/Plan
-
IMP:
Acute GI bleed-s/p EGD: showed esophageal, pre-pyloric ulcers
Hypokalemia-resolved
Hyponatremia
CKD 3a
Nephrotic syndrome
Perm Afib with RVR
Recent NSTEMI 09/23-noncritical CAD on recent cath
Moderate�severe TR
Pulmonary HTN
Essential HTN/hypotension Hx
CKD stage III A
History proteinuria concern nephrotic syndrome
Chronic HFpEF
underling PVD
New RLE Cellulitis
Chronic venous stasis dermatitis
Metastatic endometrial carcinoma, managed by Dr. Goldstein, metastasis to spleen, doug hepatis and RP nodes, omentum, & lung
Hysterectomy 2018
Port right upper chest wall
Chemotherapy from 2019 to April 2023 stopped due to proteinuria per patient
IgM kappa MGUS-PET scan October 2023
Gout
Morbid obesity due to excess calorie consumption�BMI 50.1 kg
Hypoalbuminemia
Recent admit found to have nephrotic range proteinuria and pt was not candidate for biopsy -left AMA 09/28, retuned on 10/04 with symp afib
repeat U PCR shows improved only 0.6gm/gm of cr , TSH normal
since she was not candidate for kidney biopsy we planned to manage medically
Plan:
Suspected septic shock
wean Pressors to keep MAP>65, on 3 currently, cortisol high appropriately
RHONDA continues to worsen with creatinine up to 2.8 likely reached peak, oliguric with wayne -probably ischemic ATN
no sig response to lasix 80 BID, will start lasix gtt and possible add metolazone later today as long as BP stable
if renal function cont to worsens and remains oliguric likely need CRRT
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
today she is sedated for increased level of anxiety
h/h post PRBC, on PPI gtt with recent h/o GIB, AC held
wt is increasing and increasing O2 requirements
monitor met acidosis,
echo noted with pulm HTN, cortisol pending
abx per ICU, Pseudomonas bacteremia from UTI
d/w nursing and ICU
patient critically ill with hemodynamic instability requiring pressor support, with worsening RHONDA
poor prognosis
CC time spent 31min
-
-
Date of Service: October 14, 2023
CC / HPI / ROS
-
Chief Complaint:
Hypoantremjia, CKD
History of Present Illness:
sodium up at 127
Hemodynamically unstable still on 3 pressor support in AFIB, IV amio
wt increasing
creatinine up to 2.8, UOP only 530cc with wayne
hb better at 9 post PRBC
U and bld cx pseudomonas
WBC increasing
on Precedex gtt for anxiety
Review of Systems:
no fevers
edema worsening
no pain
on O2 NC5.5lit
Labs
-
Labs:
WBC 39.2 10^3/uL (4.8-10.8) H 10/14/23 03:10
RBC 2.58 10^6/uL (4.20-5.40) L 10/14/23 03:10
Hgb 9.0 g/dL (12.0-16.0) L 10/14/23 03:10
Hct 26.0 % (37.0-47.0) L 10/14/23 03:10
Plt Count 108 10^3/uL (130-400) L D 10/14/23 03:10
Sodium 127 mmol/L (135-145) L 10/14/23 03:10
Potassium 4.4 mmol/L (3.5-5.1) 10/14/23 03:10
Chloride 94 mmol/L (98-107) L 10/14/23 03:10
Carbon Dioxide 18 mmol/L (22-30) L 10/14/23 03:10
BUN 82 mg/dl (7-17) H 10/14/23 03:10
Creatinine 2.8 mg/dL (0.6-1.0) H 10/14/23 03:10
eGFR 16.76 10/14/23 03:10
Glucose 86 mg/dl (70-99) 10/14/23 03:10
Calcium 8.2 mg/dl (8.4-10.2) L 10/14/23 03:10
Phosphorus 3.6 mg/dl (2.5-4.5) 10/14/23 03:10
Bwo-A-Popjhcxctjk Pept 4330 pg/ml 10/05/23 12:45
Albumin 2.1 g/dl (3.5-5.0) L 10/12/23 13:19
Physical Exam
-
Vital Signs:
Vital Signs
Temp Pulse Resp BP Pulse Ox
97.0 F 73 20 117/81 100
10/14/23 08:00 10/14/23 10:00 10/14/23 10:00 10/14/23 10:00 10/14/23 10:00
Cardiovascular:: Regular rate and rhythm
Lung Excursion:: Abnormal (decreased)
Abdomen:: Nontender and Soft
Extremity Edema:: +3: Bilateral:
Wayne Catheter: Yes
Other Findings::
gen anasarca
[2023-10-14] MEDS: LASIX 50 IV (11:20)
[2023-10-14 12:00] LABS: Glucose - Point of Care 87 mg/dl (70-99)
[2023-10-14] MEDS: LEVAQUIN 150 IV (13:19)
--- NOTE | 2023-10-14 13:29 | PTCARENOTE ---
Sean-Syn off, see work list for titrations, PT awake recently, speech slow and garbled, denies pain, except when turning or care being provided, assessment remains unchanged
--- NOTE | 2023-10-14 14:09 | CM ---
CM following re: discharge planning.
Discussed in rounds, reviewed pt's chart, met with pt. Per Rounds meeting, patient critically ill with hemodynamic instability requiring pressor support, with worsening RHONDA, poor prognosis, continue supportive care
D/C plan: uncertain at this time and will depend on pt's progress.
CM will follow with discharge plan updates as hospitalization progresses
--- NOTE | 2023-10-14 14:41 | PN.CDI ---
CDI
- -
CDI:
Physician Documentation Request
Admit Date: 10/05/23 15:08
Dear Doctor Jag,
Patient transferred to ICU 10/11 after rapid response septic shock.
10/12 18:40 nursing not states ' Pt appears dyspneic w/ RR upper 20's low 30's. Denies SOB. POx 95%. Resp Therapy in room to administer prn neb Tx and placed pt on midflow NC @ 6l/min w/ humidity'
21:45 ' POX 99-100% on 10L MF. Pt c/o dyspnea. Labored breathing. Tachypneic. Orthopneic.'
Per documented vital signs, pt remains on midflow.
Please clarify which of the following accurately represents the patient's respiratory status:
Acute respiratory failure - Please specify type
Hypoxia
Other
Additional information for Respiratory Failure:
Recognized criteria for Respiratory Failure (Source: [facility] Hospitalist May 2013)
ABGs: (1 or more) Symptoms Please indicate type if known
1. p)2 <60 or RA SPO2 <91% on RA 1. Tachypnea, SOB, dyspnea Hypoxic
2. pCO2 50 and pH <7.35 2. Use of accessory muscles Hypercapnic
3. pO2 decrease of pCO2 increase by 3. Pallor or cyanosis Hypoxic and Hypercapnic
10 mmHg from baseline if known 4. Anxiety or restlessness Unable to determine
5. Unable to speak in full sentences
Supplemental O2 of > 40% (5LPM) Intubation is not required
Use of terms such as suspected, likely, concern for, or probable (associated with a specific diagnosis that is being evaluated, monitored, or treated as if it exists) are acceptable and can be coded in the inpatient setting, when documented at the
time of discharge.
Thank you,
Stephy Amaya RN, BSN
CDI Specialist
tiger text
Please use your independent medical judgment in providing your response.
[2023-10-14] MEDS: DIURIL 0.5 GRAM VIAL 0.5 GRAMS IV (17:32)
[2023-10-14] MEDS: STERILE WATER FOR INJECTION 18 ML IV (17:32)
[2023-10-14 17:43] LABS: Glucose - Point of Care 113 mg/dl (70-99)
--- NOTE | 2023-10-14 17:54 | VATNOTE ---
Right SQ port continues to ooze blood from needle puncture site. Dressing saturated with blood. Removed dressing and redressed with quick clot x 2 and gauze dressing. Will continue to monitor.
[2023-10-14 18:10] LABS: Blood Urea Nitrogen 87 mg/dl (7-17); Calcium 7.9 mg/dl (8.4-10.2); Carbon Dioxide 17 mmol/L (22-30); Chloride 93 mmol/L (98-107); Glucose 115 mg/dl (70-99); Phosphorus 3.6 mg/dl (2.5-4.5); Potassium 4.5 mmol/L (3.5-5.1); Sodium 125 mmol/L (135-145)
[2023-10-14 19:49] LABS: Estimated Creatinine Clearance 20 ml/min; eGFR 15.43
[2023-10-14] MEDS: NSS (PRESERVATIVE FREE) 10 ML IV (20:22)
[2023-10-14] MEDS: PROTONIX IV 40 MG IV (20:22)
--- NOTE | 2023-10-14 22:52 | PTCARENOTE ---
Rec'd care of patient at 1900. AAOx2. Drowsy with intermittent periods of anxiety. Yelling out 'help'. Anxious she is not going to make it through the night. Attempting to tell RN her password to tell cousin Arturo. Frequent emotional support
provided as needed. Precedex gtt maintained at 0.2 mcg/kg/hr. Speech garbled/slow. Difficulty speaking due to labored breathing. Orthopneic. PACK. Lung sounds shallow/diminished. Fine crackles auscultated in b/l bases. Occasional cough;
non-productive. Afib on tele monitor with rate in the 70's. Amio gtt infusing at 0.5 mg/min. +3 generalized anasarca. Weak, palpable radial and pedal pulses. Finger tips and feet/toes cyanotic. BP stable. Levo and Vaso on for BP support. Titrating
Levo for MAP >65. Mtz draining around 10-20 cc's of urine per hour. Lasix gtt infusing at 10mg/hr. Dr. Kapoor updated. Possible CRRT in am if patient agreeable.
[2023-10-14] MEDS: CORDARONE 518 MG IV (23:50)
[2023-10-14] MEDS: DEXTROSE 50% SYRINGE 12.5 GRAMS IV (23:58)
[2023-10-15] VITALS (52 sets, daily range): BP systolic 76–120; BP diastolic 44–93; BMI 49.7
[2023-10-15 00:05] LABS: Glucose - Point of Care 56 mg/dl (70-99)
--- NOTE | 2023-10-15 00:06 | PTCARENOTE ---
Patient's blood sugar resulted at 56. D50 administered. Patient arousable. Remains anxious. Attempted to placed warm blankets on due to core temp of 95.7. Patient panicked and refusing. Education provided and patient agreeable.
[2023-10-15 00:35] LABS: Glucose - Point of Care 137 mg/dl (70-99)
--- NOTE | 2023-10-15 01:24 | PTCARENOTE ---
Discussed patient's status with ELECTROMEDICAL EQUIPMENT TECHNICIAN Dillan Cabral. RN advised to turn of Amio gtt (HR in the 60's) and titrate up Precedex gtt. Patient resting comfortably. Afib on tele monitor with rate in the 70's.
[2023-10-15 02:44] LABS: Glucose - Point of Care 127 mg/dl (70-99)
[2023-10-15 03:42] LABS: Hematocrit 25.3 % (37.0-47.0); Hemoglobin 9.1 g/dL (12.0-16.0); Mean Corpuscular Hgb 34.7 pg (27.0-31.0); Mean Corpuscular Volume 96.6 fL (81.0-99.0); Platelet Count 83 10^3/uL (130-400); Red Blood Cell Count 2.62 10^6/uL (4.20-5.40); Red Cell Dist. Width 19.8 % (11.5-14.5)
[2023-10-15] MEDS: LEVOPHED 258 MG IV ×4 (03:44→23:50)
[2023-10-15] MEDS: PRECEDEX 100 IV ×3 (03:44→18:08)
[2023-10-15 03:50] LABS: INR 2.49; PT 27.3 Sec (11.4-14.6)
[2023-10-15 03:56] LABS: White Blood Cell Count 42.2 10^3/uL (4.8-10.8)
[2023-10-15 04:00] LABS: Blood Urea Nitrogen 84 mg/dl (7-17); Calcium 7.9 mg/dl (8.4-10.2); Carbon Dioxide 18 mmol/L (22-30); Chloride 94 mmol/L (98-107); Glucose 126 mg/dl (70-99); Magnesium 1.7 mg/dl (1.6-2.3); Phosphorus 3.7 mg/dl (2.5-4.5); Potassium 4.5 mmol/L (3.5-5.1); Sodium 126 mmol/L (135-145)
--- NOTE | 2023-10-15 04:11 | PTCARENOTE ---
No changes in assessment. Patient washed. AM labs drawn and sent. Levo, Vaso, Precedex and Insulin gtt infusing. VSS. UOP averaging about 20 cc's an hour.
[2023-10-15 04:25] LABS: Estimated Creatinine Clearance 20 ml/min; eGFR 15.43
[2023-10-15] MEDS: ZOSYN 50 IV ×4 (05:34→23:55)
--- NOTE | 2023-10-15 07:44 | W.PN.INTV ---
Today's Communication / Plan
Recommendations
Wean pressors
Change antibiotics
Attempt diuresis
Considering continuous renal replacement therapy
Place feeding tube and begin nutrition
Assessment
-
78-year-old female with recent NSTEMI presented with weakness and lightheadedness as well as rapid heart rate noted to be in atrial fibrillation and hypotension who developed decline in mental status and further hypotension requiring transfer to
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
Assessment
Septic shock unresponsive to fluids requiring pressors
Right middle lobe pneumonia-aspiration risk
UTI and suspected urosepsis
Right lower extremity cellulitis
Leukocytosis
Lactic acidosis
Rapid atrial fibrillation
GI bleed exacerbated by Eliquis
Anemia due to acute blood hbbm-qrnfefkxgj-jpeutbmfhi 8.4
Hypokalemia
Recent NSTEMI 09/24/2023
RHONDA
[id number]
Recent acute on top of chronic heart failure preserved EF
Hyponatremia
Thrombocytopenia
Morbid obesity-BMI 50.1
Constipation
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
DNR
Conditions present prior to admission:
CAD
Uterine cancer diagnosed 2019 status post hysterectomy on chemo from 2019 until April 2023.
Pulmonary nodules
Splenic masses-metastatic disease-now calcified suggesting treated disease
Hypertension.�
PAF-on Eliquis
Obesity.�
Proteinuria.�
Gout.�
Morbid obesity-BMI 50.�
Obstructive sleep apnea suspected
Cholelithiasis
Fatty liver
Appendectomy.� Tonsillectomy.
Plan
Patient continues to be critically ill on 2 pressors, renal failure now with respiratory insufficiency as well
Continue supplemental oxygen-steadily requiring increased FiO2
High flow oxygen as needed
BiPAP-did not tolerate well when provided 10/14/2023
Patient is a DNR-will not be intubated if continues to deteriorate
Aspiration precautions
Nebulizers if needed-currently not bronchospastic
Repeat cultures reviewed
Last urine culture 09/24/2023-Klebsiella pneumoniae
Repeat urine culture 10/12/2023-Pseudomonas as well as VRE
MRSA screen 09/24/2023-negative
Blood cultures 10/08/2023 negative and positive for Pseudomonas on 10/12/2023
Empiric antibiotics-vancomycin, Zosyn and levofloxacin-changed to daptomycin on 10/15/2023
Infectious disease consultation-correspondence reviewed-continue vancomycin and Zosyn and levofloxacin renally adjusted
Monitor leukocytosis
Intravenous fluids decreased
Lactate trended
Continue pressors-norepinephrine, vasopressin, phenylephrine-discontinued
Random cortisol 86-no need for hydrocortisone
Continue to follow hemoglobin-transfused 1 unit /48-hour
INR elevated-continue to follow-improved
Vitamin K given with active bleeding and INR over 10
Transfuse as needed-has received 1 unit thus far
GI following-correspondence reviewed
PPI drip initiated
Low-grade DIC suspected
Place feeding tube
Nutrition per SENIOR ENLISTED ADVISOR
Follow renal function
Nephrology following-correspondence reviewed-reviewed with Dr. Vazquez
Considering chronic renal replacement therapy-hold off on 10/15/2023
Atrial fibrillation rate controlled
Amiodarone continues
Cardiology following-correspondence reviewed
Echocardiogram summarized below
Cardiac catheterization summarized below
DVT prophylaxis-mechanical
Begin nutrition via feeding tube
Early mobilization/bedside range of motion
Note: Dr. Jimenez had discussion with patient and family members 10/13/2023-patient wishes to be DNR-we will respect her wishes
Consider outpatient sleep disordered breathing/obstructive sleep apnea workup
Critical care statement: A total of 38 minutes of critical care time was provided for this patient today. This includes management of unstable vital signs, evaluation of the patient at bedside, reviewing the patient's pertinent medical records
including radiographs, intravenous fluid bolus management, pressor management, atrial fibrillation rate control management, microbiology, laboratory evaluations, and� discussion with primary team, consultants, pharmacy, nutrition, physical therapy,
case management, charge nurse, critical care nursing, and respiratory therapy.
Diagnostic data:
Chest x-ray 09/24/2023-NAD
Chest x-ray 10/05/2023-NAD
Chest x-ray 10/11/2023-right basilar airspace disease progressed
CT chest abdomen and pelvis 08/18-multiple bilateral pulmonary nodules stable, no new or enlarging pulmonary nodules, multiple low-attenuation splenic masses, now calcifying suggested treated metastatic lesions, cholelithiasis, fatty infiltration of
the liver
Echocardiogram 09/24/2023-EF 70-75%, mild mitral regurgitation, PA systolic 40-45
Cardiac catheterization 09/28/2023-mild noncritical CAD, 20-30% mid to distal stenosis LAD, 2030% lesion distal RPDA
Subjective Dataa
Subjective Data
Date of Service:
Date of Service: October 15, 2023
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
Subjective:
Opens eyes, shortness of breath at rest, no chest pain or abdominal pain,
Review of Systems
General: Other (Per HPI)
Objective Data
Data Reviewed
Vital Signs / I&O / Oxygen:
Vital Signs
Temp Pulse Resp BP Pulse Ox
97 F 76 23 95/59 98
10/15/23 07:18 10/15/23 06:03 10/15/23 06:03 10/15/23 06:03 10/15/23 06:03
Intake and Output
10/14/23 10/15/23 10/16/23
06:59 06:59 06:59
Intake Total 2715.6 / 2789.2 1657.8 / 1657.8
Output Total 555 / 575 465 / 465
Balance 2160.6 / 2214.2 1192.8 / 1192.8
SaO2 98
Nasal Cannula flow liters per 2
minute
Physical Exam
General: Respiratory Distress (n)
HEENT: Normocephalic, Anicteric and Moist Mucous Membranes
Cardiovascular: Regular Rhythm
Respiratory: Clear, Crackles (Basilar), Rhonchi (Expiratory), Non-Labored Respirations, Accessory Resp Muscle Use (n) and Stridor (n)
GI: Soft, Distended and Non Tender
Neurology: Awake, Alert, No Motor Deficits and Lethargic
Skin: Warm, Good Color, Cyanosis (n), Jaundice and Other (Cellulitis right lower extremity)
Labs/Micro/Reports
Lab Data
10/15/23 03:25
10/15/23 03:25
Laboratory Results
10/15/23
03:25
PT 27.3 H
INR 2.49
Microbiology
10/12/23 12:19 Blood/Venous Blood Culture - Preliminary
Pseudomonas aeruginosa
10/12/23 12:19 Blood/Venous Gram Stain - Preliminary
10/12/23 18:13 Urine Urine Culture - Preliminary
Pseudomonas aeruginosa
Enterococcus species
10/12/23 10:52 Blood/Venous Blood Culture - Preliminary
No Growth in 48 hours- Final report to follow
10/12/23 10:42 Urine Urine Culture - Final
Pseudomonas aeruginosa
10/08/23 11:39 Blood/Venous Blood Culture - Final
No Growth - Final Report
10/08/23 10:41 Blood/Venous Blood Culture - Final
No Growth - Final Report
--- NOTE | 2023-10-15 07:58 | W.PN.HOSP.TC ---
Today's Communication/Plan
-
wean pressors as tolerated
Tube feed nutrition as per ICU
diuresis as per Nephro
HR controlled at this time, monitor off Amio as per Cardio
Cont ICU care
Assessment / Plan
Assessment / Plan
Physical Exam
General: No Apparent Distress and Appears Chronically Ill Morbidly obese
HEENT: Normocephalic and Atraumatic, dried blood noted inside mouth
Respiratory: Clear to Auscultation; Negative Wheezes
Cardiac: Irregular Irregular non-tachy
GI: Soft and Nontender
Musculoskeletal: RLE erythema tenderness, b/l lower edema +2
Derm: large right sided ecchymosis arms chest, large right torso blister draining
Neuro: Awake Alert Paucity of speech communications mostly via head gestures yes or no
Psych: Calm
Assessment:
Rapid Response Septic Shock overnight transferred to ICU 10/11
-Question possible worsening heart failure cardiorenal syndrome with increasing weight decreasing urine outpt increasing renal insufficiency
-on pressors weaning down phenylephrine, levophed, vasopressin
-consider scheduled midodrine when safe for PO meds as per ICU, antihypertensives including cardizem placed on hold
-initially on cefazolin as below prior to shock, abx were broaden to vanc and zosyn, Levaquin was added, eventually abx were narrowed to Zosyn Daptomycin as below
Blistering Right Torso likely dependent edema
-wound care consult appreciated
-cont wound care
Anxious overnight 10/13 started on precedex gtt with subsequent improvement
wean precedex as tolerated
Septic Shock Pseudomonas Bacteremia UTI
Positive Blood and Urine Cultures
Enterococcus faecium VRE urine
ID eval appreciated Cont Zosyn, Daptomycin added
Supratherapeutic INR 11 Coagulopathy likely due to Septic Shock
Overnight Hematemesis with associate coagulopathy 10/12
-anticoagulation placed on hold
-received Vit K, INR improving most recent 2.49
-Fibrinogen and D-Dimer elevation likely d/t Septic Shock
Previously evaluated for Acute GI bleed, exacerbated by Eliquis, this hospitalization
New Onset Hematemesis as above
- Received 2 unit PRBCs in total
- s/p EGD: showed esophageal, pre-pyloric ulcers
-H&H relatively stable drop to 7.8 noted improved with 1 PRBC transfusion to 9.2, H&H remains stable since
-GI consult appreciated
-H&H stable no further episodes hematemesis
-Protonix IV BID converted to Protonix gtt since converted back
-NPO to start tube feed nutrition as per ICU 10/14
Hypokalemia
- resolved with repletion
Perm Afib with RVR
- Eliquis placed on hold due to coagulopathy as above
- Cardio eval appreciated Cardizem discontinued in favor of Amiodarone IV infusion, heart rate since improved, Amio subsequently placed on hold as per Cardio
Recent NSTEMI 09/23
- noncritical CAD on recent cath
- peak trop 3.4, downtrended
Moderate�severe TR
Pulmonary HTN
Essential HTN/hypotension Hx
- Atenolol was recently stopped due to hypotension
-ARB placed on hold d/t rhonda as below
RHONDA on CKD stage III A
- Creat 1.1 progressively worsening 3.0, newly started Farxiga this hospitalization since discontinued, candesartan placed on hold
-Nephro eval appreciated
-cont diuresis as per Nephro Lasix 80 mg IV BID no significant response, switched to Lasix gtt rate increased
History proteinuria concern nephrotic syndrome
- previously on steroids, has abruptly stopped it herself along with prophylactic bactrim no longer taking
-Nephro eval appreciated
10/11 suspect Acute on Chronic HFpEF with possible new onset cardiorenal syndrome as above
LE edema
- most likely attributed to nephrotic syndrome but component of HFpEF chronically
- Lasix switched to IV as above
- Farxiga started but discontinued as above
- home candesartan placed on hold d/t worsening kidney function as above
- consider Aldactone in outpatient setting
acute on chronic Hyponatremia hypervolemic, possible ADH Excess in setting of hypotension
- cont treatment as per Nephro
Thrombocytopenia hx - initially resolved since returned following septic shock as above
-cont to monitor
Left foot cellulitis with underling PVD - this was resolved
New RLE Cellulitis this admission
Chronic venous stasis dermatitis
- completed IV Ancef course for LLE recently
- placed back on IV Ancef for RLE earlier this hospitatlization
- Venous US no clots
- Arterial US appreciated possible mild small vessel disease b/l LE
-ID eval appreciated cefazolin since discontinued in favor of broader empiric abx following development septic shock as above
COVID neg
CXR 10/10 (obtained to evaluate progressive leukocytosis prior to development shock 10/11) appreciated
Progressed mild right basilar airspace disease, possible developing pneumonia. Small right pleural effusion. No significant respiratory symptoms at the time however.
Hx metastatic endometrial cancer, followed by Dr. Goldstein
Hysterectomy 2018
Port right upper chest wall
Chemotherapy from 2019 to April 2023 stopped due to proteinuria per patient
IgM kappa MGUS
- Patient reports has next PET scan October 2023
Gout
- continue allopurinol 100 mg daily
Morbid obesity due to excess calorie consumption�BMI 50.1 kg
- Weight loss recommended
Constipation
- on bowel regimen, follow results
DVT ppx: Supratherapeutic INR, anticoagulation on hold
GI ppx: protonix
Code: Full
PT/OT appreciated SNF rehab
discussed with patient's cousin Arturo DURON, sister Christianne currently admitted at [facility] severe cognitive impairment (she had gotten lost trying to drive to [place] in attempt to visit patient when she was transferred to ICU). Arturo
further reports [facility].
Total Critical Care Time__55___ minutes. I was immediately available to the patient and staff. I personally examined, reviewed labs, diagnostic images/reports, interpretations, treatment plans, discussed patient care with other providers patient
and her cousin OLIVERIO Morris, entered orders as appropriate and documented the medical record. Family called but no answer received.
Anticipated Discharge: > 48 hours
Subjective/Interval History
-
Date of Service: October 15, 2023
Awake alert paucity of speech, responses are largely via head gestures nodding yes shaking no.
Objective Data
-
Labs:
Laboratory Results
10/15/23
03:25
WBC 42.2 H*
Hgb 9.1 L
Hct 25.3 L
Plt Count 83 L D
PT 27.3 H
INR 2.49
Sodium 126 L
Potassium 4.5
Chloride 94 L
Carbon Dioxide 18 L
BUN 84 H
Creatinine 3.0 H
Glucose 126 H
Calcium 7.9 L
Vital Signs:
Vital Signs
Temp Pulse Resp BP Pulse Ox
97 F 76 23 95/59 98
10/15/23 07:18 10/15/23 06:03 10/15/23 06:03 10/15/23 06:03 10/15/23 06:03
I&O
10/14/23 10/15/23 10/16/23
06:59 06:59 06:59
Intake Total 2715.6 / 2789.2 1657.8 / 1657.8
Output Total 555 / 575 465 / 465
Balance 2160.6 / 2214.2 1192.8 / 1192.8
[2023-10-15] MEDS: PROTONIX IV 40 MG IV ×2 (08:07→20:09)
[2023-10-15] MEDS: NSS (PRESERVATIVE FREE) 10 ML IV ×2 (08:07→20:09)
--- NOTE | 2023-10-15 08:17 | W.PN.CD ---
Today's Communication / Plan
-
continue attempts at volume control with help of nephrology
monitor HR off amiodarone
may need amiodarone gtt is resumption if remains npo will hold off for now
wean vasopressors as able
monitor INR, consider resumption of anticoagulation when <2
CCT 35 minutes.
Impression / Plan
-
Assessment/Plan: 78-year-old female with permanent A-fib on Eliquis, recent NSTEMI with nonobstructive CAD at cath on September 28, 2023, hypertension, chronic HFpEF, metastatic endometrial Carcinoma, nephrotic proteinuria, chronic lymphedema b/l LE, and
obesity who is here with A-fib with RVR, worsening anemia/GI bleeding, and cellulitis who developed severe hypotension requiring multiple pressors.
Sepsis/septic Shock:
- Severe hypotension requiring multiple pressors,. Remains on 2 pressors levo and vasopressin with tenuous bp but MAP >67. Sean weaned
- Blood culture and urine culture from 10/12/2023 with Pseudomonas
- S/p ECHO 09/24/23 - LVEF 75% and cath 09/28/23 showing mild CAD with troponin leak of demand ischemia.
- Echo 10/12/23 - LVEF 55-60%, no RWMA, trivial pericardial effusion, moderate TR, PASP 50-55 mmHg; no significant change from echo 09/24/23.
-Antibiotics per ID/firer low pressure.
-Wean pressors as tolerate\\
AFib: permanent.
- RVR noted in setting of septic shock, rates now improved with IV Amiodarone.
- previously on diltiazem 240 mg daily but now on hold due to hypotension requiring pressors.
-Patient was on IV amiodarone for rate control--completed load, but remains NPO, but rates are well controlled currently
-Remains NPO, can give po once that changes, for now will monitor, can resume IV amio gtt if needed.
-[id number] 6 (hx HF, HTN, age2, vascular disease, female gender) - on Eliquis for OAC, but on HOLD due to anemia/GI bleed and INR greater than 8
-GI ok with resumption when needed
-remains NPO and INR 2.4
-can consider hep gtt when INR <2 if clinically improved, will hold off for today
HFpEF: acute on chronic.
- LVEDP was 19 at cath 09/28/23 at weight of 118 kg. Now weight is up to 128
- difficult situation with hypotension requiring pressors, and RHONDA.
- SGLT2-I added, but now held along with ARB due to RHONDA and hypotension.
-Diuretics and additional volume control measures being assessed by nephrology, ? CRRT
-No responding well to lasix gtt
Chronic LE edema likely from a mixture of proteinuria + lymphedema + some HFpEF, anasarca from septic shock:
- LVEDP 19 at cath 09/28/23 at weight of 118 kg, weight today is 127 kg.
-Challenging issues with volume removal considering hypotension. Patient also with creatinine 3.o and poor UOP.
- Outpatient consideration for referral to lymphedema compressive therapy, if clinical improvement
GI bleed/anemia
- EGD showed 2 very small esophageal ulcers with no bleeding, erosive gastropathy with no bleeding, and erythematous duodenodenopathy.
- Eliquis can be resumed when indicated.
- s/p PRBC's, follow CBC.
Acute nonischemic myocardial injury: trop this admit 0.156.
- secondary to septic shock and AF RVR.
- echo 10/12/23 with normal LVEF and no RWMA, as above.
- denies chest pain/sob.
- NSTEMI with peak troponin 3.4 on 09/24/23, s/p cath 09/28/23 with nonocclusive CAD, branch vessel disease.
- appropriate for consideration for statin therapy with goal LDL < 55. will discuss in follow up as an outpatient.
Respiratory insufficiency. Patient with O2 sat 100% on midflow at 6 L.
-mutlifacotial--_CHF, renal failure and volume ol with septic shock, PNAIn
-Continue to optimize respiratory status under direction of pulmonary
-Challenging volume control issues as noted above
RHONDA: Creatinine up to 3, poor uop
-per nephrololy
Hyponatremia. Continue to monitor. Nephrology also following.
Metastatic endometrial carcinoma (stage 4), managed by Dr. Goldstein, metastasis to spleen, doug hepatis and RP nodes, omentum, & lung
Improved hypokalemia
Gout
Morbid obesity; affecting all aspects of care
Subjective:
awake when moved for exam, but didn't participate in interview.
Data:
Echo 09/24/2023: LVEF 70-75%, mild cLVH, mild MR, mod TR, PASP 40-45 mmHg
Cath 09/28/2023: (CP, peak trop 3.4): LVEDP 19 (at 118 kg), 20-30% mid-distal LAD, 60-70% p RV Marginal (branch of RCA).
Echo 10/12/23: LVEF 55-60%, no RWMA, trivial pericardial effusion, moderate TR, PASP 50-55 mmHg; no significant change from echo 09/24/23.
Physical Exam
Vital Signs/Labs
Vital Signs
Temp Pulse Resp BP Pulse Ox
97 F 76 23 95/59 98
10/15/23 07:18 10/15/23 06:03 10/15/23 06:03 10/15/23 06:03 10/15/23 06:03
10/14/23 10/15/23 10/16/23
06:59 06:59 06:59
Actual Weight 128.2 kg 127.2 kg
10/15/23 03:25
10/15/23 03:25
PT 27.3 Sec (11.4-14.6) H 10/15/23 03:25
INR 2.49 10/15/23 03:25
APTT 44.0 Sec (23.4-35.0) H 10/12/23 09:26
Magnesium 1.7 mg/dl (1.6-2.3) 10/15/23 03:25
10/05/23
12:45
Ttn-R-Csegsvsnxix Pept 4330
Physical Exam
Constitutional: Other (Anasarca)
Cardiovascular: Systolic murmur absent, Rhythm/rate is irregular and Pedal edema present (b/l moderate pitting and nonpitting)
Respiratory: Crackles Absent, Rhonchi Absent, Labored respirations and Other (poor resp effort)
GI: Soft
Neuro/Psych: Other (somnolent but on precedex)
Data Reviewed
-
Date of Service: October 15, 2023
EKG: Other (tele with rate controlled fib)
Medical Tests (PFT, Pathology etc): Discussed with Physician (Resident physiciant, PA for GI for recommendations re resumption of anticoagulation Dr Graham above [facility])
Critical Care Time (in minutes): 35
--- NOTE | 2023-10-15 08:49 | W.PN.ID1 ---
Date of Service
Date of Service: October 15, 2023
Today's Communication
- continue zosyn
- add daptomycin
Assessment / Plan
Septic Shock - improving
Leukocytosis
UTI due to Pseudomonas, VRE
Bacteremia due to Pseudomonas
- repeat blood cultures x2 no growth to date
- continue zosyn
- add daptomycin
- follow clinically
RLE Cellulitis - improving, unlikely to be the source of shock
RHONDA on CKD- progressive
Class III Obesity
Chronic lymphedema
- coverage as above
- follow clinically
- outpatient follow up with lymphedema center
Chief Complaint
-: UTI and Cellulitis
Subjective / Review of Systems
hypothermic
pressors overall weaning off
progression of leukocytosis
progression of thrombocytosis - small
hgb stable
cr stable at 3, crcl 20
cxr yesterday unchanged - my read - no scott infiltrates
Vital Signs / Physical Exam
Vital Signs
Vital Signs
Temp Pulse Resp BP Pulse Ox
97 F 78 29 82/61 100
10/15/23 07:18 10/15/23 08:30 10/15/23 08:30 10/15/23 08:30 10/15/23 08:30
Physical Exam
Constitutional: No Acute Distress and Chronically Ill
Cardiovascular: Regular Rate and S1/S2; Negative Murmur or Rub
Pulmonary: Clear and Symmetric; Negative Wheezes or Rales
Gastrointestinal: Soft, Non Tender, Non Distended and Normal Bowel Sounds
Skin: Warm and Dry; Negative Rash or Jaundice
Objective Data
Lab Data
Lab Results
10/15/23 03:25
10/15/23 03:25
PT 27.3 Sec (11.4-14.6) H 10/15/23 03:25
INR 2.49 10/15/23 03:25
APTT 44.0 Sec (23.4-35.0) H 10/12/23 09:26
Estimated Creat Clear 20 ml/min 10/15/23 03:25
Lactic Acid 3.4 mmol/L (0.7-2.0) H 10/13/23 11:11
Total Bilirubin 1.2 mg/dl (0.2-1.3) 10/12/23 13:19
AST 31 U/L (14-36) 10/12/23 13:19
ALT < 10 U/L (0-35) 10/12/23 13:19
Alkaline Phosphatase 84 U/L (38-126) 10/12/23 13:19
Most recent labs reviewed.
Micro Results:
10/12/23 12:19 Blood Culture - Preliminary
Blood/Venous Pseudomonas aeruginosa
Gram Stain - Preliminary
10/12/23 18:13 Urine Culture - Preliminary
Urine Pseudomonas aeruginosa
Enterococcus species
10/14/23 20:47 Blood Culture - Pending
Blood/Venous
10/14/23 17:37 Blood Culture - Pending
Blood/Venous
10/12/23 10:52 Blood Culture - Preliminary
Blood/Venous No Growth in 48 hours- Final report to follow
10/12/23 10:42 Urine Culture - Final
Urine Pseudomonas aeruginosa
10/08/23 11:39 Blood Culture - Final
Blood/Venous No Growth - Final Report
10/08/23 10:41 Blood Culture - Final
Blood/Venous No Growth - Final Report
--- NOTE | 2023-10-15 09:16 | W.PN.NEPH.PH ---
Today's Communication / Plan
-
lasix increase to 40mg/hr
Assessment/Plan
-
IMP:
Acute GI bleed-s/p EGD: showed esophageal, pre-pyloric ulcers
Hypokalemia-resolved
Hyponatremia
CKD 3a
Nephrotic syndrome
Perm Afib with RVR
Recent NSTEMI 09/23-noncritical CAD on recent cath
Moderate�severe TR
Pulmonary HTN
Essential HTN/hypotension Hx
CKD stage III A
History proteinuria concern nephrotic syndrome
Chronic HFpEF
underling PVD
New RLE Cellulitis
Chronic venous stasis dermatitis
Metastatic endometrial carcinoma, managed by Dr. Goldstein, metastasis to spleen, doug hepatis and RP nodes, omentum, & lung
Hysterectomy 2018
Port right upper chest wall
Chemotherapy from 2019 to April 2023 stopped due to proteinuria per patient
IgM kappa MGUS-PET scan October 2023
Gout
Morbid obesity due to excess calorie consumption�BMI 50.1 kg
Hypoalbuminemia
Recent admit found to have nephrotic range proteinuria and pt was not candidate for biopsy -left AMA 09/28, retuned on 10/04 with symp afib
repeat U PCR shows improved only 0.6gm/gm of cr , TSH normal
since she was not candidate for kidney biopsy we planned to manage medically
Plan:
Hyponatremia unchanged
remains hemodynamically unstable
Suspected septic shock with pseudomonas bacteremia
Pressors to keep MAP>65 and or sbp >90 , on 2 currently, cortisol high appropriately, bp remains too low
RHONDA continues to worsen with creatinine up to 3 , non oliguric with wayne -probably ischemic ATN but only 455 cc
no significant response to lasix 80 BID, will increase lasix gtt to 40mg/hr and possible add metolazone later today as long as BP stable
if renal function continue to worsens and remains oliguric likely need CRRT , remains on lasix gtt
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
today she is sedated for increased level of anxiety
h/h post PRBC, on PPI gtt with recent h/o GIB, AC held
wt unchanged and increasing O2 requirements
monitor met acidosis which is stable
echo noted with pulm HTN
abx per ICU, Pseudomonas bacteremia from UTI
d/w nursing and ICU
patient critically ill with hemodynamic instability requiring pressor support, with worsening RHONDA
poor prognosis
CC time spent 32min
-
-
Date of Service: October 15, 2023
CC / HPI / ROS
-
Chief Complaint:
Hypoantremjia, CKD
History of Present Illness:
sodium sat 126
Hemodynamically unstable still on 2 pressor support in AFIB, IV amio
wt increasing
creatinine up to 3, UOP only 400cc with wayne
hgb better at 9 post PRBC
U and bld cx pseudomonas
WBC increasing
on Precedex gtt for anxiety
Review of Systems:
no fevers
edema worsening
no pain
on O2 NC5.5lit
Labs
-
Labs:
WBC 42.2 10^3/uL (4.8-10.8) H* 10/15/23 03:25
RBC 2.62 10^6/uL (4.20-5.40) L 10/15/23 03:25
Hgb 9.1 g/dL (12.0-16.0) L 10/15/23 03:25
Hct 25.3 % (37.0-47.0) L 10/15/23 03:25
Plt Count 83 10^3/uL (130-400) L D 10/15/23 03:25
Sodium 126 mmol/L (135-145) L 10/15/23 03:25
Potassium 4.5 mmol/L (3.5-5.1) 10/15/23 03:25
Chloride 94 mmol/L (98-107) L 10/15/23 03:25
Carbon Dioxide 18 mmol/L (22-30) L 10/15/23 03:25
BUN 84 mg/dl (7-17) H 10/15/23 03:25
Creatinine 3.0 mg/dL (0.6-1.0) H 10/15/23 03:25
eGFR 15.43 10/15/23 03:25
Glucose 126 mg/dl (70-99) H 10/15/23 03:25
Calcium 7.9 mg/dl (8.4-10.2) L 10/15/23 03:25
Phosphorus 3.7 mg/dl (2.5-4.5) 10/15/23 03:25
Skp-G-Ohzbwzsnybh Pept 4330 pg/ml 10/05/23 12:45
Albumin 2.0 g/dl (3.5-5.0) L 10/14/23 17:37
Physical Exam
-
Vital Signs:
Vital Signs
Temp Pulse Resp BP Pulse Ox
97 F 78 29 82/61 100
10/15/23 07:18 10/15/23 08:30 10/15/23 08:30 10/15/23 08:30 10/15/23 08:30
Cardiovascular:: Regular rate and rhythm
Respiratory:: Bilateral: Coarse
Lung Excursion:: Normal
Abdomen:: Nontender and Soft
Bowel Sounds:: Normal
Extremity Edema:: +1: Bilateral:
Wayne Catheter: Yes
[2023-10-15] MEDS: LASIX 50 IV ×2 (10:59→22:40)
[2023-10-15] MEDS: PITRESSIN 100 IV ×2 (11:01→22:40)
[2023-10-15] MEDS: CUBICIN 10 MG IV (11:41)
[2023-10-15 13:10] LABS: Glucose - Point of Care 90 mg/dl (70-99)
[2023-10-15 13:10] LABS: Glucose - Point of Care 131 mg/dl (70-99)
--- NOTE | 2023-10-15 13:10 | PTCARENOTE ---
PT remains drowsy but arousable, speech is difficult to understand at times, Dobbhoff attempted, PT fought insertion and adamantly refuses for nursing to attempt a second time, Dr Bean notified, Lasix drip increased to 40 mg/hr (4ml/hr), minimal
urine return (see I&O's), Levophed increased as per protocol to maintain SBP 90 or above, assessment remains unchanged
--- NOTE | 2023-10-15 14:11 | CM ---
CM following re: discharge planning.
Discussed in rounds, reviewed pt's chart, met with pt. Per Rounds meeting, patient critically ill with hemodynamic instability requiring pressor support, with worsening RHONDA, poor prognosis, patient is a DNR-will not be intubated if continues to
deteriorate, continue supportive care
D/C plan: uncertain at this time and will depend on pt's progress.
CM will follow with discharge plan updates as hospitalization progresses
--- NOTE | 2023-10-15 16:20 | CHAP ---
Brief visit with Sangeeta's niece, Arturo, who is juggling care for both Sangeeta and her sister, Christianne, who is hospitalized elsewhere. Also brief visit with Sangeeta. Prayer blanket provided. Will follow as able.
--- NOTE | 2023-10-15 16:30 | PTCARENOTE ---
Rec'd pt at 1530 resting in bed sedated on Precedex at 0.4 mcg with eyes closed. Does awake easily to verbal/tactile stimuli. Will nod head yes and no mostly and occasionally moan if she is uncomfortable. RENE but very weakly. Skin is pale. Arms and
legs with mottling/cyanoisis. Nailbeds with refill >2 seconds. Feet are cool to the touch. Wounds as documented. Pt with large area of bruising on R lateral chest/abd --under R breast. R hip/thigh area with open blister that has a pink wound bed and
draining large amts of serous drainage. Redressed with adaptic and ABD's. Dressing intact over skin tear on L arm. Respirs - currently on 6l midflow. Respirs are shallow and sl tachypnic. At times when awake more labored. Sats on 6L midflow are 98%.
BS are coarse and decreased throughout. Monitor AFib. VS as documented. Levophed infusing at 45 mcg and Vasopressin at 0.03 units. Via L arm DL picc. + pulses. DP pulses with the doppler. Denies chest pain. +3 generalized anasarca. Abd is obese with
hypoactive BS. Incont of a small amt of loose brown stool. Thermistor wayne in place for yellow urine. Pt is oliguric. About 15-20 ml/hr Remains on Lasix gtt at 40 mg/hr. Pt repositioned. Skin and mouth care given. Call ron in reach. Kinzajovanni Escamillai
in to see pt- tearful as informed staff that pts sister was taken to [facility] as she had gotten confused on her way to [place] and wound up in [place] where the police took her to [facility]. Will monitor. in to see pt.
Wants pressors titrated to keep syst BP>90.
[2023-10-15 18:06] LABS: Glucose - Point of Care 84 mg/dl (70-99)
--- NOTE | 2023-10-15 18:16 | PTCARENOTE ---
Dozes when not disturbed. When awakens will at times get panicky but calms with reassurance. No other changes
--- NOTE | 2023-10-15 22:53 | PTCARENOTE ---
Assumed care of pt at 1900. Pt is A/O x2 to person and place, drowsy but easily arouses to verbal stimuli. Currently on Precedex infusion at 0.4mcg/kg/min, RASS has been about -1. Speech is garbled. Able to follow simple commands but is weak, muscle
strength is 2/5 to BUE and 1/5 to BLE. Generalized anasarca +3 throughout which may also be impeding pt's ability to move extremities. Distal portion of both feet and toes are purple. + doppler signal found for b/l PT and DP pulses. AFib on monitor,
HR has been in 80s. SpO2 98-100% on 6L MFNC. Pt continues on double concentrated levophed, received on 24mcg/min and remains at that rate; Lasix drip at 40mg/hr, Vasopressin at 0.03 units/min, and Precedex. See nursing shift assessment flowsheet for
further assessment details.
[2023-10-16] VITALS (78 sets, daily range): BP systolic 55–114; BP diastolic 34–103; BMI 49.9
--- NOTE | 2023-10-16 00:46 | PTCARENOTE ---
Assessment unchanged. Remains on Levophed, Vasopressin, Precedex and Lasix drips at same rate. AFib 80s-90s on monitor. SpO2 99-100% on 6LNC. Attempted mouth care with oral care kit but this seemed painful for patient (when asked, she didn't not
respond yes or no, she just stared). Swabs with water used instead to moisturize mouth, however pt started coughing a bit, suctioned with 14fr suction catheter, secretions are bloody. Moisturizer applied to lips. Full CHG bath done and all linens
changed. Previous dressing to right hip removed (adaptic and abds), large amount of serous fluid noted to pad, no specific wound care orders are entered but e learning manager note says to 'allow blisters to drain while protecting surrounding
skin'--absorbant pads placed under/around area to help absorb drainage. Left arm dressing is mostly C/D/I with small amount of sanguinous drainage noted, therefore not changed at this time.
[2023-10-16 01:11] LABS: Glucose - Point of Care 87 mg/dl (70-99)
[2023-10-16] MEDS: DILAUDID 0.25 MG IV ×4 (01:31→19:52)
[2023-10-16] MEDS: PRECEDEX 100 IV ×4 (01:36→23:09)
[2023-10-16 04:51] LABS: Hematocrit 25.8 % (37.0-47.0); Mean Corp Hgb Conc. 34.9 g/dL (33.0-37.0); Mean Corpuscular Hgb 34.2 pg (27.0-31.0); Mean Corpuscular Volume 98.1 fL (81.0-99.0); Mean Platelet Volume 10.3 fL (7.4-10.4); Platelet Count 73 10^3/uL (130-400); Red Blood Cell Count 2.63 10^6/uL (4.20-5.40); Red Cell Dist. Width 19.3 % (11.5-14.5)
[2023-10-16] MEDS: LEVOPHED 258 MG IV ×5 (04:58→23:10)
[2023-10-16 05:00] LABS: White Blood Cell Count 41.5 10^3/uL (4.8-10.8)
[2023-10-16 05:16] LABS: PT 22.6 Sec (11.4-14.6)
[2023-10-16 05:18] LABS: Blood Urea Nitrogen 87 mg/dl (7-17); Calcium 7.4 mg/dl (8.4-10.2); Carbon Dioxide 14 mmol/L (22-30); Chloride 97 mmol/L (98-107); Creatine Phosphokinase 30 U/L (30-135); Glucose 82 mg/dl (70-99); Magnesium 1.7 mg/dl (1.6-2.3); Phosphorus 4.1 mg/dl (2.5-4.5); Potassium 4.4 mmol/L (3.5-5.1); Sodium 125 mmol/L (135-145)
[2023-10-16] MEDS: SODIUM BICARBONATE 50 MEQ IV (05:50)
[2023-10-16] MEDS: ZOSYN 50 IV ×4 (05:50→23:09)
--- NOTE | 2023-10-16 06:03 | PTCARENOTE ---
0400 assessment unchanged. Urine output 375mL this shift. Remains on Levophed (now at 28mcg/min), Vasopressin, Lasix, and Precedex. AFib low 100s on monitor. O2 weaned off and pt maintaining SpO2 96%. Have attempted mouthcare several times
throughout the night, pt tolerates swabs with water better (barely), will often sound as if she is gurgling in the back of her throat but when suctioned with 14fr catheter, only scant bloody secretions each time. Order obtained for PRN pain
medication because pt will often wake up randomly and moan, has nodded her head that she is in pain. Dilaudid 0.25mg IV given around 0130, Ofirmev also ordered PRN (but not given so far).
--- NOTE | 2023-10-16 07:07 | W.PN.INTV ---
Today's Communication / Plan
Recommendations
Wean pressors
Wean oxygen
Not a candidate for renal replacement therapy
Antibiotics
Monitor leukocytosis
Overall prognosis quite poor-ongoing goals of care discussions-comfort a priority
Assessment
-
78-year-old female with recent NSTEMI presented with weakness and lightheadedness as well as rapid heart rate noted to be in atrial fibrillation and hypotension who developed decline in mental status and further hypotension requiring transfer to
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
Assessment
Septic shock unresponsive to fluids requiring pressors
Right middle lobe pneumonia-aspiration risk
UTI and suspected urosepsis
Right lower extremity cellulitis
Leukocytosis
Lactic acidosis
Rapid atrial fibrillation
GI bleed exacerbated by Eliquis
Anemia due to acute blood tznf-rgdtppkhzw-byesydghtu 8.4
Hypokalemia
Recent NSTEMI 09/24/2023
RHONDA
[id number]
Recent acute on top of chronic heart failure preserved EF
Hyponatremia
Thrombocytopenia
Morbid obesity-BMI 50.1
Constipation
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
DNR
Conditions present prior to admission:
CAD
Uterine cancer diagnosed 2019 status post hysterectomy on chemo from 2019 until April 2023.
Pulmonary nodules
Splenic masses-metastatic disease-now calcified suggesting treated disease
Hypertension.�
PAF-on Eliquis
Obesity.�
Proteinuria.�
Gout.�
Morbid obesity-BMI 50.�
Obstructive sleep apnea suspected
Cholelithiasis
Fatty liver
Appendectomy.� Tonsillectomy.
Plan
Critically ill currently on 2 pressors
Supplemental oxygen as needed-slowly able to wean FiO2 requirements
BiPAP-did not tolerate well when provided 10/14/2023
Patient is a DNR-will not be intubated if continues to deteriorate
Aspiration precautions
Nebulizers if needed-currently not bronchospastic
Cultures reviewed
Last urine culture 09/24/2023-Klebsiella pneumoniae
Repeat urine culture 10/12/2023-Pseudomonas as well as VRE
MRSA screen 09/24/2023-negative
Blood cultures 10/08/2023 negative and positive for Pseudomonas on 10/12/2023
Empiric antibiotics-vancomycin, Zosyn and levofloxacin-changed to daptomycin on 10/15/2023
Infectious disease consultation-correspondence reviewed-continue vancomycin and Zosyn and levofloxacin renally adjusted
Monitor leukocytosis
Intravenous fluids
Lactate trended
Continue pressors-norepinephrine, vasopressin, xtqztvboqxcyo-qkdfssmskkqh-bfgtvgib attempts at discontinuing
Random cortisol 86-no need for hydrocortisone
Continue to follow hemoglobin-transfused 1 unit /48-hour
INR elevated-continue to follow-improved
Vitamin K given with active bleeding and INR over 10
Transfuse as needed-has received 1 unit thus far
GI following-correspondence reviewed
Continue PPI
Low-grade DIC suspected
Place feeding tube
Nutrition per PEDIATRIC LICENSED PRACTICAL NURSE
Follow renal function
Nephrology following-correspondence reviewed-reviewed with Dr. Vazquez
Reviewed with nephrology-not a candidate for chronic renal replacement therapy
Atrial fibrillation rate controlled
Amiodarone reinitiated
Cardiology following-correspondence reviewed
Echocardiogram summarized below
Cardiac catheterization summarized below
DVT prophylaxis-mechanical
Begin nutrition via feeding tube
Early mobilization/bedside range of motion
Overall prognosis unfortunately quite poor, emphasis should be on comfort
Goals of care will continue to be discussed
Note: Dr. Jimenez had discussion with patient and family members 10/13/2023-patient wishes to be DNR-we will respect her wishes
Consider outpatient sleep disordered breathing/obstructive sleep apnea workup
Critical care statement: A total of 40 minutes of critical care time was provided for this patient today. This includes management of unstable vital signs, evaluation of the patient at bedside, reviewing the patient's pertinent medical records
including radiographs, intravenous fluid bolus management, pressor management, atrial fibrillation rate control management, microbiology, laboratory evaluations, and� discussion with primary team, consultants, pharmacy, nutrition, physical therapy,
case management, charge nurse, critical care nursing, and respiratory therapy.
Diagnostic data:
Chest x-ray 09/24/2023-NAD
Chest x-ray 10/05/2023-NAD
Chest x-ray 10/11/2023-right basilar airspace disease progressed
CT chest abdomen and pelvis 08/18-multiple bilateral pulmonary nodules stable, no new or enlarging pulmonary nodules, multiple low-attenuation splenic masses, now calcifying suggested treated metastatic lesions, cholelithiasis, fatty infiltration of
the liver
Echocardiogram 09/24/2023-EF 70-75%, mild mitral regurgitation, PA systolic 40-45
Cardiac catheterization 09/28/2023-mild noncritical CAD, 20-30% mid to distal stenosis LAD, 2030% lesion distal RPDA
Subjective Dataa
Subjective Data
Date of Service:
Date of Service: October 16, 2023
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
Subjective:
Opens eyes, no respiratory distress, FiO2 weaned, no chest pain or abdominal pain
Review of Systems
General: Other (Per HPI)
Objective Data
Data Reviewed
Vital Signs / I&O / Oxygen:
Vital Signs
Temp Pulse Resp BP Pulse Ox
98.4 F 92 22 92/69 99
10/16/23 04:08 10/16/23 04:00 10/16/23 04:00 10/16/23 04:00 10/16/23 05:56
Intake and Output
10/15/23 10/16/23 10/17/23
06:59 06:59 06:59
Intake Total 1657.8 / 1712.5 1826.7 / 1826.7
Output Total 465 / 480 540 / 540
Balance 1192.8 / 1232.5 1286.7 / 1286.7
SaO2 99
Nasal Cannula flow liters per 2
minute
Physical Exam
General: Respiratory Distress (n)
HEENT: Normocephalic, Anicteric and Moist Mucous Membranes
Cardiovascular: Regular Rhythm
Respiratory: Clear, Crackles (Basilar), Rhonchi (Expiratory), Non-Labored Respirations, Accessory Resp Muscle Use (n) and Stridor (n)
GI: Soft, Distended and Non Tender
Neurology: Awake, Alert, No Motor Deficits and Lethargic
Skin: Warm, Good Color, Cyanosis (n), Jaundice and Other (Cellulitis right lower extremity)
Labs/Micro/Reports
Lab Data
10/16/23 04:42
10/16/23 04:42
Laboratory Results
10/16/23
04:43
PT 22.6 H
INR 2.00
Microbiology
10/14/23 20:47 Blood/Venous Blood Culture - Preliminary
No Growth in 24 hours- Final report to follow
10/14/23 17:37 Blood/Venous Blood Culture - Preliminary
No Growth in 24 hours- Final report to follow
10/12/23 10:52 Blood/Venous Blood Culture - Preliminary
No Growth in 72 hours- Final report to follow
10/12/23 18:13 Urine Urine Culture - Final
Pseudomonas aeruginosa
Enterococcus faecium - VRE
10/12/23 12:19 Blood/Venous Blood Culture - Preliminary
Pseudomonas aeruginosa
10/12/23 12:19 Blood/Venous Gram Stain - Preliminary
10/12/23 10:42 Urine Urine Culture - Final
Pseudomonas aeruginosa
10/08/23 11:39 Blood/Venous Blood Culture - Final
No Growth - Final Report
10/08/23 10:41 Blood/Venous Blood Culture - Final
No Growth - Final Report
--- NOTE | 2023-10-16 07:17 | W.PN.HOSP.TC ---
Today's Communication/Plan
-
wean pressors as tolerated
diuresis as per Nephro
Amio gtt restarted
monitor H&H
cont abx as per ID
Cont ICU care
Assessment / Plan
Assessment / Plan
Physical Exam
General: No Apparent Distress and Appears Chronically Ill Morbidly obese
HEENT: Normocephalic and Atraumatic, dried blood noted inside mouth, bottom lip, nostrils b/l
Respiratory: Clear to Auscultation; Negative Wheezes
Cardiac: Irregular Irregular tachy
GI: Soft and Nontender
Musculoskeletal: RLE erythema tenderness, b/l lower edema +2
Derm: large right sided ecchymosis arms chest, large right torso blister draining
Neuro: Awake Alert Paucity of speech communications mostly via head gestures yes/no/shrug
Psych: Calm
Assessment:
Rapid Response Septic Shock overnight transferred to ICU 10/11
-Question possible worsening heart failure cardiorenal syndrome with increasing weight decreasing urine outpt increasing renal insufficiency
-on pressors weaning down phenylephrine, levophed, vasopressin
-consider scheduled midodrine when safe for PO meds as per ICU, antihypertensives including cardizem placed on hold
-initially on cefazolin as below prior to shock, abx were broaden to vanc and zosyn, Levaquin was added, eventually abx were narrowed to Zosyn Daptomycin as below
Blistering Right Torso likely dependent edema
-wound care consult appreciated
-cont wound care
Anxious overnight 10/13 started on precedex gtt with subsequent improvement
wean precedex as tolerated
Septic Shock Pseudomonas Bacteremia UTI
Positive Blood and Urine Cultures
Enterococcus faecium VRE urine
ID eval appreciated Cont Zosyn, Daptomycin, doxycycline added
Acute Hypoxic Respiratory Failure multifactorial 2/2 septic shock vs fluid overload ARF vs Heart Failure
wean O2 supplementation as tolerated, saturation goal 92%
Supratherapeutic INR 11 Coagulopathy likely due to Septic Shock
Overnight Hematemesis with associate coagulopathy 10/12
-anticoagulation placed on hold
-received Vit K, INR improving most recent 2.00
-Fibrinogen and D-Dimer elevation likely d/t Septic Shock
Previously evaluated for Acute GI bleed, exacerbated by Eliquis, this hospitalization
New Onset Hematemesis as above
- Received 2 unit PRBCs in total
- s/p EGD: showed esophageal, pre-pyloric ulcers
-H&H relatively stable drop to 7.8 noted improved with 1 PRBC transfusion to 9.2, H&H remains stable since
-GI consult appreciated
-H&H stable no further episodes hematemesis
-Protonix IV BID converted to Protonix gtt since converted back
-NPO to start tube feed nutrition as per ICU 10/14
Hypokalemia
- resolved with repletion
Perm Afib with RVR
- Eliquis placed on hold due to coagulopathy as above
- Cardio eval appreciated Cardizem discontinued in favor of Amiodarone IV infusion, heart rate since improved
-Amio briefly held as per Cardio with improvement in HR, however later resumed as tachycardia RVR returned
Recent NSTEMI 09/23
- noncritical CAD on recent cath
- peak trop 3.4, downtrended
Moderate�severe TR
Pulmonary HTN
Essential HTN/hypotension Hx
- Atenolol was recently stopped due to hypotension
-ARB placed on hold d/t rhonda as below
RHONDA on CKD stage III A
- Creat 1.1 progressively worsening 3.0, newly started Farxiga this hospitalization since discontinued, candesartan placed on hold
-Nephro eval appreciated
-cont diuresis as per Nephro Lasix 80 mg IV BID no significant response, switched to Lasix gtt rate increased
History proteinuria concern nephrotic syndrome
- previously on steroids, has abruptly stopped it herself along with prophylactic bactrim no longer taking
-Nephro eval appreciated
10/11 suspect Acute on Chronic HFpEF with possible new onset cardiorenal syndrome as above
LE edema
- most likely attributed to nephrotic syndrome but component of HFpEF chronically
- Lasix switched to IV as above
- Farxiga started but discontinued as above
- home candesartan placed on hold d/t worsening kidney function as above
- consider Aldactone in outpatient setting
acute on chronic Hyponatremia hypervolemic, possible ADH Excess in setting of hypotension
- cont treatment as per Nephro
Thrombocytopenia hx - initially resolved since returned following septic shock as above
-cont to monitor
Left foot cellulitis with underling PVD - this was resolved
New RLE Cellulitis this admission
Chronic venous stasis dermatitis
- completed IV Ancef course for LLE recently
- placed back on IV Ancef for RLE earlier this hospitatlization
- Venous US no clots
- Arterial US appreciated possible mild small vessel disease b/l LE
-ID eval appreciated cefazolin since discontinued in favor of broader empiric abx following development septic shock as above
COVID neg
CXR 10/10 (obtained to evaluate progressive leukocytosis prior to development shock 10/11) appreciated
Progressed mild right basilar airspace disease, possible developing pneumonia. Small right pleural effusion. No significant respiratory symptoms at the time however.
Hx metastatic endometrial cancer, followed by Dr. Goldstein
Hysterectomy 2018
Port right upper chest wall
Chemotherapy from 2019 to April 2023 stopped due to proteinuria per patient
IgM kappa MGUS
- Patient reports has next PET scan October 2023
Gout
- continue allopurinol 100 mg daily
Morbid obesity due to excess calorie consumption�BMI 50.1 kg
- Weight loss recommended
Constipation
- on bowel regimen, follow results
DVT ppx: Therapeutic INR
GI ppx: protonix
Code: Full
Prognosis Poor
sister Christianne currently admitted at [facility] severe cognitive impairment (she had gotten lost trying to drive to [place] in attempt to visit patient when she was transferred to ICU). Arturo further reports Christianne being discharged to [facility] 10/16/23.
discussed with patient's cousin Arturo DURON
Total Critical Care Time__55___ minutes. I was immediately available to the patient and staff. I personally examined, reviewed labs, diagnostic images/reports, interpretations, treatment plans, discussed patient care with other providers patient
and her cousin OLIVERIO Morris, entered orders as appropriate and documented the medical record. Family called but no answer received.
Anticipated Discharge: > 48 hours
Subjective/Interval History
-
Date of Service: October 16, 2023
Communication via head gestures yes/no/shrug. Appears uncomfortable. Awake alert. New dry blood noted nasal areas.
Objective Data
-
Labs:
Laboratory Results
10/16/23 10/16/23
04:42 04:43
WBC 41.5 H*
Hgb 9.0 L
Hct 25.8 L
Plt Count 73 L
PT 22.6 H
INR 2.00
Sodium 125 L
Potassium 4.4
Chloride 97 L
Carbon Dioxide 14 L*
BUN 87 H
Creatinine Pending
Glucose 82
Calcium 7.4 L
Vital Signs:
Vital Signs
Temp Pulse Resp BP Pulse Ox
98.4 F 92 22 92/69 99
10/16/23 04:08 10/16/23 04:00 10/16/23 04:00 10/16/23 04:00 10/16/23 05:56
I&O
10/15/23 10/16/23 10/17/23
06:59 06:59 06:59
Intake Total 1657.8 / 1712.5 1826.7 / 1826.7
Output Total 465 / 480 540 / 540
Balance 1192.8 / 1232.5 1286.7 / 1286.7
[2023-10-16 07:42] LABS: Estimated Creatinine Clearance 22 ml/min; eGFR 16.76
--- NOTE | 2023-10-16 08:01 | W.PN.NEPH.PH ---
Today's Communication / Plan
-
maintain lasix gtt
possible CRRT if bp stabilizes from AFIB
Assessment/Plan
-
IMP:
Acute GI bleed-s/p EGD: showed esophageal, pre-pyloric ulcers
Hypokalemia-resolved
Hyponatremia
CKD 3a
Nephrotic syndrome
Perm Afib with RVR
Recent NSTEMI 09/23-noncritical CAD on recent cath
Moderate�severe TR
Pulmonary HTN
Essential HTN/hypotension Hx
CKD stage III A
History proteinuria concern nephrotic syndrome
Chronic HFpEF
underling PVD
New RLE Cellulitis
Chronic venous stasis dermatitis
Metastatic endometrial carcinoma, managed by Dr. Goldstein, metastasis to spleen, doug hepatis and RP nodes, omentum, & lung
Hysterectomy 2018
Port right upper chest wall
Chemotherapy from 2019 to April 2023 stopped due to proteinuria per patient
IgM kappa MGUS-PET scan October 2023
Gout
Morbid obesity due to excess calorie consumption�BMI 50.1 kg
Hypoalbuminemia
Recent admit found to have nephrotic range proteinuria and pt was not candidate for biopsy -left AMA 09/28, retuned on 10/04 with symp afib
repeat U PCR shows improved only 0.6gm/gm of cr , TSH normal
since she was not candidate for kidney biopsy we planned to manage medically
Plan:
Hyponatremia unchanged, uop less then 500cc on lasix gtt
remains hemodynamically unstable
Suspected septic shock with pseudomonas bacteremia
Pressors to keep MAP>65 and or sbp >90 , on 2 currently, cortisol high appropriately, bp remains too low
metabolic acidosis worsening
no significant response to lasix 80 BID, will increase lasix gtt to 40mg/hr and possible add metolazone later today as long as BP stable
if renal function continue to worsens and remains oliguric likely need CRRT , remains on lasix gtt
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
today she is sedated for increased level of anxiety
h/h post PRBC, on PPI gtt with recent h/o GIB, AC held
wt unchanged and increasing O2 requirements
monitor met acidosis which is stable
echo noted with pulm HTN
abx per ICU, Pseudomonas bacteremia from UTI
d/w nursing and ICU
patient critically ill with hemodynamic instability requiring pressor support, with worsening RHONDA
patient too hemodynamically unstable with AFIB for CRRT at this time
will readdress later today
poor prognosis
CC time spent 32min
-
-
Date of Service: October 16, 2023
CC / HPI / ROS
-
Chief Complaint:
Hypoantremjia, CKD
History of Present Illness:
sodium down to 125
metabolic acidosis worsening
Hemodynamically unstable still on 2 pressor support in AFIB, IV amio
wt increasing
creatinine up to 2.8 UOP only 400cc with wayne
hgb better at 9 post PRBC
U and bld cx pseudomonas
WBC increasing
on Precedex gtt for anxiety
PLT count falling
Review of Systems:
no fevers
bleeding from nares
edema worsening
no pain
on O2 NC5.5lit
Labs
-
Labs:
WBC 41.5 10^3/uL (4.8-10.8) H* 10/16/23 04:42
RBC 2.63 10^6/uL (4.20-5.40) L 10/16/23 04:42
Hgb 9.0 g/dL (12.0-16.0) L 10/16/23 04:42
Hct 25.8 % (37.0-47.0) L 10/16/23 04:42
Plt Count 73 10^3/uL (130-400) L 10/16/23 04:42
Sodium 125 mmol/L (135-145) L 10/16/23 04:42
Potassium 4.4 mmol/L (3.5-5.1) 10/16/23 04:42
Chloride 97 mmol/L (98-107) L 10/16/23 04:42
Carbon Dioxide 14 mmol/L (22-30) L* 10/16/23 04:42
BUN 87 mg/dl (7-17) H 10/16/23 04:42
Creatinine 2.8 mg/dL (0.6-1.0) H 10/16/23 04:42
eGFR 16.76 10/16/23 04:42
Glucose 82 mg/dl (70-99) 10/16/23 04:42
Calcium 7.4 mg/dl (8.4-10.2) L 10/16/23 04:42
Phosphorus 4.1 mg/dl (2.5-4.5) 10/16/23 04:42
Fon-P-Voglrumqpjm Pept 4330 pg/ml 10/05/23 12:45
Albumin 2.0 g/dl (3.5-5.0) L 10/14/23 17:37
Physical Exam
-
Vital Signs:
Vital Signs
Temp Pulse Resp BP Pulse Ox
98.4 F 118 37 87/61 96
10/16/23 04:08 10/16/23 07:15 10/16/23 07:15 10/16/23 07:15 10/16/23 07:15
Cardiovascular:: Irregular rate and rhythm (tachy)
Respiratory:: Bilateral: Coarse
Lung Excursion:: Normal
Abdomen:: Nontender and Soft
Bowel Sounds:: Decreased
Extremity Edema:: +3: Bilateral:
Wayne Catheter: Yes
Other Findings::
gen: confused
[2023-10-16] MEDS: OFIRMEV 100 IV (08:27)
[2023-10-16] MEDS: PROTONIX IV 40 MG IV ×2 (08:29→19:52)
[2023-10-16] MEDS: NSS (PRESERVATIVE FREE) 10 ML IV ×2 (08:30→19:51)
--- NOTE | 2023-10-16 08:48 | W.PN.ID1 ---
Addendum entered and electronically signed by Dori Barillas MD 10/16/23 09:17:
VRE SDD to dapto, will double cover with doxycycline IV for present
Original Note:
Date of Service
Date of Service: October 16, 2023
Today's Communication
continue dapto/zosyn
Assessment / Plan
Septic Shock
Leukocytosis
UTI due to Pseudomonas, VRE
Bacteremia due to Pseudomonas
- repeat blood cultures x2 no growth to date
- lab getting dapto sensi on the VRE
- continue zosyn, daptomycin
- follow clinically
RLE Cellulitis - improving, unlikely to be the source of shock
RHONDA on CKD- progressive
Class III Obesity
Chronic lymphedema
- coverage as above
- follow clinically
- outpatient follow up with lymphedema center
Chief Complaint
-: Leukocytosis, UTI and Cellulitis
Subjective / Review of Systems
intermittent hypothermia ongoing
continued pressor requirement
stable leukocytosis
declining plt
acidosis ongoing
cr stable
repeat blood cultures no growth to date
Vital Signs / Physical Exam
Vital Signs
Vital Signs
Temp Pulse Resp BP Pulse Ox
98.7 F 118 37 87/61 96
10/16/23 08:13 10/16/23 07:15 10/16/23 07:15 10/16/23 07:15 10/16/23 07:15
Physical Exam
Constitutional: Acutely Ill and Chronically Ill
Cardiovascular: Regular Rate and S1/S2; Negative Murmur or Rub
Pulmonary: Clear and Symmetric; Negative Wheezes or Rales
Gastrointestinal: Soft, Non Tender, Non Distended and Normal Bowel Sounds
Skin: Warm and Dry; Negative Rash or Jaundice
Neurological: Negative Awake
Objective Data
Lab Data
Lab Results
10/16/23 04:42
10/16/23 04:42
PT 22.6 Sec (11.4-14.6) H 10/16/23 04:43
INR 2.00 10/16/23 04:43
APTT 44.0 Sec (23.4-35.0) H 10/12/23 09:26
Estimated Creat Clear 22 ml/min 10/16/23 04:42
Lactic Acid 3.4 mmol/L (0.7-2.0) H 10/13/23 11:11
Total Bilirubin 1.2 mg/dl (0.2-1.3) 10/12/23 13:19
AST 31 U/L (14-36) 10/12/23 13:19
ALT < 10 U/L (0-35) 10/12/23 13:19
Alkaline Phosphatase 84 U/L (38-126) 10/12/23 13:19
Most recent labs reviewed.
Micro Results:
10/14/23 20:47 Blood Culture - Preliminary
Blood/Venous No Growth in 24 hours- Final report to follow
10/14/23 17:37 Blood Culture - Preliminary
Blood/Venous No Growth in 24 hours- Final report to follow
10/12/23 10:52 Blood Culture - Preliminary
Blood/Venous No Growth in 72 hours- Final report to follow
10/12/23 18:13 Urine Culture - Final
Urine Pseudomonas aeruginosa
Enterococcus faecium - VRE
10/12/23 12:19 Blood Culture - Preliminary
Blood/Venous Pseudomonas aeruginosa
Gram Stain - Preliminary
10/12/23 10:42 Urine Culture - Final
Urine Pseudomonas aeruginosa
10/08/23 11:39 Blood Culture - Final
Blood/Venous No Growth - Final Report
10/08/23 10:41 Blood Culture - Final
Blood/Venous No Growth - Final Report
--- NOTE | 2023-10-16 09:05 | W.PN.CD ---
Today's Communication / Plan
-
resume IV amiodarone for A fib rate control
Impression / Plan
-
Assessment/Plan: 78-year-old female with permanent A-fib on Eliquis, recent NSTEMI with nonobstructive CAD at cath on September 28, 2023, hypertension, chronic HFpEF, metastatic endometrial Carcinoma, nephrotic proteinuria, chronic lymphedema b/l LE, and
obesity who is here with A-fib with RVR, worsening anemia/GI bleeding, and cellulitis who developed severe hypotension requiring multiple pressors.
Sepsis/septic Shock:
- Severe hypotension requiring multiple pressors
- Blood culture and urine culture from 10/12/2023 with Pseudomonas
- S/p ECHO 09/24/23 - LVEF 75% and cath 09/28/23 showing mild CAD with troponin leak of demand ischemia.
- Echo 10/12/23 - LVEF 55-60%, no RWMA, trivial pericardial effusion, moderate TR, PASP 50-55 mmHg; no significant change from echo 09/24/23.
-Antibiotics per ID/books salesperson.
AFib: permanent.
- RVR noted in setting of septic shock: resume IV amiodarone for rate control
- previously on diltiazem 240 mg daily but now on hold due to hypotension requiring pressors.
-[id number] 6 (hx HF, HTN, age2, vascular disease, female gender) - on Eliquis for OAC, but on HOLD due to anemia/GI bleed and INR greater than 8
-GI ok with resumption when needed
-remains NPO and INR 2.4
-can consider hep gtt when INR <2 if clinically improved, will hold off for today
HFpEF: acute on chronic.
- LVEDP was 19 at cath 09/28/23 at weight of 118 kg. Now weight is up to 128
- difficult situation with hypotension requiring pressors, and RHONDA.
- SGLT2-I added, but now held along with ARB due to RHONDA and hypotension.
-Diuretics and additional volume control measures being assessed by nephrology, ? CRRT
-No responding well to lasix gtt
Chronic LE edema likely from a mixture of proteinuria + lymphedema + some HFpEF, anasarca from septic shock:
- LVEDP 19 at cath 09/28/23 at weight of 118 kg, weight today is 127 kg.
-Challenging issues with volume removal considering hypotension. Patient also with creatinine 3.o and poor UOP.
- Outpatient consideration for referral to lymphedema compressive therapy, if clinical improvement
GI bleed/anemia
- EGD showed 2 very small esophageal ulcers with no bleeding, erosive gastropathy with no bleeding, and erythematous duodenodenopathy.
- Eliquis can be resumed when indicated.
- s/p PRBC's, follow CBC.
Acute nonischemic myocardial injury: trop this admit 0.156.
- secondary to septic shock and AF RVR.
- echo 10/12/23 with normal LVEF and no RWMA, as above.
- denies chest pain/sob.
- NSTEMI with peak troponin 3.4 on 09/24/23, s/p cath 09/28/23 with nonocclusive CAD, branch vessel disease.
- appropriate for consideration for statin therapy with goal LDL < 55. will discuss in follow up as an outpatient.
Respiratory insufficiency. Patient with O2 sat 100% on midflow at 6 L.
-mutlifacotial--_CHF, renal failure and volume ol with septic shock, PNAIn
-Continue to optimize respiratory status under direction of pulmonary
-Challenging volume control issues as noted above
RHONDA: Creatinine up to 3, poor uop
-per nephrology
Hyponatremia. Continue to monitor. Nephrology also following.
Metastatic endometrial carcinoma (stage 4), managed by Dr. Goldstein, metastasis to spleen, doug hepatis and RP nodes, omentum, & lung
Improved hypokalemia
Gout
Morbid obesity; affecting all aspects of care
CCT 35 minutes
Subjective:
Eyes open, but does not answer my questions.
Data:
Echo 09/24/2023: LVEF 70-75%, mild cLVH, mild MR, mod TR, PASP 40-45 mmHg
Cath 09/28/2023: (CP, peak trop 3.4): LVEDP 19 (at 118 kg), 20-30% mid-distal LAD, 60-70% p RV Marginal (branch of RCA).
Echo 10/12/23: LVEF 55-60%, no RWMA, trivial pericardial effusion, moderate TR, PASP 50-55 mmHg; no significant change from echo 09/24/23.
Physical Exam
Vital Signs/Labs
Vital Signs
Temp Pulse Resp BP Pulse Ox
98.7 F 118 37 87/61 96
10/16/23 08:13 10/16/23 07:15 10/16/23 07:15 10/16/23 07:15 10/16/23 07:15
10/15/23 10/16/23 10/17/23
06:59 06:59 06:59
Actual Weight 127.2 kg 127.7 kg
10/16/23 04:42
10/16/23 04:42
PT 22.6 Sec (11.4-14.6) H 10/16/23 04:43
INR 2.00 10/16/23 04:43
APTT 44.0 Sec (23.4-35.0) H 10/12/23 09:26
Magnesium 1.7 mg/dl (1.6-2.3) 10/16/23 04:42
10/05/23
12:45
Rhr-Y-Wjcnndfsqen Pept 4330
Physical Exam
Constitutional: Confusion
EENT: Moist mucous membranes
Cardiovascular: Rhythm/rate is irregular, Pedal edema present, JVD present and Systolic murmur present
Respiratory: Labored respirations
GI: Soft
Neuro/Psych: Other (awake but does not answer questions)
Data Reviewed
-
Date of Service: October 16, 2023
EKG: Other (Tele: A fib 80s)
Labs: Labs Reviewed by me
Critical Care Time (in minutes): 35
[2023-10-16] MEDS: VIBRAMYCIN 260 MG IV ×2 (09:41→21:27)
--- NOTE | 2023-10-16 10:28 | PTCARENOTE ---
pt drowsy , oriented to place , garbled speech , answers to only yes and no questions , pt Afib on monitor , HR 122 and up to 140s , pt to restart back on amiodarone gtt, seen by Dr Carrizales , pt hypotensive and added 3rd vasopressor for SBP> 90 or MAP>
65 , pt is currently on max of norepinephrine , Vasopressin of 0.03 mcg and Phenylephrine of 40mcg , pt is moaning at times and has facial grimacing , Ofirmev given , pt is oliguric , pt has +4 edema throughout , skin is weeping at upper
extremities , oral mucosa is bloody with clots , platelets are 73, WBC up to 41.5 , she is + for VRE , multiple comorbidities , discussion with Dr Vazquez re CRRT , at this current time pt is too unstable , risk vs benefit , will address the rapid
HR and hypotension and reconsider later , pt when asked if she would consider dialysis was unable to answer cognition is impaired , confirmed with chart and Dr Bean pt is a DNR
[2023-10-16] MEDS: LASIX 50 IV ×2 (10:43→23:09)
[2023-10-16] MEDS: PITRESSIN 100 IV ×2 (10:57→21:27)
[2023-10-16 11:10] LABS: Glucose - Point of Care 84 mg/dl (70-99)
[2023-10-16] MEDS: CORDARONE 518 MG IV (11:19)
--- NOTE | 2023-10-16 12:16 | PTCARENOTE ---
pt having bloody drainage from nose , pt had gauze placed in both nasal openings , pt was switched to a venti mask for 02 therapy , pt has large amts of serous fluid from R thigh blister site , linens changed , pt now on Amiodarone gtt as ordered
her HR is now 100
--- NOTE | 2023-10-16 12:28 | W.PN.UPDATE ---
Update Note
Progress Note Update
The patient is clinically deteriorating and appears to be in the dying process. As she is DNR and DNI and remains hemodynamically unstable on multiple pressor with active spontaneous bleeding, I do not believe CRRT is clinically reasonable to
pursue. I do not believe the procedure will be successful and will only prolong her suffering.
--- NOTE | 2023-10-16 12:58 | W.PN.UPDATE ---
Update Note
Progress Note Update
Discussed with patient's cousin OLIVERIO Morris regarding poor prognosis.
Patient's sister Pat being discharged to [facility] today.
Per Arturo, rehab facility will allow her to bring Pat to see patient tomorrow.
OLIVERIO Morris, aware of poor prognosis, in agreement with continuing current care for now, pressor support as necessary, amiodarone, oxygen supplementation, (in hopes patient's sister will be able to see patient tomorrow), but also agrees with
discontinuing further labwork, imaging, or invasive procedures at this time, aware patient may pass at any time despite current treatments.
--- NOTE | 2023-10-16 16:14 | CHAP ---
Sangeeta was awake, groaning from time to time. I held her hand, assured her of God's love for her, and asked if she'd like a prayer. She nodded. Offered Faith prayers and asked God's blessings for Sangeeta, her family, and the med staff.
--- NOTE | 2023-10-16 16:28 | PTCARENOTE ---
pt sister on phone and spoke to pt , pt continues on 3 vasopressors and Amiodarone , urine output minimal , pt moans at times with garbled speech , Dilaudid given for pain and now pt is asleep
--- NOTE | 2023-10-16 20:08 | PTCARENOTE ---
Assumed care of pt at 1900. Pt is A/O x2, drowsy, able to weakly shake/nod head appropriately. Moans intermittently, medicated for pain with PRN Dilaudid. 28% O2 via face tent, Spo2 has been around 96%. Pt still with large amount of dried blood in
back of mouth and around nose, nose currently packed with gauze as she was having epistaxis earlier in the day per offgoing RN. AFib low 100s on monitor. Received pt on 3 pressors: Levophed at 30mcg/min, Neosynephrine at 40mcg/min, Vasopressin at
0.03 units/min, as well as Amiodarone at 0.5mg/min, Lasix at 40mg/hr, and Precedex at 0.5 mcg/min. Physical assessment completed, see nursing shift assessment flowsheet for full details.
[2023-10-17] VITALS (26 sets, daily range): BP systolic 42–107; BP diastolic 18–71
--- NOTE | 2023-10-17 00:03 | PTCARENOTE ---
Assessment mostly unchanged. Pt less responsive, not moaning as much as in beginning of the shift. Shallow breathing noted, almost 'guppy breathing' at times. At one point SpO2 dropped to 70s--FiO2 increased to 35% (about 8 LPM) and sats recovered
to 93-94%. Continues on Levophed @ 30mcg/min, Vasopressin at 0.03 units/min, Neosynephrine, now up to 100mcg/min, as well as Amiodarone, Lasix, and Precedex drips. AFib 110s-120s on monitor.
[2023-10-17] MEDS: NEO-SYNEPHRINE 250 IV ×2 (00:08→05:29)
--- NOTE | 2023-10-17 01:25 | PTCARENOTE ---
Pt's SpO2 dropped to 62% on 35% FiO2/8LPM. O2 increased to 60%/10LPM, SpO2 now 97-98%. Pt's BP continues to be low despite titrating Neosynephrine up (now at 140mcg/min).
--- NOTE | 2023-10-17 02:26 | PTCARENOTE ---
Pt started desatting again to low 60s, increased O2 to 100% FiO2/10LPM, SpO2 still only 68%. HR in 130s. BP 57/25 most recently, is now maxed on Neosynephrine, Levophed, and Vasopressin. Discussed with Betzaida Penaloza NP, who is reaching out to pt's
niece Arturo to make her aware of changes and possible passing this shift.
[2023-10-17] MEDS: LEVOPHED 258 MG IV ×2 (03:52→08:26)
--- NOTE | 2023-10-17 04:47 | PTCARENOTE ---
Pt remains on 100% FiO2, at this time SpO2 is 100%. Pt minimally responsive. Continues on Levophed, Neosynephrine, Vasopressin all maxed. Most recent BP 49/38 with MAP 44. Pt's gown, pillow cases, and pads changed (pads under each limb and tucked
under right hip and left breast area), pt has been weeping copious amounts of serous fluid, and serosanguinous from left arm. Large Comfort[place] pad was left under patient, as pt is too tenuous to turn at this time--the goal is for her sister to be
able to see her this morning if pt is still living, and turning her will most likely expedite the dying process at this point.
[2023-10-17] MEDS: PITRESSIN 100 IV (05:29)
[2023-10-17] MEDS: PRECEDEX 100 IV (05:29)
[2023-10-17] MEDS: ZOSYN 50 IV (05:29)
--- NOTE | 2023-10-17 06:22 | PTCARENOTE ---
Pt noted to have had loose BM. Pt turned and cleaned, new sheet and comfort glide pad placed under patient, along with additional pads for absorption of serous fluid--previous pads were saturated with serous fluid.
--- NOTE | 2023-10-17 06:58 | W.PN.HOSP.TC ---
Today's Communication/Plan
-
Care updated to comfort measures as per family's wishes
starting dilaudid gtt d/t sob nonverbal unlikely to be able to report pain
patient will likely pass w/in 24 hours
Assessment / Plan
Assessment / Plan
Physical Exam
General: No Apparent Distress and Appears Chronically Ill Morbidly obese
HEENT: Normocephalic and Atraumatic, dried blood noted inside mouth, bottom lip, nostrils b/l
Respiratory: Clear to Auscultation; Negative Wheezes
Cardiac: Irregular Irregular tachy
GI: Soft and Nontender
Musculoskeletal: RLE erythema tenderness, b/l lower edema +2
Derm: large right sided ecchymosis arms chest, large right torso blister draining
Neuro: Nonverbal minimally responsive to tactile stimuli
Psych: Calm
Assessment:
10/16 Patient progressively deteriorating Septic Shock Acute Renal Failure, despite multiple abx pressor support lasix gtt
Family at bedside cousin OLIVERIO Morris and sister Christianne present, in agreement with pursuing comfort measures.
Patient converted to comfort measures as per patient's family's wishes. Patient herself nonverbal at this time, no capacity to make medical decisions for herself.
Care updated to comfort measures as per family's wishes.
when patient passes likely cause of multiorgan failure septic shock due to urinary tract infection onset days with contributing comorbid conditions atrial fibrillation chronic kidney disease stage III heart failure with preserved ejection
fraction Morbid Obesity
Rapid Response Septic Shock overnight transferred to ICU 10/11
-Question possible worsening heart failure cardiorenal syndrome with increasing weight decreasing urine outpt increasing renal insufficiency
-on pressors weaning down phenylephrine, levophed, vasopressin
-consider scheduled midodrine when safe for PO meds as per ICU, antihypertensives including cardizem placed on hold
-initially on cefazolin as below prior to shock, abx were broaden to vanc and zosyn, Levaquin was added, eventually abx were narrowed to Zosyn Daptomycin as below
Blistering Right Torso likely dependent edema
-wound care consult appreciated
-cont wound care
Anxious overnight 10/13 started on precedex gtt with subsequent improvement
wean precedex as tolerated
Septic Shock Pseudomonas Bacteremia UTI
Positive Blood and Urine Cultures
Enterococcus faecium VRE urine
ID eval appreciated Cont Zosyn, Daptomycin, doxycycline
Abx discontinued in lieu of comfort care as above
Acute Hypoxic Respiratory Failure multifactorial 2/2 septic shock vs fluid overload ARF vs Heart Failure
wean O2 supplementation as tolerated, saturation goal 92%
Supratherapeutic INR 11 Coagulopathy likely due to Septic Shock
Overnight Hematemesis with associate coagulopathy 10/12
-anticoagulation placed on hold
-received Vit K, INR improving most recent 2.00
-Fibrinogen and D-Dimer elevation likely d/t Septic Shock
Previously evaluated for Acute GI bleed, exacerbated by Eliquis, this hospitalization
New Onset Hematemesis as above
- Received 2 unit PRBCs in total
- s/p EGD: showed esophageal, pre-pyloric ulcers
-H&H relatively stable drop to 7.8 noted improved with 1 PRBC transfusion to 9.2, H&H remains stable since
-GI consult appreciated
-H&H stable no further episodes hematemesis
-Protonix IV BID converted to Protonix gtt since converted back
-NPO to start tube feed nutrition as per ICU 10/14, patient however was unable to tolerate
Hypokalemia
- resolved with repletion
Perm Afib with RVR
- Eliquis placed on hold due to coagulopathy as above
- Cardio eval appreciated Cardizem discontinued in favor of Amiodarone IV infusion, heart rate since improved
-Amio briefly held as per Cardio with improvement in HR, however later resumed as tachycardia RVR returned
Recent NSTEMI /
- noncritical CAD on recent cath
- peak trop 3.4, downtrended
Moderate�severe TR
Pulmonary HTN
Essential HTN/hypotension Hx
- Atenolol was recently stopped due to hypotension
-ARB placed on hold d/t rhonda as below
RHONDA on CKD stage III A
ARF 2/2 septic shock
- Creat 1.1 progressively worsening 3.0, newly started Farxiga this hospitalization since discontinued, candesartan placed on hold
-Nephro eval appreciated
-cont diuresis as per Nephro Lasix 80 mg IV BID no significant response, switched to Lasix gtt rate increased
History proteinuria concern nephrotic syndrome
- previously on steroids, has abruptly stopped it herself along with prophylactic bactrim no longer taking
-Nephro eval appreciated
10/11 suspect Acute on Chronic HFpEF with possible new onset cardiorenal syndrome as above
LE edema
- most likely attributed to nephrotic syndrome but component of HFpEF chronically
- Lasix switched to IV as above
- Farxiga started but discontinued as above
- home candesartan placed on hold d/t worsening kidney function as above
- consider Aldactone in outpatient setting
acute on chronic Hyponatremia hypervolemic, possible ADH Excess in setting of hypotension
- cont treatment as per Nephro
Thrombocytopenia hx - initially resolved since returned following septic shock as above
-cont to monitor
Left foot cellulitis with underling PVD - this was resolved
New RLE Cellulitis this admission
Chronic venous stasis dermatitis
- completed IV Ancef course for LLE recently
- placed back on IV Ancef for RLE earlier this hospitatlization
- Venous US no clots
- Arterial US appreciated possible mild small vessel disease b/l LE
-ID eval appreciated cefazolin since discontinued in favor of broader empiric abx following development septic shock as above
COVID neg
CXR 10/10 (obtained to evaluate progressive leukocytosis prior to development shock 10/11) appreciated
Progressed mild right basilar airspace disease, possible developing pneumonia. Small right pleural effusion. No significant respiratory symptoms at the time however.
Hx metastatic endometrial cancer, followed by Dr. Triston
Hysterectomy 2019
Port right upper chest wall
Chemotherapy from 2019 to April 2023 stopped due to proteinuria per patient
IgM kappa MGUS
- Patient reports has next PET scan October 2023
Gout
allopurinol 100 mg daily
Morbid obesity
Constipation
DVT ppx: Therapeutic INR
GI ppx: protonix
Code: Full
Prognosis Poor
sister Christianne currently admitted at [facility] severe cognitive impairment (she had gotten lost trying to drive to [place] in attempt to visit patient when she was transferred to ICU). Arturo further reports Christianne being discharged to [facility] 10/16/23.
discussed with patient's cousin Arturo DURON
Total Critical Care Time__55___ minutes. I was immediately available to the patient and staff. I personally examined, reviewed labs, diagnostic images/reports, interpretations, treatment plans, discussed patient care with other providers patient
and her cousin OLIVERIO Morris, entered orders as appropriate and documented the medical record. Family called but no answer received.
Anticipated Discharge: Within 24 hours
Subjective/Interval History
-
Date of Service: October 17, 2023
minimally responsive to tactile stimul nonverbal dyspneic
Objective Data
-
Labs:
Laboratory Results
10/17/23
06:00
WBC Pending
Hgb Pending
Hct Pending
Plt Count Pending
Sodium Pending
Potassium Pending
Chloride Pending
Carbon Dioxide Pending
BUN Pending
Creatinine Pending
Glucose Pending
Calcium Pending
Vital Signs:
Vital Signs
Temp Pulse Resp BP Pulse Ox
100.4 F H 110 24 69/31 96
10/17/23 03:38 10/17/23 06:07 10/17/23 06:07 10/17/23 06:07 10/17/23 06:31
I&O
10/15/23 10/16/23 10/17/23
06:59 06:59 06:59
Intake Total 1657.8 / 1712.5 1826.7 / 1905.0 3642.9 / 3642.9
Output Total 465 / 480 540 / 540 210 / 210
Balance 1192.8 / 1232.5 1286.7 / 1365.0 3432.9 / 3432.9
[2023-10-17] MEDS: NSS (PRESERVATIVE FREE) 10 ML IV (07:34)
[2023-10-17] MEDS: PROTONIX IV 40 MG IV (07:34)
--- NOTE | 2023-10-17 07:47 | W.PN.INTV ---
Today's Communication / Plan
Recommendations
Continue pressors
Antibiotics
Supportive care
Comfort a priority
Goals of care discussions-hospice would be appropriate
If patient transition to comfort care then staff midwife will sign off-please call with questions
Assessment
-
78-year-old female with recent NSTEMI presented with weakness and lightheadedness as well as rapid heart rate noted to be in atrial fibrillation and hypotension who developed decline in mental status and further hypotension requiring transfer to
ICU-staff midwife consulted for septic shock/critical care management 10/12/2023.
Assessment
Septic shock unresponsive to fluids requiring pressors
Right middle lobe pneumonia-aspiration risk
UTI and suspected urosepsis
Right lower extremity cellulitis
Leukocytosis
Lactic acidosis
Rapid atrial fibrillation
GI bleed exacerbated by Eliquis
Anemia due to acute blood vpop-zvxidhncso-iknmlarfth 8.4
Hypokalemia
Recent NSTEMI 09/24/2023
RHONDA
YRP-nfl-oexem
Recent acute on top of chronic heart failure preserved EF
Hyponatremia
Thrombocytopenia
Morbid obesity-BMI 50.1
Constipation
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
DNR
Conditions present prior to admission:
CAD
Uterine cancer diagnosed 2019 status post hysterectomy on chemo from 2019 until April 2023.
Pulmonary nodules
Splenic masses-metastatic disease-now calcified suggesting treated disease
Hypertension.�
PAF-on Eliquis
Obesity.�
Proteinuria.�
Gout.�
Morbid obesity-BMI 50.�
Obstructive sleep apnea suspected
Cholelithiasis
Fatty liver
Appendectomy.� Tonsillectomy.
Plan
Patient remains critically ill on 2 pressors with declining mental status
Supplemental oxygen as needed-slowly able to wean FiO2 requirements
BiPAP-did not tolerate well when provided 10/14/2023
Patient is a DNR-will not be intubated if continues to deteriorate
Aspiration precautions
Nebulizers if needed-currently not bronchospastic
Cultures reviewed
Last urine culture 09/24/2023-Klebsiella pneumoniae
Repeat urine culture 10/12/2023-Pseudomonas as well as VRE
MRSA screen 09/24/2023-negative
Blood cultures 10/08/2023 negative and positive for Pseudomonas on 10/12/2023
Empiric antibiotics-vancomycin, Zosyn and levofloxacin-changed to daptomycin on 10/15/2023
Infectious disease consultation-correspondence reviewed-continue vancomycin and Zosyn and levofloxacin renally adjusted
Monitor leukocytosis
Decrease IV fluids
Continue pressors-norepinephrine, vasopressin, wzajjphhnjsas-bxlbdgbwawal-fwmzrkey attempts at discontinuing
Note the patient's random cortisol 86-no need for hydrocortisone
Continue to follow hemoglobin-transfused 1 unit /72-hour
INR elevated-continue to follow-improved
Vitamin K given with active bleeding and INR over 10
Transfuse as needed-has received 1 unit thus far
GI following-correspondence reviewed
Continue PPI
Note: Low-grade DIC suspected
Nasogastric feeding tube zcftnfvqo-xokuqtanmnyp-fgiajnq refused after a couple attempts
Monitor renal function
Nephrology following-correspondence reviewed-reviewed with Dr. Vazquez
Reviewed with nephrology-not a candidate for chronic renal replacement therapy
Atrial fibrillation rate controlled
Amiodarone has been reinitiated
Cardiology following-correspondence reviewed
Echocardiogram summarized below
Cardiac catheterization summarized below
DVT prophylaxis-mechanical
Begin nutrition via feeding tube
Early mobilization/bedside range of motion
Overall prognosis unfortunately quite poor, emphasis is on comfort
Goals of care being discussed with primary team and family-hospice would be appropriate
Note: Dr. Jimenez had discussion with patient and family members 10/13/2023-patient wishes to be DNR-we will respect her wishes
Critical care statement: A total of 35 minutes of critical care time was provided for this patient today. This includes management of unstable vital signs, evaluation of the patient at bedside, reviewing the patient's pertinent medical records
including radiographs, intravenous fluid bolus management, pressor management, atrial fibrillation rate control management, microbiology, laboratory evaluations, and� discussion with primary team, consultants, pharmacy, nutrition, physical therapy,
case management, charge nurse, critical care nursing, and respiratory therapy.
Diagnostic data:
Chest x-ray 09/24/2023-NAD
Chest x-ray 10/05/2023-NAD
Chest x-ray 10/11/2023-right basilar airspace disease progressed
CT chest abdomen and pelvis 08/18-multiple bilateral pulmonary nodules stable, no new or enlarging pulmonary nodules, multiple low-attenuation splenic masses, now calcifying suggested treated metastatic lesions, cholelithiasis, fatty infiltration of
the liver
Echocardiogram 09/24/2023-EF 70-75%, mild mitral regurgitation, PA systolic 40-45
Cardiac catheterization 09/28/2023-mild noncritical CAD, 20-30% mid to distal stenosis LAD, 2030% lesion distal RPDA
Subjective Dataa
Subjective Data
Date of Service:
Date of Service: October 17, 2023
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
Subjective:
More unresponsive, some agonal breathing, review of systems unobtainable
Review of Systems
General: Unobtainable - Pat Unresp
Objective Data
Data Reviewed
Vital Signs / I&O / Oxygen:
Vital Signs
Temp Pulse Resp BP Pulse Ox
99.7 F 110 24 69/31 96
10/17/23 07:00 10/17/23 06:07 10/17/23 06:07 10/17/23 06:07 10/17/23 06:31
Intake and Output
10/16/23 10/17/23 10/18/23
06:59 06:59 06:59
Intake Total 1826.7 / 1905.0 3642.9 / 3798.5 155.6 / 155.6
Output Total 540 / 540 210 / 210
Balance 1286.7 / 1365.0 3432.9 / 3588.5 155.6 / 155.6
SaO2 96
Nasal Cannula flow liters per 2
minute
Physical Exam
General: Respiratory Distress (n)
HEENT: Normocephalic, Anicteric and Moist Mucous Membranes
Cardiovascular: Regular Rhythm
Respiratory: Clear, Crackles (Basilar), Rhonchi (Expiratory), Non-Labored Respirations, Accessory Resp Muscle Use (n) and Stridor (n)
GI: Soft, Distended and Non Tender
Neurology: Awake, Alert, No Motor Deficits and Lethargic
Skin: Warm, Good Color, Cyanosis (n), Jaundice and Other (Cellulitis right lower extremity)
Labs/Micro/Reports
Microbiology
10/12/23 10:52 Blood/Venous Blood Culture - Preliminary
Positive culture in progress
10/14/23 20:47 Blood/Venous Blood Culture - Preliminary
No Growth in 48 hours- Final report to follow
10/14/23 17:37 Blood/Venous Blood Culture - Preliminary
No Growth in 48 hours- Final report to follow
10/12/23 18:13 Urine Urine Culture - Final
Pseudomonas aeruginosa
Enterococcus faecium - VRE
10/12/23 12:19 Blood/Venous Blood Culture - Preliminary
Pseudomonas aeruginosa
10/12/23 12:19 Blood/Venous Gram Stain - Preliminary
10/12/23 10:42 Urine Urine Culture - Final
Pseudomonas aeruginosa
--- NOTE | 2023-10-17 07:57 | W.PN.NEPH.PH ---
Today's Communication / Plan
-
Discontinue IV Lasix gtt
For comfort care
Assessment/Plan
-
IMP:
Acute GI bleed-s/p EGD: showed esophageal, pre-pyloric ulcers
Hypokalemia-resolved
Hyponatremia
CKD 3a
Nephrotic syndrome
Perm Afib with RVR
Recent NSTEMI 09/23-noncritical CAD on recent cath
Moderate�severe TR
Pulmonary HTN
Essential HTN/hypotension Hx
CKD stage III A
History proteinuria concern nephrotic syndrome
Chronic HFpEF
underling PVD
New RLE Cellulitis
Chronic venous stasis dermatitis
Metastatic endometrial carcinoma, managed by Dr. Goldstein, metastasis to spleen, doug hepatis and RP nodes, omentum, & lung
Hysterectomy 2018
Port right upper chest wall
Chemotherapy from 2019 to April 2023 stopped due to proteinuria per patient
IgM kappa MGUS-PET scan October 2023
Gout
Morbid obesity due to excess calorie consumption�BMI 50.1 kg
Hypoalbuminemia
Recent admit found to have nephrotic range proteinuria and pt was not candidate for biopsy -left AMA 09/28, retuned on 10/04 with symp afib
repeat U PCR shows improved only 0.6gm/gm of cr , TSH normal
since she was not candidate for kidney biopsy we planned to manage medically
Plan:
Urine output without meaningful output
Will discontinue Lasix drip as patient is actively dying
remains hemodynamically unstable on multiple pressor
Suspected septic shock with pseudomonas bacteremia
No more labs course would not be palliative
We will sign off
-
-
Date of Service: October 17, 2023
CC / HPI / ROS
-
Chief Complaint:
Hypoantremjia, CKD
History of Present Illness:
sodium down
metabolic acidosis worsening
Hemodynamically unstable on multiple pressor
U and bld cx pseudomonas
WBC increasing
on Precedex gtt for anxiety
PLT count falling
Review of Systems:
no fevers
bleeding from nares
edema worsening
no pain
On nonrebreather
Labs
-
Labs:
eGFR 16.76 10/16/23 04:42
Ouh-K-Seqtjcjeyow Pept 4330 pg/ml 10/05/23 12:45
Albumin 2.0 g/dl (3.5-5.0) L 10/14/23 17:37
Physical Exam
-
Vital Signs:
Vital Signs
Temp Pulse Resp BP Pulse Ox
99.7 F 110 24 69/31 96
10/17/23 07:00 10/17/23 06:07 10/17/23 06:07 10/17/23 06:07 10/17/23 06:31
Cardiovascular:: Irregular rate and rhythm
Respiratory:: Bilateral: Coarse
Lung Excursion:: Normal
Abdomen:: Nontender and Soft
Bowel Sounds:: Decreased
Extremity Edema:: +3: Bilateral:
Mtz Catheter: Yes
--- NOTE | 2023-10-17 08:19 | W.PN.ID1 ---
Date of Service
Date of Service: October 17, 2023
Today's Communication
- continue zosyn and doxycycline - when transitions to comfort can stop both; stopped daptomycin
Assessment / Plan
Septic Shock
Leukocytosis
UTI due to Pseudomonas, VRE
Bacteremia due to Pseudomonas
- repeat blood cultures x2 no growth to date
- continue zosyn and doxycycline - when transitions to comfort can stop both; stopped daptomycin
RLE Cellulitis - improving, unlikely to be the source of shock
RHONDA on CKD- progressive
Class III Obesity
Chronic lymphedema
- coverage as above
Chief Complaint
-: Leukocytosis, UTI and Cellulitis
Subjective / Review of Systems
borderline febrile - no further hypothermia
phenyleph increased, norepi down, vaso on
family visiting today and transitioning to comfort care
Vital Signs / Physical Exam
Vital Signs
Vital Signs
Temp Pulse Resp BP Pulse Ox
99.7 F 110 24 69/31 96
10/17/23 07:00 10/17/23 06:07 10/17/23 06:07 10/17/23 06:07 10/17/23 06:31
Physical Exam
Constitutional: Acutely Ill and Chronically Ill
Cardiovascular: Regular Rate
Pulmonary: Symmetric and Non Labored
Gastrointestinal: Non Distended
Skin: Dry; Negative Rash or Jaundice
Objective Data
Lab Data
PT 22.6 Sec (11.4-14.6) H 10/16/23 04:43
INR 2.00 10/16/23 04:43
APTT 44.0 Sec (23.4-35.0) H 10/12/23 09:26
Estimated Creat Clear 22 ml/min 10/16/23 04:42
Lactic Acid 3.4 mmol/L (0.7-2.0) H 10/13/23 11:11
Total Bilirubin 1.2 mg/dl (0.2-1.3) 10/12/23 13:19
AST 31 U/L (14-36) 10/12/23 13:19
ALT < 10 U/L (0-35) 10/12/23 13:19
Alkaline Phosphatase 84 U/L (38-126) 10/12/23 13:19
Most recent labs reviewed.
Micro Results:
10/12/23 10:52 Blood Culture - Preliminary
Blood/Venous Positive culture in progress
10/14/23 20:47 Blood Culture - Preliminary
Blood/Venous No Growth in 48 hours- Final report to follow
10/14/23 17:37 Blood Culture - Preliminary
Blood/Venous No Growth in 48 hours- Final report to follow
10/12/23 18:13 Urine Culture - Final
Urine Pseudomonas aeruginosa
Enterococcus faecium - VRE
10/12/23 12:19 Blood Culture - Preliminary
Blood/Venous Pseudomonas aeruginosa
Gram Stain - Preliminary
10/12/23 10:42 Urine Culture - Final
Urine Pseudomonas aeruginosa
10/08/23 11:39 Blood Culture - Final
Blood/Venous No Growth - Final Report
10/08/23 10:41 Blood Culture - Final
Blood/Venous No Growth - Final Report
[2023-10-17] MEDS: DILAUDID 0.25 MG IV (08:29)
--- NOTE | 2023-10-17 09:11 | W.PN.CD ---
Today's Communication / Plan
-
Agree with transition to comfort care.
Discussed with ICU team and hospitalist.
Impression / Plan
-
Assessment/Plan: 78-year-old female with permanent A-fib on Eliquis, recent NSTEMI with nonobstructive CAD at cath on September 28, 2023, hypertension, chronic HFpEF, metastatic endometrial Carcinoma, nephrotic proteinuria, chronic lymphedema b/l LE, and
obesity who is here with A-fib with RVR, worsening anemia/GI bleeding, and cellulitis who developed severe hypotension requiring multiple pressors.
Patient is critically ill with multi system organ failure. Agree with transition to comfort care.
Sepsis/septic Shock
AFib: permanent.
HFpEF: acute on chronic.
Chronic LE edema likely from a mixture of proteinuria + lymphedema + some HFpEF, anasarca from septic shock:
GI bleed/anemia
Acute nonischemic myocardial injury
Respiratory insufficiency.
RHONDA
Hyponatremia
Metastatic endometrial carcinoma (stage 4), managed by Dr. Goldstein, metastasis to spleen, doug hepatis and RP nodes, omentum, & lung
Improved hypokalemia
Gout
Morbid obesity; affecting all aspects of care
CCT 30 minutes
Subjective:
Does not respond.
Data:
Echo 09/24/2023: LVEF 70-75%, mild cLVH, mild MR, mod TR, PASP 40-45 mmHg
Cath 09/28/2023: (CP, peak trop 3.4): LVEDP 19 (at 118 kg), 20-30% mid-distal LAD, 60-70% p RV Marginal (branch of RCA).
Echo 10/12/23: LVEF 55-60%, no RWMA, trivial pericardial effusion, moderate TR, PASP 50-55 mmHg; no significant change from echo 09/24/23.
Physical Exam
Vital Signs/Labs
Vital Signs
Temp Pulse Resp BP Pulse Ox
99.7 F 111 26 71/59 96
10/17/23 07:00 10/17/23 08:15 10/17/23 08:15 10/17/23 08:15 10/17/23 08:15
10/16/23 10/17/23 10/18/23
06:59 06:59 06:59
Actual Weight 127.7 kg
10/17/23 06:00
10/17/23 06:00
PT 22.6 Sec (11.4-14.6) H 10/16/23 04:43
INR 2.00 10/16/23 04:43
APTT 44.0 Sec (23.4-35.0) H 10/12/23 09:26
Magnesium Cancelled 10/17/23 06:00
10/05/23
12:45
Ccq-D-Kulwxzssotx Pept 4330
Physical Exam
Constitutional: Confusion
Cardiovascular: Rhythm/rate is irregular, Pedal edema present and JVD present
Respiratory: Labored respirations
Neuro/Psych: Other (does not respond)
Data Reviewed
-
Date of Service: October 17, 2023
EKG: Other (Tele: A FIB, avg HR 100)
Labs: Labs Reviewed by me
--- NOTE | 2023-10-17 10:29 | W.PN.DEATH ---
Pronouncement of
-
Called to see patient to pronounce.
No spontaneous heart tones or respirations noted.
Patient not responsive to verbal stimuli.
Patient is pronounced .
Time of : 09:51
Date of : 10/17/23
Cause of : Multiorgan Failure 2/2 Septic Shock Urinary tract infection onset days, significant comorbidities contributing Heart Failure with preserved Ejection Fraction, recent gastrointestinal bleed, atrial fibrillation, history chronic kidney
disease stage III, Nephrotic Syndrome, Peripheral Vascular Disease, Coronary Artery Disease
Family Notified: Yes (Pt's cousin OLIVERIO Morris & sister Christianne arteaga, condolences extended )
--- NOTE | 2023-10-17 10:44 | W.DCSUMMARY ---
Discharge Summary
Discharge Data
Date of Admission: 10/05/23
Date of Discharge: 10/17/23
-
Pending Results: No
Hospital Course
78F status post NSTEMI with cardiac cath 5 days ago (prior to this hospitalization) with no critical coronary disease. She was reporting weakness, lightheadedness with rapid heart rate that started in a.m.. She was noted to be in rapid A-fib on
arrival with hypotension which self resolved without intervention. She was noted to have heme positive black stools on Eliquis with hemoglobin drop from 9.3-8.3 in 7 days. Denied fever, chills, chest pain, palpitations, shortness of breath, cough,
abdominal pain, nausea, vomit, diarrhea. PMHx included NSTEMI noncritical CAD 09/24/2023, permanent A-fib, HTN/hypotension, moderate to severe TR, pulm HTN, CKD stage III A, proteinuria, nephrotic syndrome, lower extremity edema, thrombocytopenia,
left foot cellulitis with underlying PVD, metastatic endometrial cancer status post hysterectomy/chemo, gout, morbid obesity, hyperglycemia. Evaluated for Acute GI bleed, patient received total 2 unit PRBCs over the course of hospitalization. EGD
showed esophageal, pre-pyloric ulcers. Left foot cellulitis with underling PVD previously resolved, new RLE Cellulitis this admission, Chronic venous stasis dermatitis, completed IV Ancef course for LLE recently, placed back on IV Ancef. Venous US
noted no clots. Arterial US appreciated possible mild small vessel disease b/l LE. Hx HTN,Atenolol stopped due to hypotension. ARB placed on hold d/t rhonda. Patient was also being evaluated treated by Nephro for acute on chronic Hyponatremia
hypervolemic, possible ADH Excess in setting of hypotension. Rapid Response Septic Shock overnight transferred to ICU 10/11 likely worsening heart failure cardiorenal syndrome with increasing weight decreasing urine outpt increasing renal
insufficiency. On pressors,Septic Shock Pseudomonas Bacteremia UTI, Positive Blood and Urine Cultures, Enterococcus faecium VRE urine, ID evaluated and antibiotics were adjusted to empiric Zosyn, Daptomycin, doxycycline. RHONDA on CKD stage III A,
ARF 2/2 septic shock, Creat 1.1 progressively worsen 3.0, newly started Farxiga this hospitalization since discontinued, candesartan placed on hold. Diuresis was increased as per Nephro recommendations from Lasix 80 mg IV BID, no significant
response, then switched to Lasix gtt and rate increased. Acute Hypoxic Respiratory Failure multifactorial 2/2 septic shock vs fluid overload ARF vs Heart Failure, oxygen supplementation was provided for goal 92%. Supratherapeutic INR 11
Coagulopathy likely due to Septic Shock Overnight Hematemesis with associate coagulopathy 10/12, anticoagulation was placed on hold, received Vit K, INR improving most recent 2.00. Fibrinogen and D-Dimer elevation likely d/t Septic Shock. Perm
Afib with RVR, Eliquis placed on hold due to coagulopathy as above. Cardio evaluated and Cardizem was discontinued in favor of Amiodarone IV infusion, heart rate since improved. 10/16 Patient progressively deteriorating Septic Shock Acute Renal
Failure, despite multiple abx pressor support lasix gtt. Family at bedside cousin OLIVERIO Morris and sister Christianne present, in agreement with pursuing comfort measures. Patient herself nonverbal at the time, no capacity to make medical decisions for
herself. Care updated to comfort measures as per family's wishes. Patient soon passed, cause of multiorgan failure septic shock due to urinary tract infection onset days with contributing comorbid conditions atrial fibrillation chronic
kidney disease stage III heart failure with preserved ejection fraction Morbid Obesity. Family was notified and condolences were extended.
Discharge Plan
-
Patient Disposition:
Date/Time
Date/Time: 10/17/23 09:51
Discharge Date and Time
Discharge Date/Time: 10/17/23 11:31
Print Language: BELIZEAN
--- NOTE | 2023-10-17 11:05 | CHAP ---
Called by nurse to be with distraut family, as Sangeeta was actively dying. Provided emotional support. Sangeeta's sister, Juhi, initially calm and composed, was overcome when discussing the medical situation with the doctor. Juhi was rushed to ED; I
guided cousin, Arturo, and her , Bentley, to ED to support Juhi. When Juhi was doing better, Arturo and I returned to ICU to pray with Sangeeta. We offered prayers from the [employer], commending Sangeeta to God and thanking Him for her life and
love, then made the sign of the Cross on her forehead. I accompanied Arturo back to ED.
--- NOTE | 2023-10-17 11:07 | PTCARENOTE ---
Rec'd pt at 0700. Pt minimally responsive. Monitor Afib on Amio gtts. Sean/Levo/Vaso infusing via TIMOTHY PICC. Lungs sct coarseness, pox 96% on 80% face tent. Pt with increased WOB, PRN Dilaudid given. Pt's family in to see pt, decision made for comfort
care. 0951-pt . GOL notified, postmortem care completed.
== END 2023-10-17 11:31 | disposition expired | DRG 380 ==
LOC: ICU 15:08
PROVIDERS: Clinical Nurse Specialist Family Health; Internal Medicine; Nurse Practitioner Family; Nurse Practitioner Primary Care; Physician Assistant; Radiology Diagnostic Radiology; Registered Nurse; ADMITTING PHYSICIAN Internal Medicine; ATTENDING PHYSICIAN Internal Medicine; CONSULT PHYSICIAN Internal Medicine; CONSULT PHYSICIAN Internal Medicine Cardiovascular Disease; CONSULT PHYSICIAN Internal Medicine Critical Care Medicine; EMERGENCY PHYSICIAN Emergency Medicine; FAMILY PHYSICIAN Internal Medicine; OTHER PHYSICIAN Student in an Organized Health Care Education/Training Program
PROC: 30233N1 Transfusion of Nonautologous Red Blood Cells into Peripheral Vein, Percutaneous Approach (ICD-10-PCS; 2023-10-05)
PROC: 0DB68ZX Excision of Stomach, Via Natural or Artificial Opening Endoscopic, Diagnostic (ICD-10-PCS; 2023-10-07)
PROC: 05H533Z Insertion of Infusion Device into Right Subclavian Vein, Percutaneous Approach (ICD-10-PCS; 2023-10-12)
PROC: 5A09357 Assistance with Respiratory Ventilation, Less than 24 Consecutive Hours, Continuous Positive Airway Pressure (ICD-10-PCS; 2023-10-14)
DX: K22.11 Ulcer of esophagus with bleeding (principal); A41.9 Sepsis, unspecified organism; I21.4 Non-ST elevation (NSTEMI) myocardial infarction; R65.21 Severe sepsis with septic shock; I50.33 Acute on chronic diastolic (congestive) heart failure; J96.01 Acute respiratory failure with hypoxia; D62 Acute posthemorrhagic anemia; I48.21 Permanent atrial fibrillation; I13.0 Hypertensive heart and chronic kidney disease with heart failure and stage 1 through stage 4 chronic kidney disease, or unspecified chronic kidney disease; Z68.43 Body mass index [BMI] 50.0-59.9, adult; I5A Non-ischemic myocardial injury (non-traumatic); L03.115 Cellulitis of right lower limb; E87.1 Hypo-osmolality and hyponatremia; N17.9 Acute kidney failure, unspecified; D68.32 Hemorrhagic disorder due to extrinsic circulating anticoagulants; N39.0 Urinary tract infection, site not specified; E87.20 Acidosis, unspecified; D68.9 Coagulation defect, unspecified; Z16.21 Resistance to vancomycin; Z51.5 Encounter for palliative care; N18.31 Chronic kidney disease, stage 3a; E87.6 Hypokalemia; I87.2 Venous insufficiency (chronic) (peripheral); D47.2 Monoclonal gammopathy; I07.1 Rheumatic tricuspid insufficiency; I27.20 Pulmonary hypertension, unspecified; D69.6 Thrombocytopenia, unspecified; I73.9 Peripheral vascular disease, unspecified; I25.10 Atherosclerotic heart disease of native coronary artery without angina pectoris; K76.0 Fatty (change of) liver, not elsewhere classified; G62.9 Polyneuropathy, unspecified; K80.20 Calculus of gallbladder without cholecystitis without obstruction; K44.9 Diaphragmatic hernia without obstruction or gangrene; K31.89 Other diseases of stomach and duodenum; E66.01 Morbid (severe) obesity due to excess calories; K59.00 Constipation, unspecified; B95.2 Enterococcus as the cause of diseases classified elsewhere; B96.5 Pseudomonas (aeruginosa) (mallei) (pseudomallei) as the cause of diseases classified elsewhere; I89.0 Lymphedema, not elsewhere classified; G47.33 Obstructive sleep apnea (adult) (pediatric); M10.9 Gout, unspecified; Z79.01 Long term (current) use of anticoagulants; Z11.52 Encounter for screening for COVID-19; Z85.42 Personal history of malignant neoplasm of other parts of uterus; Z92.21 Personal history of antineoplastic chemotherapy; Z88.8 Allergy status to other drugs, medicaments and biological substances; Z85.43 Personal history of malignant neoplasm of ovary; Z87.441 Personal history of nephrotic syndrome; Z80.49 Family history of malignant neoplasm of other genital organs; Z82.3 Family history of stroke; Z66 Do not resuscitate
CPT/HCPCS: 88305; 93308; 71045; 71046; 80048; 80053; 80069; 80076; 80202; 81003; 81015; 82330; 82533; 82550; 82570; 82607; 82746; 82805; 82962; 83605; 83735; 83880; 83930; 83935; 84100; 84145; 84156; 84295; 84300; 84443; 84484; 85014; 85018; 85025; 85027; 85049; 85379; 85384; 85610; 85730; 86850; 86900; 86901; 86920; 87040; 87077; 87086; 87149; 87186; 87205; 87811; 93005; 93922; 93925; 94640; 94660; 96374; 96376; 97110; 97163; 97167; 97530; 99291; J0878; J1205; P9016; P9047